=== PATIENT | female | born 1955 ===

== ENCOUNTER 2016-07-29 09:46 | Day surgery (SDC) | payer MEDICARE, MEDICAID ==
[2016-07-29 09:54] VITALS: BMI 21.7
[2016-07-29 10:41] VITALS: RESP 18
[2016-07-29 11:11] LABS: HEMATOCRIT 33.3 % (34.0-47.0); MEAN CORPUSCULAR HEMOGLOBIN 28.9 pg (27.0-31.0); MEAN CORPUSCULAR HGB CONC 32.1 g/dL (33.0-37.0); RED CELL DISTRIBUTION WIDTH 15.5 % (11.5-14.5); WHITE BLOOD COUNT 6.2 K/uL (4.8-10.8)
[2016-07-29 11:21] LABS: BILIRUBIN,TOTAL 0.3 mg/dl (0.2-1.3); CALCIUM 9.4 mg/dL (8.4-10.2); POTASSIUM 4.4 MMOL/L (3.6-5.0); TOTAL PROTEIN 8.9 G/DL (6.3-8.2)
[2016-07-29 11:36] LABS: PARTIAL THROMBOPLASTIN TIME 29.5 SECONDS (23.3-32.5)
[2016-07-29] MEDS ORDERED: Iodixanol 320 MG/ML 100 ML BOTTLE IV ONE (12:31)
[2016-07-29] MEDS ORDERED: Midazolam 2 MG/2 ML VIAL ONE (12:37)
[2016-07-29] MEDS ORDERED: Lidocaine 1% Inj (20ml) ONE (12:45)
--- NOTE | 2016-07-29 14:56 | CP.SDSHP ---
Same Day Surgery H & P - History Proposed Procedure: Right percutaneous nephrostomy tube change Pre-Op Diagnosis: Ureteral obstruction - Allergies Allergies: Allergies No Known Allergies Allergy (Verified 07/29/16 10:04) - Physical Exam Vital Signs: Vital Signs 07/29/16 07/29/16 10:39 12:45 Temperature 98.4 F 98.0 F Pulse Rate 71 80 Respiratory 18 18 Rate Blood Pressure 109/64 117/57 L O2 Sat by Pulse 97 100 Oximetry Mental Status: Alert & Oriented x3 Neuro: WNL Heart: WNL - Impression Impression: Pt with right perc. nephrostomy tube referred for PCN change. Plan nephrostogram and PCN change. Pt. Evaluated Today:Candidate for Anesthesia & Procedure: No (ASA 2 Malampati 2 ) - Date & Time Date: 07/29/16 Time: 13:00 Short Stay Discharge - Short Stay Discharge Admitting Diagnosis/Reason for Visit: HYDRONEPHROSIS Referrals: Delbert Jacobs MD [Primary Care Provider] - Progress Note/Discharge Note with Instructions: S/P right PCN change.
--- NOTE | 2016-07-29 14:58 | PCM.SURG1 ---
Surgeon's Initial Post Op Note - Surgeon's Notes Surgeon: Ru Moreno MD Bridal Service Sales And Management: NONE Type of Anesthesia: IV Sedation Pre-Operative Diagnosis: Ureteral obstruction Operative Findings: Antegrade nephrostogram showed severe stenosis of the distal ureteral. A guidewire was passed across the stenotic ureteral segment. Post-Operative Diagnosis: Ureteral obstruction Operation Performed: Nephrostogram, perc. nephrostomy tube change. Specimen/Specimens Removed: NONE Estimated Blood Loss: EBL {In ML}: 0 Blood Products Given: N/A Drains Used: No Drains Post-Op Condition: Good Date of Surgery/Procedure: 07/29/16 Time of Surgery/Procedure: 13:40
[2016-07-29 15:33] VITALS: BP 114/65; PULSE 86; TEMP 97.6; O2SAT 98
== END 2016-07-29 16:00 | disposition home or self-care (01) ==
LOC: H.OPSURG 09:46
PROVIDERS: ATTEND Urology
DX: N13.39 Other hydronephrosis (principal); I10 Essential (primary) hypertension
CPT/HCPCS: 36415; 75984; 80053; 85027; 85610; 85730; C1725; C1729; C1769; J2250; J3010; Q9967

== ENCOUNTER 2016-11-11 10:43 | Day surgery (SDC) | payer MEDICARE, MEDICAID ==
[2016-11-11 12:36] LABS: PARTIAL THROMBOPLASTIN TIME 28.5 Seconds (25.6-37.1)
[2016-11-11] MEDS ORDERED: Iodixanol 320 MG/ML 100 ML BOTTLE IV ONE (13:43)
--- NOTE | 2016-11-11 13:46 | CP.SDSHP ---
Same Day Surgery H & P - History Proposed Procedure: Nephrostomy tube change. Pre-Op Diagnosis: Ureteral obstruction - Allergies Allergies: Allergies No Known Allergies Allergy (Verified 07/29/16 10:04) - Physical Exam Vital Signs: Vital Signs 11/11/16 11/11/16 12:07 13:43 Temperature 98.4 F 97.1 F L Pulse Rate 71 79 Respiratory 18 16 Rate Blood Pressure 112/59 L 135/65 O2 Sat by Pulse 99 100 Oximetry Mental Status: Alert & Oriented x3 Neuro: WNL Heart: WNL Lungs: WNL - Impression Impression: Pt with right PCN referred for nephrostomy tube change. Plan right PCN change. Pt. Evaluated Today:Candidate for Anesthesia & Procedure: No Short Stay Discharge - Short Stay Discharge Admitting Diagnosis/Reason for Visit: HYDRONEPHROSIS Referrals: Delbert Jacobs MD [Primary Care Provider] -
[2016-11-11] MEDS ORDERED: Lidocaine 1% Inj (20ml) ONE (13:53)
--- NOTE | 2016-11-11 14:24 | PCM.SURG1 ---
Surgeon's Initial Post Op Note - Surgeon's Notes Surgeon: Ru Moreno MD Post Acute Care Registered Nurse: NONE Type of Anesthesia: Local Pre-Operative Diagnosis: Right ureteral obstruction Operative Findings: Right ureteral obstruction. Post-Operative Diagnosis: Right ureteral obstruction Operation Performed: Right percutaneous nephrostomy change. Specimen/Specimens Removed: NONE Estimated Blood Loss: EBL {In ML}: 0 Blood Products Given: N/A Drains Used: No Drains Post-Op Condition: Good Date of Surgery/Procedure: 11/11/16 Time of Surgery/Procedure: 14:20
[2016-11-11 15:51] VITALS: BP 123/56; PULSE 67; RESP 18; TEMP 97.8; O2SAT 98
== END 2016-11-11 16:00 | disposition home or self-care (01) ==
LOC: H.OPSURG 10:43
PROVIDERS: ATTEND Urology
DX: N13.39 Other hydronephrosis (principal)
CPT/HCPCS: 36415; 75984; 85610; 85730; C1729; C1769; Q9967

== ENCOUNTER 2017-02-14 10:22 | Day surgery (SDC) | payer MEDICARE, MEDICAID ==
[2017-02-14 10:38] VITALS: BMI 21.0
[2017-02-14 10:55] VITALS: RESP 18
[2017-02-14 11:29] LABS: BASO # 0.1 K/uL (0.0-0.2); EOS # 0.2 K/uL (0.0-0.7); EOS % 3.5 % (0.0-4.0); HEMATOCRIT 34.3 % (34.0-47.0); LYMPH # 1.1 K/uL (1.0-4.3); LYMPH % 19.8 % (20.0-40.0); MEAN CELL VOLUME 88.1 fl (81.0-99.0); MEAN CORPUSCULAR HEMOGLOBIN 28.5 pg (27.0-31.0); MEAN CORPUSCULAR HGB CONC 32.4 g/dL (33.0-37.0); MEAN PLATELET VOLUME 9.7 fl (7.2-11.7); MONO # 0.6 K/uL (0.0-0.8); NEUT # 3.8 K/uL (1.8-7.0); NEUT % 65.7 % (50.0-75.0); NRBC % 0.2 % (0.0-0.0); RED CELL DISTRIBUTION WIDTH 17.2 % (11.5-14.5); WHITE BLOOD COUNT 5.8 K/uL (4.8-10.8)
[2017-02-14 11:39] LABS: CALCIUM 9.3 mg/dL (8.4-10.2); POTASSIUM 3.9 MMOL/L (3.6-5.0)
[2017-02-14 11:41] LABS: PARTIAL THROMBOPLASTIN TIME 32.2 Seconds (25.6-37.1)
[2017-02-14] MEDS ORDERED: Iodixanol 320 MG/ML 100 ML BOTTLE IV ONE (12:47)
[2017-02-14] MEDS ORDERED: Midazolam 2 MG/2 ML VIAL ONE (13:01)
[2017-02-14] MEDS ORDERED: Lidocaine 1% Inj (20ml) ONE (13:07)
--- NOTE | 2017-02-14 13:25 | CP.SDSHP ---
Same Day Surgery H & P - History Proposed Procedure: Right PCN change Pre-Op Diagnosis: Cervical cancer with ureteral stricture AND hydronephrosis - Allergies Allergies: Allergies No Known Allergies Allergy (Verified 02/14/17 10:38) - Physical Exam Vital Signs: Vital Signs 02/14/17 02/14/17 10:53 10:56 Temperature 99.3 F Pulse Rate 74 74 Respiratory 18 Rate Blood Pressure 116/60 O2 Sat by Pulse 96 Oximetry Mental Status: Alert & Oriented x3 Neuro: WNL Heart: WNL Lungs: WNL - Impression Impression: Pt with h/o cervical cancer and ureteral stricture. Plan right PCN change. Pt. Evaluated Today:Candidate for Anesthesia & Procedure: Yes - Date & Time Date: 02/14/17 Time: 12:55 Short Stay Discharge - Short Stay Discharge Admitting Diagnosis/Reason for Visit: HYDRONEPHROSIS Referrals: Delbert Jacobs MD [Primary Care Provider] -
--- NOTE | 2017-02-14 13:27 | PCM.SURG1 ---
Surgeon's Initial Post Op Note - Surgeon's Notes Surgeon: Ru Moreno MD Flatwork Washer: NONE Type of Anesthesia: IV Sedation Pre-Operative Diagnosis: Cervical cancer with ureteral stricture AND hydronephrosis Operative Findings: Right nephrostogram showed mid ureterla obstruction. No flow of contrast into the distal ureter. Post-Operative Diagnosis: Cervical cancer with ureteral stricture AND hydronephrosis Operation Performed: Right PCN change. A new 8 fr PCN was placed. Specimen/Specimens Removed: NONE Estimated Blood Loss: EBL {In ML}: 1 Blood Products Given: N/A Drains Used: No Drains Post-Op Condition: Good Date of Surgery/Procedure: 02/14/17 Time of Surgery/Procedure: 13:20
[2017-02-14] MEDS ORDERED: HYDROmorphone 0.5 mg/0.5 ml ISec IVP PRN (13:34)
[2017-02-14] MEDS ORDERED: Lactated Ringer's 1,000 ML IV SCH (13:45)
[2017-02-14] MEDS ORDERED: LACTATED RINGER S IV ONE (14:00)
[2017-02-14 14:57] VITALS: TEMP 98; O2SAT 100
[2017-02-14 15:37] VITALS: BP 124/64; PULSE 94
== END 2017-02-14 15:40 | disposition home or self-care (01) ==
LOC: H.OPSURG 10:22
PROVIDERS: ATTEND Urology
DX: N13.1 Hydronephrosis with ureteral stricture, not elsewhere classified (principal)
CPT/HCPCS: 36415; 50432; 75984; 80048; 85025; 85610; 85730; C1729; C1769; J2250; J3010; J7120; Q9967

== ENCOUNTER 2017-05-26 11:24 | Day surgery (SDC) | payer MEDICARE, MEDICAID ==
[2017-05-26 11:36] VITALS: BMI 20.2
[2017-05-26 12:08] LABS: HEMOGLOBIN 11.4 g/dL (12.0-16.0); MEAN CELL VOLUME 88.3 fl (81.0-99.0); MEAN CORPUSCULAR HEMOGLOBIN 28.9 pg (27.0-31.0); MEAN CORPUSCULAR HGB CONC 32.8 g/dL (33.0-37.0); RBC 3.94 Mil/uL (3.80-5.20); RED CELL DISTRIBUTION WIDTH 17.9 % (11.5-14.5); WHITE BLOOD COUNT 6.8 K/uL (4.8-10.8)
[2017-05-26 12:09] LABS: PROTHROMBIN TIME 12.3 Seconds (9.8-13.1)
[2017-05-26 12:10] LABS: INR 1.1 (0.9-1.2); PARTIAL THROMBOPLASTIN TIME 32.2 Seconds (25.6-37.1)
[2017-05-26 12:17] LABS: ALB/GLOB RATIO 0.9 (1.0-2.1); ALBUMIN 4.2 g/dL (3.5-5.0); CALCIUM 9.4 mg/dL (8.4-10.2)
[2017-05-26] MEDS ORDERED: Lidocaine 1% Inj (20ml) ONE (12:45)
[2017-05-26] MEDS ORDERED: Iodixanol 320 MG/ML 100 ML BOTTLE IV ONE (13:05)
[2017-05-26] MEDS ORDERED: Midazolam 2 MG/2 ML VIAL ONE (13:20)
[2017-05-26] MEDS ORDERED: Propofol 10 mg/ml Inj (20 ML) ONE (13:20)
--- NOTE | 2017-05-26 13:38 | CP.SDSHP ---
Same Day Surgery H & P - History Proposed Procedure: Right nephrostogram and nephrostomy tube change Pre-Op Diagnosis: Ureteral obstruction - Allergies Allergies: Allergies No Known Allergies Allergy (Verified 05/26/17 11:39) - Physical Exam Vital Signs: Vital Signs 05/26/17 05/26/17 05/26/17 12:17 12:26 13:07 Temperature 98.4 F 98.4 F Pulse Rate 68 18 L 70 Respiratory 18 18 Rate Blood Pressure 107/60 145/74 O2 Sat by Pulse 100 100 Oximetry Mental Status: Alert & Oriented x3 Neuro: WNL Heart: WNL Lungs: WNL - {Optional Preform as Required} Abdomen: WNL - Impression Impression: Pt with ureteral obstruction and no output from right perc. nephrostomy tube. Plan Right nephrostogram and nephrostomy tube change. Informed consent obtained. Pt. Evaluated Today:Candidate for Anesthesia & Procedure: Yes (ASA 3 Malampati 3) - Date & Time Date: 05/26/17 Time: 13:00 Short Stay Discharge - Short Stay Discharge Admitting Diagnosis/Reason for Visit: HYDRONEPHROSIS RT Disposition: HOME/ ROUTINE Referrals: Delbert Jacobs MD [Primary Care Provider] -
--- NOTE | 2017-05-26 13:40 | PCM.SURG1 ---
Surgeon's Initial Post Op Note - Surgeon's Notes Surgeon: Ru Moreno MD Building Maintenance Worker: NONE Type of Anesthesia: IV Sedation Pre-Operative Diagnosis: Ureteral obstruction Operative Findings: Nephrostogram showed existing PCN partially out of the kidney. Antegrade nephrostogram showed severe distal ureteral stricture. Post-Operative Diagnosis: Ureteral obstruction Operation Performed: Right nephrostogram and nephrostomy tube change. A new 8 fr PCN placed. Specimen/Specimens Removed: none Estimated Blood Loss: EBL {In ML}: 1 Blood Products Given: N/A Drains Used: No Drains Post-Op Condition: Fair Date of Surgery/Procedure: 05/26/17 Time of Surgery/Procedure: 13:35
[2017-05-26] MEDS ORDERED: Sodium Chloride 0.9% 500 ML IV ONE (13:43)
[2017-05-26 15:09] VITALS: BP 115/72; PULSE 73; RESP 18; TEMP 97.4; O2SAT 100
--- NOTE | 2017-05-27 14:42 | VASCULAR ---
PROCEDURE: Date of procedure: 05/26/2017 Procedure: 1. Right antegrade nephrostogram 2. Exchange of right percutaneous nephrostomy tube Medications: Patient was sedated by anesthesiologist along with physiologic monitoring, 6 cc 2% Lidocaine. Radiation:9.09 mGy Fluoro time: 75.9 seconds EBL: 2 cc HISTORY: Right ureteral obstruction, no drainage from existing nephrostomy tube TECHNIQUE: Following informed consent the procedure time-out, patient was placed prone on the interventional table. The patient right nephrostomy tube and surrounding skin were prepped and draped in the usual sterile fashion. Dilute contrast injected through existing nephrostomy tube showed position to be partially out of the kidney. Nephrostomy tube was removed over guidewire. The angle catheter was advanced over the wire and positioned within the ureter an antegrade nephrostogram performed. Antegrade nephrostogram showed severe distal ureteral stricture. There is moderate to severe hydronephrosis. A new 8 Portuguese nephrostomy tube was advanced over the wire and formed within the renal pelvis. The tube was secured to patient's skin with 2 0 Prolene sutures. IMPRESSION: Right antegrade nephrostogram gram showed severe distal ureteral stricture. A new 8 Portuguese nephrostomy tube was placed.
== END 2017-05-26 15:50 | disposition home or self-care (01) ==
LOC: H.OPSURG 11:24
PROVIDERS: ATTEND Urology
DX: N13.39 Other hydronephrosis (principal); N13.5 Crossing vessel and stricture of ureter without hydronephrosis
CPT/HCPCS: 36415; 50435; 80053; 85027; 85610; 85730; A4310; A4357; C1729; C1769; J2250; J2704; J3010; J7040; Q9967

== ENCOUNTER 2017-09-12 09:34 | Day surgery (SDC) | payer MEDICARE, MEDICAID ==
[2017-09-12 09:52] VITALS: BMI 20.5
[2017-09-12 10:06] VITALS: RESP 18
[2017-09-12 11:34] LABS: BASO % 0.7 % (0.0-2.0); EOS # 0.2 K/uL (0.0-0.7); EOS % 3.4 % (0.0-4.0); HEMOGLOBIN 9.8 g/dL (12.0-16.0); LYMPH # 1.1 K/uL (1.0-4.3); LYMPH % 21.2 % (20.0-40.0); MEAN CORPUSCULAR HEMOGLOBIN 28.3 pg (27.0-31.0); MEAN CORPUSCULAR HGB CONC 32.5 g/dL (33.0-37.0); MEAN PLATELET VOLUME 9.2 fl (7.2-11.7); MONO # 0.6 K/uL (0.0-0.8); MONO % 10.6 % (0.0-10.0); NEUT # 3.5 K/uL (1.8-7.0); NEUT % 64.1 % (50.0-75.0); NRBC % 0.1 % (0.0-0.0); RBC 3.48 Mil/uL (3.80-5.20); RED CELL DISTRIBUTION WIDTH 16.3 % (11.5-14.5); WHITE BLOOD COUNT 5.4 K/uL (4.8-10.8)
[2017-09-12 11:38] LABS: CALCIUM 9.2 mg/dL (8.4-10.2)
[2017-09-12 11:48] LABS: INR 1.1 (0.9-1.2); PARTIAL THROMBOPLASTIN TIME 31.5 Seconds (25.6-37.1); PROTHROMBIN TIME 11.8 Seconds (9.8-13.1)
[2017-09-12] MEDS ORDERED: Iodixanol 320 MG/ML 100 ML BOTTLE IV ONE (13:05)
--- NOTE | 2017-09-12 13:06 | CP.SDSHP ---
Same Day Surgery H & P - History Proposed Procedure: Nephrostomy tube change Pre-Op Diagnosis: Ureteral obstruction - Allergies Allergies: Allergies No Known Allergies Allergy (Verified 09/12/17 09:50) - Physical Exam Vital Signs: Vital Signs 09/12/17 09:55 Temperature 98.3 F Pulse Rate 74 Respiratory 18 Rate Blood Pressure 124/61 O2 Sat by Pulse 99 Oximetry Mental Status: Alert & Oriented x3 Neuro: WNL Heart: WNL Lungs: WNL - Impression Impression: Pt with right PCN present for routine change. Plan right PCN change. Pt. Evaluated Today:Candidate for Anesthesia & Procedure: No - Date & Time Date: 09/12/17 Time: 13:00 Short Stay Discharge - Short Stay Discharge Admitting Diagnosis/Reason for Visit: HYDRONEPHROSIS Referrals: Delbert Jacobs MD [Primary Care Provider] -
[2017-09-12] MEDS ORDERED: Lidocaine 1% Inj (20ml) ONE (13:08)
--- NOTE | 2017-09-12 13:19 | PCM.SURG1 ---
Surgeon's Initial Post Op Note - Surgeon's Notes Surgeon: Ru Moreno MD Architectural Engineer: NONE Type of Anesthesia: Local Pre-Operative Diagnosis: Ureteral obstruction Operative Findings: Right nephrostogram showd no hydronephrosis. PCN in place. Post-Operative Diagnosis: Ureteral obstruction Operation Performed: Right perc. nephrostomy tube change. New 8 fr tube placed. Specimen/Specimens Removed: none Estimated Blood Loss: EBL {In ML}: 1 Blood Products Given: N/A Drains Used: No Drains Post-Op Condition: Good Date of Surgery/Procedure: 09/12/17 Time of Surgery/Procedure: 13:10
[2017-09-12 13:58] VITALS: BP 119/55; PULSE 76; TEMP 98.2; O2SAT 99
--- NOTE | 2017-09-13 14:14 | VASCULAR ---
Date of procedure: 09/12/2017 Procedure: 1. Right antegrade nephrostogram 2. Exchange of right percutaneous nephrostomy tube Medications: Patient was sedated by anesthesiologist along with physiologic monitoring, 6 cc 2% Lidocaine. Radiation: 1.24 mGy Fluoro time: 13.8 seconds EBL: 0 cc HISTORY: Right ureteral obstruction, nephrostomy tube change TECHNIQUE: Following informed consent the procedure time-out, patient was placed prone on the interventional table. The patient right nephrostomy tube and surrounding skin were prepped and draped in the usual sterile fashion. Dilute contrast injected through existing nephrostomy tube showed position to be within the kidney. Nephrostomy tube was removed over guidewire. A new 8 Ghanaian nephrostomy tube was advanced over the wire and formed within the renal pelvis. The tube was secured to patient's skin with 2 0 Prolene sutures. IMPRESSION: Exchange of right percutaneous nephrostomy tube with placement of a new 8 Ghanaian nephrostomy tube.
== END 2017-09-12 13:40 | disposition home or self-care (01) ==
LOC: H.OPSURG 09:34
PROVIDERS: ATTEND Urology
DX: N13.30 Unspecified hydronephrosis (principal)
CPT/HCPCS: 36415; 50435; 80048; 85025; 85610; 85730; A4310; C1729; C1769; Q9967

== ENCOUNTER 2017-11-19 22:11 | Emergency (ER) | payer MEDICARE, MEDICAID ==
[2017-11-19 22:12] VITALS: BMI 20.5
[2017-11-19] MEDS ORDERED: Sodium Chloride 0.9% 1,000 ML IV STA (23:01)
[2017-11-19 23:54] LABS: BASO # 0.1 K/uL (0.0-0.2); BASO % 0.7 % (0.0-2.0); EOS # 0.1 K/uL (0.0-0.7); EOS % 0.7 % (0.0-4.0); HEMOGLOBIN 10.1 g/dL (12.0-16.0); LYMPH # 1.1 K/uL (1.0-4.3); LYMPH % 11.8 % (20.0-40.0); MEAN CORPUSCULAR HGB CONC 32.9 g/dL (33.0-37.0); MEAN PLATELET VOLUME 9.2 fl (7.2-11.7); MONO # 0.4 K/uL (0.0-0.8); MONO % 4.6 % (0.0-10.0); NEUT # 7.7 K/uL (1.8-7.0); NEUT % 82.2 % (50.0-75.0); RBC 3.75 Mil/uL (3.80-5.20); RED CELL DISTRIBUTION WIDTH 16.4 % (11.5-14.5); WHITE BLOOD COUNT 9.4 K/uL (4.8-10.8)
[2017-11-20 01:30] LABS: ALB/GLOB RATIO 0.9 (1.0-2.1); ALBUMIN 3.7 g/dL (3.5-5.0); CALCIUM 8.9 mg/dL (8.4-10.2)
--- NOTE | 2017-11-20 01:44 | ED PDOC ---
HPI:Nausea, Vomiting, Diarrhea Time Seen by Provider: 11/19/17 22:45 Chief Complaint (Nursing): GI Problem Chief Complaint (Provider): GI Problem History Per: Patient History/Exam Limitations: no limitations Onset/Duration Of Symptoms: Hrs (x 8) Current Symptoms Are (Timing): Still Present Context: Food Quality Of Discomfort: "Pain" Associated Symptoms: Chills, Vomiting, Loss Of Appetite Additional Complaint(s): 62 year old female with a history of UTI, cervical and lung cancer, HTN and kidney stones presents to the ED with chills, loss of appetite and 4 episodes of nonbloody, nonbilious vomiting after eating pizza at 6pm last night. Notes she saw PMD yesterday, was diagnosed with UTI and started on Macrobid. Her last dose was 9:30am. Patient has had child catheter in place for 2 years secondary to complications of radiation therapy/hydronephrosis. Also complains of mild epigastric pain while vomiting. Denies fever, cough/shortness of breath, chest pain, headache, numbness, weakness and dizziness. PMD: Dr. Jacobs Past Medical History Reviewed: Historical Data, Nursing Documentation, Vital Signs Vital Signs: Last Vital Signs Temp 98.7 F 11/19/17 22:31 Pulse 90 11/19/17 22:31 Resp 19 11/19/17 22:31 BP 112/67 11/19/17 22:31 Pulse Ox 98 11/19/17 22:31 - Medical History PMH: Anemia, Anxiety, Depression, HTN, Kidney Stones, Malignancy (lung CA and cervical CA ), Chronic Kidney Disease (kidney stones; rt nephrostomy) - Surgical History Other surgeries: tubal ligation and left lung lobectomy - Family History Family History: States: Unknown Family Hx - Social History Current smoker - smoking cessation education provided: No Alcohol: None Drugs: Denies - Home Medications Home Medications: Ambulatory Orders Medication Instructions Recorded Calcitriol [Rocaltrol] 0.25 mcg PO MWF #0 sgl 10/20/15 Folic Acid 1 mg PO DAILY 03/25/16 Loperamide [Loperamide HCl] 2 mg PO PRN PRN 03/25/16 Zolpidem [Ambien] 5 mg PO HS 03/25/16 amLODIPine [Norvasc] 5 mg PO DAILY 11/11/16 Metoprolol Tartrate [Lopressor] 50 mg PO BID 05/26/17 Ondansetron ODT [Zofran ODT] 4 mg PO Q6 PRN #12 odt 11/20/17 - Allergies Allergies/Adverse Reactions: Allergies Allergy/AdvReac Type Severity Reaction Status Date / Time No Known Allergies Allergy Verified 11/19/17 22:12 Review of Systems ROS Statement: Except As Marked, All Systems Reviewed And Found Negative Constitutional: Positive for: Chills, Other (loss of appetite). Negative for: Fever Gastrointestinal: Positive for: Vomiting (x 4), Abdominal Pain Physical Exam - Reviewed Nursing Documentation Reviewed: Yes Vital Signs Reviewed: Yes - Physical Exam Appears: Positive for: Well, Non-toxic, No Acute Distress Head Exam: Positive for: ATRAUMATIC, NORMAL INSPECTION, NORMOCEPHALIC Skin: Positive for: Normal Color, Warm, Dry Eye Exam: Positive for: Normal appearance, EOMI, PERRL ENT: Positive for: Other (Mucus membranes moist. Airway patent, (-) stridor.) Neck: Positive for: Painless ROM, Supple Cardiovascular/Chest: Positive for: Regular Rate, Rhythm. Negative for: Murmur Respiratory: Positive for: Normal Breath Sounds. Negative for: Accessory Muscle Use, Respiratory Distress Gastrointestinal/Abdominal: Positive for: Bowel Sounds (active x4), Soft, Tenderness (mild epigastric tenderness), Other (child catheter in place with leg bag). Negative for: Distended, Guarding, Rebound Back: Negative for: L CVA Tenderness, R CVA Tenderness, Vertebral Tenderness Extremity: Positive for: Normal ROM. Negative for: Deformity Neurologic/Psych: Positive for: Alert, Oriented (x 3), Gait (steady in ED). Negative for: Motor/Sensory Deficits, Aphasia, Facial Droop - Laboratory Results Result Diagrams: 11/19/17 23:50 11/20/17 01:13 - ECG O2 Sat by Pulse Oximetry: 98 (RA) Pulse Ox Interpretation: Normal Medical Decision Making Medical Decision Makin:00 Impression: nausea and vomiting, UTI Plan: --IV access --EKG --CMP --Lipase --CBC --NS IV --Pepcid 20 mg IVP --Toradol 15 mg IVP --Zofran Inj 4 mg IVP --Blood culture Accucheck: 129 0100 Labs reviewed and unchanged from prior ED visits. Patient reports significant improvement of symptoms at this time. Resolution of nausea, denies abdominal pain. Tolerating PO intake at this time. 0150 EKG: NSR @ 72bpm, (-) ST elevation, (+) RBBB, QTc 451 0300 On exam, patient remains AAOx3, in no acute distress. Lungs clear to auscultation, cardiac RRR, abdomen soft, non-tender, repeat neuro exam shows no focal findings. VSS, stable for discharge. Patient advised to continue antibiotics from PMD until complete. Lab/Diagnostic results d/w the patient in great detail. Diagnosis of nausea and vomiting, UTI d/w the patient. Based on history, exam and diagnostic results, plan will be for outpatient follow up with PMD. Patient instructed to follow-up with pmd / referral provided / the clinic in 1- 2 days without fail. Advised to take medication as prescribed. Return to the emergency room at any time for any new or worsening symptoms. Patient states she fully agrees with and understands discharge instructions. States that she agrees with the plan and disposition. Verbalized and repeated discharge instructions and plan. I have given the patient opportunity to ask any additional questions. Scribe Attestation: Documented by Divya Lopez acting as a scribe for Soheila Maciel PA-C Provider Scribe Attestation: All medical record entries made by the Scribe were at my direction and personally dictated by me. I have reviewed the chart and agree that the record accurately reflects my personal performance of the history, physical exam, medical decision making, and the department course for this patient. I have also personally directed, reviewed, and agree with the discharge instructions and disposition. Disposition - Clinical Impression Clinical Impression: UTI (urinary tract infection), Nausea and vomiting - Patient ED Disposition Is Patient to be Admitted: No Counseled Patient/Family Regarding: Studies Performed, Diagnosis, Need For Followup, Rx Given - Disposition Referrals: Delbert Jacobs MD [Family Provider] - Disposition: Routine/Home Disposition Time: 03:07 Condition: STABLE Additional Instructions: The emergency medical care you received today was directed towards the acute presenting symptoms. If you were prescribed any medication, please fill it and give as directed. It may take several days for your symptoms to resolve. Return to the Emergency Department at any time if symptoms worsen, do not improve, or if any other problems arise. Please contact your doctor in 2 days for re-evaluation and follow up / or call one of the physicians/clinics you have been referred to that are listed on the Patient Visit Information form that is included in your discharge packet. Bring any paperwork you were given at discharge with you along with any medications to your follow up visit. Our treatment cannot replace ongoing medical care by a primary care provider (PCP) outside of the emergency department. CONTINUE ANTIBIOTICS FROM PMD. Prescriptions: Ondansetron ODT [Zofran ODT] 4 mg PO Q6 PRN #12 odt PRN Reason: Nausea/Vomiting Instructions: Urinary Tract Infection, Adult (DC), [place] Diet, Nausea and Vomiting, Adult (DC) Forms: [place] ([place]ian) Print Language: FINNISH - POA Present On Arrival: Cath Associated UTI Results - Lab Results Lab Results: 11/20/17 11/19/17 11/19/17 01:13 23:50 23:27 WBC 9.4 D RBC 3.75 L Hgb 10.1 L Hct 30.8 L MCV 82.0 D MCH 27.0 MCHC 32.9 L RDW 16.4 H Plt Count 274 MPV 9.2 Neut % (Auto) 82.2 H Lymph % (Auto) 11.8 L Kay % (Auto) 4.6 Eos % (Auto) 0.7 Baso % (Auto) 0.7 Neut # (Auto) 7.7 H Lymph # (Auto) 1.1 Kay # (Auto) 0.4 Eos # (Auto) 0.1 Baso # (Auto) 0.1 Sodium 137 Potassium 4.3 Chloride 109 H Carbon Dioxide 21 L Anion Gap 11 BUN 19 H Creatinine 1.7 H Est GFR ( Amer) 37 Est GFR (Non-Af Amer) 30 POC Glucose (mg/dL) 129 H Random Glucose 113 H Calcium 8.9 Total Bilirubin 0.2 AST 21 ALT 21 Alkaline Phosphatase 83 Total Protein 7.9 Albumin 3.7 Globulin 4.2 H Albumin/Globulin Ratio 0.9 L Lipase 56
--- NOTE | 2017-11-20 08:03 | CARD ---
APPROVED REPORT Date of service: 11/20/2017 <Conclusion> Normal sinus rhythm with sinus arrhythmia Right bundle branch block Left anterior fascicular block Bifascicular block Minimal voltage criteria for LVH, may be normal variant Septal infarct, age undetermined Abnormal ECG
[2017-11-20 08:28] VITALS: BP 110/60; PULSE 76; RESP 16; TEMP 98.6
[2017-11-22 12:36] VITALS: O2SAT 98
== END 2017-11-20 03:25 | disposition home or self-care (01) ==
LOC: H.ER 22:11
DX: N39.0 Urinary tract infection, site not specified (principal); R11.2 Nausea with vomiting, unspecified; Z86.59 Personal history of other mental and behavioral disorders; I12.9 Hypertensive chronic kidney disease with stage 1 through stage 4 chronic kidney disease, or unspecified chronic kidney disease; N18.9 Chronic kidney disease, unspecified; Z85.118 Personal history of other malignant neoplasm of bronchus and lung; Z85.41 Personal history of malignant neoplasm of cervix uteri; Z87.442 Personal history of urinary calculi
CPT/HCPCS: 80053; 82948; 83690; 85025; 87040; 93005; 96374; 96375; 99284; J1885; J2405; J7030

== ENCOUNTER 2017-12-14 10:21 | Day surgery (SDC) | payer MEDICARE, MEDICAID ==
[2017-12-14 10:59] VITALS: BMI 20.1
[2017-12-14 11:55] LABS: BASO # 0.1 K/uL (0.0-0.2); BASO % 0.9 % (0.0-2.0); EOS # 0.2 K/uL (0.0-0.7); EOS % 2.3 % (0.0-4.0); HEMOGLOBIN 7.8 g/dL (12.0-16.0); LYMPH # 1.9 K/uL (1.0-4.3); LYMPH % 21.9 % (20.0-40.0); MEAN CELL VOLUME 81.5 fl (81.0-99.0); MEAN CORPUSCULAR HEMOGLOBIN 26.7 pg (27.0-31.0); MEAN CORPUSCULAR HGB CONC 32.7 g/dL (33.0-37.0); MEAN PLATELET VOLUME 8.7 fl (7.2-11.7); MONO # 0.8 K/uL (0.0-0.8); MONO % 9.2 % (0.0-10.0); NEUT # 5.6 K/uL (1.8-7.0); NEUT % 65.7 % (50.0-75.0); RBC 2.93 Mil/uL (3.80-5.20); RED CELL DISTRIBUTION WIDTH 17.5 % (11.5-14.5); WHITE BLOOD COUNT 8.5 K/uL (4.8-10.8)
[2017-12-14 11:57] LABS: INR 1.3; PROTHROMBIN TIME 14.6 Seconds (9.8-13.1)
[2017-12-14 12:00] LABS: PARTIAL THROMBOPLASTIN TIME 30.9 Seconds (25.6-37.1)
[2017-12-14] MEDS ORDERED: Lidocaine 1% 5ml Abboject ONE (13:11)
[2017-12-14] MEDS ORDERED: Iodixanol 320 mg/ml 50 ml Sol IV ONE (13:12)
--- NOTE | 2017-12-14 13:27 | CP.SDSHP ---
Same Day Surgery H & P - History Proposed Procedure: Right perc. nephrostomy change. Pre-Op Diagnosis: Right hydronephrosis - Allergies Allergies: Allergies No Known Allergies Allergy (Verified 12/14/17 10:59) - Physical Exam Vital Signs: Vital Signs 12/14/17 11:15 Temperature 98.3 F Pulse Rate 81 Respiratory 20 Rate Blood Pressure 126/61 O2 Sat by Pulse 81 L Oximetry - Impression Impression: Pt with right hydronephrosis and referred for right PNC change. Plan right PCN change. Pt. Evaluated Today:Candidate for Anesthesia & Procedure: No - Date & Time Date: 12/14/17 Time: 13:00 Short Stay Discharge - Short Stay Discharge Admitting Diagnosis/Reason for Visit: HYDRONEPHROSIS Disposition: HOME/ ROUTINE
--- NOTE | 2017-12-14 13:28 | PCM.SURG1 ---
Surgeon's Initial Post Op Note - Surgeon's Notes Surgeon: Ru Moreno MD Iron Assorter: NONE Type of Anesthesia: Local Pre-Operative Diagnosis: Right hydronephrosis Operative Findings: Right pcn in place. Post-Operative Diagnosis: Right hydronephrosis Operation Performed: Right PCN exhange for a new 8 fr PNC. Specimen/Specimens Removed: NONE Estimated Blood Loss: EBL {In ML}: 0 Blood Products Given: N/A Post-Op Condition: Good Date of Surgery/Procedure: 12/14/17 Time of Surgery/Procedure: 13:25
[2017-12-14 13:30] VITALS: O2SAT 100
--- NOTE | 2017-12-14 13:39 | VASCULAR ---
Date of procedure: 12/14/2017 Procedure: 1. Right antegrade nephrostogram 2. Exchange of right percutaneous nephrostomy tube Medications: 3 cc 2% Lidocaine. Radiation: 3.38 mGy Fluoro time: 32.8 Seconds EBL: cc HISTORY: Right ureteral obstruction, nephrostomy tube change TECHNIQUE: Following informed consent the procedure time-out, patient was placed prone on the interventional table. The patient right nephrostomy tube and surrounding skin were prepped and draped in the usual sterile fashion. Dilute contrast injected through existing nephrostomy tube showed position to be within the kidney. Nephrostomy tube was removed over guidewire. A new 8 British nephrostomy tube was advanced over the wire and formed within the renal pelvis. The tube was secured to patient's skin with 2 0 Prolene sutures. IMPRESSION: Exchange of right percutaneous nephrostomy tube with placement of a new 8 British nephrostomy tube.
[2017-12-14 15:13] VITALS: BP 123/76; PULSE 78; RESP 18; TEMP 97
== END 2017-12-14 14:45 | disposition home or self-care (01) ==
LOC: H.OPSURG 10:21
PROVIDERS: ATTEND Urology
DX: N13.1 Hydronephrosis with ureteral stricture, not elsewhere classified (principal)
CPT/HCPCS: 36415; 50435; 80048; 85025; 85610; 85730; C1729; Q9967

== ENCOUNTER 2018-02-09 10:53 | Inpatient (IN) | payer MEDICARE, MEDICAID ==
[2018-02-09 10:53] VITALS: BMI 20.1
[2018-02-09 12:55] LABS: BASO # 0.1 K/uL (0.0-0.2); BASO % 1.3 % (0.0-2.0); EOS # 0.1 K/uL (0.0-0.7); EOS % 1.6 % (0.0-4.0); HEMOGLOBIN 7.8 g/dL (12.0-16.0); LYMPH # 1.3 K/uL (1.0-4.3); LYMPH % 15.1 % (20.0-40.0); MEAN CELL VOLUME 78.1 fl (81.0-99.0); MEAN CORPUSCULAR HEMOGLOBIN 24.9 pg (27.0-31.0); MEAN CORPUSCULAR HGB CONC 31.9 g/dL (33.0-37.0); MONO # 0.8 K/uL (0.0-0.8); NEUT # 6.1 K/uL (1.8-7.0); NRBC % 0.1 % (0.0-0.0); RBC 3.13 Mil/uL (3.80-5.20); RED CELL DISTRIBUTION WIDTH 17.9 % (11.5-14.5); WHITE BLOOD COUNT 8.3 K/uL (4.8-10.8)
[2018-02-09 13:01] LABS: URINE AMORPHOUS SEDIMENT RARE /ul (<OCC); URINE BACTERIA MANY (<OCC); URINE BILIRUBIN NEGATIVE (NEGATIVE); URINE BLOOD SMALL (NEGATIVE); URINE CLARITY CLOUDY (Clear); URINE COLOR YELLOW (YELLOW); URINE GLUCOSE (UA) NEG (NEGATIVE); URINE LEUKOCYTE ESTERASE LARGE Leu/uL (Negative); URINE PROTEIN 30 mg/dL (NEGATIVE); URINE UROBILINOGEN 0.2-1.0 mg/dL (0.2-1.0)
[2018-02-09 13:16] LABS: ALB/GLOB RATIO 0.8 (1.0-2.1)
[2018-02-09 13:19] LABS: CALCIUM 9.4 mg/dL (8.4-10.2)
[2018-02-09 14:33] LABS: SQUAMOUS EPITHIAL 1 /hpf (0-5); URINE AMORPHOUS SEDIMENT MODERATE /ul (<OCC); URINE BACTERIA MANY (<OCC); URINE BILIRUBIN NEGATIVE (NEGATIVE); URINE BLOOD MODERATE (NEGATIVE); URINE CLARITY CLOUDY (Clear); URINE COLOR YELLOW (YELLOW); URINE GLUCOSE (UA) NEG (NEGATIVE); URINE LEUKOCYTE ESTERASE MOD Leu/uL (Negative); URINE PROTEIN 100 mg/dL (NEGATIVE); URINE UROBILINOGEN 0.2-1.0 mg/dL (0.2-1.0)
[2018-02-09] MEDS ORDERED: Cefepime 1 GM in Sodium Chloride 0.9% 100 ML IVPB ONE (15:45)
--- NOTE | 2018-02-09 16:50 | ED PDOC ---
HPI: Female Pain Time Seen by Provider: 02/09/18 11:13 Chief Complaint (Nursing): Female Genitourinary Chief Complaint (Provider): Suprapubic discomfort, dysuria History Per: Patient History/Exam Limitations: no limitations Onset/Duration Of Symptoms: Days Current Symptoms Are (Timing): Still Present Additional Complaint(s): 63 yo female with history of lung CA and cervical CA over ten years ago and HTN presents for evaluation of recurrent UTI. Pt states she continues to have suprapubic discomfort and burning when urinating. Pt was on 3 courses of antibiotics. Pt sees Dr. Pemberton. Pt was sent to ER for evaluation and IV antibiotics for recurrent UTI. Pt has nephrostomy tube in the right kidney due to hydronephrosis from radiation during treatment of cervical cancer. Past Medical History Vital Signs: Last Vital Signs Temp Pulse Resp 18 02/09/18 11:07 BP Pulse Ox - Medical History PMH: Anemia, Anxiety, Depression, HTN, Kidney Stones, Malignancy (lung CA and cervical CA ), Chronic Kidney Disease (kidney stones; rt nephrostomy) Denies: HIV - Family History Family History: States: Unknown Family Hx - Immunization History Hx Influenza Vaccination: No Hx Pneumococcal Vaccination: No - Home Medications Home Medications: Ambulatory Orders Medication Instructions Recorded Calcitriol [Rocaltrol] 0.25 mcg PO MWF #0 sgl 10/20/15 Loperamide [Loperamide HCl] 2 mg PO PRN PRN 03/25/16 amLODIPine [Norvasc] 5 mg PO DAILY 11/11/16 B Complex W-C No.20/Folic Acid 1 cap PO DAILY 02/09/18 [Nephrocaps Softgel] Metoprolol Tartrate [Lopressor] 25 mg PO Q12 02/09/18 Omeprazole 40 mg PO DAILY 02/09/18 Potassium Citrate [Urocit-K ER Tab] 10 meq PO TID 02/09/18 Zolpidem [Ambien] 5 mg PO HS PRN 02/09/18 - Allergies Allergies/Adverse Reactions: Allergies Allergy/AdvReac Type Severity Reaction Status Date / Time No Known Allergies Allergy Verified 12/14/17 10:59 Physical Exam - Reviewed Nursing Documentation Reviewed: Yes Vital Signs Reviewed: Yes - Physical Exam Appears: Positive for: Well, Non-toxic, No Acute Distress Head Exam: Positive for: ATRAUMATIC, NORMAL INSPECTION, NORMOCEPHALIC Skin: Positive for: Normal Color, Warm, DRY Eye Exam: Positive for: Normal appearance ENT: Positive for: Normal ENT Inspection Neck: Positive for: Normal, Painless ROM Cardiovascular/Chest: Positive for: Regular Rate, Rhythm Respiratory: Positive for: Normal Breath Sounds. Negative for: Accessory Muscle Use, Respiratory Distress Gastrointestinal/Abdominal: Positive for: Normal Exam, Soft, Tenderness (Mild suprapubic tenderness) Back: Positive for: Normal Inspection Extremity: Positive for: Normal ROM Neurologic/Psych: Positive for: Alert, Oriented - Laboratory Results Result Diagrams: 02/09/18 12:15 02/09/18 12:15 Medical Decision Making Medical Decision Making: U/A and Culture taken from nephrostomy tube and clean catch. Nephrostomy tube was the first U/A sent. Discussed labs and admission with Dr. Pemberton, Dr. Moses (senior research consultant for Dr. Jacobs) and Dr. Hernandez. Cefepime ordered IV, renal dose as per Dr. Pemberton. Disposition - Clinical Impression Clinical Impression: Recurrent UTI, Failure of outpatient treatment - Patient ED Disposition Is Patient to be Admitted: Yes Counseled Patient/Family Regarding: Diagnosis - Disposition Disposition Time: 16:58 Condition: GOOD Forms: [facility] (Samoan)
--- NOTE | 2018-02-09 19:44 | CP.PCM.HP ---
<Sultan Alison - Last Filed: 02/09/18 19:40> History of Present Illness - History of Present Illness History of Present Illness: CC: Urinary frequency and intermittent suprapubic pain HPI:63 year old female with PMHx of Lung CA s/p Lobectomy and Chemotx in 2003, Hx of Cervical CA s/p Chemo and radiation therapy in 2000, Obstructive Uropathy sec to Cervical CA s/p Right Ureteral Stent Placement, CKD stage III B, Anemia and HTN presented to ER for evaluation of recurrent UTI with symptoms of urinary frequency and intermittent suprapubic pain. Patient reports over the last 2-3 months, she had 5-6 different types of PO antibiotics for UTI but her symptoms persist. Patient was seen by Dr. Pemberton yesterday and recommeded to have IV antibiotics and right nephrostomy tube placement. She denies any hematuria, nausea, vomiting, fever, chills, headache, or dizziness. ROS: all 12 systems reviewed and negative except as mentioned in HPI PMHx: Lung CA s/p Lobectomy and Chemotx in 2003, Hx of Cervical CA s/p Chemo and radiation therapy in 2000, Obstructive Uropathy sec to Cervical CA s/p Right Ureteral Stent Placement, CKD stage III B, Anemia and HTN. PSHx: Left lung lobectomy in 2003, Ureteral stent placement Social hx: Quit smoking cigarettes 20 years ago (smoked 1/2 PPD x 10 yrs). Denies drinking EtOH or using illicit drugs. Lives alone. Family hx: Father and Mother: HTN Allergies: NKDA Medications: Loperamide 2 mg PO PRN, Amlodipine 5 mg PO DAILY, Vitamin B Complex PO daily, Metoprolol Tartrate 50 mg bid, Omeprazole 40 mg PO DAILY ,Potassium Citrate 10 meq PO TID, Zolpidem 5 mg PO HS PRN. PMD: Dr Jacobs Urologist: Dr. Mares Ppap Coordinator: Dr. Pemberton Code Status: Full COde Surrogate : Daughter Marie [phone] Present on Admission - Present on Admission Any Indicators Present on Admission: No Review of Systems - Review of Systems All systems: reviewed and no additional remarkable complaints except Past Patient History - Infectious Disease Hx of Infectious Diseases: None - Tetanus Immunizations Tetanus Immunization: Unknown - Past Medical History & Family History Past Medical History?: Yes - Past Social History Smoking Status: Former Smoker - CARDIAC Hx Cardiac Disorders: Yes - PULMONARY Hx Respiratory Disorders: Yes - NEUROLOGICAL Hx Neurological Disorder: No - HEENT Hx HEENT Problems: No - RENAL Hx Chronic Kidney Disease: Yes (kidney stones; rt nephrostomy) - ENDOCRINE/METABOLIC Hx Endocrine Disorders: No - HEMATOLOGICAL/ONCOLOGICAL Hx Anemia: Yes Hx Human Immunodeficiency Virus (HIV): No - INTEGUMENTARY Hx Dermatological Problems: No - MUSCULOSKELETAL/RHEUMATOLOGICAL Hx Musculoskeletal Disorders: No Hx Falls: No - GASTROINTESTINAL Hx Gastrointestinal Disorders: No - GENITOURINARY/GYNECOLOGICAL Hx Genitourinary Disorders: Yes - PSYCHIATRIC Hx Anxiety: Yes Hx Depression: Yes - SURGICAL HISTORY Hx Surgeries: Yes Hx Pulmonary Surgery: Yes (Left Lobectomy) Hx Tubal Ligation: Yes Other/Comment: nephrostomy rt and left kidneys. 01/19/16 cystoscopy. insertion and removal of lifeport - ANESTHESIA Hx Anesthesia: Yes Hx Anesthesia Reactions: No Hx Malignant Hyperthermia: No Meds Allergies/Adverse Reactions: Allergies Allergy/AdvReac Type Severity Reaction Status Date / Time No Known Allergies Allergy Verified 12/14/17 10:59 Physical Exam - Constitutional Appears: Well, Non-toxic, No Acute Distress - Head Exam Head Exam: ATRAUMATIC, NORMOCEPHALIC - Eye Exam Eye Exam: Normal appearance, PERRL. absent: Scleral icterus - ENT Exam ENT Exam: Mucous Membranes Moist - Neck Exam Neck exam: Positive for: Full Rom, Normal Inspection - Respiratory Exam Respiratory Exam: Clear to Auscultation Bilateral, NORMAL BREATHING PATTERN. absent: Rhonchi, Wheezes Additional comments: Healed scar in the left upper back from lobectomy surgery - Cardiovascular Exam Cardiovascular Exam: REGULAR RHYTHM, RRR, +S1, +S2, Systolic Murmur - GI/Abdominal Exam GI & Abdominal Exam: Normal Bowel Sounds, Soft. absent: Guarding, Rebound, Rigid, Tenderness - Extremities Exam Extremities exam: Positive for: normal inspection, pedal pulses present. Negative for: calf tenderness, pedal edema - Back Exam Back exam: absent: CVA tenderness (L), CVA tenderness (R) - Neurological Exam Neurological exam: Alert, Oriented x3 - Psychiatric Exam Psychiatric exam: Normal Affect, Normal Mood - Skin Skin Exam: Normal Color, Warm Results - Vital Signs Recent Vital Signs: Last Vital Signs Temp 98.7 F 02/09/18 18:33 Pulse 79 02/09/18 18:33 Resp 15 02/09/18 18:33 BP 92/64 L 02/09/18 18:33 Pulse Ox 100 02/09/18 17:28 - Labs Result Diagrams: 02/09/18 12:15 02/09/18 12:15 Labs: Laboratory Results - last 24 hr 02/09/18 02/09/18 02/09/18 12:15 12:15 12:15 WBC 8.3 RBC 3.13 L Hgb 7.8 L Hct 24.4 L MCV 78.1 L D MCH 24.9 L MCHC 31.9 L RDW 17.9 H Plt Count 395 D MPV 8.0 Neut % (Auto) 73.0 Lymph % (Auto) 15.1 L Thayer % (Auto) 9.0 Eos % (Auto) 1.6 Baso % (Auto) 1.3 Neut # (Auto) 6.1 Lymph # (Auto) 1.3 Thayer # (Auto) 0.8 Eos # (Auto) 0.1 Baso # (Auto) 0.1 Sodium 138 Potassium 4.2 Chloride 100 Carbon Dioxide 25 Anion Gap 17 BUN 18 H Creatinine 2.0 H Est GFR ( Amer) 30 Est GFR (Non-Af Amer) 25 Random Glucose 101 Calcium 9.4 Total Bilirubin 0.3 AST 49 H D ALT 29 Alkaline Phosphatase 109 Total Protein 9.1 H Albumin 4.0 Globulin 5.1 H Albumin/Globulin Ratio 0.8 L Urine Color Yellow Urine Clarity Cloudy Urine pH 7.0 Ur Specific [place] 1.008 Urine Protein 30 Urine Glucose (UA) Neg Urine Ketones Negative Urine Blood Small Urine Nitrate Positive H Urine Bilirubin Negative Urine Urobilinogen 0.2-1.0 Ur Leukocyte Esterase Large Urine RBC (Auto) 13 H Urine Microscopic WBC 60 H Ur Squamous Epith Cells Amorphous Sediment Rare H Urine Bacteria Many H 02/09/18 14:00 WBC RBC Hgb Hct MCV MCH MCHC RDW Plt Count MPV Neut % (Auto) Lymph % (Auto) Thayer % (Auto) Eos % (Auto) Baso % (Auto) Neut # (Auto) Lymph # (Auto) Thayer # (Auto) Eos # (Auto) Baso # (Auto) Sodium Potassium Chloride Carbon Dioxide Anion Gap BUN Creatinine Est GFR ( Amer) Est GFR (Non-Af Amer) Random Glucose Calcium Total Bilirubin AST ALT Alkaline Phosphatase Total Protein Albumin Globulin Albumin/Globulin Ratio Urine Color Yellow Urine Clarity Cloudy Urine pH 9.0 Ur Specific [place] 1.006 Urine Protein 100 Urine Glucose (UA) Neg Urine Ketones Negative Urine Blood Moderate Urine Nitrate Negative Urine Bilirubin Negative Urine Urobilinogen 0.2-1.0 Ur Leukocyte Esterase Mod Urine RBC (Auto) 39 H Urine Microscopic WBC 51 H Ur Squamous Epith Cells 1 Amorphous Sediment Moderate H Urine Bacteria Many H Assessment & Plan - Assessment and Plan (Free Text) Assessment: 63 year old female with PMHx of Lung CA s/p Lobectomy and Chemotx in 2003, Hx of Cervical CA s/p Chemo and radiation therapy in 2000, Obstructive Uropathy sec to Cervical CA s/p Right Ureteral Stent Placement, CKD stage III B, Anemia and HTN presented to ER for evaluation of recurrent UTI with symptoms of urinary frequency and intermittent suprapubic pain. Patient is admitted for recurrent UTI and nephrostomy tube placement. Plan: Recurrent UTI likely secondary to right nephrostomy tube -Admit to Med/Surg -Failed outpatient management -Afebrile with stable vitals, WBC 8.3 -Right nephrostomy stent changed by IR Dr. Moreno on 12/14/17 -UA from nephrostomy tube shows + nitrate, small blood, large leuk. -s/p Cefepime 1 gm IVPB in ER -C/W Cefepine 1 gm IVPB q12 hrs -IR consult for right nephrostomy tube placement -f/u AM labs CKD (chronic kidney disease) stage 4 -Likely due to Obstructive Uropathy -Cr 2.0, GFR 25 -Nephrology consult: Dr. Pemberton -F/U AM BMP Hypertension -Controlled -Resume home BP meds History of cervical cancer - s/p Radiotx and Chemotx - Pt follows up with Dr Jacobs as outpt History of lung cancer - s/p Lobectomy and chemotherapy in 2003 -f/u outpatient Insomnia -Resume home medication GERD -c/w protonix 40 mg po daily DVT prophylaxis -SCDs -Encourage ambulation Code Status -Full code Plan d/w with Dr. David Rosas, pgy-2 <John Hernandez D - Last Filed: 02/10/18 10:08> Results - Vital Signs Recent Vital Signs: Last Vital Signs Temp 98.6 F 02/10/18 07:59 Pulse 73 02/10/18 08:55 Resp 18 02/10/18 07:59 BP 91/54 L 02/10/18 08:55 Pulse Ox 99 02/10/18 07:59 - Labs Result Diagrams: 02/10/18 04:25 02/09/18 12:15 Labs: Laboratory Results - last 24 hr 02/09/18 02/09/18 02/09/18 12:15 12:15 12:15 WBC 8.3 RBC 3.13 L Hgb 7.8 L Hct 24.4 L MCV 78.1 L D MCH 24.9 L MCHC 31.9 L RDW 17.9 H Plt Count 395 D MPV 8.0 Neut % (Auto) 73.0 Lymph % (Auto) 15.1 L Thayer % (Auto) 9.0 Eos % (Auto) 1.6 Baso % (Auto) 1.3 Neut # (Auto) 6.1 Lymph # (Auto) 1.3 Thayer # (Auto) 0.8 Eos # (Auto) 0.1 Baso # (Auto) 0.1 Sodium 138 Potassium 4.2 Chloride 100 Carbon Dioxide 25 Anion Gap 17 BUN 18 H Creatinine 2.0 H Est GFR ( Amer) 30 Est GFR (Non-Af Amer) 25 Random Glucose 101 Calcium 9.4 Iron TIBC % Saturation Ferritin Total Bilirubin 0.3 AST 49 H D ALT 29 Alkaline Phosphatase 109 Total Protein 9.1 H Albumin 4.0 Globulin 5.1 H Albumin/Globulin Ratio 0.8 L Urine Color Yellow Urine Clarity Cloudy Urine pH 7.0 Ur Specific [place] 1.008 Urine Protein 30 Urine Glucose (UA) Neg Urine Ketones Negative Urine Blood Small Urine Nitrate Positive H Urine Bilirubin Negative Urine Urobilinogen 0.2-1.0 Ur Leukocyte Esterase Large Urine RBC (Auto) 13 H Urine Microscopic WBC 60 H Ur Squamous Epith Cells Amorphous Sediment Rare H Urine Bacteria Many H Blood Type Antibody Screen BBK History Checked 02/09/18 02/10/18 02/10/18 14:00 04:25 08:47 WBC 6.8 RBC 2.76 L Hgb 6.8 L Hct 21.6 L MCV 78.2 L MCH 24.6 L MCHC 31.4 L RDW 18.1 H Plt Count 339 MPV 8.5 Neut % (Auto) 70.3 Lymph % (Auto) 14.8 L Thayer % (Auto) 11.3 H Eos % (Auto) 2.3 Baso % (Auto) 1.3 Neut # (Auto) 4.8 Lymph # (Auto) 1.0 Thayer # (Auto) 0.8 Eos # (Auto) 0.2 Baso # (Auto) 0.1 Sodium Potassium Chloride Carbon Dioxide Anion Gap BUN Creatinine Est GFR ( Amer) Est GFR (Non-Af Amer) Random Glucose Calcium Iron TIBC % Saturation Ferritin Total Bilirubin AST ALT Alkaline Phosphatase Total Protein Albumin Globulin Albumin/Globulin Ratio Urine Color Yellow Urine Clarity Cloudy Urine pH 9.0 Ur Specific [place] 1.006 Urine Protein 100 Urine Glucose (UA) Neg Urine Ketones Negative Urine Blood Moderate Urine Nitrate Negative Urine Bilirubin Negative Urine Urobilinogen 0.2-1.0 Ur Leukocyte Esterase Mod Urine RBC (Auto) 39 H Urine Microscopic WBC 51 H Ur Squamous Epith Cells 1 Amorphous Sediment Moderate H Urine Bacteria Many H Blood Type A POSITIVE Antibody Screen Negative BBK History Checked Patient has bt 02/10/18 02/10/18 08:47 08:47 WBC RBC Hgb Hct MCV MCH MCHC RDW Plt Count MPV Neut % (Auto) Lymph % (Auto) Thayer % (Auto) Eos % (Auto) Baso % (Auto) Neut # (Auto) Lymph # (Auto) Thayer # (Auto) Eos # (Auto) Baso # (Auto) Sodium Potassium Chloride Carbon Dioxide Anion Gap BUN Creatinine Est GFR ( Amer) Est GFR (Non-Af Amer) Random Glucose Calcium Iron < 10 L TIBC 215 L % Saturation 4.7 L Ferritin 423.0 H Total Bilirubin AST ALT Alkaline Phosphatase Total Protein Albumin Globulin Albumin/Globulin Ratio Urine Color Urine Clarity Urine pH Ur Specific [place] Urine Protein Urine Glucose (UA) Urine Ketones Urine Blood Urine Nitrate Urine Bilirubin Urine Urobilinogen Ur Leukocyte Esterase Urine RBC (Auto) Urine Microscopic WBC Ur Squamous Epith Cells Amorphous Sediment Urine Bacteria Blood Type Antibody Screen BBK History Checked Attending/Attestation - Attestation I have personally seen and examined this patient.: Yes I have fully participated in the care of the patient.: Yes I have reviewed all pertinent clinical information: Yes Notes (Text): 02/10/18 10:08 Patient seen and examined with resident. Case discussed and agreed with assessment and plan of management
[2018-02-09] MEDS: Cefepime 1 GM in Sodium Chloride 0.9% 100 ML IVPB SCH (21:40)
[2018-02-10 05:47] LABS: BASO # 0.1 K/uL (0.0-0.2); BASO % 1.3 % (0.0-2.0); EOS # 0.2 K/uL (0.0-0.7); EOS % 2.3 % (0.0-4.0); HEMOGLOBIN 6.8 g/dL (12.0-16.0); LYMPH % 14.8 % (20.0-40.0); MEAN CELL VOLUME 78.2 fl (81.0-99.0); MEAN CORPUSCULAR HEMOGLOBIN 24.6 pg (27.0-31.0); MEAN CORPUSCULAR HGB CONC 31.4 g/dL (33.0-37.0); MEAN PLATELET VOLUME 8.5 fl (7.2-11.7); MONO # 0.8 K/uL (0.0-0.8); MONO % 11.3 % (0.0-10.0); NEUT # 4.8 K/uL (1.8-7.0); NEUT % 70.3 % (50.0-75.0); RBC 2.76 Mil/uL (3.80-5.20); RED CELL DISTRIBUTION WIDTH 18.1 % (11.5-14.5); WHITE BLOOD COUNT 6.8 K/uL (4.8-10.8)
[2018-02-10] MEDS ORDERED: Epoetin Alfa 20000 UNIT/ML (RENAL DOSE) SC ONE (08:03)
[2018-02-10] MEDS: Multivitamin Vitamin B Complex (Nephro-Vite) Tab PO SCH (08:49)
[2018-02-10] MEDS: Pantoprazole 40 mg EC Tab PO SCH (08:49)
--- NOTE | 2018-02-10 08:49 | CP.PCM.PN ---
<WinnieJoao madrid - Last Filed: 02/10/18 14:20> Subjective - Date & Time of Evaluation Date of Evaluation: 02/10/18 Time of Evaluation: 08:47 - Subjective Subjective: 63F seen and evaluated at bedside. Resting comfortably. States she has voided freely today and moved bowels. States she has been getting abx through IV. Reports no acute events overnight. Denies N/V/F/C/SOB/CP and has no other acute complaints. Denies any blood in urine or stool. Objective - Vital Signs/Intake and Output Vital Signs (last 24 hours): Temp Pulse Resp BP Pulse Ox 98.6 F 73 18 91/54 L 99 02/10/18 07:59 02/10/18 07:59 02/10/18 07:59 02/10/18 07:59 02/10/18 07:59 - Medications Medications: Current Medications Amlodipine Besylate (Norvasc) 5 mg PO DAILY [facility] Calcitriol (Rocaltrol) 0.25 mcg PO MWF [facility] Epoetin Tam (Procrit) 20,000 unit SC ONCE ONE Stop: 02/10/18 08:04 Cefepime HCl 1 gm/ Sodium (Chloride) 100 mls @ 100 mls/hr IVPB Q12 [facility]; Protocol Last Admin: 02/09/18 21:40 Dose: 100 mls/hr Iron Sucrose (Venofer) 100 mg IVP DAILY [facility] Stop: 02/14/18 23:59 Metoprolol Tartrate (Lopressor) 25 mg PO Q12 [facility] Last Admin: 02/09/18 22:50 Dose: 25 mg Pantoprazole Sodium (Protonix Ec Tab) 40 mg PO DAILY [facility] Vitamin B Complex/Vit C/Folic Acid (Nephro-Davidson) 1 tab PO DAILY [facility] Zolpidem Tartrate (Ambien) 5 mg PO HS PRN PRN Reason: Insomnia - Labs Labs: 02/10/18 04:25 02/09/18 12:15 - Constitutional Appears: Well, Non-toxic, No Acute Distress - Head Exam Head Exam: ATRAUMATIC, NORMOCEPHALIC - Eye Exam Eye Exam: Normal appearance, PERRL - ENT Exam ENT Exam: Mucous Membranes Moist - Neck Exam Neck Exam: Full ROM - Respiratory Exam Respiratory Exam: Clear to Ausculation Bilateral, NORMAL BREATHING PATTERN Additional comments: Healed scar in the left upper back from lobectomy surgery - Cardiovascular Exam Cardiovascular Exam: REGULAR RHYTHM, RRR, +S1, +S2 - GI/Abdominal Exam GI & Abdominal Exam: Soft, Normal Bowel Sounds. absent: Rigid, Tenderness, Rebound - Extremities Exam Extremities Exam: Full ROM, Normal Capillary Refill, Normal Inspection. absent: Calf Tenderness, Pedal Edema - Neurological Exam Neurological Exam: Alert, Awake, Oriented x3 - Psychiatric Exam Psychiatric exam: Normal Affect, Normal Mood - Skin Skin Exam: Dry, Normal Color, Warm Assessment and Plan - Assessment and Plan (Free Text) Assessment: 63F with PMHx of Lung CA s/p Lobectomy and Chemotx in 2003, Hx of Cervical CA s/p Chemo and radiation therapy in 2000, Obstructive Uropathy sec to Cervical CA s/p Right Ureteral Stent Placement, CKD stage III B, Anemia and HTN seen and evaluated for recurrent UTI and nephrostomy tube placement. Plan: 1. Recurrent UTI likely secondary to right nephrostomy tube -Afebrile with stable vitals, absent leukocytosis -Right nephrostomy stent changed by IR Dr. Moreno on 12/14/17 -UA from nephrostomy tube shows + nitrate, small blood, large leuk. -s/p Cefepime 1 gm IVPB in ER -Cefepime 1 gm IVPB q12 hrs - dose #2 -ID consulted for complicated UTI - recs appreciated -IR consult for right nephrostomy tube placement - exchange of right perc nephrostomy tube with placement of new 8 Uzbek nephrostomy tube -f/u AM labs 2. Microcytic Anemia -on admission H&H 7.8/24.4, today 6.8/21.6 -type and screen ordered -iron - <10 -TIBC - 215 -Ferritin - 423 -venofer started - first dose today -patient consented for transfusion - transfuse 2 units, f/u 3. CKD (chronic kidney disease) stage 4 -Likely due to Obstructive Uropathy -Cr 2.0, GFR 25 -Nephrology consult: Dr. Pemberton -F/U AM BMP 4. Hypertension -Controlled -Resume home BP meds 5. History of cervical cancer - s/p Radiotx and Chemotx - Pt follows up with Dr Jacobs as outpt 6. History of lung cancer - s/p Lobectomy and chemotherapy in 2003 -f/u outpatient 7. Insomnia -Resume home medication 8. GERD -c/w protonix 40 mg po daily 9. DVT prophylaxis -SCDs -Encourage ambulation 10. Code Status -Full code <John Hernandez D - Last Filed: 02/10/18 16:51> Objective - Vital Signs/Intake and Output Vital Signs (last 24 hours): Temp Pulse Resp BP Pulse Ox 99.3 F 81 20 108/58 L 98 02/10/18 16:11 02/10/18 16:11 02/10/18 16:11 02/10/18 16:11 02/10/18 16:11 Intake and Output: 02/10/18 02/10/18 06:59 18:59 Intake Total 0 Balance 0 - Medications Medications: Current Medications Amlodipine Besylate (Norvasc) 5 mg PO DAILY [facility] Last Admin: 02/10/18 08:55 Dose: Not Given Calcitriol (Rocaltrol) 0.25 mcg PO MWF [facility] Last Admin: 02/10/18 08:49 Dose: 0.25 mcg Cefepime HCl 1 gm/ Sodium (Chloride) 100 mls @ 100 mls/hr IVPB Q12 [facility]; Protocol Last Admin: 02/10/18 08:55 Dose: 100 mls/hr Meropenem 500 mg/ Sodium (Chloride) 100 mls @ 100 mls/hr IVPB DAILY [facility]; Protocol Iron Sucrose (Venofer) 100 mg IVP DAILY [facility] Stop: 02/14/18 23:59 Last Admin: 02/10/18 12:07 Dose: 100 mg Metoprolol Tartrate (Lopressor) 25 mg PO Q12 [facility] Last Admin: 02/10/18 08:48 Dose: Not Given Pantoprazole Sodium (Protonix Ec Tab) 40 mg PO DAILY [facility] Last Admin: 02/10/18 08:49 Dose: 40 mg Vitamin B Complex/Vit C/Folic Acid (Nephro-Davidson) 1 tab PO DAILY [facility] Last Admin: 02/10/18 08:49 Dose: 1 tab Zolpidem Tartrate (Ambien) 5 mg PO HS PRN PRN Reason: Insomnia - Labs Labs: 02/10/18 04:25 02/09/18 12:15 Attending/Attestation - Attestation I have personally seen and examined this patient.: Yes I have fully participated in the care of the patient.: Yes I have reviewed all pertinent clinical information, including history, physical exam and plan: Yes Notes (Text): 02/10/18 16:48 Patient seen and examined with resident. Case discussed and agreed with assessment. New nephrostomy tube inserted. Appreciate consult with Dr Moreno and Dr Meyer. Urine culture grew gram negative rods. Antibiotic switched to Meropenem.
[2018-02-10] MEDS: Cefepime 1 GM in Sodium Chloride 0.9% 100 ML IVPB SCH ×2 (08:55→21:25)
[2018-02-10 09:53] LABS: IRON < 10 ug/dL (37-170); TOTAL IRON BINDING CAPACITY 215 ug/dL (250-450)
[2018-02-10 09:55] LABS: % IRON SATURATION 4.7 % (20-55)
--- NOTE | 2018-02-10 10:33 | CP.PCM.CON ---
History of Present Illness - History of Present Illness History of Present Illness: pt is seen and examined, full consult is dictated #[id number] Past Patient History - Infectious Disease Hx of Infectious Diseases: None - Tetanus Immunizations Tetanus Immunization: Unknown - Past Medical History & Family History Past Medical History?: Yes - Past Social History Smoking Status: Never Smoked - CARDIAC Hx Cardiac Disorders: Yes Hx Hypertension: Yes - PULMONARY Hx Respiratory Disorders: Yes Hx Lung Cancer: Yes - NEUROLOGICAL Hx Neurological Disorder: No - HEENT Hx HEENT Problems: No - RENAL Hx Chronic Kidney Disease: Yes (kidney stones; rt nephrostomy) Hx Dialysis: No - ENDOCRINE/METABOLIC Hx Endocrine Disorders: No - HEMATOLOGICAL/ONCOLOGICAL Hx AIDS: No Hx Anemia: Yes Hx Human Immunodeficiency Virus (HIV): No - INTEGUMENTARY Hx Dermatological Problems: No - MUSCULOSKELETAL/RHEUMATOLOGICAL Hx Musculoskeletal Disorders: No Hx Falls: No - GASTROINTESTINAL Hx Gastrointestinal Disorders: No - GENITOURINARY/GYNECOLOGICAL Hx Genitourinary Disorders: Yes Hx Cervical Cancer: Yes - PSYCHIATRIC Hx Anxiety: Yes Hx Depression: Yes Hx Substance Use: No - SURGICAL HISTORY Hx Surgeries: Yes Hx Pulmonary Surgery: Yes (Left Lobectomy) Hx Tubal Ligation: Yes Other/Comment: nephrostomy rt and left kidneys. 01/19/16 cystoscopy. insertion and removal of lifeport - ANESTHESIA Hx Anesthesia: Yes Hx Anesthesia Reactions: No Hx Malignant Hyperthermia: No Meds Allergies/Adverse Reactions: Allergies Allergy/AdvReac Type Severity Reaction Status Date / Time No Known Allergies Allergy Verified 12/14/17 10:59 - Medications Medications: Current Medications Amlodipine Besylate (Norvasc) 5 mg PO DAILY [facility] Last Admin: 02/10/18 08:55 Dose: Not Given Calcitriol (Rocaltrol) 0.25 mcg PO MWF [facility] Last Admin: 02/10/18 08:49 Dose: 0.25 mcg Cefepime HCl 1 gm/ Sodium (Chloride) 100 mls @ 100 mls/hr IVPB Q12 [facility]; Protocol Last Admin: 02/10/18 08:55 Dose: 100 mls/hr Iron Sucrose (Venofer) 100 mg IVP DAILY [facility] Stop: 02/14/18 23:59 Metoprolol Tartrate (Lopressor) 25 mg PO Q12 [facility] Last Admin: 02/10/18 08:48 Dose: Not Given Pantoprazole Sodium (Protonix Ec Tab) 40 mg PO DAILY [facility] Last Admin: 02/10/18 08:49 Dose: 40 mg Vitamin B Complex/Vit C/Folic Acid (Nephro-Davidson) 1 tab PO DAILY [facility] Last Admin: 02/10/18 08:49 Dose: 1 tab Zolpidem Tartrate (Ambien) 5 mg PO HS PRN PRN Reason: Insomnia Results - Vital Signs Recent Vital Signs: Last Vital Signs Temp 98.6 F 02/10/18 07:59 Pulse 73 02/10/18 08:55 Resp 18 02/10/18 07:59 BP 91/54 L 02/10/18 08:55 Pulse Ox 99 02/10/18 07:59 - Labs Result Diagrams: 02/10/18 04:25 02/09/18 12:15 Labs: Laboratory Results - last 24 hr 02/09/18 02/09/18 02/09/18 12:15 12:15 12:15 WBC 8.3 RBC 3.13 L Hgb 7.8 L Hct 24.4 L MCV 78.1 L D MCH 24.9 L MCHC 31.9 L RDW 17.9 H Plt Count 395 D MPV 8.0 Neut % (Auto) 73.0 Lymph % (Auto) 15.1 L [place] % (Auto) 9.0 Eos % (Auto) 1.6 Baso % (Auto) 1.3 Neut # (Auto) 6.1 Lymph # (Auto) 1.3 [place] # (Auto) 0.8 Eos # (Auto) 0.1 Baso # (Auto) 0.1 Sodium 138 Potassium 4.2 Chloride 100 Carbon Dioxide 25 Anion Gap 17 BUN 18 H Creatinine 2.0 H Est GFR ( Amer) 30 Est GFR (Non-Af Amer) 25 Random Glucose 101 Calcium 9.4 Iron TIBC % Saturation Ferritin Total Bilirubin 0.3 AST 49 H D ALT 29 Alkaline Phosphatase 109 Total Protein 9.1 H Albumin 4.0 Globulin 5.1 H Albumin/Globulin Ratio 0.8 L Urine Color Yellow Urine Clarity Cloudy Urine pH 7.0 Ur Specific [place] 1.008 Urine Protein 30 Urine Glucose (UA) Neg Urine Ketones Negative Urine Blood Small Urine Nitrate Positive H Urine Bilirubin Negative Urine Urobilinogen 0.2-1.0 Ur Leukocyte Esterase Large Urine RBC (Auto) 13 H Urine Microscopic WBC 60 H Ur Squamous Epith Cells Amorphous Sediment Rare H Urine Bacteria Many H Blood Type Antibody Screen BBK History Checked 02/09/18 02/10/18 02/10/18 14:00 04:25 08:47 WBC 6.8 RBC 2.76 L Hgb 6.8 L Hct 21.6 L MCV 78.2 L MCH 24.6 L MCHC 31.4 L RDW 18.1 H Plt Count 339 MPV 8.5 Neut % (Auto) 70.3 Lymph % (Auto) 14.8 L [place] % (Auto) 11.3 H Eos % (Auto) 2.3 Baso % (Auto) 1.3 Neut # (Auto) 4.8 Lymph # (Auto) 1.0 [place] # (Auto) 0.8 Eos # (Auto) 0.2 Baso # (Auto) 0.1 Sodium Potassium Chloride Carbon Dioxide Anion Gap BUN Creatinine Est GFR ( Amer) Est GFR (Non-Af Amer) Random Glucose Calcium Iron TIBC % Saturation Ferritin Total Bilirubin AST ALT Alkaline Phosphatase Total Protein Albumin Globulin Albumin/Globulin Ratio Urine Color Yellow Urine Clarity Cloudy Urine pH 9.0 Ur Specific [place] 1.006 Urine Protein 100 Urine Glucose (UA) Neg Urine Ketones Negative Urine Blood Moderate Urine Nitrate Negative Urine Bilirubin Negative Urine Urobilinogen 0.2-1.0 Ur Leukocyte Esterase Mod Urine RBC (Auto) 39 H Urine Microscopic WBC 51 H Ur Squamous Epith Cells 1 Amorphous Sediment Moderate H Urine Bacteria Many H Blood Type A POSITIVE Antibody Screen Negative BBK History Checked Patient has bt 02/10/18 02/10/18 08:47 08:47 WBC RBC Hgb Hct MCV MCH MCHC RDW Plt Count MPV Neut % (Auto) Lymph % (Auto) [place] % (Auto) Eos % (Auto) Baso % (Auto) Neut # (Auto) Lymph # (Auto) [place] # (Auto) Eos # (Auto) Baso # (Auto) Sodium Potassium Chloride Carbon Dioxide Anion Gap BUN Creatinine Est GFR ( Amer) Est GFR (Non-Af Amer) Random Glucose Calcium Iron < 10 L TIBC 215 L % Saturation 4.7 L Ferritin 423.0 H Total Bilirubin AST ALT Alkaline Phosphatase Total Protein Albumin Globulin Albumin/Globulin Ratio Urine Color Urine Clarity Urine pH Ur Specific [place] Urine Protein Urine Glucose (UA) Urine Ketones Urine Blood Urine Nitrate Urine Bilirubin Urine Urobilinogen Ur Leukocyte Esterase Urine RBC (Auto) Urine Microscopic WBC Ur Squamous Epith Cells Amorphous Sediment Urine Bacteria Blood Type Antibody Screen BBK History Checked
[2018-02-10] MEDS ORDERED: Iodixanol 320 MG/ML 100 ML BOTTLE IV ONE (10:50)
--- NOTE | 2018-02-10 11:38 | PCM.SURG1 ---
Surgeon's Initial Post Op Note - Surgeon's Notes Surgeon: Ru Moreno MD Hoist Mechanic: NONE Type of Anesthesia: None Pre-Operative Diagnosis: Hydronephrosis, UTI Operative Findings: Right PCN in collecting system, moderate hydronephrosis. Post-Operative Diagnosis: Hydronephrosis, uti Operation Performed: Right PCN change. A new 8 fr pigtail catheter placed into the right renal pelvis. Specimen/Specimens Removed: none Estimated Blood Loss: EBL {In ML}: 0 Blood Products Given: N/A Drains Used: No Drains, Joseph Velasquez Post-Op Condition: Fair Date of Surgery/Procedure: 02/10/18 Time of Surgery/Procedure: 11:00
--- NOTE | 2018-02-10 11:47 | RAD ---
Date of procedure: 02/10/2018 Procedure: 1. Right antegrade nephrostogram 2. Exchange of right percutaneous nephrostomy tube Medications: None. Radiation: 3.83 mGy Fluoro time: 39.7 Seconds EBL: cc HISTORY: Right ureteral obstruction, UTI TECHNIQUE: Following informed consent the procedure time-out, patient was placed prone on the interventional table. The patient right nephrostomy tube and surrounding skin were prepped and draped in the usual sterile fashion. Dilute contrast injected through existing nephrostomy tube showed position to be within the kidney. Nephrostomy tube was removed over guidewire. A new 8 [place] nephrostomy tube was advanced over the wire and formed within the renal pelvis. A dressing was applied. IMPRESSION: Exchange of right percutaneous nephrostomy tube with placement of a new 8 [place] nephrostomy tube.
[2018-02-10] MEDS: Iron Sucrose 100 mg/5 ml Inj IVP SCH (12:07)
--- NOTE | 2018-02-10 15:52 | CP.PCM.CON ---
History of Present Illness - History of Present Illness History of Present Illness: 63 with CKD and recurrent UTI and stent placement presents with persistent dysuria not responding to oral antibiotics. no fever, n/v/d Past Patient History - Infectious Disease Hx of Infectious Diseases: None - Tetanus Immunizations Tetanus Immunization: Unknown - Past Medical History & Family History Past Medical History?: Yes - Past Social History Smoking Status: Never Smoked - CARDIAC Hx Cardiac Disorders: Yes Hx Hypertension: Yes - PULMONARY Hx Respiratory Disorders: Yes Hx Lung Cancer: Yes - NEUROLOGICAL Hx Neurological Disorder: No - HEENT Hx HEENT Problems: No - RENAL Hx Chronic Kidney Disease: Yes (kidney stones; rt nephrostomy) Hx Dialysis: No - ENDOCRINE/METABOLIC Hx Endocrine Disorders: No - HEMATOLOGICAL/ONCOLOGICAL Hx AIDS: No Hx Anemia: Yes Hx Human Immunodeficiency Virus (HIV): No - INTEGUMENTARY Hx Dermatological Problems: No - MUSCULOSKELETAL/RHEUMATOLOGICAL Hx Musculoskeletal Disorders: No Hx Falls: No - GASTROINTESTINAL Hx Gastrointestinal Disorders: No - GENITOURINARY/GYNECOLOGICAL Hx Genitourinary Disorders: Yes Hx Cervical Cancer: Yes - PSYCHIATRIC Hx Anxiety: Yes Hx Depression: Yes Hx Substance Use: No - SURGICAL HISTORY Hx Surgeries: Yes Hx Pulmonary Surgery: Yes (Left Lobectomy) Hx Tubal Ligation: Yes Other/Comment: nephrostomy rt and left kidneys. 01/19/16 cystoscopy. insertion and removal of lifeport - ANESTHESIA Hx Anesthesia: Yes Hx Anesthesia Reactions: No Hx Malignant Hyperthermia: No Meds Allergies/Adverse Reactions: Allergies Allergy/AdvReac Type Severity Reaction Status Date / Time No Known Allergies Allergy Verified 12/14/17 10:59 - Medications Medications: Current Medications Amlodipine Besylate (Norvasc) 5 mg PO DAILY [facility] Last Admin: 02/10/18 08:55 Dose: Not Given Calcitriol (Rocaltrol) 0.25 mcg PO MWF [facility] Last Admin: 02/10/18 08:49 Dose: 0.25 mcg Cefepime HCl 1 gm/ Sodium (Chloride) 100 mls @ 100 mls/hr IVPB Q12 [facility]; Protocol Last Admin: 02/10/18 08:55 Dose: 100 mls/hr Iron Sucrose (Venofer) 100 mg IVP DAILY [facility] Stop: 02/14/18 23:59 Last Admin: 02/10/18 12:07 Dose: 100 mg Metoprolol Tartrate (Lopressor) 25 mg PO Q12 [facility] Last Admin: 02/10/18 08:48 Dose: Not Given Pantoprazole Sodium (Protonix Ec Tab) 40 mg PO DAILY [facility] Last Admin: 02/10/18 08:49 Dose: 40 mg Vitamin B Complex/Vit C/Folic Acid (Nephro-Davidson) 1 tab PO DAILY [facility] Last Admin: 02/10/18 08:49 Dose: 1 tab Zolpidem Tartrate (Ambien) 5 mg PO HS PRN PRN Reason: Insomnia Results - Vital Signs Recent Vital Signs: Last Vital Signs Temp 98.7 F 02/10/18 14:29 Pulse 78 02/10/18 14:29 Resp 17 02/10/18 14:29 BP 98/61 L 02/10/18 14:29 Pulse Ox 100 02/10/18 12:06 - Labs Result Diagrams: 02/10/18 04:25 02/09/18 12:15 Labs: Laboratory Results - last 24 hr 02/10/18 02/10/18 02/10/18 04:25 08:47 08:47 WBC 6.8 RBC 2.76 L Hgb 6.8 L Hct 21.6 L MCV 78.2 L MCH 24.6 L MCHC 31.4 L RDW 18.1 H Plt Count 339 MPV 8.5 Neut % (Auto) 70.3 Lymph % (Auto) 14.8 L [place] % (Auto) 11.3 H Eos % (Auto) 2.3 Baso % (Auto) 1.3 Neut # (Auto) 4.8 Lymph # (Auto) 1.0 [place] # (Auto) 0.8 Eos # (Auto) 0.2 Baso # (Auto) 0.1 Iron < 10 L TIBC 215 L % Saturation 4.7 L Ferritin Blood Type A POSITIVE Antibody Screen Negative Crossmatch See Detail BBK History Checked Patient has bt 02/10/18 08:47 WBC RBC Hgb Hct MCV MCH MCHC RDW Plt Count MPV Neut % (Auto) Lymph % (Auto) [place] % (Auto) Eos % (Auto) Baso % (Auto) Neut # (Auto) Lymph # (Auto) [place] # (Auto) Eos # (Auto) Baso # (Auto) Iron TIBC % Saturation Ferritin 423.0 H Blood Type Antibody Screen Crossmatch BBK History Checked Assessment & Plan - Assessment and Plan (Free Text) Assessment: Recurrent UTI with persistent dyuria. Hx of shunt CKD In view of high risk for ESBL, will begin empirically with meropenem 500 mg once daily and check sensitivities and reassess
[2018-02-10] MEDS: Meropenem 500 MG in Sodium Chloride 0.9% 100 ML IVPB SCH (17:48)
--- NOTE | 2018-02-11 02:51 | CON ---
DATE: 02/10/2018REASON FOR RENAL CONSULTATION: UTI, hypertension, chronic kidney disease, and severe anemia. HISTORY OF PRESENT ILLNESS: Mrs. Mccabe is a 63-year-old female with a past medical history significant for lung CA, status post lobectomy on the left side and chemotherapy in 2003; and history of cervical CA, status post chemo and radiation therapy in 2000 with obstructive uropathy; and acute renal failure and chronic kidney disease; recurrent UTIs; and bilateral nephrostomy tube placement in the past; and subsequently, left nephrostomy tube was removed after the stent placement. The patient has persistent nephrostomy tube on the right side. The patient also has a history of hypertension, anemia, chronic kidney disease, followed by Dr. Delbert Jacobs. The patient was recently seen in the office for followup and found to have UTI with E. coli more than 100,000 colony-forming units and resistant to multiple antibiotics and not sensitive to any p.o. antibiotic, and the patient was advised to go to the emergency room for possible admission and IV antibiotics. The patient is also complaining lower abdominal discomfort and dysuria, decreased p.o. intake and poor appetite and weight loss about 4 pounds since last visit. Denies any hematuria. The patient does have complaints of dysuria, but no hematuria. No fever or chills, no headache, no dizziness, no abdominal pain at this time. The patient was started on IV antibiotics, and the patient is feeling much better at this time. PAST MEDICAL HISTORY: Significant for hypertension; chronic kidney disease; cervical CA and lung CA, status post chemo and radiation for cervical CA, status post radical hysterectomy and status post left ureteral stent placement and right-sided nephrostomy tube. PAST SURGICAL HISTORY: Left lung lobectomy and ureteral stent placement, nephrostomy tube placement bilateral in the past, and subsequently, removed on the left side after stent placement. The patient has persistent right nephrostomy tube with drainage to outside bag. SOCIAL HISTORY: The patient denies any smoking at this time. Denies alcohol. Denies drug abuse. ALLERGIES: NO DRUG ALLERGIES. CURRENT MEDICATIONS: Include as follows: Ambien 5 mg at bedtime, cefepime 1 g every 12 hours, Lopressor 25 mg every 12 hours, Nephro-Davidson one tablet daily, amlodipine 5 mg daily, Protonix 40 mg daily, Calcitriol 0.25 mg three times a week, and Venofer 100 mg IV daily. FAMILY HISTORY: Not significant. LABORATORY DATA: Her laboratory data includes as follows: As of 02/09/2018, WBC 8.3, hemoglobin 7.8, hematocrit is 24.4, platelets 395. As of 02/10/2018, WBC 6.8, hemoglobin 6.8, hematocrit is 21.6, and MCH 78, platelets 339. Sodium 138, potassium is 4.2, chloride 100, CO2 of 24, BUN 18, creatinine 2, glucose 101, calcium 9.4. Total bili 0.3, AST 49, ALT 29, alkaline phosphatase 109, total protein 9.1, albumin is 4. Urine analysis: Yellow, cloudy, pH 9, specific gravity 1.006, protein 100, glucose negative, ketones negative, blood moderate, nitrites negative, bilirubin negative, urobilinogen 0.2 to 1, leukocyte esterase moderate, rbc 39, wbc 51, bacteria many, and iron is less than 10 and TIBC 215, iron saturation 4.7, ferritin is 423. Urine culture is Gram-negative rods, and blood culture x2 is negative so far in less than 24 hours. ASSESSMENT AND PLAN: In summary, Mrs. Mccabe is a 63-year-old elderly, very pleasant female with a history of hypertension, chronic kidney disease, obstructive uropathy, status post radical hysterectomy, status post chemotherapy and radiation therapy, status post left lobectomy for lung carcinoma, obstructive uropathy, bilateral multiple ureteral stents in the past with bilateral nephrostomy tubes about two years ago. Subsequently, left nephrostomy tube was removed after the stent placement, and the patient has persistent right nephrostomy tube with recurrent urinary tract infection. 1. Chronic kidney disease, stage IV. Renal function is stable at this time. 2. Anemia secondary to chronic kidney disease and iron-deficiency anemia. 3. Urinary tract infection, recurrent, resistant to multiple p.o. antibiotics. Continue cefepime and follow up urine culture, identification. The patient had urine culture as an outpatient about one week ago, positive for Escherichia coli more than 100,000 colony-forming units. Continue IV iron. Continue Epogen 20,000 units subcutaneous x1 and also consider to transfuse 2 units of packed red blood cell. Follow up with Dr. Delbert Jacobs. We will follow with you. Thank you for allowing me to participate in your patient's care. Ta Pemberton MD
[2018-02-11 07:35] LABS: HEMOGLOBIN 9.9 g/dL (12.0-16.0); MEAN CORPUSCULAR HEMOGLOBIN 26.6 pg (27.0-31.0); MEAN CORPUSCULAR HGB CONC 32.9 g/dL (33.0-37.0); RBC 3.7 Mil/uL (3.80-5.20); RED CELL DISTRIBUTION WIDTH 17.9 % (11.5-14.5); WHITE BLOOD COUNT 10.6 K/uL (4.8-10.8)
[2018-02-11 07:59] LABS: CALCIUM 8.9 mg/dL (8.4-10.2)
[2018-02-11] MEDS: Cefepime 1 GM in Sodium Chloride 0.9% 100 ML IVPB SCH (08:40)
[2018-02-11] MEDS: Meropenem 500 MG in Sodium Chloride 0.9% 100 ML IVPB SCH (08:41)
[2018-02-11] MEDS: Pantoprazole 40 mg EC Tab PO SCH (08:42)
[2018-02-11] MEDS: Multivitamin Vitamin B Complex (Nephro-Vite) Tab PO SCH (08:42)
[2018-02-11] MEDS: Iron Sucrose 100 mg/5 ml Inj IVP SCH (08:43)
--- NOTE | 2018-02-11 11:40 | CP.PCM.PN ---
<Soheila Berrios - Last Filed: 02/11/18 12:45> Subjective - Date & Time of Evaluation Date of Evaluation: 02/11/18 Time of Evaluation: 08:15 - Subjective Subjective: Patient was seen ,and examined at bedside this morning. S/P Right PCN change by IR, on POD #1. A new 8 fr pigtail catheter placed into the right renal pelvis. Has been afebrile on admission. S/p 2 units of PRBC on 02/10, hgb improved from 6.8 to 9.9 after transfusion. On Venofer since yesterday as per Nephro recs. Also had procrit once yesterday as ordered by Nephro. NO events overnight. Objective - Vital Signs/Intake and Output Vital Signs (last 24 hours): Temp Pulse Resp BP Pulse Ox 98.2 F 76 18 105/62 99 02/11/18 08:07 02/11/18 08:42 02/11/18 08:07 02/11/18 08:42 02/11/18 08:07 Intake and Output: 02/11/18 02/11/18 06:59 18:59 Intake Total 1025 Output Total 700 Balance 325 - Medications Medications: Current Medications Amlodipine Besylate (Norvasc) 5 mg PO DAILY [facility] Last Admin: 02/11/18 08:42 Dose: Not Given Calcitriol (Rocaltrol) 0.25 mcg PO MWF [facility] Last Admin: 02/10/18 08:49 Dose: 0.25 mcg Cefepime HCl 1 gm/ Sodium (Chloride) 100 mls @ 100 mls/hr IVPB Q12 [facility]; Protocol Last Admin: 02/11/18 08:40 Dose: 100 mls/hr Meropenem 500 mg/ Sodium (Chloride) 100 mls @ 100 mls/hr IVPB DAILY [facility]; Protocol Last Admin: 02/11/18 08:41 Dose: 100 mls/hr Iron Sucrose (Venofer) 100 mg IVP DAILY [facility] Stop: 02/14/18 23:59 Last Admin: 02/11/18 08:43 Dose: 100 mg Metoprolol Tartrate (Lopressor) 25 mg PO Q12 [facility] Last Admin: 02/11/18 08:41 Dose: Not Given Pantoprazole Sodium (Protonix Ec Tab) 40 mg PO DAILY [facility] Last Admin: 02/11/18 08:42 Dose: 40 mg Vitamin B Complex/Vit C/Folic Acid (Nephro-Davidson) 1 tab PO DAILY [facility] Last Admin: 02/11/18 08:42 Dose: 1 tab Zolpidem Tartrate (Ambien) 5 mg PO HS PRN PRN Reason: Insomnia Last Admin: 02/10/18 22:30 Dose: 5 mg - Labs Labs: 02/11/18 05:30 02/11/18 05:30 - Constitutional Appears: Non-toxic, No Acute Distress - Eye Exam Eye Exam: Normal appearance - ENT Exam ENT Exam: Mucous Membranes Moist - Respiratory Exam Respiratory Exam: Clear to Ausculation Bilateral, NORMAL BREATHING PATTERN. absent: Rales, Rhonchi, Wheezes, Stridor - Cardiovascular Exam Cardiovascular Exam: REGULAR RHYTHM, +S1, +S2, Murmur - GI/Abdominal Exam GI & Abdominal Exam: Soft, Normal Bowel Sounds. absent: Distended, Guarding, Rigid, Tenderness - Extremities Exam Extremities Exam: Normal Inspection. absent: Calf Tenderness, Pedal Edema - Back Exam Back Exam: NORMAL INSPECTION. absent: CVA tenderness (L), CVA tenderness (R) - Neurological Exam Neurological Exam: Alert, Awake, Oriented x3 - Psychiatric Exam Psychiatric exam: Normal Affect, Normal Mood - Skin Skin Exam: Dry, Intact, Pallor Assessment and Plan - Assessment and Plan (Free Text) Assessment: 63 F with PMHx of Lung CA s/p Lobectomy and Chemotx in 2003, Hx of Cervical CA s/p Chemo and radiation therapy in 2000, Obstructive Uropathy sec to Cervical CA s/p Right Ureteral Stent Placement, CKD stage III B, Anemia and HTN seen and evaluated for recurrent UTI and nephrostomy tube re-placement. S/P Right PCN change by IR, on POD #1. A new 8 fr pigtail catheter placed into the right renal pelvis. Has been afebrile on admission. S/p 2 units of PRBC on 02/10, hgb improved from 6.8 to 9.9 after transfusion. On Venofer since yesterday as per Nephro recs. Also had procrit once yesterday as ordered by Nephro. Plan: 1. Recurrent UTI likely secondary to right nephrostomy tube, S/P Right PCN change by IR, on POD #1 by IR -Afebrile with stable vitals, absent leukocytosis -S/P Right PCN change by IR, on POD #1.A new 8 fr pigtail catheter placed into the right renal pelvis. -Right nephrostomy stent changed by IR Dr. Moreno on 12/14/17 -UA from nephrostomy tube shows + nitrate, small blood, large leuk. -DC Cefepime 1 gm IVPB q12 hrs on dose #3 -started on Meropenem 500 mg IV daily per ID day #2 -fist urine culture on admission pos for E coli ESBL resistant to cefepime -second Urine culture post for gram neg madeline, f/u final report -ID consulted for complicated UTI - recs appreciated -IR consult for right nephrostomy tube placement - exchange of right perc nephrostomy tube with placement of new 8 [place] nephrostomy tube -f/u AM labs 2. Microcytic Anemia -improved, Hgb post-transfusion 9.9 -on admission H&H 7.8/24.4, today 6.8/21.6 -S/p 2 units of PRBC on 02/10, hgb improved from 6.8 to 9.9 after transfusion. -On Venofer daily until 02/14/18 as per Nephro recs. Started on 02/10 -s/p Procrit once yesterday as ordered by Nephro. -type and screen ordered -iron - <10 -TIBC - 215 -Ferritin - 423 -patient consented for transfusion - transfuse 2 units 3. CKD (chronic kidney disease) stage 4 -Likely due to Obstructive Uropathy -Cr 2.0, GFR 25 -Nephrology consult: Dr. Pemberton -F/U AM BMP 4. Hypertension -Controlled -Resume home BP meds 5. History of cervical cancer - s/p Radiotx and Chemotx - Pt follows up with Dr Jacobs as outpt 6. History of lung cancer - s/p Lobectomy and chemotherapy in 2003 -f/u outpatient 7. Insomnia -Resume home medication 8. GERD -c/w protonix 40 mg po daily 9. DVT prophylaxis -SCDs -Encourage ambulation 10. Code Status -Full code <John Hernandez D - Last Filed: 02/11/18 14:55> Objective - Vital Signs/Intake and Output Vital Signs (last 24 hours): Temp Pulse Resp BP Pulse Ox 98.1 F 90 18 102/99 H 99 02/11/18 12:36 02/11/18 12:36 02/11/18 12:36 02/11/18 12:36 02/11/18 12:36 Intake and Output: 02/11/18 02/11/18 06:59 18:59 Intake Total 1025 Output Total 700 Balance 325 - Medications Medications: Current Medications Amlodipine Besylate (Norvasc) 5 mg PO DAILY [facility] Last Admin: 02/11/18 08:42 Dose: Not Given Calcitriol (Rocaltrol) 0.25 mcg PO MWF [facility] Last Admin: 02/10/18 08:49 Dose: 0.25 mcg Meropenem 500 mg/ Sodium (Chloride) 100 mls @ 100 mls/hr IVPB DAILY [facility]; Protocol Last Admin: 02/11/18 08:41 Dose: 100 mls/hr Iron Sucrose 100 mg/ Sodium (Chloride) 105 mls @ 105 mls/hr IVPB DAILY [facility] Last Admin: 02/11/18 14:08 Dose: 105 mls/hr Metoprolol Tartrate (Lopressor) 25 mg PO Q12 [facility] Last Admin: 02/11/18 08:41 Dose: Not Given Pantoprazole Sodium (Protonix Ec Tab) 40 mg PO DAILY [facility] Last Admin: 02/11/18 08:42 Dose: 40 mg Vitamin B Complex/Vit C/Folic Acid (Nephro-Davidson) 1 tab PO DAILY [facility] Last Admin: 02/11/18 08:42 Dose: 1 tab Zolpidem Tartrate (Ambien) 5 mg PO HS PRN PRN Reason: Insomnia Last Admin: 02/10/18 22:30 Dose: 5 mg - Labs Labs: 02/11/18 05:30 02/11/18 05:30 Attending/Attestation - Attestation I have personally seen and examined this patient.: Yes I have fully participated in the care of the patient.: Yes I have reviewed all pertinent clinical information, including history, physical exam and plan: Yes Notes (Text): 02/11/18 14:53 Patient seen and examined with resident. Case discussed and agreed with assessment. Urine culture grew ESBL E coli. Antibiotic has been switched to Meropenem since yesterday as per ID consult. Patient would need 2 weeks of IV antibiotics.
[2018-02-12 06:32] LABS: BASO % 0.5 % (0.0-2.0); EOS # 0.2 K/uL (0.0-0.7); EOS % 1.9 % (0.0-4.0); HEMOGLOBIN 9.9 g/dL (12.0-16.0); LYMPH % 10.3 % (20.0-40.0); MEAN CELL VOLUME 81.3 fl (81.0-99.0); MEAN CORPUSCULAR HEMOGLOBIN 26.6 pg (27.0-31.0); MEAN CORPUSCULAR HGB CONC 32.7 g/dL (33.0-37.0); MEAN PLATELET VOLUME 8.3 fl (7.2-11.7); MONO % 10.2 % (0.0-10.0); NEUT # 7.3 K/uL (1.8-7.0); NEUT % 77.1 % (50.0-75.0); RBC 3.71 Mil/uL (3.80-5.20); RED CELL DISTRIBUTION WIDTH 18.4 % (11.5-14.5); WHITE BLOOD COUNT 9.5 K/uL (4.8-10.8)
[2018-02-12 06:41] LABS: CALCIUM 9.2 mg/dL (8.4-10.2)
[2018-02-12] MEDS: Meropenem 500 MG in Sodium Chloride 0.9% 100 ML IVPB SCH (09:43)
--- NOTE | 2018-02-12 09:43 | CP.PCM.PN ---
<Soheila Berrios - Last Filed: 02/12/18 09:40> Subjective - Date & Time of Evaluation Date of Evaluation: 02/12/18 Time of Evaluation: 08:00 - Subjective Subjective: Patient was seen ,and examined at bedside this morning. Afebrile. Feels better. Denies chest pain, SOB, cough, dysuria, chills, N/V or new complains. No events overnight. Patient will need 2 weeks of IV antibiotics as per ID recs due to positive ESBL. On Meropenem day #3. Started on 02/10. Objective - Vital Signs/Intake and Output Vital Signs (last 24 hours): Temp Pulse Resp BP Pulse Ox 98.9 F 85 20 107/62 97 02/12/18 08:34 02/12/18 08:34 02/12/18 08:34 02/12/18 08:34 02/12/18 08:34 - Medications Medications: Current Medications Acetaminophen (Tylenol 325mg Tab) 650 mg PO Q6 PRN PRN Reason: Pain, Mild (1-3) Last Admin: 02/11/18 16:20 Dose: 650 mg Amlodipine Besylate (Norvasc) 5 mg PO DAILY [facility] Last Admin: 02/11/18 08:42 Dose: Not Given Calcitriol (Rocaltrol) 0.25 mcg PO MWF [facility] Last Admin: 02/10/18 08:49 Dose: 0.25 mcg Meropenem 500 mg/ Sodium (Chloride) 100 mls @ 100 mls/hr IVPB DAILY [facility]; Protocol Last Admin: 02/11/18 08:41 Dose: 100 mls/hr Iron Sucrose 100 mg/ Sodium (Chloride) 105 mls @ 105 mls/hr IVPB DAILY [facility] Last Admin: 02/11/18 14:08 Dose: 105 mls/hr Metoprolol Tartrate (Lopressor) 25 mg PO Q12 [facility] Last Admin: 02/11/18 22:09 Dose: Not Given Pantoprazole Sodium (Protonix Ec Tab) 40 mg PO DAILY [facility] Last Admin: 02/11/18 08:42 Dose: 40 mg Vitamin B Complex/Vit C/Folic Acid (Nephro-Davidson) 1 tab PO DAILY [facility] Last Admin: 02/11/18 08:42 Dose: 1 tab Zolpidem Tartrate (Ambien) 5 mg PO HS PRN PRN Reason: Insomnia Last Admin: 02/10/18 22:30 Dose: 5 mg - Labs Labs: 02/12/18 05:30 02/12/18 05:30 - Skin Additional comments: Constitutional Appears: Non-toxic, No Acute Distress - Eye Exam Eye Exam: Normal appearance - ENT Exam ENT Exam: Mucous Membranes Moist - Respiratory Exam Respiratory Exam: Clear to Ausculation Bilateral, NORMAL BREATHING PATTERN. absent: Rales, Rhonchi, Wheezes, Stridor - Cardiovascular Exam Cardiovascular Exam: REGULAR RHYTHM, +S1, +S2, Murmur - GI/Abdominal Exam GI & Abdominal Exam: Soft, Normal Bowel Sounds. absent: Distended, Guarding, Rigid, Tenderness - Extremities Exam Extremities Exam: Normal Inspection. absent: Calf Tenderness, Pedal Edema - Back Exam Back Exam: NORMAL INSPECTION. absent: CVA tenderness (L), CVA tenderness (R) - Neurological Exam Neurological Exam: Alert, Awake, Oriented x3 - Psychiatric Exam Psychiatric exam: Normal Affect, Normal Mood - Skin Skin Exam: Dry, Intact, Pallor Assessment and Plan - Assessment and Plan (Free Text) Assessment: 63 F with PMHx of Lung CA s/p Lobectomy and Chemotx in 2003, Hx of Cervical CA s/p Chemo and radiation therapy in 2000, Obstructive Uropathy sec to Cervical CA s/p Right Ureteral Stent Placement, CKD stage III B, Anemia and HTN seen and evaluated for recurrent UTI and nephrostomy tube re-placement. S/P Right PCN change by IR, on POD #1. A new 8 fr pigtail catheter placed into the right renal pelvis. Has been afebrile on admission. S/p 2 units of PRBC on 12, hgb improved from 6.8 to 9.9 after transfusion. On Venofer since yesterday as per Nephro recs. Also had procrit once yesterday as ordered by Nephro. Patient will need 2 weeks of IV antibiotics as per ID recs due to positive ESBL. On Meropenem day #3. Started on 12. Plan: 1. Recurrent UTI likely secondary to right nephrostomy tube, S/P Right PCN change by IR, on POD #1 by IR -Afebrile with stable vitals, absent leukocytosis -S/P Right PCN change by IR, on POD #1.A new 8 fr pigtail catheter placed into the right renal pelvis. -Right nephrostomy stent changed by IR Dr. Moreno on 12/14/17 -UA from nephrostomy tube shows + nitrate, small blood, large leuk. -started on Meropenem 500 mg IV daily on 12 per ID, today day #3 - urine culture x 2 pos for E coli ESBL resistant to cefepime -ID consulted for complicated UTI - recs appreciated. Patient will need 2 weeks of IV antibiotics as per ID recs due to positive ESBL. -possible for PICC line tomorrow in AM for IV abx -IR consult for right nephrostomy tube placement - exchange of right perc nephrostomy tube with placement of new 8 [place] nephrostomy tube -f/u AM labs 2. Microcytic Anemia -improved/stable, Hgb post-transfusion 9.9 -on admission H&H 7.8/24.4, today 6.8/21.6 -S/p 2 units of PRBC on 02/10, hgb improved from 6.8 to 9.9 after transfusion. -On Venofer daily until 02/14/18 as per Nephro recs. Started on 02/10 -s/p Procrit once yesterday as ordered by Nephro. -type and screen ordered -iron - <10 -TIBC - 215 -Ferritin - 423 -patient consented for transfusion - transfuse 2 units 3. CKD (chronic kidney disease) stage 4 -Likely due to Obstructive Uropathy -Cr 2.0, GFR 25 -Nephrology consult: Dr. Pemberton -F/U AM BMP 4. Hypertension -Controlled -Resume home BP meds 5. History of cervical cancer - s/p Radiotx and Chemotx - Pt follows up with Dr Jacobs as outpt 6. History of lung cancer - s/p Lobectomy and chemotherapy in 2003 -f/u outpatient 7. Insomnia -Resume home medication 8. GERD -c/w protonix 40 mg po daily 9. DVT prophylaxis -SCDs -Encourage ambulation 10. Code Status -Full code <John Hernandez D - Last Filed: 02/12/18 09:55> Objective - Vital Signs/Intake and Output Vital Signs (last 24 hours): Temp Pulse Resp BP Pulse Ox 98.9 F 85 20 107/65 97 02/12/18 08:34 02/12/18 09:45 02/12/18 08:34 02/12/18 09:45 02/12/18 08:34 - Medications Medications: Current Medications Acetaminophen (Tylenol 325mg Tab) 650 mg PO Q6 PRN PRN Reason: Pain, Mild (1-3) Last Admin: 02/11/18 16:20 Dose: 650 mg Amlodipine Besylate (Norvasc) 5 mg PO DAILY [facility] Last Admin: 02/12/18 09:44 Dose: Not Given Calcitriol (Rocaltrol) 0.25 mcg PO MWF [facility] Last Admin: 02/10/18 08:49 Dose: 0.25 mcg Meropenem 500 mg/ Sodium (Chloride) 100 mls @ 100 mls/hr IVPB DAILY [facility]; Protocol Last Admin: 02/12/18 09:43 Dose: 100 mls/hr Iron Sucrose 100 mg/ Sodium (Chloride) 105 mls @ 105 mls/hr IVPB DAILY [facility] Last Admin: 02/12/18 09:44 Dose: 105 mls/hr Metoprolol Tartrate (Lopressor) 25 mg PO Q12 [facility] Last Admin: 02/12/18 09:45 Dose: Not Given Pantoprazole Sodium (Protonix Ec Tab) 40 mg PO DAILY [facility] Last Admin: 02/12/18 09:44 Dose: 40 mg Vitamin B Complex/Vit C/Folic Acid (Nephro-Davidson) 1 tab PO DAILY [facility] Last Admin: 02/12/18 09:44 Dose: 1 tab Zolpidem Tartrate (Ambien) 5 mg PO HS PRN PRN Reason: Insomnia Last Admin: 02/10/18 22:30 Dose: 5 mg - Labs Labs: 02/12/18 05:30 02/12/18 05:30 Attending/Attestation - Attestation I have personally seen and examined this patient.: Yes I have fully participated in the care of the patient.: Yes I have reviewed all pertinent clinical information, including history, physical exam and plan: Yes Notes (Text): 02/12/18 09:53 Patient seen and examined with resident. Case discussed and agreed with assessment. Patient grew ESBL E coli in the urine and would need a total of 2 weeks of IV Meropenem. Will order placement of PICC line for 2 weeks IV infusion of antibiotics.
[2018-02-12] MEDS: Pantoprazole 40 mg EC Tab PO SCH (09:44)
[2018-02-12] MEDS: Multivitamin Vitamin B Complex (Nephro-Vite) Tab PO SCH (09:44)
[2018-02-13 04:49] VITALS: O2SAT 100
[2018-02-13 05:48] LABS: BASO # 0.1 K/uL (0.0-0.2); BASO % 0.9 % (0.0-2.0); EOS # 0.2 K/uL (0.0-0.7); HEMOGLOBIN 10.2 g/dL (12.0-16.0); LYMPH # 1.1 K/uL (1.0-4.3); LYMPH % 11.6 % (20.0-40.0); MEAN CELL VOLUME 82.1 fl (81.0-99.0); MEAN CORPUSCULAR HEMOGLOBIN 26.4 pg (27.0-31.0); MEAN CORPUSCULAR HGB CONC 32.2 g/dL (33.0-37.0); MEAN PLATELET VOLUME 8.3 fl (7.2-11.7); MONO # 1.1 K/uL (0.0-0.8); MONO % 11.8 % (0.0-10.0); NEUT % 73.7 % (50.0-75.0); NRBC % 0.1 % (0.0-0.0); RBC 3.84 Mil/uL (3.80-5.20); RED CELL DISTRIBUTION WIDTH 18.5 % (11.5-14.5); WHITE BLOOD COUNT 9.5 K/uL (4.8-10.8)
[2018-02-13 06:13] LABS: CALCIUM 9.1 mg/dL (8.4-10.2)
[2018-02-13] MEDS: Meropenem 500 MG in Sodium Chloride 0.9% 100 ML IVPB SCH (08:47)
[2018-02-13] MEDS: Pantoprazole 40 mg EC Tab PO SCH (08:48)
[2018-02-13] MEDS: Multivitamin Vitamin B Complex (Nephro-Vite) Tab PO SCH (08:48)
--- NOTE | 2018-02-13 09:28 | CP.PCM.DIS ---
<Joao Pate - Last Filed: 02/13/18 13:02> Provider - Provider Date of Admission: 02/09/18 16:59 Attending physician: John Hernandez MD Consults: 02/09/18 15:50 Nephrology Consult Stat Comment: Consulting Provider: Ta Pemberton Consulting Physician: Ta Pemberton Reason for Consult: recurrent UTI 02/10/18 09:20 Infectious Disease Consult Routine Comment: Consulting Provider: Cristofer Meyer Consulting Physician: Cristofer Meyer Reason for Consult: complicated uti Time Spent in preparation of Discharge (in minutes): 30 Diagnosis - Discharge Diagnosis (1) Failure of outpatient treatment Status: Acute (2) Recurrent UTI Status: Acute Hospital Course - Lab Results Lab Results: Micro Results 02/09/18 12:40 Blood-Venous Blood Culture - Preliminary NO GROWTH AFTER 3 DAYS 02/09/18 12:15 Blood-Venous Blood Culture - Preliminary NO GROWTH AFTER 3 DAYS 02/09/18 19:00 Urine,Clean Catch Urine Culture - Final Escherichia Coli 02/09/18 12:15 Urine,Kidney Urine Culture - Final Escherichia Coli Most Recent Lab Values WBC 9.5 K/uL (4.8-10.8) 02/13/18 04:25 RBC 3.84 Mil/uL (3.80-5.20) 02/13/18 04:25 Hgb 10.2 g/dL (12.0-16.0) L 02/13/18 04:25 Hct 31.5 % (34.0-47.0) L 02/13/18 04:25 MCV 82.1 fl (81.0-99.0) 02/13/18 04:25 MCH 26.4 pg (27.0-31.0) L 02/13/18 04:25 MCHC 32.2 g/dL (33.0-37.0) L 02/13/18 04:25 RDW 18.5 % (11.5-14.5) H 02/13/18 04:25 Plt Count 345 K/uL (130-400) 02/13/18 04:25 MPV 8.3 fl (7.2-11.7) 02/13/18 04:25 Neut % (Auto) 73.7 % (50.0-75.0) 02/13/18 04:25 Lymph % (Auto) 11.6 % (20.0-40.0) L 02/13/18 04:25 [place] % (Auto) 11.8 % (0.0-10.0) H 02/13/18 04:25 Eos % (Auto) 2.0 % (0.0-4.0) 02/13/18 04:25 Baso % (Auto) 0.9 % (0.0-2.0) 02/13/18 04:25 Neut # (Auto) 7.0 K/uL (1.8-7.0) 02/13/18 04:25 Lymph # (Auto) 1.1 K/uL (1.0-4.3) 02/13/18 04:25 [place] # (Auto) 1.1 K/uL (0.0-0.8) H 02/13/18 04:25 Eos # (Auto) 0.2 K/uL (0.0-0.7) 02/13/18 04:25 Baso # (Auto) 0.1 K/uL (0.0-0.2) 02/13/18 04:25 Sodium 136 mmol/l (132-148) 02/13/18 04:25 Potassium 4.1 MMOL/L (3.6-5.0) 02/13/18 04:25 Chloride 103 mmol/L (98-107) 02/13/18 04:25 Carbon Dioxide 22 mmol/L (22-30) 02/13/18 04:25 Anion Gap 15 (10-20) 02/13/18 04:25 BUN 19 mg/dl (7-17) H 02/13/18 04:25 Creatinine 2.0 mg/dl (0.7-1.2) H 02/13/18 04:25 Est GFR ( Amer) 30 02/13/18 04:25 Est GFR (Non-Af Amer) 25 02/13/18 04:25 Random Glucose 93 mg/dL (65-105) 02/13/18 04:25 Calcium 9.1 mg/dL (8.4-10.2) 02/13/18 04:25 Iron < 10 ug/dL (37-170) L 02/10/18 08:47 TIBC 215 ug/dL (250-450) L 02/10/18 08:47 % Saturation 4.7 % (20-55) L 02/10/18 08:47 Ferritin 423.0 ng/Ml (11.1-264.0) H 02/10/18 08:47 Total Bilirubin 0.3 mg/dl (0.2-1.3) 02/09/18 12:15 AST 49 U/L (14-36) H D 02/09/18 12:15 ALT 29 U/L (9-52) 02/09/18 12:15 Alkaline Phosphatase 109 U/L (38-126) 02/09/18 12:15 Total Protein 9.1 G/DL (6.3-8.2) H 02/09/18 12:15 Albumin 4.0 g/dL (3.5-5.0) 02/09/18 12:15 Globulin 5.1 gm/dL (2.2-3.9) H 02/09/18 12:15 Albumin/Globulin Ratio 0.8 (1.0-2.1) L 02/09/18 12:15 Urine Color Yellow (YELLOW) 02/09/18 14:00 Urine Clarity Cloudy (Clear) 02/09/18 14:00 Urine pH 9.0 (5.0-8.0) 02/09/18 14:00 Ur Specific [place] 1.006 (1.003-1.030) 02/09/18 14:00 Urine Protein 100 mg/dL (NEGATIVE) 02/09/18 14:00 Urine Glucose (UA) Neg mg/dL (NEGATIVE) 02/09/18 14:00 Urine Ketones Negative mg/dL (NEGATIVE) 02/09/18 14:00 Urine Blood Moderate (NEGATIVE) 02/09/18 14:00 Urine Nitrate Negative (NEGATIVE) 02/09/18 14:00 Urine Bilirubin Negative (NEGATIVE) 02/09/18 14:00 Urine Urobilinogen 0.2-1.0 mg/dL (0.2-1.0) 02/09/18 14:00 Ur Leukocyte Esterase Mod Milind/uL (Negative) 02/09/18 14:00 Urine RBC (Auto) 39 /hpf (0-3) H 02/09/18 14:00 Urine Microscopic WBC 51 /hpf (0-5) H 02/09/18 14:00 Ur Squamous Epith Cells 1 /hpf (0-5) 02/09/18 14:00 Amorphous Sediment Moderate /ul (<OCC) H 02/09/18 14:00 Urine Bacteria Many (<OCC) H 02/09/18 14:00 Blood Type A POSITIVE 02/10/18 08:47 Antibody Screen Negative 02/10/18 08:47 Crossmatch See Detail 02/10/18 08:47 BBK History Checked Patient has bt 02/10/18 08:47 - Hospital Course Hospital Course: 63 F with PMHx of Lung CA s/p Lobectomy and Chemotx in 2003, Hx of Cervical CA s/p Chemo and radiation therapy in 2000, Obstructive Uropathy sec to Cervical CA s/p Right Ureteral Stent Placement, CKD stage III B, Anemia and HTN seen and evaluated for recurrent UTI and nephrostomy tube re-placement. S/P Right PCN change by IR, on POD #3. A new 8 fr pigtail catheter placed into the right renal pelvis. Has been afebrile on admission. S/p 2 units of PRBC on 02/10, hgb improved from 6.8 to 9.9 after transfusion. On Venofer since Tuesday as per Nephro recs. Also had procrit once Tuesday as ordered by Nephro. Patient will need 2 weeks of IV antibiotics as per ID recs due to positive ESBL. On Meropenem day #4. Started on 12. For d/c today to TCU for continuation of IV abx for treatment of ESBL and for deconditioning. - Date & Time of H&P Date of H&P: 02/13/18 Time of H&P: 09:27 Discharge Exam - Head Exam Head Exam: ATRAUMATIC, NORMOCEPHALIC - Eye Exam Eye Exam: Normal appearance - ENT Exam ENT Exam: Mucous Membranes Moist - Respiratory Exam Respiratory Exam: Clear to PA & Lateral, NORMAL BREATHING PATTERN - Cardiovascular Exam Cardiovascular Exam: REGULAR RHYTHM, +S1, +S2, Systolic Murmur - GI/Abdominal Exam GI & Abdominal Exam: Normal Bowel Sounds, Soft - Extremities Exam Extremities exam: normal capillary refill, normal inspection, pedal pulses present - Back Exam Back exam: NORMAL INSPECTION. absent: CVA tenderness (L), CVA tenderness (R) - Neurological Exam Neurological exam: Alert, Oriented x3 - Psychiatric Exam Psychiatric exam: Normal Affect, Normal Mood - Skin Skin Exam: Dry, Intact, Warm Discharge Plan - Discharge Medications Prescriptions: MEROPENEM 500 MG in NS [Merrem IV 500 MG/NS 50 ML] 500 mg IV DAILY 10 Days #10 b ag - Follow Up Plan Condition: STABLE Disposition: TRANSF TO SNF Instructions: Urinary Tract Infection, Adult (DC), How to Care for Your Nephrostomy Tube, Nephrostomy, Percutaneous (DC), Urinary Tract Infection in Women (DC), Urinary Tract Infection in Men (DC), Dysuria (GEN) Additional Instructions: discharge pt to tcu Referrals: Delbert Jacobs MD [Family Provider] - Cristofer Meyer MD [Staff Provider] - Ta Pemberton MD [Staff Provider] - Clinical Quality Measures - Date & Time of Discharge Summary Date of Discharge Summary: 02/13/18 Time of Discharge Summary: 09:29 <Padmini Cardoza - Last Filed: 02/13/18 15:26> Provider - Provider Date of Admission: 02/09/18 16:59 Attending physician: John Hernandez MD Consults: 02/09/18 15:50 Nephrology Consult Stat Comment: Consulting Provider: Ta Pemberton Consulting Physician: Ta Pemberton Reason for Consult: recurrent UTI 02/10/18 09:20 Infectious Disease Consult Routine Comment: Consulting Provider: Cristofer Meyer Consulting Physician: Cristofer Meyer Reason for Consult: complicated uti Hospital Course - Lab Results Lab Results: Micro Results 02/09/18 12:40 Blood-Venous Blood Culture - Preliminary NO GROWTH AFTER 4 DAYS 02/09/18 12:15 Blood-Venous Blood Culture - Preliminary NO GROWTH AFTER 4 DAYS 02/09/18 19:00 Urine,Clean Catch Urine Culture - Final Escherichia Coli 02/09/18 12:15 Urine,Kidney Urine Culture - Final Escherichia Coli Most Recent Lab Values WBC 9.5 K/uL (4.8-10.8) 02/13/18 04:25 RBC 3.84 Mil/uL (3.80-5.20) 02/13/18 04:25 Hgb 10.2 g/dL (12.0-16.0) L 02/13/18 04:25 Hct 31.5 % (34.0-47.0) L 02/13/18 04:25 MCV 82.1 fl (81.0-99.0) 02/13/18 04:25 MCH 26.4 pg (27.0-31.0) L 02/13/18 04:25 MCHC 32.2 g/dL (33.0-37.0) L 02/13/18 04:25 RDW 18.5 % (11.5-14.5) H 02/13/18 04:25 Plt Count 345 K/uL (130-400) 02/13/18 04:25 MPV 8.3 fl (7.2-11.7) 02/13/18 04:25 Neut % (Auto) 73.7 % (50.0-75.0) 02/13/18 04:25 Lymph % (Auto) 11.6 % (20.0-40.0) L 02/13/18 04:25 [place] % (Auto) 11.8 % (0.0-10.0) H 02/13/18 04:25 Eos % (Auto) 2.0 % (0.0-4.0) 02/13/18 04:25 Baso % (Auto) 0.9 % (0.0-2.0) 02/13/18 04:25 Neut # (Auto) 7.0 K/uL (1.8-7.0) 02/13/18 04:25 Lymph # (Auto) 1.1 K/uL (1.0-4.3) 02/13/18 04:25 [place] # (Auto) 1.1 K/uL (0.0-0.8) H 02/13/18 04:25 Eos # (Auto) 0.2 K/uL (0.0-0.7) 02/13/18 04:25 Baso # (Auto) 0.1 K/uL (0.0-0.2) 02/13/18 04:25 Sodium 136 mmol/l (132-148) 02/13/18 04:25 Potassium 4.1 MMOL/L (3.6-5.0) 02/13/18 04:25 Chloride 103 mmol/L (98-107) 02/13/18 04:25 Carbon Dioxide 22 mmol/L (22-30) 02/13/18 04:25 Anion Gap 15 (10-20) 02/13/18 04:25 BUN 19 mg/dl (7-17) H 02/13/18 04:25 Creatinine 2.0 mg/dl (0.7-1.2) H 02/13/18 04:25 Est GFR ( Amer) 30 02/13/18 04:25 Est GFR (Non-Af Amer) 25 02/13/18 04:25 Random Glucose 93 mg/dL (65-105) 02/13/18 04:25 Calcium 9.1 mg/dL (8.4-10.2) 02/13/18 04:25 Iron < 10 ug/dL (37-170) L 02/10/18 08:47 TIBC 215 ug/dL (250-450) L 02/10/18 08:47 % Saturation 4.7 % (20-55) L 02/10/18 08:47 Ferritin 423.0 ng/Ml (11.1-264.0) H 02/10/18 08:47 Total Bilirubin 0.3 mg/dl (0.2-1.3) 02/09/18 12:15 AST 49 U/L (14-36) H D 02/09/18 12:15 ALT 29 U/L (9-52) 02/09/18 12:15 Alkaline Phosphatase 109 U/L (38-126) 02/09/18 12:15 Total Protein 9.1 G/DL (6.3-8.2) H 02/09/18 12:15 Albumin 4.0 g/dL (3.5-5.0) 02/09/18 12:15 Globulin 5.1 gm/dL (2.2-3.9) H 02/09/18 12:15 Albumin/Globulin Ratio 0.8 (1.0-2.1) L 02/09/18 12:15 Urine Color Yellow (YELLOW) 02/09/18 14:00 Urine Clarity Cloudy (Clear) 02/09/18 14:00 Urine pH 9.0 (5.0-8.0) 02/09/18 14:00 Ur Specific [place] 1.006 (1.003-1.030) 02/09/18 14:00 Urine Protein 100 mg/dL (NEGATIVE) 02/09/18 14:00 Urine Glucose (UA) Neg mg/dL (NEGATIVE) 02/09/18 14:00 Urine Ketones Negative mg/dL (NEGATIVE) 02/09/18 14:00 Urine Blood Moderate (NEGATIVE) 02/09/18 14:00 Urine Nitrate Negative (NEGATIVE) 02/09/18 14:00 Urine Bilirubin Negative (NEGATIVE) 02/09/18 14:00 Urine Urobilinogen 0.2-1.0 mg/dL (0.2-1.0) 02/09/18 14:00 Ur Leukocyte Esterase Mod Milind/uL (Negative) 02/09/18 14:00 Urine RBC (Auto) 39 /hpf (0-3) H 02/09/18 14:00 Urine Microscopic WBC 51 /hpf (0-5) H 02/09/18 14:00 Ur Squamous Epith Cells 1 /hpf (0-5) 02/09/18 14:00 Amorphous Sediment Moderate /ul (<OCC) H 02/09/18 14:00 Urine Bacteria Many (<OCC) H 02/09/18 14:00 Blood Type A POSITIVE 02/10/18 08:47 Antibody Screen Negative 02/10/18 08:47 Crossmatch See Detail 02/10/18 08:47 BBK History Checked Patient has bt 02/10/18 08:47 Attending/Attestation - Attestation I have personally seen and examined this patient.: Yes I have fully participated in the care of the patient.: Yes I have reviewed all pertinent clinical information, including history, physical exam and plan: Yes Notes (Text): 1. Complicated , Recurrent UTI in a patient with right nephrostomy tube, ESBL E Coli -Right nephrostomy stent changed by IR Dr. Moreno on 12/14/17 -d/c pt to TCU for IV Neropenem till 02/23 2. Chronic Microcytic Iron Deficiency Anemia -improved/stable, Hgb post-transfusion 9.9 - recieved IV venofer and Epogen 3. CKD (chronic kidney disease) stage 4 -Likely due to Obstructive Uropathy 4. Hypertension 5. History of cervical cancer - s/p Radiotx and Chemotx - Pt follows up with Dr Jacobs as outpt 6. History of lung cancer - s/p Lobectomy and chemotherapy in 2004 -f/u outpatient 7. Insomnia -Resume home medication 8. GERD -c/w protonix 40 mg po daily 9. DVT prophylaxis Lovenox
[2018-02-13 12:42] VITALS: BP 101/53; PULSE 83; RESP 20; TEMP 98.4
[2018-02-13] MEDS ORDERED: Enoxaparin 40 mg Syringe SC SCH ×2 (15:30)
== END 2018-02-13 15:30 | DRG 699 ==
LOC: H.ER 10:53 → H.ERHOLD 16:59 → H.TEL 23:12
PROC: 30233N1 Transfusion of Nonautologous Red Blood Cells into Peripheral Vein, Percutaneous Approach (ICD-10-PCS; principal; 2018-02-10)
PROC: 0T25X0Z Change Drainage Device in Kidney, External Approach (ICD-10-PCS; 2018-02-10)
DX: T83.512A Infection and inflammatory reaction due to nephrostomy catheter, initial encounter (principal); N13.6 Pyonephrosis; N18.4 Chronic kidney disease, stage 4 (severe); I12.9 Hypertensive chronic kidney disease with stage 1 through stage 4 chronic kidney disease, or unspecified chronic kidney disease; N13.9 Obstructive and reflux uropathy, unspecified; Z85.41 Personal history of malignant neoplasm of cervix uteri; Z85.118 Personal history of other malignant neoplasm of bronchus and lung; Z92.3 Personal history of irradiation; Z92.21 Personal history of antineoplastic chemotherapy; G47.00 Insomnia, unspecified; K21.9 Gastro-esophageal reflux disease without esophagitis; D63.1 Anemia in chronic kidney disease; D50.9 Iron deficiency anemia, unspecified; Z16.24 Resistance to multiple antibiotics; B96.20 Unspecified Escherichia coli [E. coli] as the cause of diseases classified elsewhere; Z87.891 Personal history of nicotine dependence; F32.9 Major depressive disorder, single episode, unspecified; F41.9 Anxiety disorder, unspecified

== ENCOUNTER 2018-02-13 14:37 | Inpatient (IN) | payer OTHER, MEDICAID ==
[2018-02-13 15:26] VITALS: BMI 19.3
[2018-02-13] MEDS: Meropenem 500 MG in Sodium Chloride 0.9% 100 ML IVPB SCH (20:41)
[2018-02-13] MEDS ORDERED: Patient's Own Med (Meropenem 500 Mg In Ns [Merrem Iv 500 Mg/Ns 50 Ml] 500 MG) IV SCH (21:00)
--- NOTE | 2018-02-14 06:37 | CP.PCM.HP ---
<Joao Pate - Last Filed: 02/14/18 06:31> History of Present Illness - History of Present Illness History of Present Illness: 63 F with PMHx of Lung CA s/p Lobectomy and Chemotx in 2003, Hx of Cervical CA s/p Chemo and radiation therapy in 2000, Obstructive Uropathy sec to Cervical CA s/p Right Ureteral Stent Placement, CKD stage III B, Anemia and HTN seen and evaluated in TCU at bedside. Resting comfortably. She as admitted onto the floor 5 days ago for recurrent UTI and nephrostomy tube re-placement. S/P Right PCN change by IR, on POD #4. A new 8 fr pigtail catheter placed into the right renal pelvis. Has been afebrile on admission. S/p 2 units of PRBC on 02/10, hgb improved from 6.8 to 9.9 after transfusion while she was in house. She has been on Venofer since Tuesday as per Nephro recs. Also had procrit once Tuesday as ordered by Nephro. She will finish her IV abx regimen in TCU as she was positive for ESBL, and participate in PT for deconditioning. PMHx: Lung CA s/p Lobectomy and Chemotx in 2003, Hx of Cervical CA s/p Chemo and radiation therapy in 2000, Obstructive Uropathy sec to Cervical CA s/p Right Ureteral Stent Placement, CKD stage III B, Anemia and HTN. PSHx: Left lung lobectomy in 2003, Ureteral stent placement Social hx: Quit smoking cigarettes 20 years ago (smoked 1/2 PPD x 10 yrs). Denies drinking EtOH or using illicit drugs. Lives alone. Family hx: Father and Mother: HTN Allergies: NKDA PMD: Dr Jacobs Urologist: Dr. Mares Junior Graphic Designer: Dr. Pemberton Present on Admission - Present on Admission Any Indicators Present on Admission: No Past Patient History - Infectious Disease Hx of Infectious Diseases: None - Tetanus Immunizations Tetanus Immunization: Unknown - Past Medical History & Family History Past Medical History?: Yes - Past Social History Smoking Status: Former Smoker - CARDIAC Hx Cardiac Disorders: Yes Hx Hypertension: Yes - PULMONARY Hx Respiratory Disorders: Yes Hx Lung Cancer: Yes - NEUROLOGICAL Hx Neurological Disorder: No - HEENT Hx HEENT Problems: No - RENAL Hx Chronic Kidney Disease: Yes (kidney stones; rt nephrostomy) Hx Dialysis: No - ENDOCRINE/METABOLIC Hx Endocrine Disorders: No - HEMATOLOGICAL/ONCOLOGICAL Hx AIDS: No Hx Anemia: Yes Hx Human Immunodeficiency Virus (HIV): No - INTEGUMENTARY Hx Dermatological Problems: No - MUSCULOSKELETAL/RHEUMATOLOGICAL Hx Musculoskeletal Disorders: No Hx Falls: No - GASTROINTESTINAL Hx Gastrointestinal Disorders: No - GENITOURINARY/GYNECOLOGICAL Hx Genitourinary Disorders: Yes Hx Cervical Cancer: Yes - PSYCHIATRIC Hx Anxiety: Yes Hx Depression: Yes Hx Substance Use: No - SURGICAL HISTORY Hx Surgeries: Yes Hx Pulmonary Surgery: Yes (Left Lobectomy) Hx Tubal Ligation: Yes Other/Comment: nephrostomy rt and left kidneys. 01/19/16 cystoscopy. insertion and removal of lifeport. 02/10 nephrostomy tube - ANESTHESIA Hx Anesthesia: Yes Hx Anesthesia Reactions: No Hx Malignant Hyperthermia: No Meds Allergies/Adverse Reactions: Allergies Allergy/AdvReac Type Severity Reaction Status Date / Time No Known Allergies Allergy Verified 02/13/18 15:25 Physical Exam - Constitutional Appears: Well, Non-toxic, No Acute Distress - Head Exam Head Exam: ATRAUMATIC, NORMOCEPHALIC - Eye Exam Eye Exam: Normal appearance - ENT Exam ENT Exam: Mucous Membranes Moist - Neck Exam Neck exam: Positive for: Full Rom - Respiratory Exam Respiratory Exam: Clear to Auscultation Bilateral, NORMAL BREATHING PATTERN - Cardiovascular Exam Cardiovascular Exam: REGULAR RHYTHM, +S1, +S2, Systolic Murmur - GI/Abdominal Exam GI & Abdominal Exam: Normal Bowel Sounds, Soft. absent: Tenderness - Extremities Exam Extremities exam: Positive for: normal capillary refill, pedal pulses present. Negative for: calf tenderness, pedal edema - Back Exam Back exam: NORMAL INSPECTION. absent: CVA tenderness (L), CVA tenderness (R) - Neurological Exam Neurological exam: Alert, Oriented x3 - Psychiatric Exam Psychiatric exam: Normal Affect, Normal Mood - Skin Skin Exam: Normal Color, Warm Results - Vital Signs Recent Vital Signs: Last Vital Signs Temp 98.4 F 02/13/18 19:35 Pulse 76 02/13/18 20:18 Resp 20 02/13/18 19:35 BP 122/62 02/13/18 20:18 Pulse Ox 98 02/13/18 19:35 Assessment & Plan - Assessment and Plan (Free Text) Assessment: 63F with Lung CA s/p Lobectomy and Chemotx in 2003, Hx of Cervical CA s/p Chemo and radiation therapy in 2000, Obstructive Uropathy sec to Cervical CA s/p Right Ureteral Stent Placement, CKD stage III B, Anemia and HTN seen in TCU for abx treatment and deconditioning Plan: 1. Recurrent UTI likely secondary to right nephrostomy tube, S/P Right PCN change by IR, on POD #1 by IR -Afebrile with stable vitals, absent leukocytosis -S/P Right PCN change by IR, on POD #3.A new 8 fr pigtail catheter placed into the right renal pelvis. -Right nephrostomy stent changed by IR Dr. Moreno on 12/14/17 -UA from nephrostomy tube shows + nitrate, small blood, large leuk. -started on Meropenem 500 mg IV daily on 02/10 per ID, today day #5 - urine culture x 2 pos for E coli ESBL resistant to cefepime -ID consulted for complicated UTI - recs appreciated. Patient will need 2 weeks of IV antibiotics as per ID recs due to positive ESBL. -IR consult for right nephrostomy tube placement - exchange of right perc nephrostomy tube with placement of new 8 [place] nephrostomy tube -f/u AM labs 2. Microcytic Anemia -improved/stable, Hgb post-transfusion 9.9 -on admission H&H 7.8/24.4, today 10.2/31.5 -S/p 2 units of PRBC on 02/10, hgb improved from 6.8 to 9.9 after transfusion. -D/c venofer today as per Nephro recs. Started on 02/10 -s/p Procrit once 02/11 as ordered by Nephro. -type and screen ordered -iron - <10 -TIBC - 215 -Ferritin - 423 -patient consented for transfusion - transfuse 2 units 3. CKD (chronic kidney disease) stage 4 -Likely due to Obstructive Uropathy -Cr 2.0, GFR 25 -Nephrology consult: Dr. Pemberton -F/U AM BMP 4. Hypertension -Controlled -Resume home BP meds 5. History of cervical cancer - s/p Radiotx and Chemotx - Pt follows up with Dr Jacobs as outpt 6. History of lung cancer - s/p Lobectomy and chemotherapy in 2003 -f/u outpatient 7. Insomnia -Resume home medication 8. GERD -c/w protonix 40 mg po daily 9. DVT prophylaxis -SCDs -Encourage ambulation 10. Code Status -Full code - Date & Time Date: 02/14/18 Time: 06:53 <Lolly Pritchett - Last Filed: 02/15/18 10:31> Results - Vital Signs Recent Vital Signs: Last Vital Signs Temp 97.6 F 02/15/18 08:20 Pulse 71 02/15/18 10:04 Resp 20 02/15/18 08:20 BP 99/56 L 02/15/18 10:04 Pulse Ox 98 02/15/18 08:20 Attending/Attestation - Attestation I have personally seen and examined this patient.: Yes I have fully participated in the care of the patient.: Yes I have reviewed all pertinent clinical information: Yes Notes (Text): 02/15/18 10:31 Agree with findings and plan as above.
[2018-02-14] MEDS: Meropenem 500 MG in Sodium Chloride 0.9% 100 ML IVPB SCH ×2 (08:57→21:44)
[2018-02-14] MEDS: Multivitamin Vitamin B Complex (Nephro-Vite) Tab PO SCH (08:58)
[2018-02-14] MEDS: Pantoprazole 40 mg EC Tab PO SCH (08:58)
[2018-02-14] MEDS ORDERED: Tuberculin 5 Units/0.1 ml Inj ID ONE (09:00)
[2018-02-15] MEDS: Meropenem 500 MG in Sodium Chloride 0.9% 100 ML IVPB SCH (10:03)
[2018-02-15] MEDS: Multivitamin Vitamin B Complex (Nephro-Vite) Tab PO SCH (10:04)
[2018-02-15] MEDS: Pantoprazole 40 mg EC Tab PO SCH (10:05)
[2018-02-16 07:32] LABS: CALCIUM 9.5 mg/dL (8.4-10.2)
[2018-02-16] MEDS: Pantoprazole 40 mg EC Tab PO SCH (08:23)
[2018-02-16] MEDS: Multivitamin Vitamin B Complex (Nephro-Vite) Tab PO SCH (08:23)
[2018-02-16] MEDS: Meropenem 1 GM in Sodium Chloride 0.9% 100 ML IVPB SCH (08:23)
--- NOTE | 2018-02-16 11:19 | CP.PCM.PN ---
Subjective - Date & Time of Evaluation Date of Evaluation: 02/16/18 Time of Evaluation: 10:00 - Subjective Subjective: No fever denies abd pain Nephrostomy tube in place draining urine no CP no SOB Objective - Vital Signs/Intake and Output Vital Signs (last 24 hours): Temp Pulse Resp BP Pulse Ox 98.5 F 69 20 100/57 L 98 02/16/18 08:24 02/16/18 08:24 02/16/18 08:24 02/16/18 08:24 02/16/18 08:24 - Medications Medications: Current Medications Acetaminophen (Tylenol 325mg Tab) 650 mg PO Q6 PRN PRN Reason: Pain, Mild (1-3) Last Admin: 02/15/18 22:09 Dose: 650 mg Amlodipine Besylate (Norvasc) 5 mg PO DAILY [facility] Last Admin: 02/16/18 08:23 Dose: 5 mg Calcitriol (Rocaltrol) 0.25 mcg PO MWF [facility] Last Admin: 02/15/18 10:05 Dose: 0.25 mcg Meropenem 1 gm/ Sodium (Chloride) 100 mls @ 100 mls/hr IVPB DAILY [facility]; Protocol Last Admin: 02/16/18 08:23 Dose: 100 mls/hr Metoprolol Tartrate (Lopressor) 25 mg PO Q12 [facility] Last Admin: 02/16/18 08:23 Dose: 25 mg Pantoprazole Sodium (Protonix Ec Tab) 40 mg PO DAILY [facility] Last Admin: 02/16/18 08:23 Dose: 40 mg Vitamin B Complex/Vit C/Folic Acid (Nephro-Davidson) 1 tab PO DAILY [facility] Last Admin: 02/16/18 08:23 Dose: 1 tab Zolpidem Tartrate (Ambien) 5 mg PO HS PRN PRN Reason: Insomnia Last Admin: 02/15/18 22:57 Dose: 5 mg - Labs Labs: 02/16/18 06:45 - Constitutional Appears: Non-toxic, No Acute Distress - Head Exam Head Exam: ATRAUMATIC, NORMAL INSPECTION, NORMOCEPHALIC - Eye Exam Eye Exam: EOMI, Normal appearance, PERRL Pupil Exam: NORMAL ACCOMODATION - ENT Exam ENT Exam: Mucous Membranes Moist, Normal External Ear Exam - Neck Exam Neck Exam: Full ROM. absent: Meningismus - Respiratory Exam Respiratory Exam: NORMAL BREATHING PATTERN. absent: Respiratory Distress - Cardiovascular Exam Cardiovascular Exam: REGULAR RHYTHM, +S1, +S2 - GI/Abdominal Exam GI & Abdominal Exam: Soft, Normal Bowel Sounds. absent: Tenderness - Exam Additional comments: Right Nephrostomy tube - Extremities Exam Extremities Exam: Full ROM, Normal Capillary Refill, Normal Inspection. absent: Calf Tenderness, Pedal Edema - Back Exam Back Exam: Full ROM. absent: CVA tenderness (L), CVA tenderness (R), paraspinal tenderness, vertebral tenderness - Neurological Exam Neurological Exam: Alert, Awake, CN II-XII Intact, Normal Gait, Oriented x3 Neuro motor strength exam: Left Upper Extremity: 5, Right Upper Extremity: 5, Left Lower Extremity: 5, Right Lower Extremity: 5 - Psychiatric Exam Psychiatric exam: Normal Affect, Normal Mood - Skin Skin Exam: Dry, Normal Color, Warm Assessment and Plan - Assessment and Plan (Free Text) Assessment: 63F with Lung CA s/p Lobectomy and Chemotx in 2003, Hx of Cervical CA s/p Chemo and radiation therapy in 2000, Obstructive Uropathy sec to Cervical CA s/p Right Ureteral Stent Placement, CKD stage III B, Anemia and HTN seen in TCU for abx treatment and deconditioning Plan: 1. Recurrent UTI likely secondary to right nephrostomy tube, S/P Right Nephrostomy tube change by IR -ESBL E coli -cont IV meropenem 2. Microcytic Anemia -improved/stable, Hgb post-transfusion 9.9 - received IV Venofer 3. CKD (chronic kidney disease) stage 4 -Likely due to Obstructive Uropathy -Nephrology consult: Dr. Pemberton 4. Hypertension -Controlled -Resume home BP meds 5. History of cervical cancer - s/p Radiotx and Chemotx - Pt follows up with Dr Jacobs as outpt 6. History of lung cancer - s/p Lobectomy and chemotherapy in 2003 -f/u outpatient 7. Insomnia -Resume home medication 8. GERD -c/w protonix 40 mg po daily 9. DVT prophylaxis -SCDs, Lovenox -Encourage ambulation 10. Code Status -Full code
[2018-02-16] MEDS: Enoxaparin 30 mg Syringe SC SCH (17:13)
[2018-02-17] MEDS: Enoxaparin 30 mg Syringe SC SCH (08:51)
[2018-02-17] MEDS: Pantoprazole 40 mg EC Tab PO SCH (08:52)
[2018-02-17] MEDS: Meropenem 1 GM in Sodium Chloride 0.9% 100 ML IVPB SCH (08:53)
[2018-02-17] MEDS: Multivitamin Vitamin B Complex (Nephro-Vite) Tab PO SCH (08:54)
[2018-02-18] MEDS: Enoxaparin 30 mg Syringe SC SCH (08:39)
[2018-02-18] MEDS: Pantoprazole 40 mg EC Tab PO SCH (08:40)
[2018-02-18] MEDS: Multivitamin Vitamin B Complex (Nephro-Vite) Tab PO SCH (08:40)
[2018-02-18] MEDS: Meropenem 1 GM in Sodium Chloride 0.9% 100 ML IVPB SCH (08:42)
[2018-02-19] MEDS: Enoxaparin 30 mg Syringe SC SCH (08:06)
[2018-02-19] MEDS: Meropenem 1 GM in Sodium Chloride 0.9% 100 ML IVPB SCH (08:07)
[2018-02-19] MEDS: Multivitamin Vitamin B Complex (Nephro-Vite) Tab PO SCH (08:09)
[2018-02-19] MEDS: Pantoprazole 40 mg EC Tab PO SCH (08:09)
[2018-02-20] MEDS: Enoxaparin 30 mg Syringe SC SCH ×2 (08:24→08:30)
[2018-02-20] MEDS: Multivitamin Vitamin B Complex (Nephro-Vite) Tab PO SCH (08:24)
[2018-02-20] MEDS: Pantoprazole 40 mg EC Tab PO SCH (08:25)
[2018-02-20] MEDS: Meropenem 1 GM in Sodium Chloride 0.9% 100 ML IVPB SCH (10:57)
[2018-02-21 08:25] VITALS: BP 110/57; PULSE 77; RESP 18; TEMP 99.2; O2SAT 98
[2018-02-21] MEDS: Enoxaparin 30 mg Syringe SC SCH (08:53)
[2018-02-21] MEDS: Multivitamin Vitamin B Complex (Nephro-Vite) Tab PO SCH (08:54)
[2018-02-21] MEDS: Pantoprazole 40 mg EC Tab PO SCH (08:54)
[2018-02-21] MEDS: Meropenem 1 GM in Sodium Chloride 0.9% 100 ML IVPB SCH (09:10)
--- NOTE | 2018-02-21 10:26 | CP.PCM.DIS ---
Provider - Provider Date of Admission: 02/13/18 15:55 Attending physician: Lolly Pritchett DO Consults: 02/13/18 15:55 Case Management Referral Routine Comment: Physician Instructions: Reason For Exam: Reason for Referral: Discharge Planning 02/13/18 15:58 Pastoral Care Referral Routine Comment: Physician Instructions: Reason For Exam: advance directive 02/13/18 16:00 Infectious Disease Consult Routine Comment: Consulting Provider: Cristofer Meyer Consulting Physician: Cristofer Meyer Reason for Consult: follow up Time Spent in preparation of Discharge (in minutes): 25 Diagnosis - Discharge Diagnosis (1) Recurrent UTI Status: Acute Comment: completed 2 weeks course of IV Meropenem. urine culture grew ESBL E coli (2) Obstructive uropathy Status: Chronic Comment: complication of radiation therapy. on right nephrostomy tube which have to be replaced every 3-4 months. causing prone to recurrent UTI (3) Anemia Status: Acute Comment: receive transfusion and Venofer. secondary to chronic kidney disease (4) Chronic kidney disease Status: Acute Comment: secondary to obstructive uropathy (5) History of cervical cancer Status: Chronic Comment: received chemo and radiation therapy (6) History of lung cancer Status: Chronic Comment: metastatic from cervical cancer. had lobectomy Hospital Course - Lab Results Lab Results: Most Recent Lab Values Sodium 137 mmol/l (132-148) 02/16/18 06:45 Potassium 4.4 MMOL/L (3.6-5.0) 02/16/18 06:45 Chloride 104 mmol/L (98-107) 02/16/18 06:45 Carbon Dioxide 21 mmol/L (22-30) L 02/16/18 06:45 Anion Gap 16 (10-20) 02/16/18 06:45 BUN 26 mg/dl (7-17) H 02/16/18 06:45 Creatinine 1.6 mg/dl (0.7-1.2) H 02/16/18 06:45 Est GFR ( Amer) 39 02/16/18 06:45 Est GFR (Non-Af Amer) 33 02/16/18 06:45 Random Glucose 93 mg/dL (65-105) 02/16/18 06:45 Calcium 9.5 mg/dL (8.4-10.2) 02/16/18 06:45 - Hospital Course Hospital Course: 63 yo female with history of cervical cancer metastatic to the lungs post chemo and radiation therapy and lobectomy complicated with obstructive uropathy necessitating placement of right ureteral stent which have been change every 3-4 months. Patient was admitted because of recurrent UTI. Urine culture grew ESBL E coli which was sensitive to Meropenem. Patient was put on IV Meropenem and was transferred to TCU for completion of 2 weeks course of IV antibiotics. Patient completed IV antibiotic course and was discharge in stable condition. Discharge Exam - Head Exam Head Exam: ATRAUMATIC, NORMAL INSPECTION, NORMOCEPHALIC - Eye Exam Eye Exam: absent: Scleral icterus - ENT Exam ENT Exam: Mucous Membranes Moist - Respiratory Exam Respiratory Exam: absent: Rales, Rhonchi, Wheezes, Respiratory Distress - Cardiovascular Exam Cardiovascular Exam: REGULAR RHYTHM, +S1, +S2 - GI/Abdominal Exam GI & Abdominal Exam: Soft. absent: Tenderness - Rectal Exam Rectal Exam: Deferred - Neurological Exam Neurological exam: Alert, Oriented x3 - Psychiatric Exam Psychiatric exam: Normal Affect - Skin Skin Exam: Dry, Intact Discharge Plan - Follow Up Plan Condition: GOOD Disposition: HOME/ ROUTINE Instructions: Urinary Tract Infections in Adults, Anemia of Chronic Disease (DC), Extended-Spectrum Beta Lactamase Infection Referrals: Delbert Jacobs MD [Family Provider] - Ta Pemberton MD [Staff Provider] -
== END 2018-02-21 12:45 | disposition home or self-care (01) | DRG 949 ==
LOC: H.TCU 15:55
PROVIDERS: ADMIT Student in an Organized Health Care Education/Training Program; ATTEND Student in an Organized Health Care Education/Training Program
DX: T83.512D Infection and inflammatory reaction due to nephrostomy catheter, subsequent encounter (principal); N39.0 Urinary tract infection, site not specified; N18.4 Chronic kidney disease, stage 4 (severe); I12.9 Hypertensive chronic kidney disease with stage 1 through stage 4 chronic kidney disease, or unspecified chronic kidney disease; Z85.118 Personal history of other malignant neoplasm of bronchus and lung; Z87.891 Personal history of nicotine dependence; Z92.21 Personal history of antineoplastic chemotherapy; N13.9 Obstructive and reflux uropathy, unspecified; Y84.2 Radiological procedure and radiotherapy as the cause of abnormal reaction of the patient, or of later complication, without mention of misadventure at the time of the procedure; D63.1 Anemia in chronic kidney disease; Z85.41 Personal history of malignant neoplasm of cervix uteri; Z87.442 Personal history of urinary calculi; B96.20 Unspecified Escherichia coli [E. coli] as the cause of diseases classified elsewhere; Z16.12 Extended spectrum beta lactamase (ESBL) resistance; F32.9 Major depressive disorder, single episode, unspecified; F41.9 Anxiety disorder, unspecified; G47.00 Insomnia, unspecified; K21.9 Gastro-esophageal reflux disease without esophagitis

== ENCOUNTER 2018-03-07 12:30 | Emergency (ER) | payer MEDICARE, MEDICAID ==
[2018-03-07 12:30] VITALS: BMI 19.3
[2018-03-07 12:35] VITALS: BP 113/59; PULSE 86; RESP 18; TEMP 97.8; O2SAT 99
--- NOTE | 2018-03-07 14:33 | ED PDOC ---
Lower Extremity Pain/Injury Time Seen by Provider: 03/07/18 12:53 Chief Complaint (Nursing): Lower Extremity Problem/Injury History Per: Patient Additional Complaint(s): Pt. states for the past 10 days she's had atraumatic, non-radiating R thigh pain. Reports pain began while she was in the hospital for an obstructive uropathy which required a nephrostomy. Reports pain is worse when she walks. She's been taking Tylenol without relief. Denies trauma, numbness, tingling, back pain, flank pain, hematuria, dysuria, incontinence, N/V, chills, fever. Past Medical History Vital Signs: Last Vital Signs Temp 97.8 F 03/07/18 12:31 Pulse 86 03/07/18 12:31 Resp 18 03/07/18 12:31 BP 113/59 L 03/07/18 12:31 Pulse Ox 99 03/07/18 12:31 - Medical History PMH: Anemia, Anxiety, Depression, HTN, Kidney Stones, Malignancy (lung CA and cervical CA ), Chronic Kidney Disease (kidney stones; rt nephrostomy) Denies: HIV - Family History Family History: States: Unknown Family Hx - Immunization History Hx Influenza Vaccination: No Hx Pneumococcal Vaccination: No - Home Medications Home Medications: Ambulatory Orders Medication Instructions Recorded Calcitriol [Rocaltrol] 0.25 mcg PO MWF #0 sgl 10/20/15 amLODIPine [Norvasc] 5 mg PO DAILY 11/11/16 B Complex W-C No.20/Folic Acid 1 cap PO DAILY 02/09/18 [Nephrocaps Softgel] Metoprolol Tartrate [Lopressor] 25 mg PO Q12 02/09/18 Omeprazole 40 mg PO DAILY 02/09/18 Zolpidem [Ambien] 5 mg PO HS PRN 02/09/18 Acetaminophen [Tylenol 325mg tab] 650 mg PO Q6 PRN tab 02/13/18 Tramadol HCl [Ultram] 50 mg PO BID PRN #10 tablet 03/07/18 - Allergies Allergies/Adverse Reactions: Allergies Allergy/AdvReac Type Severity Reaction Status Date / Time No Known Allergies Allergy Verified 02/13/18 15:25 Physical Exam - Physical Exam Appears: Positive for: Well, Non-toxic, No Acute Distress Skin: Positive for: Normal Color, Warm. Negative for: Rash Eye Exam: Positive for: Normal appearance Gastrointestinal/Abdominal: Positive for: Normal Exam, Soft. Negative for: Tenderness Back: Positive for: Other (R nephrostomy) Extremity: Positive for: Other (B/L lower extremity without tenderness, swelling, deformity; FROM actively of both lower extremities but pain with flexion and extension of R hip) Neurologic/Psych: Positive for: Alert, Oriented (x3) - ECG O2 Sat by Pulse Oximetry: 99 - Progress ED Course And Treament: R hip/pelvic x-ray, ultram 50mg PO ordered. Case d/w Dr. Raygoza who agrees with plan and care. Disposition - Clinical Impression Clinical Impression: Hip pain - Patient ED Disposition Is Patient to be Admitted: No - Disposition Referrals: [facility] [Outside] Delbert Jacobs MD [Family Provider] - Disposition: Routine/Home Disposition Time: 14:00 Condition: STABLE Additional Instructions: FOLLOW UP WITH DR. JACOBS FOR FURTHER EVALUATION RETURN TO ED IMMEDIATELY IF SYMPTOMS WORSEN VERONICA TOWNSEND, thank you for letting us take care of you today. Your provider was Sharon Raygoza MD and you were treated for LEG PAIN. The emergency medical care you received today was directed at your acute symptoms. If you were prescribed any medication, please fill it and take as directed. It may take several days for your symptoms to resolve. Return to the Emergency Department if your symptoms worsen, do not improve, or if you have any other problems. Please contact your doctor or call one of the physicians/clinics you have been referred to that are listed on the Patient Visit Information form that is included in your discharge packet. Bring any paperwork you were given at discharge with you along with any medications you are taking to your follow up visit. Our treatment cannot replace ongoing medical care by a primary care provider outside of the emergency department. Thank you for allowing the [facility] [employer] team to be part of your care today. If you had an X-Ray or CT scan: A Radiologist will review the ED reading if any change in treatment is needed we will contact you. If you had a blood, urine, or wound culture: It will take several days for the results, if any change in treatment is needed we will contact you. If you had an STI test: It will take 48 hours for the results. Please call after 1 week if you have not heard back. Prescriptions: Tramadol HCl [Ultram] 50 mg PO BID PRN #10 tablet PRN Reason: Pain Instructions: Hip Pain (DC) Forms: [facility] ([place]) Print Language: CUBAN
--- NOTE | 2018-03-07 18:04 | RAD ---
Date of service: 03/07/2018 PROCEDURE: Pelvis and right hip dated 03/24/2018 HISTORY: PAIN COMPARISON: Comparison made with prior CT scan abdomen pelvis 10/05/2015 which image the pelvis and both hips in 3 planes. TECHNIQUE: AP view of the pelvis and left hip and AP/frogleg lateral views of the left hip were obtained.. FINDINGS: No evidence of acute displaced fracture nor dislocation. Both femoral heads are appropriately located within the respective acetabula. Joint spaces are relatively preserved. Calcified uterine fibroid again noted. IMPRESSION: No acute fractures.
== END 2018-03-07 15:55 | disposition home or self-care (01) ==
LOC: H.ER 12:30
DX: M25.551 Pain in right hip (principal)

== ENCOUNTER 2018-04-25 15:30 | Emergency (ER) | payer MEDICARE, MEDICAID ==
[2018-04-25 15:30] VITALS: BMI 19.3
[2018-04-25 16:02] VITALS: RESP 18; TEMP 98
--- NOTE | 2018-04-25 17:01 | ED PDOC ---
HPI: Back Time Seen by Provider: 04/25/18 16:19 Chief Complaint (Nursing): Back Pain Chief Complaint (Provider): Back pain History Per: Patient History/Exam Limitations: no limitations Onset/Duration Of Symptoms: Days (over a month) Current Symptoms Are (Timing): Still Present Additional Complaint(s): Sudha Mccabe is a 63 year old female, with a past medical history of cervical and lung CA x14 yrs ago, HTN and obstructive uropathy, who was brought to the emergency department by EMS complaining of bilateral lower back pain and bilateral hip pain worsening over the past month, but chronic in nature. Pain is exacerbated with ambulation. Patient states she was seen here on 03/07/18, she had a hip x-ray done which came normal and was discharged with Tramadol but with no improvement of pain. She did not take any medication for pain prior to arrival. Patient admits she never followed up outpatient after initial ED visit. She denies any fever, chills, headache, nausea, vomit, abdominal pain, shortness of breath, chest pain, weakness, numbness, saddle anesthesia, recent injuries or trauma. No further medical complaints. PMD: Dlebert Jacobs Past Medical History Reviewed: Historical Data, Nursing Documentation, Vital Signs Vital Signs: Last Vital Signs Temp 98 F 04/25/18 16:00 Pulse 88 04/25/18 16:00 Resp 18 04/25/18 16:00 BP 106/64 04/25/18 16:00 Pulse Ox 100 04/25/18 16:00 - Medical History PMH: Anemia, Anxiety, Depression, HTN, Kidney Stones, Malignancy (lung CA and cervical CA ), Chronic Kidney Disease (kidney stones; rt nephrostomy) - Surgical History Other surgeries: right nephrostomy - Family History Family History: States: Unknown Family Hx - Social History Current smoker - smoking cessation education provided: No Alcohol: None Drugs: Denies - Home Medications Home Medications: Ambulatory Orders Medication Instructions Recorded RX: Calcitriol [Rocaltrol] 0.25 mcg PO MWF #0 sgl 10/20/15 RX: amLODIPine [Norvasc] 5 mg PO DAILY 11/11/16 RX: B Complex W-C No.20/Folic Acid 1 cap PO DAILY 02/09/18 [Nephrocaps Softgel] RX: Metoprolol Tartrate [Lopressor] 25 mg PO Q12 02/09/18 RX: Omeprazole 40 mg PO DAILY 02/09/18 RX: Zolpidem [Ambien] 5 mg PO HS PRN 02/09/18 RX: Acetaminophen [Tylenol 325mg 650 mg PO Q6 PRN tab 02/13/18 tab] Tramadol HCl [Ultram] 50 mg PO BID PRN #10 tablet 03/07/18 Acetaminophen [Acetaminophen 8 650 mg PO Q8 PRN #21 tablet.er 04/25/18 Hour] RX: Walker [Rolling Walker] 1 dev XX PRN PRN #1 dev 04/25/18 Sulfamethoxazole/Trimethoprim 1 tab PO BID #14 tab 04/25/18 [Bactrim DS 800 mg-160 mg] Ciprofloxacin HCl [Cipro] 500 mg PO BID #14 tablet 04/27/18 - Allergies Allergies/Adverse Reactions: Allergies Allergy/AdvReac Type Severity Reaction Status Date / Time No Known Allergies Allergy Verified 04/25/18 16:00 Review of Systems ROS Statement: Except As Marked, All Systems Reviewed And Found Negative Constitutional: Negative for: Fever, Chills Cardiovascular: Negative for: Chest Pain Respiratory: Negative for: Shortness of Breath Gastrointestinal: Negative for: Nausea, Vomiting, Abdominal Pain Musculoskeletal: Positive for: Back Pain, Other (hip pain) Neurological: Negative for: Headache Physical Exam - Reviewed Nursing Documentation Reviewed: Yes Vital Signs Reviewed: Yes - Physical Exam Comments: GENERAL APPEARANCE: Patient is awake, alert, oriented x 3, in no acute distress. SKIN: Warm, dry; (-) cyanosis. EYES: (-) conjunctival injection ENMT: Mucous membranes moist. Airway patent, (-) stridor. NECK: Supple, FROM CHEST AND RESPIRATORY: (-) rales, (-) rhonchi, (-) wheezes; breath sounds equal bilaterally. Respirations even and nonlabored. HEART AND CARDIOVASCULAR: (-) irregularity ABDOMEN AND GI: Soft; (-) tenderness; (-) palpable mass. BACK: (+) Diffuse paralumbar and midline lumbar tenderness, (-) deformity. EXTREMITIES: (+) tenderness to bilateral posterior hips (-) deformity. Distal pulses good bilaterally. NEURO AND PSYCH: Mental status as above. Intact sensation bilaterally; normal strength in extension of the knees, plantar and dorsiflexion of the toes. Speech: clear. (-) facial asymmetry (-) aphasia - ECG O2 Sat by Pulse Oximetry: 100 (RA) Pulse Ox Interpretation: Normal Medical Decision Making Medical Decision Making: Time: 16:20 Initial Impression: Acute on chronic back pain r/o compression fracture Initial Plan: --Lumbar Spine w/o contrast [CT] --Tylenol 325mg tab 650 mg PO --Valium 5 mg PO (not driving home) --Reevaluation 03/07/18 Hip/Pelvis X-Ray FINDINGS: No evidence of acute displaced fracture nor dislocation. Both femoral heads are appropriately located within the respective acetabula. Joint spaces are relatively preserved. Calcified uterine fibroid again noted. IMPRESSION: No acute fractures. 1735 CT reviewed, radiology report follows Date of service: 04/25/2018 PROCEDURE: CT Lumbar Spine without contrast HISTORY: Severe pain; rule out compression fracture COMPARISON: None available. TECHNIQUE: Axial computed tomography images were obtained of the lumbar spine without the use of intravenous contrast. Coronal and sagittal reformatted images were created and reviewed. Radiation dose: Total exam DLP = 234.84 mGy-cm. This CT exam was performed using one or more of the following dose reduction techniques: Automated exposure control, adjustment of the mA and/or kV according to patient size, and/or use of iterative reconstruction technique. FINDINGS: VERTEBRAE: No acute compression fractures no retropulsed fragments. Vertebral bodies exhibit normal stature. Very slight anterior subluxation L4 over L5 felt to be due to hypertrophic facets as no definitive pars defects identified. Vertebral bodies otherwise exhibit normal alignment. Facets normally aligned. DISCS/SPINAL CANAL/NEURAL FORAMINA: At the L4-L5 level, there is there is mild anterior disc space narrowing and along with the aforementioned. Slight uncovering of the posterior superior billingsley rface of the disc due to the aforementioned anterior and subluxation.. There is also minimal broad-based bulge of the posterior annulus. There is also mild posterior annular calcification. Pedicles appear congenitally short with secondary underlying bilateral lateral recess and central canal stenosis. Facets also hypertrophic and flavum buckled contributing to central canal stenosis. The. Exit foramina are stenotic bilaterally. At the L3-L4 level, there is adequate disc height. Mild very minor broad-based bulge of the posterior annulus extends into the proximal inferior margins of both exit foramina with the disc appears most pronounced bilaterally. Small amount of calcification also seen along the left aspect of the annulus within the exit foramina. Facets are hypertrophic. Overall central canal appears adequate. Proximal exit foramina are marginal to adequate as well. At the L5-S1 level, mild posterior disc space narrowing. There is small broad- based bulge of the posterior annulus. There also appears to be peripheral circumferential calcification of the annulus as well. Mild flattening of the ventral surface of the thecal sac however the overall central canal appears quite capacious at this level. Facets are hypertrophic. Proximal exit foramina are stenotic bilaterally with compressive effects on the exiting L5 foraminal nerve roots. PARASPINAL SOFT TISSUES: Unremarkable. OTHER FINDINGS: Note made of a in situ right-sided percutaneous nephrostomy tube. Marked on dilatation of the left renal collecting system left renal pelvis and proximal left ureter consistent with chronic- longstanding hydronephrosis. IMPRESSION: No acute fractures. 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 Changes result in moderate to fairly significant bilateral lateral recess and central canal stenosis. Multilevel degenerative spondylosis seen at the L3-L4 and L5-S1 levels as detailed above. Significant longstanding left-sided hydronephrosis. In situ right-sided percutaneous nephrostomy tube. Patient with persistent pain on re-evaluation. IV access, CBC, CMP, U/A, U/C ordered. 1745 Patient refused IV access and blood work. 1900 Patient resting comfortably on cell phone. U/A reviewed, (+) UTI. Case discussed with ED MD [place], who recommends treatment with Bactrim. Bactrim PO ordered. On re-evaluation, patient reports improvement of symptoms. Gait steady in ED. On exam, patient remains AAOx3, in no acute distress. Vitals stable. Lab/Diagnostic results d/w the patient in great detail. Diagnosis of acute on chronic back pain, spinal stenosis, UTI d/w the patient. Based on history, exam and diagnostic results, plan will be for outpatient follow up with PMD/ortho. Patient instructed to follow-up with pmd / referral provided / the clinic in 1- 2 days without fail. Advised to take medication as prescribed. Return to the emergency room at any time for any new or worsening symptoms. Patient states she fully agrees with and understands discharge instructions. States that she agrees with the plan and disposition. Verbalized and repeated discharge in structions and plan. I have given the patient opportunity to ask any additional questions. ----- Scribe Attestation: Documented by Cristian Avendano, acting as a scribe for Soheila Maciel PA-C. Provider Scribe Attestation: All medical record entries made by the Scribe were at my direction and personally dictated by me. I have reviewed the chart and agree that the record accurately reflects my personal performance of the history, physical exam, medical decision making, and the department course for this patient. I have also personally directed, reviewed, and agree with the discharge instructions and disposition. Disposition - Clinical Impression Clinical Impression: Chronic back pain, Spinal stenosis, Spondylosis, UTI (urinary tract infection) - Patient ED Disposition Is Patient to be Admitted: No Counseled Patient/Family Regarding: Studies Performed, Diagnosis, Need For Followup, Rx Given - Disposition Referrals: Rupert Santana III, MD [Staff Provider] - Delbert Jacobs MD [Family Provider] - Disposition: Routine/Home Disposition Time: 19:00 Condition: FAIR Additional Instructions: La atencin mdica de emergencia que recibi hoy se dirigi a lenard sntomas agudos. Si le recetaron algn medicamento, llnelo y tmelo segn las indicaciones. Los sntomas pueden tardar varios herrera en resolverse. Regrese al Departamento de Emergencias si lenard sntomas empeoran, no mejoran o si tiene otros problemas. Comunquese con billingsley mdico dentro de 2 herrera para jyothi nueva evaluacin y huong un seguimiento o llame a elizabeth de los mdicos / clnicas a los que [place] sido referido y que figuran en el formulario de Informacin de visita al paciente que se incluye en billingsley paquete de mickey. Lleve todos los documentos que le entregaron al momento del mickey junto con todos los medicamentos que est tomando para billingsley visita de seguimiento. Nuestro tratamiento no puede reemplazar la atencin mdica continua por parte de un proveedor de atencin primaria (PCP) fuera del departamento de emergencias. Prescriptions: Acetaminophen [Acetaminophen 8 Hour] 650 mg PO Q8 PRN #21 tablet.er PRN Reason: Pain, Moderate (4-7) Ciprofloxacin HCl [Cipro] 500 mg PO BID #14 tablet Sulfamethoxazole/Trimethoprim [Bactrim DS 800 mg-160 mg] 1 tab PO BID #14 tab RX: Walker [Rolling Walker] 1 dev XX PRN PRN #1 dev PRN Reason: ambulation Instructions: Spondylolysis, Spinal Stenosis, Low Back Pain in Adults, Deg enerative Disc Disease, Urinary Tract Infection, Adult (DC) Forms: N(i)² ([employer] Print Language: NORWEGIAN - POA Present On Arrival: None Results - Diagnostic Imaging Results Radiology Results Lumbar Spine CT 04/25/18 16:46 IMPRESSION: No acute fractures. 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 Changes result in moderate to fairly significant bilateral lateral recess and central canal stenosis. Multilevel degenerative spondylosis seen at the L3-L4 and L5-S1 levels as detailed above. Significant longstanding left-sided hydronephrosis. In situ right-sided percutaneous nephrostomy tube. - Lab Results Lab Results: 04/25/18 17:58 Urine Color Yellow Urine Clarity Cloudy Urine pH 6.0 Ur Specific [place] 1.010 Urine Protein 30 Urine Glucose (UA) Neg Urine Ketones Negative Urine Blood Negative Urine Nitrate Positive H Urine Bilirubin Negative Urine Urobilinogen 0.2-1.0 Ur Leukocyte Esterase Large Urine RBC (Auto) 2 Urine Microscopic WBC 153 H Ur Squamous Epith Cells < 1 Urine Bacteria Few H
--- NOTE | 2018-04-25 17:30 | CT ---
Date of service: 04/25/2018 PROCEDURE: CT Lumbar Spine without contrast HISTORY: Severe pain; rule out compression fracture COMPARISON: None available. TECHNIQUE: Axial computed tomography images were obtained of the lumbar spine without the use of intravenous contrast. Coronal and sagittal reformatted images were created and reviewed. Radiation dose: Total exam DLP = 234.84 mGy-cm. This CT exam was performed using one or more of the following dose reduction techniques: Automated exposure control, adjustment of the mA and/or kV according to patient size, and/or use of iterative reconstruction technique. FINDINGS: VERTEBRAE: No acute compression fractures no retropulsed fragments. Vertebral bodies exhibit normal stature. Very slight anterior subluxation L4 over L5 felt to be due to hypertrophic facets as no definitive pars defects identified. Vertebral bodies otherwise exhibit normal alignment. Facets normally aligned. DISCS/SPINAL CANAL/NEURAL FORAMINA: At the L4-L5 level, there is there is mild anterior disc space narrowing and along with the aforementioned. Slight uncovering of the posterior superior surface of the disc due to the aforementioned anterior and subluxation.. There is also minimal broad-based bulge of the posterior annulus. There is also mild posterior annular calcification. Pedicles appear congenitally short with secondary underlying bilateral lateral recess and central canal stenosis. Facets also hypertrophic and flavum buckled contributing to central canal stenosis. The. Exit foramina are stenotic bilaterally. At the L3-L4 level, there is adequate disc height. Mild very minor broad-based bulge of the posterior annulus extends into the proximal inferior margins of both exit foramina with the disc appears most pronounced bilaterally. Small amount of calcification also seen along the left aspect of the annulus within the exit foramina. Facets are hypertrophic. Overall central canal appears adequate. Proximal exit foramina are marginal to adequate as well. At the L5-S1 level, mild posterior disc space narrowing. There is small broad-based bulge of the posterior annulus. There also appears to be peripheral circumferential calcification of the annulus as well. Mild flattening of the ventral surface of the thecal sac however the overall central canal appears quite capacious at this level. Facets are hypertrophic. Proximal exit foramina are stenotic bilaterally with compressive effects on the exiting L5 foraminal nerve roots. PARASPINAL SOFT TISSUES: Unremarkable. OTHER FINDINGS: Note made of a in situ right-sided percutaneous nephrostomy tube. Marked on dilatation of the left renal collecting system left renal pelvis and proximal left ureter consistent with chronic- longstanding hydronephrosis. IMPRESSION: No acute fractures. 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 Changes result in moderate to fairly significant bilateral lateral recess and central canal stenosis. Multilevel degenerative spondylosis seen at the L3-L4 and L5-S1 levels as detailed above. Significant longstanding left-sided hydronephrosis. In situ right-sided percutaneous nephrostomy tube.
[2018-04-25 18:22] LABS: SQUAMOUS EPITHIAL < 1 /hpf (0-5); URINE BACTERIA FEW (<OCC); URINE BILIRUBIN NEGATIVE (NEGATIVE); URINE BLOOD NEGATIVE (NEGATIVE); URINE CLARITY CLOUDY (Clear); URINE COLOR YELLOW (YELLOW); URINE GLUCOSE (UA) NEG (NEGATIVE); URINE LEUKOCYTE ESTERASE LARGE Leu/uL (Negative); URINE PROTEIN 30 mg/dL (NEGATIVE); URINE UROBILINOGEN 0.2-1.0 mg/dL (0.2-1.0)
[2018-04-25] MEDS: Tmp-Smz 800 mg-160 mg DS Tab PO STA (19:36)
[2018-04-25] MEDS ORDERED: Tmp-Smz 800 mg-160 mg DS Tab ONE (19:37)
[2018-04-25 19:40] VITALS: BP 109/70; PULSE 87
[2018-04-28 00:21] VITALS: O2SAT 100
== END 2018-04-25 19:38 | disposition home or self-care (01) ==
LOC: H.ER 15:30
DX: M54.9 Dorsalgia, unspecified (principal); N39.0 Urinary tract infection, site not specified; M48.061 Spinal stenosis, lumbar region without neurogenic claudication; M47.27 Other spondylosis with radiculopathy, lumbosacral region; N13.30 Unspecified hydronephrosis; Z85.118 Personal history of other malignant neoplasm of bronchus and lung; Z85.41 Personal history of malignant neoplasm of cervix uteri; I12.9 Hypertensive chronic kidney disease with stage 1 through stage 4 chronic kidney disease, or unspecified chronic kidney disease

== ENCOUNTER 2018-05-15 10:08 | Day surgery (SDC) | payer MEDICARE, MEDICAID ==
[2018-05-15 10:25] VITALS: BMI 16.5
[2018-05-15 11:28] LABS: BASO % 0.4 % (0.0-2.0); EOS # 0.1 K/uL (0.0-0.7); EOS % 1.1 % (0.0-4.0); HEMOGLOBIN 8.5 g/dL (12.0-16.0); LYMPH % 8.5 % (20.0-40.0); MEAN CELL VOLUME 85.8 fl (81.0-99.0); MEAN CORPUSCULAR HEMOGLOBIN 27.6 pg (27.0-31.0); MEAN CORPUSCULAR HGB CONC 32.1 g/dL (33.0-37.0); MEAN PLATELET VOLUME 7.8 fl (7.2-11.7); MONO # 0.8 K/uL (0.0-0.8); MONO % 7.1 % (0.0-10.0); NEUT # 9.4 K/uL (1.8-7.0); NEUT % 82.9 % (50.0-75.0); NRBC % 0.1 % (0.0-0.0); PLATELET COUNT 398 K/uL (130-400); RBC 3.07 Mil/uL (3.80-5.20); RED CELL DISTRIBUTION WIDTH 18.9 % (11.5-14.5); WHITE BLOOD COUNT 11.3 K/uL (4.8-10.8)
[2018-05-15 11:29] VITALS: RESP 18
[2018-05-15 11:30] LABS: CALCIUM 9.4 mg/dL (8.4-10.2)
[2018-05-15 11:39] LABS: INR 1.3; PROTHROMBIN TIME 14.2 Seconds (9.8-13.1)
[2018-05-15 11:41] LABS: PARTIAL THROMBOPLASTIN TIME 30.5 Seconds (25.6-37.1)
[2018-05-15 12:05] LABS: BANDS 1 % (0-2); EOSINOPHIL 1 % (0-7); LYMPHOCYTE 7 % (20-50); MONOCYTE 5 % (0-10); NEUTROPHIL 86 % (42-75); PLATELET ESTIMATE NORMAL (NORMAL); TOTAL CELLS COUNTED 100
[2018-05-15 12:14] LABS: ANISOCYTOSIS SLIGHT; GIANT PLATELETS PRESENT; HYPOCHROMIC MODERATE; LARGE PLATELETS PRESENT; OVALOCYTES SLIGHT; SCHISTOCYTES SLIGHT; TARGET CELLS SLIGHT
[2018-05-15] MEDS ORDERED: Iodixanol 320 MG/ML 100 ML BOTTLE IV ONE (12:26)
--- NOTE | 2018-05-15 13:20 | PCM.SURG1 ---
Surgeon's Initial Post Op Note - Surgeon's Notes Surgeon: Ru Moreno MD Micro Computer Data Processor: NONE Type of Anesthesia: None Pre-Operative Diagnosis: Hydronephrosis, ureteral obstruction Operative Findings: Left perc. nephrostogram showed severe distal ureteral obstruction, mild hydronephrosis. Post-Operative Diagnosis: Hydronephrosis, ureteral obstruction Operation Performed: Left perc. nephrostomy tube change. Specimen/Specimens Removed: NONE Estimated Blood Loss: EBL {In ML}: 0 Blood Products Given: N/A Drains Used: No Drains Post-Op Condition: Fair Date of Surgery/Procedure: 05/15/18 Time of Surgery/Procedure: 13:00
[2018-05-15 13:27] VITALS: PULSE 100; O2SAT 100
--- NOTE | 2018-05-15 13:39 | VASCULAR ---
Date of procedure: 05/15/2018 Procedure: 1. Right antegrade nephrostogram 2. Exchange of right percutaneous nephrostomy tube Medications: none Radiation: 7.36 MGy Fluoro time: 71.4 Seconds EBL: cc HISTORY: Right ureteral obstruction, nephrostomy tube change TECHNIQUE: Following informed consent the procedure time-out, patient was placed prone on the interventional table. The patient right nephrostomy tube and surrounding skin were prepped and draped in the usual sterile fashion. Dilute contrast injected through existing nephrostomy tube showed position to be within the kidney. Nephrostomy tube was removed over guidewire. And antegrade nephrostogram was performed through a Berenstein catheter position within the mid ureter. Nephrostogram showed severe distal ureteral obstruction. Following the nephrostogram, a new 8 Swiss nephrostomy tube was placed over the wire and formed within the renal pelvis. The tube was secured to patient's skin with 2 0 Prolene sutures. IMPRESSION: Exchange of right percutaneous nephrostomy tube with placement of a new 8 Swiss nephrostomy tube. Antegrade nephrostogram shows severe distal ureteral obstruction.
[2018-05-15 15:12] VITALS: BP 99/54; TEMP 98.9
--- NOTE | 2018-05-17 12:40 | CP.SDSHP ---
Same Day Surgery H & P - History Proposed Procedure: Right perc. nephrostomy tube change Pre-Op Diagnosis: Ureteral obstruction - Allergies Allergies: Allergies No Known Allergies Allergy (Verified 05/15/18 10:25) - Physical Exam Mental Status: Alert & Oriented x3 - Impression Impression: Pt with right ureteral obstruction with right perc. nephrostomy present for routine change. Plan change of right PCN and antegrade nephrostogram. Informed consent obtained. Pt. Evaluated Today:Candidate for Anesthesia & Procedure: No Short Stay Discharge - Short Stay Discharge Admitting Diagnosis/Reason for Visit: HYDRONEPHROSIS Disposition: HOME/ ROUTINE
== END 2018-05-15 14:32 | disposition home or self-care (01) ==
LOC: H.OPSURG 10:08
PROVIDERS: ATTEND Urology
DX: N13.1 Hydronephrosis with ureteral stricture, not elsewhere classified (principal); Z85.41 Personal history of malignant neoplasm of cervix uteri; I10 Essential (primary) hypertension
CPT/HCPCS: 36415; 50435; 80048; 85025; 85610; 85730; A4310; C1725; C1729; C1769; Q9967

== ENCOUNTER 2018-06-13 09:37 | Inpatient (IN) | payer MEDICARE, MEDICAID ==
[2018-06-13 09:39] VITALS: BMI 16.6
[2018-06-13] MEDS ORDERED: Sodium Chloride 0.9% 1,000 ML IV STA (10:20)
[2018-06-13] MEDS ORDERED: cefTRIAXone 1,000 MG in PED IV SYRINGE 1 SYR IVPB ONE (10:24)
--- NOTE | 2018-06-13 10:29 | ED PDOC ---
HPI: Female Pain Additional Complaint(s): 63 yo female with history of cervical CA and lung mets over ten years ago and HTN presents for evaluation of recurrent UTI. Pt states she continues to have suprapubic discomfort and burning when urinating. She endorses incontinence with bad smell urine. Pt has been on multiples courses of antibiotics since February. Pt has nephrostomy tube in the right kidney due to hydronephrosis from radiation during treatment of cervical cancer, tube was recently changed on May 15. Associated intermittent fever and nausea since last week, denies vomiting, chills, back pain or other abd pain. PMD: Dr Reynaldo Barron: Dr. Pemberton. Urologist: Dr Mares <Kush Le - Last Filed: 06/13/18 11:59> <Rock Chávez - Last Filed: 06/13/18 12:55> Chief Complaint (Nursing): Female Genitourinary Supervising Attending Note - Supervising Attending Note The Documented history was done by the: [employer] Senior Manager The documented physical exam was done by the: [employer] Senior Manager The documented procedures were done by the: [employer] Senior Manager - Attestation: I have personally seen and examined this patient.: Yes I have fully participated in the care of the patient.: Yes I have reviewed all pertinent clinical information, including history, physical exam and plan: Yes - Notes: Notes:: Suprapubic pain. Hx of uti since Feb. <Rock Chávez - Last Filed: 06/13/18 12:55> Past Medical History Vital Signs: Last Vital Signs Temp 98.8 F 06/13/18 09:40 Pulse 128 H 06/13/18 09:40 Resp 17 06/13/18 09:40 BP 103/65 06/13/18 09:40 Pulse Ox 98 06/13/18 09:40 - Medical History PMH: Anemia, Anxiety, Depression, HTN, Kidney Stones, Malignancy (lung CA and cervical CA ), Chronic Kidney Disease (kidney stones; rt nephrostomy) Denies: HIV - Family History Family History: States: Unknown Family Hx - Immunization History Hx Influenza Vaccination: No Hx Pneumococcal Vaccination: No <Kush Le - Last Filed: 06/13/18 11:59> Vital Signs: Last Vital Signs Temp 98.8 F 06/13/18 09:40 Pulse 128 H 06/13/18 09:40 Resp 17 06/13/18 09:40 BP 103/65 06/13/18 09:40 Pulse Ox 98 06/13/18 11:59 <Rock Chávez - Last Filed: 06/13/18 12:55> - Home Medications Home Medications: Ambulatory Orders Medication Instructions Recorded amLODIPine [Norvasc] 5 mg PO DAILY 11/11/16 Metoprolol Tartrate [Lopressor] 25 mg PO Q12 02/09/18 Omeprazole 40 mg PO DAILY PRN 02/09/18 Zolpidem [Ambien] 5 mg PO HS PRN 02/09/18 Baclofen [Lioresal] 10 mg PO Q8 PRN 05/15/18 Calcitriol [Rocaltrol] 0.25 mcg PO MWF 06/13/18 Fluticasone Nasal [Flonase] 2 spray MANNY DAILY PRN 06/13/18 Potassium Citrate [Urocit-K ER Tab] 10 meq PO TID 06/13/18 diaZEpam [Valium] 5 mg PO Q12 PRN 06/13/18 fentaNYL 25 mcg/hr [Duragesic 1 patch TD Q72H 06/13/18 Patch 25 mcg/hr] - Allergies Allergies/Adverse Reactions: Allergies Allergy/AdvReac Type Severity Reaction Status Date / Time No Known Allergies Allergy Verified 05/15/18 10:25 Review of Systems Constitutional: Positive for: Fever. Negative for: Chills, Weakness Cardiovascular: Negative for: Chest Pain, Palpitations Respiratory: Negative for: Cough, Shortness of Breath Gastrointestinal: Positive for: Nausea. Negative for: Vomiting, Abdominal Pain Genitourinary Female: Positive for: Dysuria, Incontinence, Pelvic Pain. Negative for: Hematuria, Vaginal Discharge, Vaginal Bleeding <Kush Le - Last Filed: 06/13/18 11:59> Physical Exam - Reviewed Nursing Documentation Reviewed: Yes Vital Signs Reviewed: Yes - Physical Exam Appears: Positive for: No Acute Distress Head Exam: Positive for: NORMAL INSPECTION Skin: Positive for: Warm, Dry Eye Exam: Positive for: EOMI, PERRL Cardiovascular/Chest: Positive for: Regular Rate, Rhythm, Murmur, Tachycardia. Negative for: Edema Respiratory: Positive for: Normal Breath Sounds. Negative for: Crackles, Rales, Wheezing Gastrointestinal/Abdominal: Positive for: Bowel Sounds, Soft, Tenderness (S uprapubic). Negative for: Distended Back: Positive for: Other (Nephrostomy tube noted in place, clean dry and intact.). Negative for: L CVA Tenderness, R CVA Tenderness Neurological/Psych: Positive for: Awake, Alert, Oriented <Kush Le - Last Filed: 06/13/18 11:59> - Physical Exam Cardiovascular/Chest: Positive for: Regular Rate, Rhythm Respiratory: Positive for: Normal Breath Sounds <Rock Chávez - Last Filed: 06/13/18 12:55> - Laboratory Results Result Diagrams: 06/13/18 10:40 06/13/18 10:40 - ECG O2 Sat by Pulse Oximetry: 98 <Kush Le - Last Filed: 06/13/18 11:59> - Laboratory Results Result Diagrams: 06/13/18 10:40 06/13/18 10:40 Lab Results: pO2 45 mm/Hg (30-55) 06/13/18 10:22 VBG pH 7.40 (7.32-7.43) 06/13/18 10:22 VBG pCO2 41 mmHg (40-60) 06/13/18 10:22 VBG HCO3 25.1 mmol/L 06/13/18 10:22 VBG Total CO2 26.7 mmol/L (22-28) 06/13/18 10:22 VBG O2 Sat (Calc) 88.9 % (40-65) H 06/13/18 10:22 VBG Base Excess 0.5 mmol/L (0.0-2.0) 06/13/18 10:22 VBG Potassium 4.4 mmol/L (3.6-5.2) 06/13/18 10:22 Sodium 129.0 mmol/L (132-148) L 06/13/18 10:22 Chloride 95.0 mmol/L (98-107) L 06/13/18 10:22 Glucose 104 mg/dL (65-105) 06/13/18 10:22 Lactate 1.0 mmol/L (0.7-2.1) 06/13/18 10:22 FiO2 21.0 % 06/13/18 10:22 Total Bilirubin 0.4 mg/dl (0.2-1.3) 06/13/18 10:40 AST 25 U/L (14-36) 06/13/18 10:40 ALT 16 U/L (9-52) 06/13/18 10:40 Alkaline Phosphatase 141 U/L (38-126) H D 06/13/18 10:40 Total Protein 8.4 G/DL (6.3-8.2) H 06/13/18 10:40 Albumin 3.7 g/dL (3.5-5.0) 06/13/18 10:40 Globulin 4.7 gm/dL (2.2-3.9) H 06/13/18 10:40 Albumin/Globulin Ratio 0.8 (1.0-2.1) L 06/13/18 10:40 Urine Color Yellow (YELLOW) 06/13/18 10:35 Urine Clarity Cloudy (Clear) 06/13/18 10:35 Urine pH 6.0 (5.0-8.0) 06/13/18 10:35 Ur Specific [place] 1.017 (1.003-1.030) 06/13/18 10:35 Urine Protein 100 mg/dL (NEGATIVE) 06/13/18 10:35 Urine Glucose (UA) Neg mg/dL (NEGATIVE) 06/13/18 10:35 Urine Ketones Negative mg/dL (NEGATIVE) 06/13/18 10:35 Urine Blood Small (NEGATIVE) 06/13/18 10:35 Urine Nitrate Positive (NEGATIVE) H 06/13/18 10:35 Urine Bilirubin Negative (NEGATIVE) 06/13/18 10:35 Urine Urobilinogen 0.2-1.0 mg/dL (0.2-1.0) 06/13/18 10:35 Ur Leukocyte Esterase Large Milind/uL (Negative) 06/13/18 10:35 Urine RBC (Auto) 35 /hpf (0-3) H 06/13/18 10:35 Urine Microscopic WBC 594 /hpf (0-5) H 06/13/18 10:35 Ur Squamous Epith Cells 1 /hpf (0-5) 06/13/18 10:35 Urine Bacteria Mod (<OCC) H 06/13/18 10:35 - Progress ED Course And Treament: 1200: Dr. Hernandez aware and will admit. Sepsis and uti. Pain controlled. AAOx3. Stable. <Rock Chávez - Last Filed: 06/13/18 12:55> Medical Decision Making Medical Decision Making: Initial plan: -- cbc -- cmp -- VBG -- blood and urine cx -- UA -- IV fluids -- Toradol -- Ceftriaxone once -- Re eval. Elevated WBC, tachy, Urine positive for UTI, Meets sepsis criteria Discussed labs and admission with Dr Hernandez. <Kush Le - Last Filed: 06/13/18 11:59> Disposition - Patient ED Disposition Is Patient to be Admitted: Yes Counseled Patient/Family Regarding: Studies Performed, Diagnosis, Rx Given - Disposition Disposition Time: 11:58 <Kush Le - Last Filed: 06/13/18 11:59> - Patient ED Disposition Is Patient to be Admitted: Yes Counseled Patient/Family Regarding: Studies Performed, Diagnosis - Pt Status Changed To: Hospital Disposition Of: Inpatient - Admit Certification Admit to Inpatient:: After my assessment, the patient will require hospitalization for at least two midnights. This is because of the severity of symptoms shown, intensity of services needed, and/or the medical risk in this patient being treated as an outpatient. - POA Present On Arrival: Cath Associated UTI <Rock Chávez - Last Filed: 06/13/18 12:55> - Clinical Impression Clinical Impression: UTI (urinary tract infection), Sepsis - Disposition Condition: FAIR
[2018-06-13] MEDS ORDERED: cefTRIAXone (Rocephin) 1 gm Inj ONE (10:32)
[2018-06-13 10:58] LABS: SQUAMOUS EPITHIAL 1 /hpf (0-5); URINE BACTERIA MOD (<OCC); URINE BILIRUBIN NEGATIVE (NEGATIVE); URINE BLOOD SMALL (NEGATIVE); URINE CLARITY CLOUDY (Clear); URINE COLOR YELLOW (YELLOW); URINE GLUCOSE (UA) NEG (NEGATIVE); URINE LEUKOCYTE ESTERASE LARGE Leu/uL (Negative); URINE PROTEIN 100 mg/dL (NEGATIVE); URINE UROBILINOGEN 0.2-1.0 mg/dL (0.2-1.0)
[2018-06-13 11:02] LABS: BASO # 0.1 K/uL (0.0-0.2); BASO % 0.6 % (0.0-2.0); EOS # 0.1 K/uL (0.0-0.7); EOS % 0.3 % (0.0-4.0); LYMPH # 0.8 K/uL (1.0-4.3); LYMPH % 4.7 % (20.0-40.0); MEAN CELL VOLUME 85.1 fl (81.0-99.0); MEAN CORPUSCULAR HEMOGLOBIN 26.7 pg (27.0-31.0); MEAN CORPUSCULAR HGB CONC 31.3 g/dL (33.0-37.0); MEAN PLATELET VOLUME 7.3 fl (7.2-11.7); MONO # 1.3 K/uL (0.0-0.8); MONO % 7.5 % (0.0-10.0); NEUT # 14.6 K/uL (1.8-7.0); NEUT % 86.9 % (50.0-75.0); PLATELET COUNT 616 K/uL (130-400); RBC 3.02 Mil/uL (3.80-5.20); RED CELL DISTRIBUTION WIDTH 17.3 % (11.5-14.5); WHITE BLOOD COUNT 16.8 K/uL (4.8-10.8)
[2018-06-13 11:07] LABS: VENOUS BLOOD GAS BASE EXCESS 0.5 mmol/L (0.0-2.0); VENOUS BLOOD GAS PCO2 41 mmHg (40-60); VENOUS BLOOD GAS PO2 45 mm/Hg (30-55)
[2018-06-13 11:09] LABS: ALB/GLOB RATIO 0.8 (1.0-2.1); ALBUMIN 3.7 g/dL (3.5-5.0); CALCIUM 9.2 mg/dL (8.4-10.2)
[2018-06-13] MEDS ORDERED: Sodium Chloride 0.9% 1,000 ML IV SCH (13:15)
--- NOTE | 2018-06-13 14:45 | CP.PCM.HP ---
<Sarah Berriosfrederick Collins - Last Filed: 06/13/18 20:12> History of Present Illness - History of Present Illness History of Present Illness: 63 year old female with PMHx of Lung CA s/p Lobectomy and Chemotx in 2003, Hx of Cervical CA s/p Chemo and radiation therapy in 2000, Obstructive Uropathy sec to Cervical CA s/p Right Ureteral Stent Placement, CKD stage III B, Anemia and HTN presented to ER for evaluation of suprapubic pain x 1 month and fever x 3 weeks. She endorses incontinence with bad smell urine. Pt has been on multiples courses of antibiotics since February. Pt has nephrostomy tube in the right kidney. States that Nephrostomy tube gets changed every [address] Mares, last changed on 05/15/18. Also reports poor appetite and weight loss x 2 months. ROS: all 12 systems reviewed and negative except as mentioned in HPI PMHx: Lung CA s/p Lobectomy and Chemotx in 2003, Hx of Cervical CA s/p Chemo and radiation therapy in 2000, Obstructive Uropathy sec to Cervical CA s/p Right Ureteral Stent Placement, CKD stage III B, Anemia and HTN. PSHx: Left lung lobectomy in 2003, Ureteral stent placement Social hx: Quit smoking cigarettes 20 years ago (smoked 1/2 PPD x 10 yrs). Denies drinking EtOH or using illicit drugs. Lives alone. Family hx: Father and Mother: HTN Allergies: NKDA Medications: Loperamide 2 mg PO PRN, Amlodipine 5 mg PO DAILY, Vitamin B Complex PO daily, Metoprolol Tartrate 50 mg bid, Omeprazole 40 mg PO DAILY ,Potassium Citrate 10 meq PO TID, Zolpidem 5 mg PO HS PRN. PMD: Dr Jacobs Urologist: Dr. Mares Dairy Equipment Installer: Dr. Pemberton Code Status: Full COde Surrogate : Daughter Marie [phone] Present on Admission - Present on Admission Any Indicators Present on Admission: No History of DVT/PE: No History of Uncontrolled Diabetes: No Urinary Catheter: No Decubitus Ulcer Present: No Review of Systems - Review of Systems All systems: reviewed and no additional remarkable complaints except (as per hpi) Past Patient History - Infectious Disease Hx of Infectious Diseases: None - Tetanus Immunizations Tetanus Immunization: Unknown - Past Medical History & Family History Past Medical History?: Yes - Past Social History Smoking Status: Never Smoked - CARDIAC Hx Hypertension: Yes - PULMONARY Hx Respiratory Disorders: Yes Hx Lung Cancer: Yes Other/Comment: Ca of Cervix with Lung ( L) Metastasis (10 years ago)PREVIOUSLY ON CHEMO/RADIATION THERAPHY - NEUROLOGICAL Hx Neurological Disorder: No - HEENT Hx HEENT Problems: No - RENAL Hx Chronic Kidney Disease: Yes (kidney stones; rt nephrostomy) Hx Kidney Stones: Yes - ENDOCRINE/METABOLIC Hx Endocrine Disorders: No - HEMATOLOGICAL/ONCOLOGICAL Hx Anemia: Yes Hx Human Immunodeficiency Virus (HIV): No - INTEGUMENTARY Hx Dermatological Problems: No - MUSCULOSKELETAL/RHEUMATOLOGICAL Hx Musculoskeletal Disorders: No Hx Falls: No - GASTROINTESTINAL Hx Gastrointestinal Disorders: No - GENITOURINARY/GYNECOLOGICAL Hx Genitourinary Disorders: Yes Hx Cervical Cancer: Yes Hx Urinary Tract Infection: Yes Other/Comment: BLADDER PROBLEMS - PSYCHIATRIC Hx Anxiety: Yes Hx Depression: Yes - SURGICAL HISTORY Hx Surgeries: Yes Hx Pulmonary Surgery: Yes (Left Lobectomy) Hx Tubal Ligation: Yes Other/Comment: nephrostomy rt and left kidneys. 01/19/16 cystoscopy. insertion and removal of lifepor. Feb 2018 replacement of nephrostomy tube. - ANESTHESIA Hx Anesthesia: Yes Hx Anesthesia Reactions: No Hx Malignant Hyperthermia: No Meds Allergies/Adverse Reactions: Allergies Allergy/AdvReac Type Severity Reaction Status Date / Time No Known Allergies Allergy Verified 05/15/18 10:25 Physical Exam - Skin Additional comments: Constitutional Appears: Well, Non-toxic, No Acute Distress - Head Exam Head Exam: ATRAUMATIC, NORMOCEPHALIC - Eye Exam Eye Exam: Normal appearance, PERRL. absent: Scleral icterus - ENT Exam ENT Exam: Mucous Membranes Moist - Neck Exam Neck exam: Positive for: Full Rom, Normal Inspection - Respiratory Exam Respiratory Exam: Clear to Auscultation Bilateral, NORMAL BREATHING PATTERN. absent: Rhonchi, Wheezes Additional comments: Healed scar in the left upper back from lobectomy surgery - Cardiovascular Exam Cardiovascular Exam: REGULAR RHYTHM, RRR, +S1, +S2, Systolic Murmur - GI/Abdominal Exam GI & Abdominal Exam: Normal Bowel Sounds, Soft. absent: Guarding, Rebound, Rigid, Tenderness - Extremities Exam Extremities exam: Positive for: normal inspection, pedal pulses present. Negative for: calf tenderness, pedal edema - Back Exam Back exam: absent: CVA tenderness (L), CVA tenderness (R) - Neurological Exam Neurological exam: Alert, Oriented x3 - Psychiatric Exam Psychiatric exam: Normal Affect, Normal Mood - Skin Skin Exam: Normal Color, Warm Results - Vital Signs Recent Vital Signs: Last Vital Signs Temp 98.8 F 06/13/18 09:40 Pulse 128 H 06/13/18 09:40 Resp 17 06/13/18 09:40 BP 103/65 06/13/18 09:40 Pulse Ox 98 06/13/18 11:59 - Labs Result Diagrams: 06/13/18 10:40 06/13/18 10:40 Labs: Laboratory Results - last 24 hr 06/13/18 06/13/18 06/13/18 10:22 10:35 10:40 WBC 16.8 H RBC 3.02 L Hgb 8.0 L Hct 25.7 L MCV 85.1 MCH 26.7 L MCHC 31.3 L RDW 17.3 H Plt Count 616 H D MPV 7.3 Neut % (Auto) 86.9 H Lymph % (Auto) 4.7 L [place] % (Auto) 7.5 Eos % (Auto) 0.3 Baso % (Auto) 0.6 Neut # (Auto) 14.6 H Lymph # (Auto) 0.8 L [place] # (Auto) 1.3 H Eos # (Auto) 0.1 Baso # (Auto) 0.1 pO2 45 VBG pH 7.40 VBG pCO2 41 VBG HCO3 25.1 VBG Total CO2 26.7 VBG O2 Sat (Calc) 88.9 H VBG Base Excess 0.5 VBG Potassium 4.4 Sodium 129.0 L Chloride 95.0 L Glucose 104 Lactate 1.0 FiO2 21.0 Potassium Carbon Dioxide Anion Gap BUN Creatinine Est GFR ( Amer) Est GFR (Non-Af Amer) Random Glucose Calcium Total Bilirubin AST ALT Alkaline Phosphatase Total Protein Albumin Globulin Albumin/Globulin Ratio Venous Blood Potassium 4.4 Urine Color Yellow Urine Clarity Cloudy Urine pH 6.0 Ur Specific [place] 1.017 Urine Protein 100 Urine Glucose (UA) Neg Urine Ketones Negative Urine Blood Small Urine Nitrate Positive H Urine Bilirubin Negative Urine Urobilinogen 0.2-1.0 Ur Leukocyte Esterase Large Urine RBC (Auto) 35 H Urine Microscopic WBC 594 H Ur Squamous Epith Cells 1 Urine Bacteria Mod H 06/13/18 10:40 WBC RBC Hgb Hct MCV MCH MCHC RDW Plt Count MPV Neut % (Auto) Lymph % (Auto) [place] % (Auto) Eos % (Auto) Baso % (Auto) Neut # (Auto) Lymph # (Auto) [place] # (Auto) Eos # (Auto) Baso # (Auto) pO2 VBG pH VBG pCO2 VBG HCO3 VBG Total CO2 VBG O2 Sat (Calc) VBG Base Excess VBG Potassium Sodium 132 Chloride 96 L Glucose Lactate FiO2 Potassium 4.3 Carbon Dioxide 22 Anion Gap 18 BUN 26 H Creatinine 2.1 H Est GFR ( Amer) 29 Est GFR (Non-Af Amer) 24 Random Glucose 109 H Calcium 9.2 Total Bilirubin 0.4 AST 25 ALT 16 Alkaline Phosphatase 141 H D Total Protein 8.4 H Albumin 3.7 Globulin 4.7 H Albumin/Globulin Ratio 0.8 L Venous Blood Potassium Urine Color Urine Clarity Urine pH Ur Specific [place] Urine Protein Urine Glucose (UA) Urine Ketones Urine Blood Urine Nitrate Urine Bilirubin Urine Urobilinogen Ur Leukocyte Esterase Urine RBC (Auto) Urine Microscopic WBC Ur Squamous Epith Cells Urine Bacteria Assessment & Plan - Assessment and Plan (Free Text) Assessment: 63 year old female with extensive PMHx including Obstructive Uropathy sec to Cervical CA s/p Right Ureteral Stent Placement, CKD stage III B, Anemia and HTN presented to ER for evaluation of recurrent UTI, admitted with UTI and sepsis. Plan: Sepsis -likely 2/2 UTI/Urosepsis -tachy on admission -leukocytosis on admission WBC 16 -slightly hypotensive on admission -IV fluids -start antibiotic: ceftriaxone Day #1 -UA positive on admission for nitrate, WNL, RBC -f/u UCx -had a UCx on 04/25/18 pos x Morg Morganii sensitive to ceftriaxone UTI -start antibiotic: ceftriaxone Day #1 -UA positive on admission for nitrate, WNL, RBC -f/u UCx -had a UCx on 04/25/18 pos x Morg Morganii sensitive to ceftriaxone Right Nephrostomy tube -s/p obstructive uropathy -follows with Dr. Mares as outpatient -last changed 05/15/18 -change is every 3 months CKD (chronic kidney disease) stage 4 chronic/stable -Likely due to Obstructive Uropathy -Cr 2.1, GFR 29 c/w home meds -F/u Dairy Equipment Installer: Dr. Pemberton as outp Normocytic anemia -likely anemia of chronic diseases/CKD -on procrit as outpatient HTN BP in low levels will hold norvasc and metoprolol today f/u BP and HR DVT prophylaxis SCDs hgb :8 - Date & Time Date: 06/13/18 Time: 14:40 <John Hernandez D - Last Filed: 06/14/18 12:44> Results - Vital Signs Recent Vital Signs: Last Vital Signs Temp 98.2 F 06/14/18 12:08 Pulse 106 H 06/14/18 12:08 Resp 18 06/14/18 12:08 BP 106/67 06/14/18 12:08 Pulse Ox 97 06/14/18 12:08 - Labs Result Diagrams: 06/14/18 05:10 06/14/18 05:10 Labs: Laboratory Results - last 24 hr 06/13/18 06/13/18 06/14/18 10:40 14:57 05:10 WBC 12.8 H RBC 2.24 L Hgb 6.0 L* D Hct 19.3 L MCV 86.0 MCH 26.8 L MCHC 31.1 L RDW 16.9 H Plt Count 453 H D MPV 7.7 Neut % (Auto) 82.1 H Lymph % (Auto) 7.4 L [place] % (Auto) 9.2 Eos % (Auto) 1.0 Baso % (Auto) 0.3 Neut # (Auto) 10.6 H Lymph # (Auto) 0.9 L [place] # (Auto) 1.2 H Eos # (Auto) 0.1 Baso # (Auto) 0.0 Neutrophils % (Manual) 82 H Band Neutrophils % 1 Lymphocytes % (Manual) 4 L Monocytes % (Manual) 11 H Basophils % (Manual) 1 Myelocytes % 1 H Platelet Estimate Increased H Hypochromasia (manual) Slight Anisocytosis (manual) Slight Sodium Potassium Chloride Carbon Dioxide Anion Gap BUN Creatinine Est GFR ( Amer) Est GFR (Non-Af Amer) Random Glucose Calcium Influenza Typ A,B (EIA) Negative for flu a/b Blood Type Antibody Screen Crossmatch BBK History Checked 06/14/18 06/14/18 05:10 10:25 WBC RBC Hgb Hct MCV MCH MCHC RDW Plt Count MPV Neut % (Auto) Lymph % (Auto) [place] % (Auto) Eos % (Auto) Baso % (Auto) Neut # (Auto) Lymph # (Auto) [place] # (Auto) Eos # (Auto) Baso # (Auto) Neutrophils % (Manual) Band Neutrophils % Lymphocytes % (Manual) Monocytes % (Manual) Basophils % (Manual) Myelocytes % Platelet Estimate Hypochromasia (manual) Anisocytosis (manual) Sodium 133 Potassium 3.8 Chloride 107 Carbon Dioxide 21 L Anion Gap 9 L BUN 25 H Creatinine 2.1 H Est GFR ( Amer) 29 Est GFR (Non-Af Amer) 24 Random Glucose 83 Calcium 8.0 L Influenza Typ A,B (EIA) Blood Type A POSITIVE Antibody Screen Negative Crossmatch See Detail BBK History Checked Patient has bt Attending/Attestation - Attestation I have personally seen and examined this patient.: Yes I have fully participated in the care of the patient.: Yes I have reviewed all pertinent clinical information: Yes Notes (Text): 06/14/18 12:44 Patient seen and examined with resident. Case discussed and agreed with assessment and plan of management
[2018-06-13] MEDS: Sodium Chloride 0.9% 1,000 ML IV SCH (16:07)
[2018-06-13 16:20] LABS: BANDS 1 % (0-2); BASOPHIL 1 % (0-2); LYMPHOCYTE 4 % (20-50); MONOCYTE 11 % (0-10); MYELOCYTE 1 % (0-0); NEUTROPHIL 82 % (42-75); TOTAL CELLS COUNTED 100
[2018-06-13 16:21] LABS: ANISOCYTOSIS SLIGHT; HYPOCHROMIC SLIGHT; PLATELET ESTIMATE INCREASED (NORMAL)
[2018-06-13] MEDS ORDERED: Meropenem 1 GM in Sodium Chloride 0.9% 100 ML IVPB ONE (18:20)
[2018-06-14] MEDS: Sodium Chloride 0.9% 1,000 ML IV SCH ×5 (00:37→12:21)
[2018-06-14 06:18] LABS: BASO % 0.3 % (0.0-2.0); LYMPH # 0.9 K/uL (1.0-4.3)
[2018-06-14 06:43] LABS: EOS # 0.1 K/uL (0.0-0.7); LYMPH % 7.4 % (20.0-40.0); MEAN CORPUSCULAR HEMOGLOBIN 26.8 pg (27.0-31.0); MEAN CORPUSCULAR HGB CONC 31.1 g/dL (33.0-37.0); MEAN PLATELET VOLUME 7.7 fl (7.2-11.7); MONO # 1.2 K/uL (0.0-0.8); MONO % 9.2 % (0.0-10.0); NEUT # 10.6 K/uL (1.8-7.0); NEUT % 82.1 % (50.0-75.0); RBC 2.24 Mil/uL (3.80-5.20); RED CELL DISTRIBUTION WIDTH 16.9 % (11.5-14.5); WHITE BLOOD COUNT 12.8 K/uL (4.8-10.8)
[2018-06-14] MEDS: Pantoprazole 40 mg EC Tab PO SCH ×2 (08:45→08:56)
--- NOTE | 2018-06-14 09:06 | CP.PCM.CON ---
History of Present Illness - History of Present Illness History of Present Illness: Infectious Disease Consultation Note- asked to see this patient at the request of for UTI with ureteral stent in place. HPI- Rasheeda is a pleasant 63 year old female with multiple medical conditions including PMHx of Lung CA s/p Lobectomy and Chemotx in 2003, Hx of Cervical CA s/p Chemo and radiation therapy in 2000, Obstructive Uropathy sec to Cervical CA s/p Right Ureteral Stent Placement, CKD stage III B, Anemia and HTN presented to ER for evaluation of suprapubic pain x 1 month and fever x 3 weeks. pt. explaisn she gets her ureteral stent changed every 3 months and last time it was changed was 05/15/2018. She explains she has been having lower abd/pelvic pain adn intermittent fveer for past 3 weeks and has seen her urologist and hasbeen on multiple oral antibiotics including cipro but they have not helped with her symptoms and she explaisn the urine from her incontinence in her pads has bad odor and hence she came in for further evaluation and treatment of this. she also states her appetite is down and she has had weight loss. she states the urine from her nephrostomy tube is clear . she staes she feels better since admission here and so far she is afebrile today. I'm asked to evaluate and help with antibiotic management. Right Ureteral Stent Placement, CKD stage III B, Anemia and HTN. PSHx: Left lung lobectomy in 2003, Ureteral stent placement Social hx: Quit smoking cigarettes 20 years ago (smoked 1/2 PPD x 10 yrs). Denies drinking EtOH or using illicit drugs. Lives alone. Family hx: Father and Mother: HTN Allergies: NKDA Review of Systems - Review of Systems Review of Systems: ROS- denies any fever or chills now but had it at home, denies any nausea, decreased appatite present, + weight loss, + foul smelling urine, denies any diarrhea, + lower abd pain,denies any cough or sob, denies any chest pain Past Patient History - Infectious Disease Hx of Infectious Diseases: None - Tetanus Immunizations Tetanus Immunization: Unknown - Past Medical History & Family History Past Medical History?: Yes - Past Social History Smoking Status: Never Smoked - CARDIAC Hx Hypertension: Yes - PULMONARY Hx Respiratory Disorders: Yes Hx Lung Cancer: Yes Other/Comment: Ca of Cervix with Lung ( L) Metastasis (10 years ago)PREVIOUSLY ON CHEMO/RADIATION THERAPHY - NEUROLOGICAL Hx Neurological Disorder: No - HEENT Hx HEENT Problems: No - RENAL Hx Chronic Kidney Disease: Yes (kidney stones; rt nephrostomy) Hx Kidney Stones: Yes - ENDOCRINE/METABOLIC Hx Endocrine Disorders: No - HEMATOLOGICAL/ONCOLOGICAL Hx Anemia: Yes Hx Human Immunodeficiency Virus (HIV): No - INTEGUMENTARY Hx Dermatological Problems: No - MUSCULOSKELETAL/RHEUMATOLOGICAL Hx Musculoskeletal Disorders: No Hx Falls: No - GASTROINTESTINAL Hx Gastrointestinal Disorders: No - GENITOURINARY/GYNECOLOGICAL Hx Genitourinary Disorders: Yes Hx Cervical Cancer: Yes Hx Urinary Tract Infection: Yes Other/Comment: BLADDER PROBLEMS - PSYCHIATRIC Hx Anxiety: Yes Hx Depression: Yes - SURGICAL HISTORY Hx Surgeries: Yes Hx Pulmonary Surgery: Yes (Left Lobectomy) Hx Tubal Ligation: Yes Other/Comment: nephrostomy rt and left kidneys. 01/19/16 cystoscopy. insertion and removal of lifepor. Feb 2018 replacement of nephrostomy tube. - ANESTHESIA Hx Anesthesia: Yes Hx Anesthesia Reactions: No Hx Malignant Hyperthermia: No Meds Allergies/Adverse Reactions: Allergies Allergy/AdvReac Type Severity Reaction Status Date / Time No Known Allergies Allergy Verified 05/15/18 10:25 - Medications Medications: Current Medications Acetaminophen (Tylenol 325mg Tab) 650 mg PO Q6 PRN PRN Reason: Pain, moderate (4-7) Last Admin: 06/13/18 17:33 Dose: 650 mg Amlodipine Besylate (Norvasc) 5 mg PO DAILY [facility] Baclofen (Lioresal) 10 mg PO Q8 PRN PRN Reason: Muscle spasm Calcitriol (Rocaltrol) 0.25 mcg PO MWF [facility] Last Admin: 06/14/18 08:45 Dose: 0.25 mcg Diazepam (Valium) 5 mg PO Q12 PRN PRN Reason: Anxiety Docusate Sodium (Colace) 100 mg PO BID PRN PRN Reason: Constipation Fluticasone Propionate (Flonase) 2 spr MANNY DAILY PRN PRN Reason: Nasal congestion Ceftriaxone Sodium 1 gm/ (Sodium Chloride) 100 mls @ 100 mls/hr IVPB DAILY [facility]; Protocol Last Admin: 06/14/18 08:44 Dose: 100 mls/hr Sodium Chloride (Sodium Chloride 0.9%) 1,000 mls @ 150 mls/hr IV .Q6H40M [facility] Last Admin: 06/14/18 07:09 Dose: Not Given Meropenem 500 mg/ Sodium (Chloride) 100 mls @ 100 mls/hr IVPB Q12 [facility]; Protocol Ketorolac Tromethamine (Toradol) 15 mg IVP Q6 PRN PRN Reason: Pain, severe (8-10) Last Admin: 06/14/18 00:35 Dose: 15 mg Metoprolol Tartrate (Lopressor) 25 mg PO Q12 [facility] Pantoprazole Sodium (Protonix Ec Tab) 40 mg PO DAILY [facility] Last Admin: 06/14/18 08:56 Dose: Not Given Zolpidem Tartrate (Ambien) 5 mg PO HS PRN PRN Reason: Insomnia Last Admin: 06/13/18 22:43 Dose: 5 mg Physical Exam - Constitutional Appears: No Acute Distress, Chronically Ill - Head Exam Head Exam: ATRAUMATIC - Eye Exam Eye Exam: EOMI, PERRL - ENT Exam ENT Exam: Normal Oropharynx - Neck Exam Neck exam: Positive for: Full Rom - Respiratory Exam Respiratory Exam: Clear to Auscultation Bilateral, NORMAL BREATHING PATTERN - Cardiovascular Exam Cardiovascular Exam: RRR, +S1, +S2 - GI/Abdominal Exam GI & Abdominal Exam: Normal Bowel Sounds, Soft Additional comments: ND + minimal tenderness with paplpation of the lower abd/suprapubic region Right nephrostomy tube site slight erythema but no discharge, no tenderness at the site urine in nephrostomy tube clear - Extremities Exam Extremities exam: Positive for: normal inspection - Neurological Exam Neurological exam: Alert, Oriented x3 Results - Vital Signs Recent Vital Signs: Last Vital Signs Temp 97.7 F 06/14/18 08:11 Pulse 96 H 06/14/18 08:11 Resp 18 06/14/18 08:11 BP 96/60 L 06/14/18 08:11 Pulse Ox 97 06/14/18 08:11 - Labs Result Diagrams: 06/14/18 05:10 06/14/18 05:10 Labs: Laboratory Results - last 24 hr 06/13/18 06/13/18 06/13/18 10:22 10:35 10:40 WBC 16.8 H RBC 3.02 L Hgb 8.0 L Hct 25.7 L MCV 85.1 MCH 26.7 L MCHC 31.3 L RDW 17.3 H Plt Count 616 H D MPV 7.3 Neut % (Auto) 86.9 H Lymph % (Auto) 4.7 L [place] % (Auto) 7.5 Eos % (Auto) 0.3 Baso % (Auto) 0.6 Neut # (Auto) 14.6 H Lymph # (Auto) 0.8 L [place] # (Auto) 1.3 H Eos # (Auto) 0.1 Baso # (Auto) 0.1 Neutrophils % (Manual) 82 H Band Neutrophils % 1 Lymphocytes % (Manual) 4 L Monocytes % (Manual) 11 H Basophils % (Manual) 1 Myelocytes % 1 H Platelet Estimate Increased H Hypochromasia (manual) Slight Anisocytosis (manual) Slight pO2 45 VBG pH 7.40 VBG pCO2 41 VBG HCO3 25.1 VBG Total CO2 26.7 VBG O2 Sat (Calc) 88.9 H VBG Base Excess 0.5 VBG Potassium 4.4 Sodium 129.0 L Chloride 95.0 L Glucose 104 Lactate 1.0 FiO2 21.0 Potassium Carbon Dioxide Anion Gap BUN Creatinine Est GFR ( Amer) Est GFR (Non-Af Amer) Random Glucose Calcium Total Bilirubin AST ALT Alkaline Phosphatase Total Protein Albumin Globulin Albumin/Globulin Ratio Venous Blood Potassium 4.4 Urine Color Yellow Urine Clarity Cloudy Urine pH 6.0 Ur Specific [place] 1.017 Urine Protein 100 Urine Glucose (UA) Neg Urine Ketones Negative Urine Blood Small Urine Nitrate Positive H Urine Bilirubin Negative Urine Urobilinogen 0.2-1.0 Ur Leukocyte Esterase Large Urine RBC (Auto) 35 H Urine Microscopic WBC 594 H Ur Squamous Epith Cells 1 Urine Bacteria Mod H Influenza Typ A,B (EIA) 06/13/18 06/13/18 06/14/18 10:40 14:57 05:10 WBC 12.8 H RBC 2.24 L Hgb 6.0 L* D Hct 19.3 L MCV 86.0 MCH 26.8 L MCHC 31.1 L RDW 16.9 H Plt Count 453 H D MPV 7.7 Neut % (Auto) 82.1 H Lymph % (Auto) 7.4 L [place] % (Auto) 9.2 Eos % (Auto) 1.0 Baso % (Auto) 0.3 Neut # (Auto) 10.6 H Lymph # (Auto) 0.9 L [place] # (Auto) 1.2 H Eos # (Auto) 0.1 Baso # (Auto) 0.0 Neutrophils % (Manual) Band Neutrophils % Lymphocytes % (Manual) Monocytes % (Manual) Basophils % (Manual) Myelocytes % Platelet Estimate Hypochromasia (manual) Anisocytosis (manual) pO2 VBG pH VBG pCO2 VBG HCO3 VBG Total CO2 VBG O2 Sat (Calc) VBG Base Excess VBG Potassium Sodium 132 Chloride 96 L Glucose Lactate FiO2 Potassium 4.3 Carbon Dioxide 22 Anion Gap 18 BUN 26 H Creatinine 2.1 H Est GFR ( Amer) 29 Est GFR (Non-Af Amer) 24 Random Glucose 109 H Calcium 9.2 Total Bilirubin 0.4 AST 25 ALT 16 Alkaline Phosphatase 141 H D Total Protein 8.4 H Albumin 3.7 Globulin 4.7 H Albumin/Globulin Ratio 0.8 L Venous Blood Potassium Urine Color Urine Clarity Urine pH Ur Specific [place] Urine Protein Urine Glucose (UA) Urine Ketones Urine Blood Urine Nitrate Urine Bilirubin Urine Urobilinogen Ur Leukocyte Esterase Urine RBC (Auto) Urine Microscopic WBC Ur Squamous Epith Cells Urine Bacteria Influenza Typ A,B (EIA) Negative for flu a/b 06/14/18 05:10 WBC RBC Hgb Hct MCV MCH MCHC RDW Plt Count MPV Neut % (Auto) Lymph % (Auto) [place] % (Auto) Eos % (Auto) Baso % (Auto) Neut # (Auto) Lymph # (Auto) [place] # (Auto) Eos # (Auto) Baso # (Auto) Neutrophils % (Manual) Band Neutrophils % Lymphocytes % (Manual) Monocytes % (Manual) Basophils % (Manual) Myelocytes % Platelet Estimate Hypochromasia (manual) Anisocytosis (manual) pO2 VBG pH VBG pCO2 VBG HCO3 VBG Total CO2 VBG O2 Sat (Calc) VBG Base Excess VBG Potassium Sodium 133 Chloride 107 Glucose Lactate FiO2 Potassium 3.8 Carbon Dioxide 21 L Anion Gap 9 L BUN 25 H Creatinine 2.1 H Est GFR ( Amer) 29 Est GFR (Non-Af Amer) 24 Random Glucose 83 Calcium 8.0 L Total Bilirubin AST ALT Alkaline Phosphatase Total Protein Albumin Globulin Albumin/Globulin Ratio Venous Blood Potassium Urine Color Urine Clarity Urine pH Ur Specific [place] Urine Protein Urine Glucose (UA) Urine Ketones Urine Blood Urine Nitrate Urine Bilirubin Urine Urobilinogen Ur Leukocyte Esterase Urine RBC (Auto) Urine Microscopic WBC Ur Squamous Epith Cells Urine Bacteria Influenza Typ A,B (EIA) Laboratory Results - last 72 hr 06/13/18 06/13/18 06/13/18 10:22 10:35 10:40 WBC 16.8 H RBC 3.02 L Hgb 8.0 L Hct 25.7 L MCV 85.1 MCH 26.7 L MCHC 31.3 L RDW 17.3 H Plt Count 616 H D MPV 7.3 Neut % (Auto) 86.9 H Lymph % (Auto) 4.7 L [place] % (Auto) 7.5 Eos % (Auto) 0.3 Baso % (Auto) 0.6 Neut # (Auto) 14.6 H Lymph # (Auto) 0.8 L [place] # (Auto) 1.3 H Eos # (Auto) 0.1 Baso # (Auto) 0.1 Neutrophils % (Manual) 82 H Band Neutrophils % 1 Lymphocytes % (Manual) 4 L Monocytes % (Manual) 11 H Basophils % (Manual) 1 Myelocytes % 1 H Platelet Estimate Increased H Hypochromasia (manual) Slight Anisocytosis (manual) Slight pO2 45 VBG pH 7.40 VBG pCO2 41 VBG HCO3 25.1 VBG Total CO2 26.7 VBG O2 Sat (Calc) 88.9 H VBG Base Excess 0.5 VBG Potassium 4.4 Sodium 129.0 L Chloride 95.0 L Glucose 104 Lactate 1.0 FiO2 21.0 Potassium Carbon Dioxide Anion Gap BUN Creatinine Est GFR ( Amer) Est GFR (Non-Af Amer) Random Glucose Calcium Total Bilirubin AST ALT Alkaline Phosphatase Total Protein Albumin Globulin Albumin/Globulin Ratio Venous Blood Potassium 4.4 Urine Color Yellow Urine Clarity Cloudy Urine pH 6.0 Ur Specific [place] 1.017 Urine Protein 100 Urine Glucose (UA) Neg Urine Ketones Negative Urine Blood Small Urine Nitrate Positive H Urine Bilirubin Negative Urine Urobilinogen 0.2-1.0 Ur Leukocyte Esterase Large Urine RBC (Auto) 35 H Urine Microscopic WBC 594 H Ur Squamous Epith Cells 1 Urine Bacteria Mod H Influenza Typ A,B (EIA) Blood Type Antibody Screen Crossmatch BBK History Checked 06/13/18 06/13/18 06/14/18 10:40 14:57 05:10 WBC 12.8 H RBC 2.24 L Hgb 6.0 L* D Hct 19.3 L MCV 86.0 MCH 26.8 L MCHC 31.1 L RDW 16.9 H Plt Count 453 H D MPV 7.7 Neut % (Auto) 82.1 H Lymph % (Auto) 7.4 L [place] % (Auto) 9.2 Eos % (Auto) 1.0 Baso % (Auto) 0.3 Neut # (Auto) 10.6 H Lymph # (Auto) 0.9 L [place] # (Auto) 1.2 H Eos # (Auto) 0.1 Baso # (Auto) 0.0 Neutrophils % (Manual) Band Neutrophils % Lymphocytes % (Manual) Monocytes % (Manual) Basophils % (Manual) Myelocytes % Platelet Estimate Hypochromasia (manual) Anisocytosis (manual) pO2 VBG pH VBG pCO2 VBG HCO3 VBG Total CO2 VBG O2 Sat (Calc) VBG Base Excess VBG Potassium Sodium 132 Chloride 96 L Glucose Lactate FiO2 Potassium 4.3 Carbon Dioxide 22 Anion Gap 18 BUN 26 H Creatinine 2.1 H Est GFR ( Amer) 29 Est GFR (Non-Af Amer) 24 Random Glucose 109 H Calcium 9.2 Total Bilirubin 0.4 AST 25 ALT 16 Alkaline Phosphatase 141 H D Total Protein 8.4 H Albumin 3.7 Globulin 4.7 H Albumin/Globulin Ratio 0.8 L Venous Blood Potassium Urine Color Urine Clarity Urine pH Ur Specific [place] Urine Protein Urine Glucose (UA) Urine Ketones Urine Blood Urine Nitrate Urine Bilirubin Urine Urobilinogen Ur Leukocyte Esterase Urine RBC (Auto) Urine Microscopic WBC Ur Squamous Epith Cells Urine Bacteria Influenza Typ A,B (EIA) Negative for flu a/b Blood Type Antibody Screen Crossmatch BBK History Checked 06/14/18 06/14/18 05:10 10:25 WBC RBC Hgb Hct MCV MCH MCHC RDW Plt Count MPV Neut % (Auto) Lymph % (Auto) [place] % (Auto) Eos % (Auto) Baso % (Auto) Neut # (Auto) Lymph # (Auto) [place] # (Auto) Eos # (Auto) Baso # (Auto) Neutrophils % (Manual) Band Neutrophils % Lymphocytes % (Manual) Monocytes % (Manual) Basophils % (Manual) Myelocytes % Platelet Estimate Hypochromasia (manual) Anisocytosis (manual) pO2 VBG pH VBG pCO2 VBG HCO3 VBG Total CO2 VBG O2 Sat (Calc) VBG Base Excess VBG Potassium Sodium 133 Chloride 107 Glucose Lactate FiO2 Potassium 3.8 Carbon Dioxide 21 L Anion Gap 9 L BUN 25 H Creatinine 2.1 H Est GFR ( Amer) 29 Est GFR (Non-Af Amer) 24 Random Glucose 83 Calcium 8.0 L Total Bilirubin AST ALT Alkaline Phosphatase Total Protein Albumin Globulin Albumin/Globulin Ratio Venous Blood Potassium Urine Color Urine Clarity Urine pH Ur Specific [place] Urine Protein Urine Glucose (UA) Urine Ketones Urine Blood Urine Nitrate Urine Bilirubin Urine Urobilinogen Ur Leukocyte Esterase Urine RBC (Auto) Urine Microscopic WBC Ur Squamous Epith Cells Urine Bacteria Influenza Typ A,B (EIA) Blood Type A POSITIVE Antibody Screen Negative Crossmatch See Detail BBK History Checked Patient has bt Microbiology 06/13/18 12:03 Blood-Venous Blood Culture - Preliminary NO GROWTH AFTER 24 HOURS 06/13/18 10:40 Blood-Venous Blood Culture - Preliminary NO GROWTH AFTER 24 HOURS 06/13/18 10:35 Urine,Kidney Urine Culture - Preliminary Gram Negative Tae Gram Negative Tae#2 Assessment & Plan (1) UTI (urinary tract infection) Status: Acute (2) Chronic kidney disease Status: Acute (3) Anemia Status: Acute (4) History of cervical cancer Status: Chronic (5) History of lung cancer Status: Chronic (6) Obstructive uropathy Status: Chronic (7) History of ureter stent Status: Chronic - Assessment and Plan (Free Text) Assessment: A/P- 63 year old female with multiple medical conditions including obstructive uropathy with indwelling right ureteral stent last changed 05/15/2018 admitted [facility]. pain, fever, leukocytoisis and + UA. source of her sepsis most likely . she has h/o multiple UTIs in the past as per med records including morganella UTI and ESBL e.coli in the past. PLan- await this admission GNR ID and sensitivity in the urine cx. advise check Blood cx x 2. advise to check US of the kidney /renal region and rule out any collection around the stent. advise to start pt. on IV meropenem to cover empirically for ESBL UTI pending ID and sensitivity of the current Urine cx. stent may need to be replaced if no improvement. All above d/w patient at length and she verbalizes full understanding of all above and agrees with above plan of care. Thank you for allowing me to take part in the care of this patient.
--- NOTE | 2018-06-14 10:06 | CARD ---
APPROVED REPORT Date of service: 06/13/2018 EKG Measurement Heart [id number] <Conclusion> Sinus tachycardia Possible Left atrial enlargement Right bundle branch block Left anterior fascicular block Bifascicular block Poor R wave progression in Precordial leads Abnormal ECG
[2018-06-14] MEDS: Meropenem 500 MG in Sodium Chloride 0.9% 100 ML IVPB SCH ×2 (10:25→21:51)
--- NOTE | 2018-06-14 11:53 | CP.PCM.PN ---
<Suzanna Petty - Last Filed: 06/14/18 13:12> Subjective - Date & Time of Evaluation Date of Evaluation: 06/14/18 Time of Evaluation: 09:46 - Subjective Subjective: Palliative care was consulted. Patient is now DNR/DNI. Pt was afebrile overnight. She was seen and evaluated this morning at bedside, sitting upright in bed, awake breathing comfortably. Patient continues to complain of a poor appetite, but denied any f/c/n/v/abdominal pain/cp or sob. Objective - Vital Signs/Intake and Output Vital Signs (last 24 hours): Temp Pulse Resp BP Pulse Ox 97.7 F 96 H 18 96/60 L 97 06/14/18 08:11 06/14/18 09:00 06/14/18 08:11 06/14/18 08:11 06/14/18 08:11 - Medications Medications: Current Medications Acetaminophen (Tylenol 325mg Tab) 650 mg PO Q6 PRN PRN Reason: Pain, moderate (4-7) Last Admin: 06/13/18 17:33 Dose: 650 mg Amlodipine Besylate (Norvasc) 5 mg PO DAILY [facility] Baclofen (Lioresal) 10 mg PO Q8 PRN PRN Reason: Muscle spasm Calcitriol (Rocaltrol) 0.25 mcg PO MWF [facility] Last Admin: 06/14/18 08:45 Dose: 0.25 mcg Diazepam (Valium) 5 mg PO Q12 PRN PRN Reason: Anxiety Docusate Sodium (Colace) 100 mg PO BID PRN PRN Reason: Constipation Fluticasone Propionate (Flonase) 2 spr MANNY DAILY PRN PRN Reason: Nasal congestion Ceftriaxone Sodium 1 gm/ (Sodium Chloride) 100 mls @ 100 mls/hr IVPB DAILY [facility]; Protocol Last Admin: 06/14/18 08:44 Dose: 100 mls/hr Sodium Chloride (Sodium Chloride 0.9%) 1,000 mls @ 150 mls/hr IV .Q6H40M [facility] Last Admin: 06/14/18 07:09 Dose: Not Given Meropenem 500 mg/ Sodium (Chloride) 100 mls @ 100 mls/hr IVPB Q12 [facility]; Protocol Last Admin: 06/14/18 10:25 Dose: 100 mls/hr Ketorolac Tromethamine (Toradol) 15 mg IVP Q6 PRN PRN Reason: Pain, severe (8-10) Last Admin: 06/14/18 11:16 Dose: 15 mg Metoprolol Tartrate (Lopressor) 25 mg PO Q12 [facility] Pantoprazole Sodium (Protonix Ec Tab) 40 mg PO DAILY [facility] Last Admin: 06/14/18 08:56 Dose: Not Given Zolpidem Tartrate (Ambien) 5 mg PO HS PRN PRN Reason: Insomnia Last Admin: 06/13/18 22:43 Dose: 5 mg - Labs Labs: 06/14/18 05:10 06/14/18 05:10 - Constitutional Appears: Non-toxic - Head Exam Head Exam: ATRAUMATIC - ENT Exam ENT Exam: Mucous Membranes Dry - Neck Exam Neck Exam: Full ROM - Respiratory Exam Respiratory Exam: Clear to Ausculation Bilateral - Cardiovascular Exam Cardiovascular Exam: +S1, +S2 Additional comments: borderline tachycardic - GI/Abdominal Exam GI & Abdominal Exam: Soft, Normal Bowel Sounds. absent: Rigid, Tenderness - Back Exam Back Exam: absent: CVA tenderness (L), CVA tenderness (R) - Neurological Exam Neurological Exam: Alert, Awake, Oriented x3 - Psychiatric Exam Psychiatric exam: Normal Mood - Skin Skin Exam: Dry Assessment and Plan - Assessment and Plan (Free Text) Assessment: A/P: 63 year old female with extensive PMHx including Obstructive Uropathy sec to Cervical CA s/p Right Ureteral Stent Placement, CKD stage III B, Anemia and HTN presented to ER c/o subjective fever and suprapubic pain, admitted for fur ther management of sepsis. Sepsis (criteria met on admission) -FU ID recommendations -likely 2/2 UTI/Urosepsis -C/w IV fluids -C/w ceftriaxone & Meropenem day 2 -tachy on admission (128 bpm), P- 91-96 today -leukocytosis on admission WBC 16, 12.8 today -slightly hypotensive on admission with lowest BP-87/51; 96/60 this am -UA positive on admission for nitrate, WNL, RBC -UCx positive for gram negative madeline -had a UCx on 04/25/18 pos x Morg Morganii sensitive to ceftriaxone UTI -sC/w ceftriaxone & Meropenem day 2 -UA positive on admission for nitrate, WNL, RBC -UCx positive for gram negative madeline -had a UCx on 04/25/18 pos x Morg Morganii sensitive to ceftriaxone Right Nephrostomy tube -s/p obstructive uropathy -follows with Dr. Mares as outpatient; FU recommendations -last changed 05/15/18 -changes it Q 3 months CKD (chronic kidney disease) stage 4 chronic/stable -Likely due to Obstructive Uropathy -Cr 2.1, GFR 29 c/w home meds -F/u Document Image Technician: Dr. Pemberton as outpatient; FU recommendations Normocytic anemia (acute on chronic) -likely anemia of chronic diseases/CKD -Hemoglobin decreased from 8 to 6.1 -2 PRBC ordered -FU repeat CBC -on procrit as outpatient HTN BP cont to remains on low side- 91-106 systolic Cont to hold norvasc and metoprolol today -Cont to f/u BP and HR DVT prophylaxis SCDs hgb :8 <Padmini Cardoza - Last Filed: 06/14/18 16:08> Objective - Vital Signs/Intake and Output Vital Signs (last 24 hours): Temp Pulse Resp BP Pulse Ox 98.1 F 98 H 20 90/59 L 96 06/14/18 15:43 06/14/18 15:43 06/14/18 15:43 06/14/18 15:43 06/14/18 15:43 Intake and Output: 06/14/18 06/14/18 06:59 18:59 Intake Total 0 Balance 0 - Medications Medications: Current Medications Acetaminophen (Tylenol 325mg Tab) 650 mg PO Q6 PRN PRN Reason: Pain, moderate (4-7) Last Admin: 06/13/18 17:33 Dose: 650 mg Amlodipine Besylate (Norvasc) 5 mg PO DAILY [facility] Baclofen (Lioresal) 10 mg PO Q8 PRN PRN Reason: Muscle spasm Calcitriol (Rocaltrol) 0.25 mcg PO MWF [facility] Last Admin: 06/14/18 08:45 Dose: 0.25 mcg Diazepam (Valium) 5 mg PO Q12 PRN PRN Reason: Anxiety Docusate Sodium (Colace) 100 mg PO BID PRN PRN Reason: Constipation Fluticasone Propionate (Flonase) 2 spr MANNY DAILY PRN PRN Reason: Nasal congestion Sodium Chloride (Sodium Chloride 0.9%) 1,000 mls @ 150 mls/hr IV .Q6H40M [facility] Last Admin: 06/14/18 12:21 Dose: 150 mls/hr Meropenem 500 mg/ Sodium (Chloride) 100 mls @ 100 mls/hr IVPB Q12 [facility]; Protocol Last Admin: 06/14/18 10:25 Dose: 100 mls/hr Metoprolol Tartrate (Lopressor) 25 mg PO Q12 [facility] Pantoprazole Sodium (Protonix Ec Tab) 40 mg PO DAILY [facility] Last Admin: 06/14/18 08:56 Dose: Not Given Zolpidem Tartrate (Ambien) 5 mg PO HS PRN PRN Reason: Insomnia Last Admin: 06/13/18 22:43 Dose: 5 mg - Labs Labs: 06/14/18 05:10 06/14/18 05:10 Attending/Attestation - Attestation I have personally seen and examined this patient.: Yes I have fully participated in the care of the patient.: Yes I have reviewed all pertinent clinical information, including history, physical exam and plan: Yes Notes (Text): Sepsis sec to UTI Chronic Obstructive Uropathy s/p Nephrostomy tube placement , Right History of Cervical Cancer CKD Stage III Physical Deconditioning Worsening of Chronic Disease Anemia - d/c Ceftriaxone , start IV Meropenem, ID consult -await Urine c/s - Urology consult to eval need to change Nephrostomy tube -monitor renal function - transfuse 2 units PRBC - IVF hydration, hold antihypertensives - Physical therapy
--- NOTE | 2018-06-14 12:29 | CP.PCM.CON ---
History of Present Illness - History of Present Illness History of Present Illness: Palliative Care Consult requested by Dr. Cardoza Patient is a 63 year old female who came to the ED complaining of suprapubic pain and burning when urinating. She reports the urine also has a foul smell. She has a nephrostomy tube in the right kidney due to hydronephrosis from cervical ca radiation. In addition, she also reports fever and nausea x1 week and poor appetite and weight loss x2 months. She was admitted for sepsis and UTI. PMH: Lung ca, Cervical ca, CKD stage III, Anemia, HTN Fam hx: Mom and Dad had htn Soc hx: former smoker, denies etoh or drug use UA 06/13/18: + for UTI WBC 06/13/18: 12.8 Review of Systems - Review of Systems Review of Systems: Obtained from patient in bed - Constitutional Additional comments: decrease appetite - Genitourinary Genitourinary: Dysuria - Musculoskeletal Additional comments: states she walks with assistance at home Past Patient History - Infectious Disease Hx of Infectious Diseases: None - Tetanus Immunizations Tetanus Immunization: Unknown - Past Medical History & Family History Past Medical History?: Yes - Past Social History Smoking Status: Never Smoked - CARDIAC Hx Hypertension: Yes - PULMONARY Hx Respiratory Disorders: Yes Hx Lung Cancer: Yes Other/Comment: Ca of Cervix with Lung ( L) Metastasis (10 years ago)PREVIOUSLY ON CHEMO/RADIATION THERAPHY - NEUROLOGICAL Hx Neurological Disorder: No - HEENT Hx HEENT Problems: No - RENAL Hx Chronic Kidney Disease: Yes (kidney stones; rt nephrostomy) Hx Kidney Stones: Yes - ENDOCRINE/METABOLIC Hx Endocrine Disorders: No - HEMATOLOGICAL/ONCOLOGICAL Hx Anemia: Yes Hx Human Immunodeficiency Virus (HIV): No - INTEGUMENTARY Hx Dermatological Problems: No - MUSCULOSKELETAL/RHEUMATOLOGICAL Hx Musculoskeletal Disorders: No Hx Falls: No - GASTROINTESTINAL Hx Gastrointestinal Disorders: No - GENITOURINARY/GYNECOLOGICAL Hx Genitourinary Disorders: Yes Hx Cervical Cancer: Yes Hx Urinary Tract Infection: Yes Other/Comment: BLADDER PROBLEMS - PSYCHIATRIC Hx Anxiety: Yes Hx Depression: Yes - SURGICAL HISTORY Hx Surgeries: Yes Hx Pulmonary Surgery: Yes (Left Lobectomy) Hx Tubal Ligation: Yes Other/Comment: nephrostomy rt and left kidneys. 01/19/16 cystoscopy. insertion and removal of lifepor. Feb 2018 replacement of nephrostomy tube. - ANESTHESIA Hx Anesthesia: Yes Hx Anesthesia Reactions: No Hx Malignant Hyperthermia: No Meds Allergies/Adverse Reactions: Allergies Allergy/AdvReac Type Severity Reaction Status Date / Time No Known Allergies Allergy Verified 05/15/18 10:25 - Medications Medications: Current Medications Acetaminophen (Tylenol 325mg Tab) 650 mg PO Q6 PRN PRN Reason: Pain, moderate (4-7) Last Admin: 06/13/18 17:33 Dose: 650 mg Amlodipine Besylate (Norvasc) 5 mg PO DAILY [facility] Baclofen (Lioresal) 10 mg PO Q8 PRN PRN Reason: Muscle spasm Calcitriol (Rocaltrol) 0.25 mcg PO MWF [facility] Last Admin: 06/14/18 08:45 Dose: 0.25 mcg Diazepam (Valium) 5 mg PO Q12 PRN PRN Reason: Anxiety Docusate Sodium (Colace) 100 mg PO BID PRN PRN Reason: Constipation Fluticasone Propionate (Flonase) 2 spr MANNY DAILY PRN PRN Reason: Nasal congestion Ceftriaxone Sodium 1 gm/ (Sodium Chloride) 100 mls @ 100 mls/hr IVPB DAILY [facility]; Protocol Last Admin: 06/14/18 08:44 Dose: 100 mls/hr Sodium Chloride (Sodium Chloride 0.9%) 1,000 mls @ 150 mls/hr IV .Q6H40M [facility] Last Admin: 06/14/18 12:21 Dose: 150 mls/hr Meropenem 500 mg/ Sodium (Chloride) 100 mls @ 100 mls/hr IVPB Q12 [facility]; Protocol Last Admin: 06/14/18 10:25 Dose: 100 mls/hr Ketorolac Tromethamine (Toradol) 15 mg IVP Q6 PRN PRN Reason: Pain, severe (8-10) Last Admin: 06/14/18 11:16 Dose: 15 mg Metoprolol Tartrate (Lopressor) 25 mg PO Q12 [facility] Pantoprazole Sodium (Protonix Ec Tab) 40 mg PO DAILY [facility] Last Admin: 06/14/18 08:56 Dose: Not Given Zolpidem Tartrate (Ambien) 5 mg PO HS PRN PRN Reason: Insomnia Last Admin: 06/13/18 22:43 Dose: 5 mg Physical Exam - Constitutional Appears: No Acute Distress, Chronically Ill - Head Exam Head Exam: ATRAUMATIC, NORMAL INSPECTION, NORMOCEPHALIC - Eye Exam Eye Exam: Normal appearance, PERRL - ENT Exam ENT Exam: Mucous Membranes Moist - Neck Exam Neck exam: Positive for: Normal Inspection - Respiratory Exam Respiratory Exam: Clear to Auscultation Bilateral, NORMAL BREATHING PATTERN - Cardiovascular Exam Cardiovascular Exam: Tachycardia - GI/Abdominal Exam GI & Abdominal Exam: Normal Bowel Sounds, Soft - Rectal Exam Additional comments: had BM today - Exam Additional comments: suprapubic pain - Extremities Exam Extremities exam: Positive for: normal inspection, pedal pulses present - Neurological Exam Neurological exam: Alert, Oriented x3 - Psychiatric Exam Psychiatric exam: Normal Affect - Skin Skin Exam: Dry, Warm Results - Vital Signs Recent Vital Signs: Last Vital Signs Temp 98.2 F 06/14/18 12:08 Pulse 106 H 06/14/18 12:08 Resp 18 06/14/18 12:08 BP 106/67 06/14/18 12:08 Pulse Ox 97 06/14/18 12:08 - Labs Result Diagrams: 06/14/18 05:10 06/14/18 05:10 Labs: Laboratory Results - last 24 hr 06/13/18 06/13/18 06/14/18 10:40 14:57 05:10 WBC 12.8 H RBC 2.24 L Hgb 6.0 L* D Hct 19.3 L MCV 86.0 MCH 26.8 L MCHC 31.1 L RDW 16.9 H Plt Count 453 H D MPV 7.7 Neut % (Auto) 82.1 H Lymph % (Auto) 7.4 L [place] % (Auto) 9.2 Eos % (Auto) 1.0 Baso % (Auto) 0.3 Neut # (Auto) 10.6 H Lymph # (Auto) 0.9 L [place] # (Auto) 1.2 H Eos # (Auto) 0.1 Baso # (Auto) 0.0 Neutrophils % (Manual) 82 H Band Neutrophils % 1 Lymphocytes % (Manual) 4 L Monocytes % (Manual) 11 H Basophils % (Manual) 1 Myelocytes % 1 H Platelet Estimate Increased H Hypochromasia (manual) Slight Anisocytosis (manual) Slight Sodium Potassium Chloride Carbon Dioxide Anion Gap BUN Creatinine Est GFR ( Amer) Est GFR (Non-Af Amer) Random Glucose Calcium Influenza Typ A,B (EIA) Negative for flu a/b Blood Type Antibody Screen Crossmatch BBK History Checked 06/14/18 06/14/18 05:10 10:25 WBC RBC Hgb Hct MCV MCH MCHC RDW Plt Count MPV Neut % (Auto) Lymph % (Auto) [place] % (Auto) Eos % (Auto) Baso % (Auto) Neut # (Auto) Lymph # (Auto) [place] # (Auto) Eos # (Auto) Baso # (Auto) Neutrophils % (Manual) Band Neutrophils % Lymphocytes % (Manual) Monocytes % (Manual) Basophils % (Manual) Myelocytes % Platelet Estimate Hypochromasia (manual) Anisocytosis (manual) Sodium 133 Potassium 3.8 Chloride 107 Carbon Dioxide 21 L Anion Gap 9 L BUN 25 H Creatinine 2.1 H Est GFR ( Amer) 29 Est GFR (Non-Af Amer) 24 Random Glucose 83 Calcium 8.0 L Influenza Typ A,B (EIA) Blood Type A POSITIVE Antibody Screen Negative Crossmatch See Detail BBK History Checked Patient has bt Assessment & Plan - Assessment and Plan (Free Text) Assessment: Palliative Care Patient does not have advanced directive in chart, Palliative Performance Scale 50% I reviewed medical records, all diagnostic studies, and examined and interviewed the patient in bed. Goals of Care: Discussion had with patient and her daughter Marie. Patient expressed that she would like to continue full treatment which includes all medical and surgical interventions that may be needed. She also listed her da ughter Marie Austin as a surrogate decision maker if ever she lost decision making capacity. Primary RN and Attending made aware. Designation documented on POLST form that was signed by patient. Form placed in chart. Code Status:DNR/DNI... discussion held with patient and her daughter Marie. Patient states that she would like DNR/DNI to be her code status. Both she and her daughter were educated on the different code statuses and both verbalized their understanding. Designation documented on POLST form that was signed by patient. Form placed in chart. Primary RN and Attending made aware Impression UTI Pain Loss of appetite Decreased Mobility Suggestion Continue IV antibiotics Assess for pain Q4 hours(po and iv meds ordered) Encourage PO feeds as tolerated, Physical Therapy Agree with DNI/DNR Palliative Care will remain on board as needed Advanced care Planning 40 min
--- NOTE | 2018-06-14 17:40 | PQF ---
PROVIDER RESPONSE TEXT: Underweight-BMI 16.6 REVIEWER QUERY TEXT: Clarification of Clinical Diagnostic Findings Please clarify and document if you are in agreement with the BMI: 16.6 as listed in the EMR OR: Disagree OR: Other explanation of clinical finding Listed in the EMR: 5ft 1in The patient's Clinical Indicators include: - Query created by: Dalia Kay on 06/14/2018 10:45 AM Electronically signed by: Suzanna Petty 06/14/2018 5:36 PM
--- NOTE | 2018-06-14 17:40 | PQF ---
PROVIDER RESPONSE TEXT: underweight REVIEWER QUERY TEXT: Clarification of Clinical Diagnostic Findings If in agreement with the BMI:16.6: please clarify if there is an associated Nutritional diagnosis to go along with the BMI: versus Small frame etc. OR: Disagree OR: Other explanation of clinical finding BMI:16.6 5ft 1in Nursing Admission Assessment: Nutritional Screening Tool: Have you lost weight in last 6 months with out trying? : Yes-Unsure of Amount (2) H and P: PMHx of Lung CA s/p Lobectomy and Chemotx in 2003, Hx of Cervical CA s/p Chemo and radiation therapy in 2000, Obstructive Uropathy sec to Cervical CA s/p Right Ureteral Stent Placement, CKD sta ge III B, Anemia and HTN presented to ER for evaluation of suprapubic pain x 1 month and fever x 3 we eks, incontinence - has nephrostomy tube right kidney-- Nephrostomy tube gets changed q 3 months- last changed on 05/15. Dxs. include: --presented to ER for evaluation of recurrent UTI, admitted with UTI and sepsis. --Sepsis -likely 2/2 UTI/Urosepsis -tachy on admission ---Right Nephrostomy tube -s/p obstructive uropathy ---CKD (chronic kidney disease) stage 4 chronic/stable -Likely due to Obstructive Uropathy -Cr 2.1, G FR 29 c/w home meds -F/u [employer] ---Normocytic anemia -likely anemia of chronic diseases/CKD -on procrit as outpatient The patient's Clinical Indicators include: --- Query created by: Dalia Kay on 06/14/2018 11:09 AM Electronically signed by: Suzanna Petty 06/14/2018 5:36 PM
--- NOTE | 2018-06-14 17:40 | PQF ---
PROVIDER RESPONSE TEXT: Provider was unable to determine a response for this query. REVIEWER QUERY TEXT: Conflicting Documentation Clarification A single mention of Cath Associated UTI :POA appears in the ER record. Please document if the condition is: -- Confirmed and current:: i.e Sepsis due to a Nephrostomy tube related UTI -- Confirmed, treated and resolved -- Ruled out -- Other, please specify H and P includes: --Sepsis -likely 2/2 UTI/Urosepsis -tachy on admission -leukocytosis on admission WBC 16 -slightly hypotensive on admission -IV fluids -start antibiotic: ce ftriaxone Day #1 -UA positive on admission for nitrate, WNL, RBC -f/u UCx -had a UCx on 04/25/18 pos x Morg Morganii sensitive to ceftriaxone ---UTI -start antibiotic: ceftriaxone Day #1 -UA positive on admission for nitrate, WNL, RBC -f/u UCx -had a UCx on 04/25/18 pos x Morg Morganii sensitive to ceftriaxone ---Right Nephrostomy tube -s/p obstructive uropathy -follows with Dr. Mares as outpatient -last [facility] 05/15/18 -change q 3 months The patient's Clinical Indicators include: -- Query created by: Dalia Kay on 06/14/2018 11:20 AM Electronically signed by: Suzanna Petty 06/14/2018 5:36 PM
--- NOTE | 2018-06-14 18:12 | CP.PCM.CON ---
History of Present Illness - History of Present Illness History of Present Illness: pt is seen and examined, full consult is dictated #[id number] Past Patient History - Infectious Disease Hx of Infectious Diseases: None - Tetanus Immunizations Tetanus Immunization: Unknown - Past Medical History & Family History Past Medical History?: Yes - Past Social History Smoking Status: Never Smoked - CARDIAC Hx Hypertension: Yes - PULMONARY Hx Respiratory Disorders: Yes Hx Lung Cancer: Yes Other/Comment: Ca of Cervix with Lung ( L) Metastasis (10 years ago)PREVIOUSLY ON CHEMO/RADIATION THERAPHY - NEUROLOGICAL Hx Neurological Disorder: No - HEENT Hx HEENT Problems: No - RENAL Hx Chronic Kidney Disease: Yes (kidney stones; rt nephrostomy) Hx Kidney Stones: Yes - ENDOCRINE/METABOLIC Hx Endocrine Disorders: No - HEMATOLOGICAL/ONCOLOGICAL Hx Anemia: Yes Hx Human Immunodeficiency Virus (HIV): No - INTEGUMENTARY Hx Dermatological Problems: No - MUSCULOSKELETAL/RHEUMATOLOGICAL Hx Musculoskeletal Disorders: No Hx Falls: No - GASTROINTESTINAL Hx Gastrointestinal Disorders: No - GENITOURINARY/GYNECOLOGICAL Hx Genitourinary Disorders: Yes Hx Cervical Cancer: Yes Hx Urinary Tract Infection: Yes Other/Comment: BLADDER PROBLEMS - PSYCHIATRIC Hx Anxiety: Yes Hx Depression: Yes - SURGICAL HISTORY Hx Surgeries: Yes Hx Pulmonary Surgery: Yes (Left Lobectomy) Hx Tubal Ligation: Yes Other/Comment: nephrostomy rt and left kidneys. 01/19/16 cystoscopy. insertion and removal of lifepor. Feb 2018 replacement of nephrostomy tube. - ANESTHESIA Hx Anesthesia: Yes Hx Anesthesia Reactions: No Hx Malignant Hyperthermia: No Meds Allergies/Adverse Reactions: Allergies Allergy/AdvReac Type Severity Reaction Status Date / Time No Known Allergies Allergy Verified 05/15/18 10:25 - Medications Medications: Current Medications Acetaminophen (Tylenol 325mg Tab) 650 mg PO Q6 PRN PRN Reason: Pain, moderate (4-7) Last Admin: 06/14/18 17:32 Dose: 650 mg Baclofen (Lioresal) 10 mg PO Q8 PRN PRN Reason: Muscle spasm Calcitriol (Rocaltrol) 0.25 mcg PO MWF [facility] Last Admin: 06/14/18 08:45 Dose: 0.25 mcg Diazepam (Valium) 5 mg PO Q12 PRN PRN Reason: Anxiety Docusate Sodium (Colace) 100 mg PO BID PRN PRN Reason: Constipation Epoetin Tam (Procrit) 10,000 unit SC TTS [facility] Fluticasone Propionate (Flonase) 2 spr MANNY DAILY PRN PRN Reason: Nasal congestion Sodium Chloride (Sodium Chloride 0.9%) 1,000 mls @ 150 mls/hr IV .Q6H40M [facility] Last Admin: 06/14/18 12:21 Dose: 150 mls/hr Meropenem 500 mg/ Sodium (Chloride) 100 mls @ 100 mls/hr IVPB Q12 [facility]; Protocol Last Admin: 06/14/18 10:25 Dose: 100 mls/hr Pantoprazole Sodium (Protonix Ec Tab) 40 mg PO DAILY [facility] Last Admin: 06/14/18 08:56 Dose: Not Given Vitamin B Complex/Vit C/Folic Acid (Nephro-Davidson) 1 tab PO DAILY [facility] Zolpidem Tartrate (Ambien) 5 mg PO HS PRN PRN Reason: Insomnia Last Admin: 06/13/18 22:43 Dose: 5 mg Results - Vital Signs Recent Vital Signs: Last Vital Signs Temp 98.8 F 06/14/18 17:30 Pulse 106 H 06/14/18 17:30 Resp 20 06/14/18 17:30 BP 104/62 06/14/18 17:30 Pulse Ox 96 06/14/18 15:43 - Labs Result Diagrams: 06/14/18 05:10 06/14/18 05:10 Labs: Laboratory Results - last 24 hr 06/14/18 06/14/18 06/14/18 05:10 05:10 10:25 WBC 12.8 H RBC 2.24 L Hgb 6.0 L* D Hct 19.3 L MCV 86.0 MCH 26.8 L MCHC 31.1 L RDW 16.9 H Plt Count 453 H D MPV 7.7 Neut % (Auto) 82.1 H Lymph % (Auto) 7.4 L [place] % (Auto) 9.2 Eos % (Auto) 1.0 Baso % (Auto) 0.3 Neut # (Auto) 10.6 H Lymph # (Auto) 0.9 L [place] # (Auto) 1.2 H Eos # (Auto) 0.1 Baso # (Auto) 0.0 Sodium 133 Potassium 3.8 Chloride 107 Carbon Dioxide 21 L Anion Gap 9 L BUN 25 H Creatinine 2.1 H Est GFR ( Amer) 29 Est GFR (Non-Af Amer) 24 Random Glucose 83 Calcium 8.0 L Blood Type A POSITIVE Antibody Screen Negative Crossmatch See Detail BBK History Checked Patient has bt
[2018-06-15] MEDS: Sodium Chloride 0.9% 1,000 ML IV SCH ×3 (01:30→18:39)
[2018-06-15 05:28] LABS: BASO # 0.1 K/uL (0.0-0.2); BASO % 0.4 % (0.0-2.0); EOS # 0.2 K/uL (0.0-0.7); EOS % 1.1 % (0.0-4.0); LYMPH # 0.8 K/uL (1.0-4.3); LYMPH % 5.2 % (20.0-40.0); MEAN CELL VOLUME 85.5 fl (81.0-99.0); MEAN CORPUSCULAR HEMOGLOBIN 27.2 pg (27.0-31.0); MEAN CORPUSCULAR HGB CONC 31.8 g/dL (33.0-37.0); MEAN PLATELET VOLUME 7.5 fl (7.2-11.7); MONO # 1.5 K/uL (0.0-0.8); MONO % 9.3 % (0.0-10.0); NEUT # 13.2 K/uL (1.8-7.0); RBC 3.3 Mil/uL (3.80-5.20); RED CELL DISTRIBUTION WIDTH 16.6 % (11.5-14.5); WHITE BLOOD COUNT 15.7 K/uL (4.8-10.8)
[2018-06-15 05:49] LABS: ALB/GLOB RATIO 0.8 (1.0-2.1); ALBUMIN 2.7 g/dL (3.5-5.0); CALCIUM 8.4 mg/dL (8.4-10.2)
--- NOTE | 2018-06-15 07:02 | CON ---
DATE: 06/14/2018 RENAL CONSULTATION LOCATION: The patient is located in telemetry room 418, bed 1. REQUESTED BY: John Hernandez MD REASON FOR RENAL CONSULTATION: Chronic kidney disease, UTI and anemia, for further evaluation. HISTORY OF PRESENT ILLNESS: Mrs. Mccabe is a 63-year-old very pleasant elderly female with a past medical history significant for cervical CA diagnosed long time ago, status post radiation treatment long time ago, status post cystitis and proctitis and obstructive uropathy secondary to radiation and strictures, multiple ureteric stents placement in the past for persistent hydronephrosis and UTIs. The patient has a percutaneous nephrostomy tube placement about two years ago. Subsequently, left stent was removed. The patient has a persistent right PCN which is being replaced every three months. Also, the patient has recurrent UTIs, being treated by Urology and also by me in the past. The patient was admitted with the chief complaints of lower back pain and also pain radiating into both thighs for the last few months and also complaints of fever for last the three weeks and also complaints of foul-smelling urine and dysuria and frequency for the last three weeks. Denies any abdominal pain. Complains of discomfort in the lower pelvic region. Complains of also poor appetite and losing weight more than 15 to 20 pounds in the last few months. PAST MEDICAL HISTORY: Significant for hypertension, bilateral hydronephrosis, recurrent UTI, chronic kidney disease, cervical CA, status post radiation treatment, history of obstructive uropathy, multiple ureteric stents placement in the past and status post right PCN for the last two years and being replaced every three months and also status post left lung surgery. ALLERGIES: NO KNOWN DRUG ALLERGIES. SOCIAL HISTORY: No smoking. No alcohol. No drugs. PERSONAL HISTORY: She is and she has four children. She has a very supportive family. CURRENT MEDICATIONS: Include as follows: Ambien 5 mg at bedtime, Colace 100 mg p.o. b.i.d., Flonase two sprays nasally daily p.r.n., Baclofen 10 mg p.o. every 8 hours, meropenem 500 mg every 12 hours, Nephro-Davidson one tablet daily, Procrit 10,000 units three times a week, Protonix 40 mg p.o. daily, calcitriol 0.25 mcg three times a week, IV fluids at 150 mL per hour, Toradol 15 mg IV every 6 hours p.r.n., Tylenol, Valium 5 mg p.o. every 12 hours, and Protonix 40 mg p.o. daily. REVIEW OF SYSTEMS: Significant for fever, back pain and also pain radiating to both thighs, foul-smelling urine, frequency, lower abdominal discomfort, severe weakness, difficult to ambulate and also severe anemia. All other review of systems are reviewed and are negative. PHYSICAL EXAMINATION: As follows: VITAL SIGNS: Blood pressure this afternoon 104/65, pulse 108, respirations 18, temperature 99.1, and saturation 95%. Height 5 feet 1 inch. Weight is 88 pounds. GENERAL: Mrs. Mccabe is a 63-year-old elderly very cachectic female, not in any distress. HEENT: Pupils are normal and reactive to light and accommodation. Conjunctivae very pale. Sclerae anicteric. Tongue is moist. Trachea is slightly deviated to the left side. CARDIOVASCULAR SYSTEM: S1 and S2 audible. No murmur. No gallop. ABDOMEN: Normal in appearance. Soft, tympanitic. No guarding. No rigidity. No hepatosplenomegaly. CENTRAL NERVOUS SYSTEM: The patient is alert, awake, oriented x3. Nonfocal neuro examination. Cranial nerves II through XII grossly intact. Sensory and motor system is within normal limits. EXTREMITIES: No cyanosis, no clubbing, no edema. LABORATORY DATA: Include as follows: As of 06/13/2018: WBC 16.8, hemoglobin 8, hematocrit 25.7, platelets 216. Sodium 132, potassium 4.3, chloride 96, CO2 of 22, BUN 26, creatinine 2.1, glucose of 109, calcium 9.2. Total bili 0.4, AST 25, ALT 16, alkaline phosphatase 141, total protein 8.4, albumin is 3.7. Urinalysis: Yellow, cloudy, pH of 6, specific gravity 1.017, protein 100, glucose negative, ketones negative, blood small, nitrites positive, bilirubin negative, urobilinogen 0.2 to 1, leukocyte esterase large, rbc's 35, wbc's 594, bacteria is moderate. Influenza A and B antibodies are negative. Repeat labs as of 06/14/2018: WBC 12.8, hemoglobin , hematocrit 29.3, platelets 453. Sodium 133, potassium 3.8, chloride 107, CO2 of 21, BUN 25, creatinine 2.1, glucose 83, calcium is 8. Other laboratory data: Urine culture is positive for gram-negative rods. Two organisms: One is 8000 colony-forming units. The other one is 50,000 to 200,000 colony-forming units. Blood cultures x2 negative, day 1. No other reports are available. ASSESSMENT: Mrs. Mccabe is a 63-year-old elderly very cachectic, female with a history of hypertension, chronic kidney disease, cervical carcinoma, status post radiation and therapy in the past, status post left lung surgery, recurrent urinary tract infections, status post multiple ureter stents and bilateral persistent hydronephrosis requiring bilateral percutaneous nephrostomy tubes, subsequently left nephrostomy tube was removed and the patient has persistent right nephrostomy tube with cloudy urine and also with fever, back pain, weight loss, dysuria, frequency with low hemoglobin and hematocrit. 1. Urosepsis. 2. Chronic kidney disease 4. 3. Anemia secondary to multifactorial secondary to renal failure and rule out iron deficiency, rule out secondary to malignancy. 4. Hypertension. PLAN: Decrease IV fluids to normal saline about 80 mL per hour. The patient is receiving two units of packed RBC today. We will also add Procrit 10,000 units three times a week and also Nephrocaps one tablet daily. Continue IV antibiotics as per ID recommendations. Continue followup urine and blood culture reports. Overall prognosis is poor. Thank you for allowing me to participate in your patient's care. Ta Pemberton MD
[2018-06-15] MEDS ORDERED: Potassium Chloride 20 mEq ER Tab PO ONE (07:30)
[2018-06-15] MEDS: Meropenem 500 MG in Sodium Chloride 0.9% 100 ML IVPB SCH ×2 (08:56→21:31)
[2018-06-15] MEDS: Pantoprazole 40 mg EC Tab PO SCH (08:59)
[2018-06-15] MEDS: Multivitamin Vitamin B Complex (Nephro-Vite) Tab PO SCH (08:59)
--- NOTE | 2018-06-15 10:20 | CP.PCM.PN ---
Subjective - Date & Time of Evaluation Date of Evaluation: 06/15/18 Time of Evaluation: 10:20 - Subjective Subjective: ID Note- Pt. seen and examined today. She c/o chills this morning but her lower abd pain is less. Objective - Vital Signs/Intake and Output Vital Signs (last 24 hours): Temp Pulse Resp BP Pulse Ox 98.1 F 96 H 20 115/70 99 06/15/18 08:32 06/15/18 08:32 06/15/18 08:32 06/15/18 08:32 06/15/18 08:32 Intake and Output: 06/15/18 06/15/18 06:59 18:59 Intake Total 277 Balance 277 - Medications Medications: Current Medications Acetaminophen (Tylenol 325mg Tab) 650 mg PO Q6 PRN PRN Reason: Pain, moderate (4-7) Last Admin: 06/14/18 17:32 Dose: 650 mg Acetaminophen (Tylenol 325mg Tab) 650 mg PO Q6 PRN PRN Reason: Fever >100.4 F Last Admin: 06/14/18 22:43 Dose: 650 mg Baclofen (Lioresal) 10 mg PO Q8 PRN PRN Reason: Muscle spasm Last Admin: 06/15/18 08:58 Dose: 10 mg Calcitriol (Rocaltrol) 0.25 mcg PO MWF [facility] Last Admin: 06/14/18 08:45 Dose: 0.25 mcg Diazepam (Valium) 5 mg PO Q12 PRN PRN Reason: Anxiety Docusate Sodium (Colace) 100 mg PO BID PRN PRN Reason: Constipation Epoetin Tam (Procrit) 10,000 unit SC TTS [facility] Fluticasone Propionate (Flonase) 2 spr MANNY DAILY PRN PRN Reason: Nasal congestion Sodium Chloride (Sodium Chloride 0.9%) 1,000 mls @ 150 mls/hr IV .Q6H40M [facility] Last Admin: 06/15/18 01:30 Dose: 150 mls/hr Meropenem 500 mg/ Sodium (Chloride) 100 mls @ 100 mls/hr IVPB Q12 [facility]; Protocol Last Admin: 06/15/18 08:56 Dose: 100 mls/hr Ketorolac Tromethamine (Toradol) 15 mg IVP Q6 PRN PRN Reason: Pain, severe (8-10) Last Admin: 06/14/18 22:42 Dose: 15 mg Pantoprazole Sodium (Protonix Ec Tab) 40 mg PO DAILY [facility] Last Admin: 06/15/18 08:59 Dose: 40 mg Vitamin B Complex/Vit C/Folic Acid (Nephro-Davidson) 1 tab PO DAILY [facility] Last Admin: 06/15/18 08:59 Dose: 1 tab Zolpidem Tartrate (Ambien) 5 mg PO HS PRN PRN Reason: Insomnia Last Admin: 06/14/18 22:19 Dose: 5 mg - Labs Labs: - Additional Findings Additional findings: - Constitutional Appears: No Acute Distress, Chronically Ill - Head Exam Head Exam: ATRAUMATIC - Eye Exam Eye Exam: EOMI, PERRL - ENT Exam ENT Exam: Normal Oropharynx - Neck Exam Neck exam: Positive for: Full Rom - Respiratory Exam Respiratory Exam: Clear to Auscultation Bilateral, NORMAL BREATHING PATTERN - Cardiovascular Exam Cardiovascular Exam: RRR, +S1, +S2 - GI/Abdominal Exam GI & Abdominal Exam: Normal Bowel Sounds, Soft Additional comments: ND + minimal tenderness with palpation of the lower abd/suprapubic region Right nephrostomy tube site slight erythema but no discharge, no tenderness at the site urine in nephrostomy tube clear - Extremities Exam Extremities exam: Positive for: normal inspection - Neurological Exam Neurological exam: Alert, Oriented x 3 Laboratory Results - last 72 hr 06/13/18 06/13/18 06/13/18 10:22 10:35 10:40 WBC 16.8 H RBC 3.02 L Hgb 8.0 L Hct 25.7 L MCV 85.1 MCH 26.7 L MCHC 31.3 L RDW 17.3 H Plt Count 616 H D MPV 7.3 Neut % (Auto) 86.9 H Lymph % (Auto) 4.7 L Hinds % (Auto) 7.5 Eos % (Auto) 0.3 Baso % (Auto) 0.6 Neut # (Auto) 14.6 H Lymph # (Auto) 0.8 L Hinds # (Auto) 1.3 H Eos # (Auto) 0.1 Baso # (Auto) 0.1 Neutrophils % (Manual) 82 H Band Neutrophils % 1 Lymphocytes % (Manual) 4 L Monocytes % (Manual) 11 H Basophils % (Manual) 1 Myelocytes % 1 H Platelet Estimate Increased H Hypochromasia (manual) Slight Anisocytosis (manual) Slight pO2 45 VBG pH 7.40 VBG pCO2 41 VBG HCO3 25.1 VBG Total CO2 26.7 VBG O2 Sat (Calc) 88.9 H VBG Base Excess 0.5 VBG Potassium 4.4 Sodium 129.0 L Chloride 95.0 L Glucose 104 Lactate 1.0 FiO2 21.0 Potassium Carbon Dioxide Anion Gap BUN Creatinine Est GFR ( Amer) Est GFR (Non-Af Amer) Random Glucose Calcium Total Bilirubin AST ALT Alkaline Phosphatase Total Protein Albumin Globulin Albumin/Globulin Ratio Venous Blood Potassium 4.4 Urine Color Yellow Urine Clarity Cloudy Urine pH 6.0 Ur Specific Elk 1.017 Urine Protein 100 Urine Glucose (UA) Neg Urine Ketones Negative Urine Blood Small Urine Nitrate Positive H Urine Bilirubin Negative Urine Urobilinogen 0.2-1.0 Ur Leukocyte Esterase Large Urine RBC (Auto) 35 H Urine Microscopic WBC 594 H Ur Squamous Epith Cells 1 Urine Bacteria Mod H Influenza Typ A,B (EIA) Blood Type Antibody Screen Crossmatch BBK History Checked 06/13/18 06/13/18 06/14/18 10:40 14:57 05:10 WBC 12.8 H RBC 2.24 L Hgb 6.0 L* D Hct 19.3 L MCV 86.0 MCH 26.8 L MCHC 31.1 L RDW 16.9 H Plt Count 453 H D MPV 7.7 Neut % (Auto) 82.1 H Lymph % (Auto) 7.4 L Hinds % (Auto) 9.2 Eos % (Auto) 1.0 Baso % (Auto) 0.3 Neut # (Auto) 10.6 H Lymph # (Auto) 0.9 L Hinds # (Auto) 1.2 H Eos # (Auto) 0.1 Baso # (Auto) 0.0 Neutrophils % (Manual) Band Neutrophils % Lymphocytes % (Manual) Monocytes % (Manual) Basophils % (Manual) Myelocytes % Platelet Estimate Hypochromasia (manual) Anisocytosis (manual) pO2 VBG pH VBG pCO2 VBG HCO3 VBG Total CO2 VBG O2 Sat (Calc) VBG Base Excess VBG Potassium Sodium 132 Chloride 96 L Glucose Lactate FiO2 Potassium 4.3 Carbon Dioxide 22 Anion Gap 18 BUN 26 H Creatinine 2.1 H Est GFR ( Amer) 29 Est GFR (Non-Af Amer) 24 Random Glucose 109 H Calcium 9.2 Total Bilirubin 0.4 AST 25 ALT 16 Alkaline Phosphatase 141 H D Total Protein 8.4 H Albumin 3.7 Globulin 4.7 H Albumin/Globulin Ratio 0.8 L Venous Blood Potassium Urine Color Urine Clarity Urine pH Ur Specific Elk Urine Protein Urine Glucose (UA) Urine Ketones Urine Blood Urine Nitrate Urine Bilirubin Urine Urobilinogen Ur Leukocyte Esterase Urine RBC (Auto) Urine Microscopic WBC Ur Squamous Epith Cells Urine Bacteria Influenza Typ A,B (EIA) Negative for flu a/b Blood Type Antibody Screen Crossmatch BBK History Checked 06/14/18 06/14/18 06/15/18 05:10 10:25 04:18 WBC 15.7 H RBC 3.30 L Hgb 9.0 L D Hct 28.2 L MCV 85.5 MCH 27.2 MCHC 31.8 L RDW 16.6 H Plt Count 414 H MPV 7.5 Neut % (Auto) 84.0 H Lymph % (Auto) 5.2 L Hinds % (Auto) 9.3 Eos % (Auto) 1.1 Baso % (Auto) 0.4 Neut # (Auto) 13.2 H Lymph # (Auto) 0.8 L Hinds # (Auto) 1.5 H Eos # (Auto) 0.2 Baso # (Auto) 0.1 Neutrophils % (Manual) Band Neutrophils % Lymphocytes % (Manual) Monocytes % (Manual) Basophils % (Manual) Myelocytes % Platelet Estimate Hypochromasia (manual) Anisocytosis (manual) pO2 VBG pH VBG pCO2 VBG HCO3 VBG Total CO2 VBG O2 Sat (Calc) VBG Base Excess VBG Potassium Sodium 133 Chloride 107 Glucose Lactate FiO2 Potassium 3.8 Carbon Dioxide 21 L Anion Gap 9 L BUN 25 H Creatinine 2.1 H Est GFR ( Amer) 29 Est GFR (Non-Af Amer) 24 Random Glucose 83 Calcium 8.0 L Total Bilirubin AST ALT Alkaline Phosphatase Total Protein Albumin Globulin Albumin/Globulin Ratio Venous Blood Potassium Urine Color Urine Clarity Urine pH Ur Specific Elk Urine Protein Urine Glucose (UA) Urine Ketones Urine Blood Urine Nitrate Urine Bilirubin Urine Urobilinogen Ur Leukocyte Esterase Urine RBC (Auto) Urine Microscopic WBC Ur Squamous Epith Cells Urine Bacteria Influenza Typ A,B (EIA) Blood Type A POSITIVE Antibody Screen Negative Crossmatch See Detail BBK History Checked Patient has bt 06/15/18 04:18 WBC RBC Hgb Hct MCV MCH MCHC RDW Plt Count MPV Neut % (Auto) Lymph % (Auto) Hinds % (Auto) Eos % (Auto) Baso % (Auto) Neut # (Auto) Lymph # (Auto) Hinds # (Auto) Eos # (Auto) Baso # (Auto) Neutrophils % (Manual) Band Neutrophils % Lymphocytes % (Manual) Monocytes % (Manual) Basophils % (Manual) Myelocytes % Platelet Estimate Hypochromasia (manual) Anisocytosis (manual) pO2 VBG pH VBG pCO2 VBG HCO3 VBG Total CO2 VBG O2 Sat (Calc) VBG Base Excess VBG Potassium Sodium 135 Chloride 109 H Glucose Lactate FiO2 Potassium 3.5 L Carbon Dioxide 19 L Anion Gap 11 BUN 21 H Creatinine 1.8 H Est GFR ( Amer) 34 Est GFR (Non-Af Amer) 28 Random Glucose 80 Calcium 8.4 Total Bilirubin 0.4 AST 45 H D ALT 26 Alkaline Phosphatase 102 Total Protein 6.3 Albumin 2.7 L D Globulin 3.6 Albumin/Globulin Ratio 0.8 L Venous Blood Potassium Urine Color Urine Clarity Urine pH Ur Specific Elk Urine Protein Urine Glucose (UA) Urine Ketones Urine Blood Urine Nitrate Urine Bilirubin Urine Urobilinogen Ur Leukocyte Esterase Urine RBC (Auto) Urine Microscopic WBC Ur Squamous Epith Cells Urine Bacteria Influenza Typ A,B (EIA) Blood Type Antibody Screen Crossmatch BBK History Checked Microbiology 06/13/18 12:03 Blood-Venous Blood Culture - Preliminary NO GROWTH AFTER 48 HOURS 06/13/18 10:40 Blood-Venous Blood Culture - Preliminary NO GROWTH AFTER 48 HOURS 06/13/18 10:35 Urine,Kidney Urine Culture - Final Escherichia Coli Assessment and Plan (1) UTI (urinary tract infection) Status: Acute (2) Chronic kidney disease Status: Acute (3) Anemia Status: Acute (4) History of cervical cancer Status: Chronic (5) History of lung cancer Status: Chronic (6) Obstructive uropathy Status: Chronic (7) History of ureter stent Status: Chronic - Assessment and Plan (Free Text) Assessment: A/P- 63 year old female with multiple medical conditions including obstructive uropathy with indwelling right ureteral stent last changed 05/15/2018 admitted [facility] abd. pain, fever, leukocytoisis and + UA. low grade fever s again today rise in wbc today blood cx- neg x 2 Urine cx- ESBL e.coli PLan- await US of the kidney /renal region and rule out any collection around the stent. advise to continue with IV meropenem to cover empirically for ESBL UTI pending ID and sensitivity of the current Urine cx. day #2 stent may need to be replaced if no improvement.
--- NOTE | 2018-06-15 14:18 | CP.PCM.PN ---
<Suzanna Petty - Last Filed: 06/15/18 14:31> Subjective - Date & Time of Evaluation Date of Evaluation: 06/15/18 Time of Evaluation: 09:26 - Subjective Subjective: Patient was seen and examined this morning at bedside. She continues to complain of decreased appetite. She also complained of chills, and some lower abdominal pain. She denied any n/v/diarrhea/cp or sob. Objective - Vital Signs/Intake and Output Vital Signs (last 24 hours): Temp Pulse Resp BP Pulse Ox 98.6 F 101 H 20 122/70 100 06/15/18 12:15 06/15/18 12:15 06/15/18 12:15 06/15/18 12:15 06/15/18 12:15 Intake and Output: 06/15/18 06/15/18 06:59 18:59 Intake Total 277 Balance 277 - Medications Medications: Current Medications Acetaminophen (Tylenol 325mg Tab) 650 mg PO Q6 PRN PRN Reason: Pain, moderate (4-7) Last Admin: 06/14/18 17:32 Dose: 650 mg Acetaminophen (Tylenol 325mg Tab) 650 mg PO Q6 PRN PRN Reason: Fever >100.4 F Last Admin: 06/14/18 22:43 Dose: 650 mg Baclofen (Lioresal) 10 mg PO Q8 PRN PRN Reason: Muscle spasm Last Admin: 06/15/18 08:58 Dose: 10 mg Calcitriol (Rocaltrol) 0.25 mcg PO MWF [facility] Last Admin: 06/14/18 08:45 Dose: 0.25 mcg Diazepam (Valium) 5 mg PO Q12 PRN PRN Reason: Anxiety Docusate Sodium (Colace) 100 mg PO BID PRN PRN Reason: Constipation Epoetin Tam (Procrit) 10,000 unit SC TTS [facility] Fluticasone Propionate (Flonase) 2 spr MANNY DAILY PRN PRN Reason: Nasal congestion Sodium Chloride (Sodium Chloride 0.9%) 1,000 mls @ 150 mls/hr IV .Q6H40M [facility] Last Admin: 06/15/18 11:44 Dose: 150 mls/hr Meropenem 500 mg/ Sodium (Chloride) 100 mls @ 100 mls/hr IVPB Q12 [facility]; Protocol Last Admin: 06/15/18 08:56 Dose: 100 mls/hr Ketorolac Tromethamine (Toradol) 15 mg IVP Q6 PRN PRN Reason: Pain, severe (8-10) Last Admin: 06/15/18 11:44 Dose: 15 mg Pantoprazole Sodium (Protonix Ec Tab) 40 mg PO DAILY [facility] Last Admin: 06/15/18 08:59 Dose: 40 mg Vitamin B Complex/Vit C/Folic Acid (Nephro-Davidson) 1 tab PO DAILY [facility] Last Admin: 06/15/18 08:59 Dose: 1 tab Zolpidem Tartrate (Ambien) 5 mg PO HS PRN PRN Reason: Insomnia Last Admin: 06/14/18 22:19 Dose: 5 mg - Labs Labs: 06/15/18 04:18 06/15/18 04:18 - Constitutional Appears: No Acute Distress - Head Exam Head Exam: ATRAUMATIC - ENT Exam ENT Exam: Mucous Membranes Moist - Respiratory Exam Respiratory Exam: NORMAL BREATHING PATTERN - Cardiovascular Exam Cardiovascular Exam: +S1, +S2 Additional comments: borderline tachycardia - GI/Abdominal Exam GI & Abdominal Exam: Soft, Tenderness, Normal Bowel Sounds. absent: Guarding, Rigid Additional comments: suprapubic tenderness - Extremities Exam Extremities Exam: absent: Calf Tenderness - Neurological Exam Neurological Exam: Alert, Awake, Oriented x3 - Psychiatric Exam Psychiatric exam: Normal Mood - Skin Skin Exam: Dry Assessment and Plan - Assessment and Plan (Free Text) Assessment: A/P: 63 year old female with extensive PMHx including Obstructive Uropathy sec to Cervical CA s/p Right Ureteral Stent Placement, CKD stage III B, Anemia and HTN presented to ER c/o subjective fever and suprapubic pain, admitted for further management of sepsis. Sepsis (criteria met on admission) -ID recommendations appreciated -likely 2/2 UTI/Urosepsis -C/w IV fluids - Ceftriaxone was discontinued & Meropenem day 2 -FU repeat blood cultures; inital blood cx were negative -tachy on admission (128 bpm), P- 91-96 today -leukocytosis on admission WBC 16, 12.8 yesterday, 15.7 this AM -slightly hypotensive on admission with lowest BP-87/51; 122/70 this am -UA positive on admission for nitrate, WNL, RBC -UCx positive for gram negative madeline -had a UCx on 04/25/18 pos x Morg Morganii sensitive to ceftriaxone UTI -UA positive on admission for nitrate, WNL, RBC -UCx positive for ESBL -Ceftriaxone was discontinued & cw Meropenem day 2 -had a UCx on 04/25/18 pos x Morg Morganii sensitive to ceftriaxone Right Nephrostomy tube -FU renal ultrasound -s/p obstructive uropathy -follows with Dr. Mares as outpatient; FU recommendations -last changed 05/15/18 -changes it Q 3 months CKD (chronic kidney disease) stage 4 chronic/stable -Likely due to Obstructive Uropathy -Cr 2.1, GFR 29 c/w home meds -F/u [employer]: Dr. Pemberton as outpatient; FU recommendations Normocytic anemia (acute on chronic) -likely anemia of chronic diseases/CKD -Hemoglobin decreased from 8 to 6.1; 12/02.2 s/p -2 PRBC received -FU AM CBC -on procrit as outpatient HTN BP cont to remains on low side- 91-106 systolic Cont to hold norvasc and metoprolol today -Cont to f/u BP and HR DVT prophylaxis SCDs hgb :8 then dropped to 6; 12/02.2 this am <Lolly Pritchett - Last Filed: 06/17/18 15:55> Objective - Vital Signs/Intake and Output Vital Signs (last 24 hours): Temp Pulse Resp BP Pulse Ox 98.3 F 89 20 126/69 98 06/17/18 12:00 06/17/18 12:00 06/17/18 12:00 06/17/18 12:00 06/17/18 12:00 Intake and Output: 06/17/18 06/17/18 06:59 18:59 Output Total 975 Balance -975 - Medications Medications: Current Medications Acetaminophen (Tylenol 325mg Tab) 650 mg PO Q6 PRN PRN Reason: Pain, moderate (4-7) Last Admin: 06/14/18 17:32 Dose: 650 mg Acetaminophen (Tylenol 325mg Tab) 650 mg PO Q6 PRN PRN Reason: Fever >100.4 F Last Admin: 06/14/18 22:43 Dose: 650 mg Baclofen (Lioresal) 10 mg PO Q8 PRN PRN Reason: Muscle spasm Last Admin: 06/15/18 08:58 Dose: 10 mg Calcitriol (Rocaltrol) 0.25 mcg PO MWF [facility] Last Admin: 06/16/18 08:51 Dose: 0.25 mcg Diazepam (Valium) 5 mg PO Q12 PRN PRN Reason: Anxiety Docusate Sodium (Colace) 100 mg PO BID PRN PRN Reason: Constipation Enoxaparin Sodium (Lovenox) 30 mg SC DAILY [facility]; Protocol Last Admin: 06/17/18 08:59 Dose: 30 mg Epoetin Tam (Procrit) 10,000 unit SC TTS [facility] Last Admin: 06/17/18 09:00 Dose: 10,000 unit Fluticasone Propionate (Flonase) 2 spr MANNY DAILY PRN PRN Reason: Nasal congestion Last Admin: 06/17/18 08:59 Dose: 2 spr Meropenem 500 mg/ Sodium (Chloride) 100 mls @ 100 mls/hr IVPB Q12 [facility]; Protocol Last Admin: 06/17/18 13:11 Dose: 100 mls/hr Sodium Chloride (Sodium Chloride 0.9%) 1,000 mls @ 70 mls/hr IV .[id number] [facility] Last Admin: 06/17/18 13:11 Dose: 70 mls/hr Ketorolac Tromethamine (Toradol) 15 mg IVP Q6 PRN PRN Reason: Pain, severe (8-10) Last Admin: 06/17/18 13:08 Dose: 15 mg Pantoprazole Sodium (Protonix Ec Tab) 40 mg PO DAILY [facility] Last Admin: 06/17/18 09:02 Dose: 40 mg Sodium Bicarbonate (Sodium Bicarbonate Tab) 650 mg PO Q8 [facility] Last Admin: 06/17/18 09:02 Dose: 650 mg Vitamin B Complex/Vit C/Folic Acid (Nephro-Davidson) 1 tab PO DAILY [facility] Last Admin: 06/17/18 09:00 Dose: 1 tab Zolpidem Tartrate (Ambien) 5 mg PO HS PRN PRN Reason: Insomnia Last Admin: 06/16/18 22:17 Dose: 5 mg - Labs Labs: 06/17/18 05:55 06/17/18 05:55 Attending/Attestation - Attestation I have personally seen and examined this patient.: Yes I have fully participated in the care of the patient.: Yes I have reviewed all pertinent clinical information, including history, physical exam and plan: Yes Notes (Text): 06/17/18 15:55 63-year-old female history of cervical CVA status post right nephrostomy tube, admitted for obstructive uropathy and sepsis secondary to UTI. Continue current antibiotics, urology consult appreciated.
[2018-06-15] MEDS: EPOETIN ALFA 10,000 UNIT/ML ML SC SCH (15:40)
--- NOTE | 2018-06-15 18:16 | US ---
Date of service: 06/15/2018 PROCEDURE: Ultrasound of the Kidneys HISTORY: renal reg and r/o any collection around the stent Relevant interventional procedure(s): 05/15/2018 exchange of right percutaneous nephrostomy tube. COMPARISON: 10/25/2015. Renal ultrasound. TECHNIQUE: Sonogram of the kidneys. FINDINGS: RIGHT KIDNEY: Measures: 4 x 4.6 x 10.5 cm. Normal in size, contour and echogenicity. No stone, solid mass lesion or hydronephrosis visualized. Nephrostomy tube identified in a decompressed collecting system. LEFT KIDNEY: Measures: 10.9 x 5.1 x 5.7 cm. Normal in size, contour and echogenicity. Marked hydronephrosis. Debris identified in the dilated collecting system and ureter. OTHER FINDINGS: None. IMPRESSION: Demonstration of nephrostomy catheter on the right. Marked left hydronephrosis. Debris identified within the left collecting system and ureter.
--- NOTE | 2018-06-15 20:26 | CP.PCM.PN ---
Subjective - Date & Time of Evaluation Date of Evaluation: 06/15/18 Time of Evaluation: 20:26 - Subjective Subjective: pt is seen and examined, follow up consult is dictated #[id number] Objective - Vital Signs/Intake and Output Vital Signs (last 24 hours): Temp Pulse Resp BP Pulse Ox 99.6 F 102 H 18 111/68 99 06/15/18 19:56 06/15/18 19:56 06/15/18 19:56 06/15/18 19:56 06/15/18 19:56 - Medications Medications: Current Medications Acetaminophen (Tylenol 325mg Tab) 650 mg PO Q6 PRN PRN Reason: Pain, moderate (4-7) Last Admin: 06/14/18 17:32 Dose: 650 mg Acetaminophen (Tylenol 325mg Tab) 650 mg PO Q6 PRN PRN Reason: Fever >100.4 F Last Admin: 06/14/18 22:43 Dose: 650 mg Baclofen (Lioresal) 10 mg PO Q8 PRN PRN Reason: Muscle spasm Last Admin: 06/15/18 08:58 Dose: 10 mg Calcitriol (Rocaltrol) 0.25 mcg PO MWF [facility] Last Admin: 06/14/18 08:45 Dose: 0.25 mcg Diazepam (Valium) 5 mg PO Q12 PRN PRN Reason: Anxiety Docusate Sodium (Colace) 100 mg PO BID PRN PRN Reason: Constipation Epoetin Tam (Procrit) 10,000 unit SC TTS [facility] Last Admin: 06/15/18 15:40 Dose: 10,000 unit Fluticasone Propionate (Flonase) 2 spr MANNY DAILY PRN PRN Reason: Nasal congestion Sodium Chloride (Sodium Chloride 0.9%) 1,000 mls @ 150 mls/hr IV .Q6H40M [facility] Last Admin: 06/15/18 18:39 Dose: 150 mls/hr Meropenem 500 mg/ Sodium (Chloride) 100 mls @ 100 mls/hr IVPB Q12 [facility]; Protocol Last Admin: 06/15/18 08:56 Dose: 100 mls/hr Ketorolac Tromethamine (Toradol) 15 mg IVP Q6 PRN PRN Reason: Pain, severe (8-10) Last Admin: 06/15/18 11:44 Dose: 15 mg Pantoprazole Sodium (Protonix Ec Tab) 40 mg PO DAILY [facility] Last Admin: 06/15/18 08:59 Dose: 40 mg Vitamin B Complex/Vit C/Folic Acid (Nephro-Davidson) 1 tab PO DAILY [facility] Last Admin: 06/15/18 08:59 Dose: 1 tab Zolpidem Tartrate (Ambien) 5 mg PO HS PRN PRN Reason: Insomnia Last Admin: 06/14/18 22:19 Dose: 5 mg - Labs Labs: 06/15/18 04:18 06/15/18 04:18
[2018-06-16] MEDS: Sodium Chloride 0.9% 1,000 ML IV SCH ×2 (00:46→14:05)
--- NOTE | 2018-06-16 04:17 | PN ---
DATE: 06/15/2018 FOLLOWUP RENAL CONSULTATION REQUESTED BY: John Hernandez MD REASON FOR FOLLOWUP: Chronic kidney disease, UTI, sepsis, for further evaluation, and anemia. SUBJECTIVE: Mrs. Mccabe is a 63-year-old elderly female, very pleasant with a history of longstanding hypertension, chronic kidney disease, bilateral hydronephrosis, radiation cystitis, ureteral strictures, bilateral ureteral stent placement in the past. Subsequently, the patient underwent bilateral nephrostomy tubes and also left nephrostomy tube was removed and the patient has now right PCN for the last two years. The patient was admitted with a chief complaint of lower back pain and also pain radiating to the both legs and the thighs. Generalized weakness, difficult to ambulate, weight loss, and also dysuria, frequency and foul smelling urine. The patient was found to have E. coli. The patient is being treated for UTI and sepsis. The patient is feeling slightly better. Denies any chest pain or palpitation. Denies any fever or cough. No abdominal pain today. No nausea or vomiting. PHYSICAL EXAMINATION: VITAL SIGNS: As follows; this evening, blood pressure 111/68, pulse 102, respirations 18, temperature 99.6, and saturation 99%. Height 5 feet 1 inch. Weight is 88 pounds. GENERAL: Mrs. Mccabe is a 63-year-old elderly female, thin built, very cachectic, not in distress. HEENT: Pupils are normal and reactive to light and accommodation. Conjunctivae are pink. Sclerae anicteric. Tongue is moist. Trachea is deviated to the left. LUNGS: Bilateral breath sounds present. Right side, normal breath sound. Left side, the patient has bronchial breath sounds, status post partial pneumectomy long time ago. The patient has a scar on the posterior aspect of the left lung. CARDIOVASCULAR SYSTEM: S1 and S2 audible. The patient has ejection systolic murmur present. No gallop. ABDOMEN: Normal in appearance. Soft, tympanitic. No guarding. No rigidity. No hepatosplenomegaly. CENTRAL NERVOUS SYSTEM: The patient is alert, awake, and oriented x3. Nonfocal neuro examination. Cranial nerves II through XII grossly intact. Sensory and motor system is within normal limits. EXTREMITIES: No cyanosis, no clubbing, no edema. CURRENT MEDICATIONS: Include as follows; Ambien 5 mg at bedtime, Colace 100 mg p.o. b.i.d., Flonase, baclofen 10 mg p.o. every 8 hours, Nephro-Davidson one tablet daily, Procrit 10,000 units three times a week, Protonix 40 mg p.o. daily, calcitriol 0.25 mcg p.o. three times a week, IV fluid with normal saline at 150 mL per hour, Tylenol, and diltiazem 5 mg p.o. every 12 hours. LABORATORY DATA: Includes as follows; WBC 15.7, hemoglobin 9, hematocrit is 28.2, and platelets 414. Sodium 135, potassium 3.5, chloride 109, CO2 of 19, BUN 21, creatinine 1.8, glucose 8.4, total bilirubin 0.4. AST 45, ALT 26, alkaline phosphatase 102. Total protein 6.3, albumin is 2.7. Urine culture positive for E. coli. Blood cultures x2 negative day #2 and also repeat cultures from 06/14/2018 negative day #1. Urine culture positive for E. coli from 06/13/2018 and sensitive to ertapenem, nitrofurantoin, gentamicin, meropenem, and Zosyn. ASSESSMENT AND PLAN: In summary, Mrs. Mccabe is a 63-year-old elderly female with a history of hypertension, chronic kidney disease, bilateral hydronephrosis, ureteral stricture, bilateral ureteral stent placement in the past, multiple. Subsequently, the patient underwent bilateral percutaneous nephrostomy and later on left percutaneous nephrostomy was discontinued and the patient has persistent right percutaneous nephrostomy for more than two years, recurrent urinary tract infections, was admitted with weakness, spinal stenosis, difficult to ambulate, bilateral leg pain, anemia, poor appetite and weight loss. 1. Chronic kidney disease III, secondary to obstructive uropathy. 2. Anemia secondary to renal failure and iron-deficiency anemia. 3. Urosepsis. 4. Hypertension. 5. Status post ultrasound of the kidneys done yesterday consistent with marked left hydronephrosis identified within the left collecting system and ureter. We will discuss with Urology for possible nephrostomy on the left side and also we will consider renal scan. We will follow up with you. Thank you for allowing me to participate in your patient's care. Ta Pemberton MD [facility] # [id number]
[2018-06-16 05:54] LABS: BASO # 0.1 K/uL (0.0-0.2); BASO % 0.6 % (0.0-2.0); EOS # 0.1 K/uL (0.0-0.7); EOS % 0.9 % (0.0-4.0); HEMOGLOBIN 8.3 g/dL (12.0-16.0); LYMPH # 1.2 K/uL (1.0-4.3); LYMPH % 8.4 % (20.0-40.0); MEAN CELL VOLUME 85.1 fl (81.0-99.0); MEAN CORPUSCULAR HEMOGLOBIN 27.7 pg (27.0-31.0); MEAN CORPUSCULAR HGB CONC 32.6 g/dL (33.0-37.0); MEAN PLATELET VOLUME 7.3 fl (7.2-11.7); MONO # 1.4 K/uL (0.0-0.8); MONO % 9.2 % (0.0-10.0); NEUT % 80.9 % (50.0-75.0); RED CELL DISTRIBUTION WIDTH 16.8 % (11.5-14.5); WHITE BLOOD COUNT 14.9 K/uL (4.8-10.8)
[2018-06-16 06:27] LABS: CALCIUM 8.2 mg/dL (8.4-10.2)
[2018-06-16] MEDS: Pantoprazole 40 mg EC Tab PO SCH (08:51)
[2018-06-16] MEDS: Multivitamin Vitamin B Complex (Nephro-Vite) Tab PO SCH (08:51)
--- NOTE | 2018-06-16 09:27 | CP.PCM.PN ---
Subjective - Date & Time of Evaluation Date of Evaluation: 06/16/18 Time of Evaluation: 09:27 - Subjective Subjective: pt is seen and examined, follow up consult is dictated #[id number] Objective - Vital Signs/Intake and Output Vital Signs (last 24 hours): Temp Pulse Resp BP Pulse Ox 98.1 F 98 H 20 133/71 98 06/16/18 08:36 06/16/18 08:36 06/16/18 08:36 06/16/18 08:36 06/16/18 08:36 - Medications Medications: Current Medications Acetaminophen (Tylenol 325mg Tab) 650 mg PO Q6 PRN PRN Reason: Pain, moderate (4-7) Last Admin: 06/14/18 17:32 Dose: 650 mg Acetaminophen (Tylenol 325mg Tab) 650 mg PO Q6 PRN PRN Reason: Fever >100.4 F Last Admin: 06/14/18 22:43 Dose: 650 mg Baclofen (Lioresal) 10 mg PO Q8 PRN PRN Reason: Muscle spasm Last Admin: 06/15/18 08:58 Dose: 10 mg Calcitriol (Rocaltrol) 0.25 mcg PO MWF [facility] Last Admin: 06/16/18 08:51 Dose: 0.25 mcg Diazepam (Valium) 5 mg PO Q12 PRN PRN Reason: Anxiety Docusate Sodium (Colace) 100 mg PO BID PRN PRN Reason: Constipation Epoetin Tam (Procrit) 10,000 unit SC TTS [facility] Last Admin: 06/15/18 15:40 Dose: 10,000 unit Fluticasone Propionate (Flonase) 2 spr MANNY DAILY PRN PRN Reason: Nasal congestion Meropenem 500 mg/ Sodium (Chloride) 100 mls @ 100 mls/hr IVPB Q12 [facility]; Protocol Last Admin: 06/15/18 21:31 Dose: 100 mls/hr Sodium Chloride (Sodium Chloride 0.9%) 1,000 mls @ 70 mls/hr IV .[id number] [facility] Last Admin: 06/16/18 00:46 Dose: 70 mls/hr Ketorolac Tromethamine (Toradol) 15 mg IVP Q6 PRN PRN Reason: Pain, severe (8-10) Last Admin: 06/15/18 21:30 Dose: 15 mg Pantoprazole Sodium (Protonix Ec Tab) 40 mg PO DAILY [facility] Last Admin: 06/16/18 08:51 Dose: 40 mg Sodium Bicarbonate (Sodium Bicarbonate Tab) 650 mg PO Q8 [facility] Vitamin B Complex/Vit C/Folic Acid (Nephro-Davidson) 1 tab PO DAILY [facility] Last Admin: 06/16/18 08:51 Dose: 1 tab Zolpidem Tartrate (Ambien) 5 mg PO HS PRN PRN Reason: Insomnia Last Admin: 06/14/18 22:19 Dose: 5 mg - Labs Labs: 06/16/18 05:05 06/16/18 05:05
[2018-06-16] MEDS: Meropenem 500 MG in Sodium Chloride 0.9% 100 ML IVPB SCH ×2 (10:00→20:40)
--- NOTE | 2018-06-16 11:08 | CP.PCM.PN ---
<Suzanna Petty - Last Filed: 06/16/18 11:27> Subjective - Date & Time of Evaluation Date of Evaluation: 06/16/18 Time of Evaluation: 09:46 - Subjective Subjective: Patient was seen and examined at bedside. Patient still complaining of lower abdominal pain & decreased appetite. Denies any fever, nausea, vomitting, cp or sob. Objective - Vital Signs/Intake and Output Vital Signs (last 24 hours): Temp Pulse Resp BP Pulse Ox 98.1 F 98 H 20 133/71 98 06/16/18 08:36 06/16/18 09:00 06/16/18 08:36 06/16/18 08:36 06/16/18 08:36 - Medications Medications: Current Medications Acetaminophen (Tylenol 325mg Tab) 650 mg PO Q6 PRN PRN Reason: Pain, moderate (4-7) Last Admin: 06/14/18 17:32 Dose: 650 mg Acetaminophen (Tylenol 325mg Tab) 650 mg PO Q6 PRN PRN Reason: Fever >100.4 F Last Admin: 06/14/18 22:43 Dose: 650 mg Baclofen (Lioresal) 10 mg PO Q8 PRN PRN Reason: Muscle spasm Last Admin: 06/15/18 08:58 Dose: 10 mg Calcitriol (Rocaltrol) 0.25 mcg PO MWF [facility] Last Admin: 06/16/18 08:51 Dose: 0.25 mcg Diazepam (Valium) 5 mg PO Q12 PRN PRN Reason: Anxiety Docusate Sodium (Colace) 100 mg PO BID PRN PRN Reason: Constipation Epoetin Tam (Procrit) 10,000 unit SC TTS [facility] Last Admin: 06/15/18 15:40 Dose: 10,000 unit Fluticasone Propionate (Flonase) 2 spr MANNY DAILY PRN PRN Reason: Nasal congestion Meropenem 500 mg/ Sodium (Chloride) 100 mls @ 100 mls/hr IVPB Q12 [facility]; Protocol Last Admin: 06/16/18 10:00 Dose: 100 mls/hr Sodium Chloride (Sodium Chloride 0.9%) 1,000 mls @ 70 mls/hr IV .[id number] [facility] Last Admin: 06/16/18 00:46 Dose: 70 mls/hr Ketorolac Tromethamine (Toradol) 15 mg IVP Q6 PRN PRN Reason: Pain, severe (8-10) Last Admin: 06/16/18 09:54 Dose: 15 mg Pantoprazole Sodium (Protonix Ec Tab) 40 mg PO DAILY [facility] Last Admin: 06/16/18 08:51 Dose: 40 mg Sodium Bicarbonate (Sodium Bicarbonate Tab) 650 mg PO Q8 [facility] Last Admin: 06/16/18 10:00 Dose: 650 mg Vitamin B Complex/Vit C/Folic Acid (Nephro-Davidson) 1 tab PO DAILY [facility] Last Admin: 06/16/18 08:51 Dose: 1 tab Zolpidem Tartrate (Ambien) 5 mg PO HS PRN PRN Reason: Insomnia Last Admin: 06/14/18 22:19 Dose: 5 mg - Labs Labs: 06/16/18 05:05 06/16/18 05:05 - Constitutional Appears: Non-toxic - Head Exam Head Exam: NORMAL INSPECTION - Eye Exam Eye Exam: PERRL - ENT Exam ENT Exam: Mucous Membranes Dry - Respiratory Exam Respiratory Exam: NORMAL BREATHING PATTERN - Cardiovascular Exam Cardiovascular Exam: +S1, +S2 Additional comments: borderline tachycardia - GI/Abdominal Exam GI & Abdominal Exam: Soft, Tenderness, Normal Bowel Sounds. absent: Guarding, Rigid - Back Exam Additional comments: right nephrostomy tube in place - Neurological Exam Neurological Exam: Alert, Awake, Oriented x3 - Psychiatric Exam Psychiatric exam: Normal Mood - Skin Skin Exam: Dry Assessment and Plan - Assessment and Plan (Free Text) Assessment: A/P: 63 year old female with extensive PMHx including Obstructive Uropathy sec to Cervical CA s/p Right Ureteral Stent Placement, CKD stage III B, Anemia and HTN presented to ER c/o subjective fever and suprapubic pain, admitted for further management of sepsis. Sepsis (criteria met on admission) -ID recommendations appreciated -likely 2/2 UTI/Urosepsis -C/w IV fluids - Meropenem day 3 -FU repeat blood cultures; inital blood cx were negative -tachy on admission (128 bpm), P- 95-98 today -leukocytosis on admission WBC 16, 12.8 yesterday, 15.7 this AM -slightly hypotensive on admission with lowest BP-87/51; 122/70 this am -UA positive on admission for nitrate, WNL, RBC -UCx positive for gram negative madeline -had a UCx on 04/25/18 pos x Morg Morganii sensitive to ceftriaxone UTI -UA positive on admission for nitrate, WNL, RBC -UCx positive for ESBL - cw Meropenem day 3 -had a UCx on 04/25/18 pos x Morg Morganii sensitive to ceftriaxone Right Nephrostomy tube - renal ultrasound: marked left hydrophnephrosis; debris identified within the left collecting system and ureter; demonstration of nephrostomy catheter on the right. -As per Dr. Mares, will possibly consider removal of right nephrostomy tube Tuesday. -s/p obstructive uropathy -last changed 05/15/18 -changes it Q 3 months CKD (chronic kidney disease) stage 4 chronic/stable -Likely due to Obstructive Uropathy -Cr 2.1, GFR 29 c/w home meds -Turbo Operator: Dr. Pemberton appreciated Normocytic anemia (acute on chronic) -likely anemia of chronic diseases/CKD -Hemoglobin 8 then dropped to 6; 8.3 ths AM s/p -2 PRBC received -FU AM CBC -on procrit as outpatient HTN BP cont to remains on low side- 91-106 systolic Cont to hold norvasc and metoprolol -Cont to f/u BP and HR DVT prophylaxis SCDs hgb :8 then dropped to 6; 8.3 ths AM <Lolly Pritchett - Last Filed: 06/17/18 15:35> Objective - Vital Signs/Intake and Output Vital Signs (last 24 hours): Temp Pulse Resp BP Pulse Ox 98.3 F 89 20 126/69 98 06/17/18 12:00 06/17/18 12:00 06/17/18 12:00 06/17/18 12:00 06/17/18 12:00 Intake and Output: 06/17/18 06/17/18 06:59 18:59 Output Total 975 Balance -975 - Medications Medications: Current Medications Acetaminophen (Tylenol 325mg Tab) 650 mg PO Q6 PRN PRN Reason: Pain, moderate (4-7) Last Admin: 06/14/18 17:32 Dose: 650 mg Acetaminophen (Tylenol 325mg Tab) 650 mg PO Q6 PRN PRN Reason: Fever >100.4 F Last Admin: 06/14/18 22:43 Dose: 650 mg Baclofen (Lioresal) 10 mg PO Q8 PRN PRN Reason: Muscle spasm Last Admin: 06/15/18 08:58 Dose: 10 mg Calcitriol (Rocaltrol) 0.25 mcg PO MWF [facility] Last Admin: 06/16/18 08:51 Dose: 0.25 mcg Diazepam (Valium) 5 mg PO Q12 PRN PRN Reason: Anxiety Docusate Sodium (Colace) 100 mg PO BID PRN PRN Reason: Constipation Enoxaparin Sodium (Lovenox) 30 mg SC DAILY [facility]; Protocol Last Admin: 06/17/18 08:59 Dose: 30 mg Epoetin Tam (Procrit) 10,000 unit SC TTS [facility] Last Admin: 06/17/18 09:00 Dose: 10,000 unit Fluticasone Propionate (Flonase) 2 spr MANNY DAILY PRN PRN Reason: Nasal congestion Last Admin: 06/17/18 08:59 Dose: 2 spr Meropenem 500 mg/ Sodium (Chloride) 100 mls @ 100 mls/hr IVPB Q12 [facility]; Protocol Last Admin: 06/17/18 13:11 Dose: 100 mls/hr Sodium Chloride (Sodium Chloride 0.9%) 1,000 mls @ 70 mls/hr IV .[id number] [facility] Last Admin: 06/17/18 13:11 Dose: 70 mls/hr Ketorolac Tromethamine (Toradol) 15 mg IVP Q6 PRN PRN Reason: Pain, severe (8-10) Last Admin: 06/17/18 13:08 Dose: 15 mg Pantoprazole Sodium (Protonix Ec Tab) 40 mg PO DAILY [facility] Last Admin: 06/17/18 09:02 Dose: 40 mg Sodium Bicarbonate (Sodium Bicarbonate Tab) 650 mg PO Q8 [facility] Last Admin: 06/17/18 09:02 Dose: 650 mg Vitamin B Complex/Vit C/Folic Acid (Nephro-Davidson) 1 tab PO DAILY [facility] Last Admin: 06/17/18 09:00 Dose: 1 tab Zolpidem Tartrate (Ambien) 5 mg PO HS PRN PRN Reason: Insomnia Last Admin: 06/16/18 22:17 Dose: 5 mg - Labs Labs: 06/17/18 05:55 06/17/18 05:55 Attending/Attestation - Attestation I have personally seen and examined this patient.: Yes I have fully participated in the care of the patient.: Yes I have reviewed all pertinent clinical information, including history, physical exam and plan: Yes Notes (Text): 06/17/18 15:34 63 year old female with extensive PMHx including Obstructive Uropathy sec to Cervical CA s/p Right Ureteral Stent Placement, CKD stage III B, Anemia and HTN presented to ER c/o subjective fever and suprapubic pain, admitted for further management of sepsis. Urology consult appreciated, nephrostomy tube?
--- NOTE | 2018-06-16 11:57 | CP.PCM.PN ---
Subjective - Date & Time of Evaluation Date of Evaluation: 06/16/18 Time of Evaluation: 11:57 - Subjective Subjective: ID note- Pt. seen and examined today. still has lower abd pain. Objective - Vital Signs/Intake and Output Vital Signs (last 24 hours): Temp Pulse Resp BP Pulse Ox 98.1 F 98 H 20 133/71 98 06/16/18 08:36 06/16/18 09:00 06/16/18 08:36 06/16/18 08:36 06/16/18 08:36 - Medications Medications: Current Medications Acetaminophen (Tylenol 325mg Tab) 650 mg PO Q6 PRN PRN Reason: Pain, moderate (4-7) Last Admin: 06/14/18 17:32 Dose: 650 mg Acetaminophen (Tylenol 325mg Tab) 650 mg PO Q6 PRN PRN Reason: Fever >100.4 F Last Admin: 06/14/18 22:43 Dose: 650 mg Baclofen (Lioresal) 10 mg PO Q8 PRN PRN Reason: Muscle spasm Last Admin: 06/15/18 08:58 Dose: 10 mg Calcitriol (Rocaltrol) 0.25 mcg PO MWF [facility] Last Admin: 06/16/18 08:51 Dose: 0.25 mcg Diazepam (Valium) 5 mg PO Q12 PRN PRN Reason: Anxiety Docusate Sodium (Colace) 100 mg PO BID PRN PRN Reason: Constipation Epoetin Tam (Procrit) 10,000 unit SC TTS [facility] Last Admin: 06/15/18 15:40 Dose: 10,000 unit Fluticasone Propionate (Flonase) 2 spr MANNY DAILY PRN PRN Reason: Nasal congestion Meropenem 500 mg/ Sodium (Chloride) 100 mls @ 100 mls/hr IVPB Q12 [facility]; Protocol Last Admin: 06/16/18 10:00 Dose: 100 mls/hr Sodium Chloride (Sodium Chloride 0.9%) 1,000 mls @ 70 mls/hr IV .[id number] [facility] Last Admin: 06/16/18 00:46 Dose: 70 mls/hr Ketorolac Tromethamine (Toradol) 15 mg IVP Q6 PRN PRN Reason: Pain, severe (8-10) Last Admin: 06/16/18 09:54 Dose: 15 mg Pantoprazole Sodium (Protonix Ec Tab) 40 mg PO DAILY [facility] Last Admin: 06/16/18 08:51 Dose: 40 mg Sodium Bicarbonate (Sodium Bicarbonate Tab) 650 mg PO Q8 [facility] Last Admin: 06/16/18 10:00 Dose: 650 mg Vitamin B Complex/Vit C/Folic Acid (Nephro-Davidson) 1 tab PO DAILY [facility] Last Admin: 06/16/18 08:51 Dose: 1 tab Zolpidem Tartrate (Ambien) 5 mg PO HS PRN PRN Reason: Insomnia Last Admin: 06/14/18 22:19 Dose: 5 mg - Labs Labs: - Additional Findings Additional findings: - Constitutional Appears: No Acute Distress, Chronically Ill - Head Exam Head Exam: ATRAUMATIC - Eye Exam Eye Exam: EOMI, PERRL - ENT Exam ENT Exam: Normal Oropharynx - Neck Exam Neck exam: Positive for: Full Rom - Respiratory Exam Respiratory Exam: Clear to Auscultation Bilateral, NORMAL BREATHING PATTERN - Cardiovascular Exam Cardiovascular Exam: RRR, +S1, +S2 - GI/Abdominal Exam GI & Abdominal Exam: Normal Bowel Sounds, Soft Additional comments: ND + minimal tenderness with palpation of the lower abd/suprapubic region Right nephrostomy tube site slight erythema but no discharge, no tenderness at the site urine in nephrostomy tube clear - Extremities Exam Extremities exam: Positive for: normal inspection - Neurological Exam Neurological exam: Alert, Oriented x 3 Laboratory Results - last 72 hr 06/13/18 06/14/18 06/14/18 10:40 05:10 05:10 WBC 12.8 H RBC 2.24 L Hgb 6.0 L* D Hct 19.3 L MCV 86.0 MCH 26.8 L MCHC 31.1 L RDW 16.9 H Plt Count 453 H D MPV 7.7 Neut % (Auto) 82.1 H Lymph % (Auto) 7.4 L Armstrong % (Auto) 9.2 Eos % (Auto) 1.0 Baso % (Auto) 0.3 Neut # (Auto) 10.6 H Lymph # (Auto) 0.9 L Armstrong # (Auto) 1.2 H Eos # (Auto) 0.1 Baso # (Auto) 0.0 Neutrophils % (Manual) 82 H Band Neutrophils % 1 Lymphocytes % (Manual) 4 L Monocytes % (Manual) 11 H Basophils % (Manual) 1 Myelocytes % 1 H Platelet Estimate Increased H Hypochromasia (manual) Slight Anisocytosis (manual) Slight Sodium 133 Potassium 3.8 Chloride 107 Carbon Dioxide 21 L Anion Gap 9 L BUN 25 H Creatinine 2.1 H Est GFR ( Amer) 29 Est GFR (Non-Af Amer) 24 Random Glucose 83 Calcium 8.0 L Total Bilirubin AST ALT Alkaline Phosphatase Total Protein Albumin Globulin Albumin/Globulin Ratio Blood Type Antibody Screen Crossmatch BBK History Checked 06/14/18 06/15/18 06/15/18 10:25 04:18 04:18 WBC 15.7 H RBC 3.30 L Hgb 9.0 L D Hct 28.2 L MCV 85.5 MCH 27.2 MCHC 31.8 L RDW 16.6 H Plt Count 414 H MPV 7.5 Neut % (Auto) 84.0 H Lymph % (Auto) 5.2 L Armstrong % (Auto) 9.3 Eos % (Auto) 1.1 Baso % (Auto) 0.4 Neut # (Auto) 13.2 H Lymph # (Auto) 0.8 L Armstrong # (Auto) 1.5 H Eos # (Auto) 0.2 Baso # (Auto) 0.1 Neutrophils % (Manual) Band Neutrophils % Lymphocytes % (Manual) Monocytes % (Manual) Basophils % (Manual) Myelocytes % Platelet Estimate Hypochromasia (manual) Anisocytosis (manual) Sodium 135 Potassium 3.5 L Chloride 109 H Carbon Dioxide 19 L Anion Gap 11 BUN 21 H Creatinine 1.8 H Est GFR ( Amer) 34 Est GFR (Non-Af Amer) 28 Random Glucose 80 Calcium 8.4 Total Bilirubin 0.4 AST 45 H D ALT 26 Alkaline Phosphatase 102 Total Protein 6.3 Albumin 2.7 L D Globulin 3.6 Albumin/Globulin Ratio 0.8 L Blood Type A POSITIVE Antibody Screen Negative Crossmatch See Detail BBK History Checked Patient has bt 06/16/18 06/16/18 05:05 05:05 WBC 14.9 H RBC 3.00 L Hgb 8.3 L Hct 25.5 L MCV 85.1 MCH 27.7 MCHC 32.6 L RDW 16.8 H Plt Count 398 MPV 7.3 Neut % (Auto) 80.9 H Lymph % (Auto) 8.4 L Armstrong % (Auto) 9.2 Eos % (Auto) 0.9 Baso % (Auto) 0.6 Neut # (Auto) 12.0 H Lymph # (Auto) 1.2 Armstrong # (Auto) 1.4 H Eos # (Auto) 0.1 Baso # (Auto) 0.1 Neutrophils % (Manual) Band Neutrophils % Lymphocytes % (Manual) Monocytes % (Manual) Basophils % (Manual) Myelocytes % Platelet Estimate Hypochromasia (manual) Anisocytosis (manual) Sodium 133 Potassium 4.1 Chloride 110 H Carbon Dioxide 19 L Anion Gap 8 L BUN 15 Creatinine 1.8 H Est GFR ( Amer) 34 Est GFR (Non-Af Amer) 28 Random Glucose 75 Calcium 8.2 L Total Bilirubin AST ALT Alkaline Phosphatase Total Protein Albumin Globulin Albumin/Globulin Ratio Blood Type Antibody Screen Crossmatch BBK History Checked Microbiology 06/13/18 12:03 Blood-Venous Blood Culture - Preliminary NO GROWTH AFTER 3 DAYS 06/13/18 10:40 Blood-Venous Blood Culture - Preliminary NO GROWTH AFTER 3 DAYS 06/14/18 21:30 Blood Blood Culture - Preliminary NO GROWTH AFTER 24 HOURS 06/14/18 21:00 Blood Blood Culture - Preliminary NO GROWTH AFTER 24 HOURS 06/13/18 10:35 Urine,Kidney Urine Culture - Final Escherichia Coli Accession No. : [id number] Patient Name / ID : KRISTIAN Lemon / [id number] Exam Date : 06/15/2018 17:43:40 ( Approved ) Study Comment : Sex / Age : F / 63Y Creator : Duncan Baez MD Dictator : Duncan Baez MD [employer] Operator : Therapeutic Strategy Lead : Duncan Baez MD Approver2 : Report Date : 06/15/2018 18:10:29 My Comment : * Date of service: 06/15/2018 PROCEDURE: Ultrasound of the Kidneys HISTORY: renal reg and r/o any collection around the stent Relevant interventional procedure(s): 05/15/2018 exchange of right percutaneous nephrostomy tube. COMPARISON: 10/25/2015. Renal ultrasound. TECHNIQUE: Sonogram of the kidneys. FINDINGS: RIGHT KIDNEY: Measures: 4 x 4.6 x 10.5 cm. Normal in size, contour and echogenicity. No stone, solid mass lesion or hydronephrosis visualized. Nephrostomy tube identified in a decompressed collecting system. LEFT KIDNEY: Measures: 10.9 x 5.1 x 5.7 cm. Normal in size, contour and echogenicity. Marked hydronephrosis. Debris identified in the dilated collecting system and ureter. OTHER FINDINGS: None. IMPRESSION: Demonstration of nephrostomy catheter on the right. Marked left hydronephrosis. Debris identified within the left collecting system and ureter. Assessment and Plan (1) UTI (urinary tract infection) Status: Acute (2) Chronic kidney disease Status: Acute (3) Anemia Status: Acute (4) History of cervical cancer Status: Chronic (5) History of lung cancer Status: Chronic (6) Obstructive uropathy Status: Chronic (7) History of ureter stent Status: Chronic - Assessment and Plan (Free Text) Assessment: A/P- 63 year old female with multiple medical conditions including obstructive uropathy with indwelling right ureteral stent last changed 05/15/2018 admitted [facility]. pain, fever, leukocytoisis and + UA. afebrile today mild leukocytosis persists blood cx- neg x 2 Urine cx- ESBL e.coli renal US- as per report left hydronephrosis present PLan- advise to continue with IV meropenem to treat ESBL UTI . day #3 stent may need to be replaced if no improvement. also now has left sided hydronephrosis as per renal US report and may need to have stent for the left one placed as well. and renal f/u. case d/w Hospitalist.
--- NOTE | 2018-06-16 12:49 | CP.PCM.PN ---
Subjective - Date & Time of Evaluation Date of Evaluation: 06/16/18 Time of Evaluation: 12:00 - Subjective Subjective: Examined patient in bed, no acute distress Objective - Vital Signs/Intake and Output Vital Signs (last 24 hours): Temp Pulse Resp BP Pulse Ox 97.9 F 89 20 126/72 98 06/16/18 12:42 06/16/18 12:42 06/16/18 12:42 06/16/18 12:42 06/16/18 12:42 - Medications Medications: Current Medications Acetaminophen (Tylenol 325mg Tab) 650 mg PO Q6 PRN PRN Reason: Pain, moderate (4-7) Last Admin: 06/14/18 17:32 Dose: 650 mg Acetaminophen (Tylenol 325mg Tab) 650 mg PO Q6 PRN PRN Reason: Fever >100.4 F Last Admin: 06/14/18 22:43 Dose: 650 mg Baclofen (Lioresal) 10 mg PO Q8 PRN PRN Reason: Muscle spasm Last Admin: 06/15/18 08:58 Dose: 10 mg Calcitriol (Rocaltrol) 0.25 mcg PO MWF [facility] Last Admin: 06/16/18 08:51 Dose: 0.25 mcg Diazepam (Valium) 5 mg PO Q12 PRN PRN Reason: Anxiety Docusate Sodium (Colace) 100 mg PO BID PRN PRN Reason: Constipation Epoetin Tam (Procrit) 10,000 unit SC TTS [facility] Last Admin: 06/15/18 15:40 Dose: 10,000 unit Fluticasone Propionate (Flonase) 2 spr AMNNY DAILY PRN PRN Reason: Nasal congestion Meropenem 500 mg/ Sodium (Chloride) 100 mls @ 100 mls/hr IVPB Q12 [facility]; Protocol Last Admin: 06/16/18 10:00 Dose: 100 mls/hr Sodium Chloride (Sodium Chloride 0.9%) 1,000 mls @ 70 mls/hr IV .[id number] [facility] Last Admin: 06/16/18 00:46 Dose: 70 mls/hr Ketorolac Tromethamine (Toradol) 15 mg IVP Q6 PRN PRN Reason: Pain, severe (8-10) Last Admin: 06/16/18 09:54 Dose: 15 mg Pantoprazole Sodium (Protonix Ec Tab) 40 mg PO DAILY [facility] Last Admin: 06/16/18 08:51 Dose: 40 mg Sodium Bicarbonate (Sodium Bicarbonate Tab) 650 mg PO Q8 [facility] Last Admin: 06/16/18 10:00 Dose: 650 mg Vitamin B Complex/Vit C/Folic Acid (Nephro-Davidson) 1 tab PO DAILY [facility] Last Admin: 06/16/18 08:51 Dose: 1 tab Zolpidem Tartrate (Ambien) 5 mg PO HS PRN PRN Reason: Insomnia Last Admin: 06/14/18 22:19 Dose: 5 mg - Labs Labs: 06/16/18 05:05 06/16/18 05:05 - Constitutional Appears: No Acute Distress, Chronically Ill - Head Exam Head Exam: ATRAUMATIC, NORMAL INSPECTION, NORMOCEPHALIC - Eye Exam Eye Exam: Normal appearance, PERRL - ENT Exam ENT Exam: Mucous Membranes Moist - Neck Exam Neck Exam: Normal Inspection - Respiratory Exam Respiratory Exam: Decreased Breath Sounds - Cardiovascular Exam Cardiovascular Exam: REGULAR RHYTHM - GI/Abdominal Exam GI & Abdominal Exam: Soft, Normal Bowel Sounds - Exam Additional comments: has suprapubic pain - Neurological Exam Neurological Exam: Alert, Awake, Oriented x3 - Psychiatric Exam Psychiatric exam: Normal Affect, Normal Mood - Skin Skin Exam: Dry, Normal Color, Warm Assessment and Plan - Assessment and Plan (Free Text) Assessment: Palliative care Examined patient in bed, no acute distress, only complaining of mild discomfort in the suprapubic area . Goals of Care: Full treatment Code Status: DNR/DNI Impression UTI Pain Loss of appetite Decreased Mobility Suggestion continue IV antibiotics Assess for pain q4h(po and iv pain meds available) Encourage PO feeds as tolerated continue Physical therapy Palliative care will remain on board as needed Time Spent with patient 30 min
[2018-06-16] MEDS ORDERED: Iodixanol 320 MG/ML 100 ML BOTTLE IV ONE (12:51)
[2018-06-16] MEDS: Enoxaparin 30 mg Syringe SC SCH (17:56)
--- NOTE | 2018-06-17 03:36 | PN ---
DATE: 06/16/2018 FOLLOWUP RENAL CONSULTATION LOCATION: Room 412, bed 1. REQUESTED BY: John Hernandez MD. REASON FOR FOLLOWUP: UTI, chronic kidney disease stage IV, anemia, for further evaluation. SUBJECTIVE: Mrs. Mccabe is a 63-year-old elderly, cachectic female with the past medical history significant for cervical CA, status post chemo and radiation treatment and status post left lung surgery for possible mass in the past and chronic kidney disease, bilateral ureteral strictures and hydronephrosis, status post bilateral nephrostomy tube and percutaneous nephrostomy tubes about two years ago. Subsequently, left nephrostomy tube was removed with ureteral stent placement on the left side and later on, it was removed. She has a right percutaneous nephrostomy. The patient was admitted with weakness and also lower back pain, spinal stenosis, severe anemia, lower abdominal pain, dysuria, frequency, and found to have a persistent UTI with E. coli similar organism for the last two years. The patient is feeling slightly better today. Not in acute distress. No chest pain. No palpitation. No fever. No cough. No abdominal pain and no nausea, vomiting, diarrhea. PHYSICAL EXAMINATION: VITAL SIGNS: As follows: This morning, blood pressure 133/71, pulse 98, respirations 20, temperature 98.1, saturation 98%. Height 5 feet 1 inch. Weight is 88 pounds. GENERAL: Mrs. Mccabe is a 63-year-old elderly female, very cachectic, thin built, not in distress. HEENT: Pupils are normal and reactive to light and accommodation. Conjunctivae are pink. Sclerae anicteric. Tongue is moist. Trachea is midline. LUNGS: Symmetric on both sides. Bilateral breath sounds present. Decreased on the left base. The patient has bronchial breath sounds from the previous surgery. CARDIOVASCULAR SYSTEM: S1 and S2 audible. No murmur or gallop. ABDOMEN: Normal in appearance. Soft, tympanitic. No guarding. No rigidity. No hepatosplenomegaly. CENTRAL NERVOUS SYSTEM: The patient is alert, awake, and oriented x3. Nonfocal neuro examination. Cranial nerves II through XII grossly intact. Sensory and motor system is within normal limits. EXTREMITIES: No cyanosis, no clubbing, no edema. CURRENT MEDICATIONS: Include as follows: Ambien 5 mg p.o. at bedtime, Colace 100 mg p.o. b.i.d., Flonase two sprays nasal daily p.r.n., baclofen 10 mg p.o. every 8 hours p.r.n., Lovenox 30 mg subcutaneous daily, meropenem 500 mg every 12 hours, Nephro-Davidson one tablet daily, Procrit 10,000 units three times a week, Protonix 40 mg p.o. daily, calcitriol 0.25 mcg p.o. three times a week, sodium bicarbonate 650 mg p.o. every 8 hours, normal saline at 70 mL per hour, Toradol 15 mg IV every 6 hours p.r.n., Tylenol, Valium 5 mg p.o. every 12 hours p.r.n. LABORATORY DATA: Includes as follows: As of 06/16/2018, WBC 14.9, hemoglobin 8.3, hematocrit is 25.5, platelets 398. Sodium 133, potassium 4.1, chloride 110, CO2 of 19, BUN 15, creatinine 1.8, glucose 75, calcium 8.2. Urine culture positive for E. coli and blood culture x2 negative day #3 from 06/13/2018 and blood culture x2 negative day #2 from 06/14/2018. ASSESSMENT AND PLAN: In summary, Mrs. Mccabe is a 63-year-old elderly female with history of cervical carcinoma, status post chemo and radiation therapy long time ago with bilateral hydronephroses, ureteral strictures, status post right percutaneous nephrostomy for the last two years, changing the percutaneous nephrostomy every three months, was admitted with dysuria, frequency, foul smelling urine, and found to have persistent and recurrent urinary tract infection. Urine culture positive for Escherichia coli and increased blood urea nitrogen and creatinine, low hemoglobin and hematocrit. 1. Chronic kidney disease IV and also rafgg-[id number] kidney disease IV secondary to intravascular depletion and dehydration. 2. Anemia secondary to chronic kidney disease, iron-deficiency anemia. 3. Urinary tract infection. 4. Hypertension. 5. Persistent left hydronephrosis, hydroureter. Follow with Urology for any role of intervention on the left side if the patient needs any percutaneous nephrostomy or stent placement. Follow with Dr. Mares. PLAN: Continue IV fluids. We will decrease IV fluids to 70 mL per hour and also continue Procrit, Nephrocaps, and continue IV antibiotics as per ID recommendations. We will follow with you. We will also add Prostat and Nepro one can p.o. b.i.d. Repeat BMP in a.m. Thank you for allowing me to participate in your patient's care. Ta Pemberton MD
[2018-06-17 07:28] LABS: BASO # 0.1 K/uL (0.0-0.2); BASO % 0.6 % (0.0-2.0); EOS # 0.2 K/uL (0.0-0.7); EOS % 1.4 % (0.0-4.0); HEMOGLOBIN 8.8 g/dL (12.0-16.0); LYMPH # 0.8 K/uL (1.0-4.3); LYMPH % 6.3 % (20.0-40.0); MEAN CELL VOLUME 85.4 fl (81.0-99.0); MEAN CORPUSCULAR HEMOGLOBIN 27.2 pg (27.0-31.0); MEAN CORPUSCULAR HGB CONC 31.8 g/dL (33.0-37.0); MEAN PLATELET VOLUME 7.6 fl (7.2-11.7); MONO # 1.1 K/uL (0.0-0.8); MONO % 8.7 % (0.0-10.0); NEUT # 10.9 K/uL (1.8-7.0); PLATELET COUNT 430 K/uL (130-400); RBC 3.24 Mil/uL (3.80-5.20); RED CELL DISTRIBUTION WIDTH 16.9 % (11.5-14.5); WHITE BLOOD COUNT 13.1 K/uL (4.8-10.8)
[2018-06-17 07:46] LABS: CALCIUM 8.6 mg/dL (8.4-10.2)
[2018-06-17] MEDS: Enoxaparin 30 mg Syringe SC SCH (08:59)
[2018-06-17] MEDS: Multivitamin Vitamin B Complex (Nephro-Vite) Tab PO SCH (09:00)
[2018-06-17] MEDS: EPOETIN ALFA 10,000 UNIT/ML ML SC SCH (09:00)
[2018-06-17] MEDS: Pantoprazole 40 mg EC Tab PO SCH (09:02)
--- NOTE | 2018-06-17 10:06 | CP.PCM.PN ---
Subjective - Date & Time of Evaluation Date of Evaluation: 06/17/18 Time of Evaluation: 10:06 - Subjective Subjective: pt is seen and examined, follow up consult is dictated #[id number] Objective - Vital Signs/Intake and Output Vital Signs (last 24 hours): Temp Pulse Resp BP Pulse Ox 98.6 F 86 20 122/68 98 06/17/18 08:11 06/17/18 08:11 06/17/18 08:11 06/17/18 08:11 06/17/18 08:11 Intake and Output: 06/17/18 06/17/18 06:59 18:59 Output Total 975 Balance -975 - Medications Medications: Current Medications Acetaminophen (Tylenol 325mg Tab) 650 mg PO Q6 PRN PRN Reason: Pain, moderate (4-7) Last Admin: 06/14/18 17:32 Dose: 650 mg Acetaminophen (Tylenol 325mg Tab) 650 mg PO Q6 PRN PRN Reason: Fever >100.4 F Last Admin: 06/14/18 22:43 Dose: 650 mg Baclofen (Lioresal) 10 mg PO Q8 PRN PRN Reason: Muscle spasm Last Admin: 06/15/18 08:58 Dose: 10 mg Calcitriol (Rocaltrol) 0.25 mcg PO MWF [facility] Last Admin: 06/16/18 08:51 Dose: 0.25 mcg Diazepam (Valium) 5 mg PO Q12 PRN PRN Reason: Anxiety Docusate Sodium (Colace) 100 mg PO BID PRN PRN Reason: Constipation Enoxaparin Sodium (Lovenox) 30 mg SC DAILY [facility]; Protocol Last Admin: 06/17/18 08:59 Dose: 30 mg Epoetin Tam (Procrit) 10,000 unit SC TTS [facility] Last Admin: 06/17/18 09:00 Dose: 10,000 unit Fluticasone Propionate (Flonase) 2 spr MANNY DAILY PRN PRN Reason: Nasal congestion Last Admin: 06/17/18 08:59 Dose: 2 spr Meropenem 500 mg/ Sodium (Chloride) 100 mls @ 100 mls/hr IVPB Q12 [facility]; Protocol Last Admin: 06/16/18 20:40 Dose: 100 mls/hr Sodium Chloride (Sodium Chloride 0.9%) 1,000 mls @ 70 mls/hr IV .[id number] [facility] Last Admin: 06/16/18 14:05 Dose: 70 mls/hr Ketorolac Tromethamine (Toradol) 15 mg IVP Q6 PRN PRN Reason: Pain, severe (8-10) Last Admin: 06/16/18 20:35 Dose: 15 mg Pantoprazole Sodium (Protonix Ec Tab) 40 mg PO DAILY [facility] Last Admin: 06/17/18 09:02 Dose: 40 mg Sodium Bicarbonate (Sodium Bicarbonate Tab) 650 mg PO Q8 [facility] Last Admin: 06/17/18 09:02 Dose: 650 mg Vitamin B Complex/Vit C/Folic Acid (Nephro-Davidson) 1 tab PO DAILY [facility] Last Admin: 06/17/18 09:00 Dose: 1 tab Zolpidem Tartrate (Ambien) 5 mg PO HS PRN PRN Reason: Insomnia Last Admin: 06/16/18 22:17 Dose: 5 mg - Labs Labs: 06/17/18 05:55 06/17/18 05:55
--- NOTE | 2018-06-17 10:18 | CP.PCM.PN ---
<Soheila Berrios - Last Filed: 06/17/18 10:14> Subjective - Date & Time of Evaluation Date of Evaluation: 06/17/18 Time of Evaluation: 08:00 - Subjective Subjective: Patient was seen and examined in Telemetry unit this morning. No events overnight. Patient still complaining of suprapubic pain. Denies Urinary symptoms. Has been afebrile and stable vital signs. For possible Nephrostomy tube replacement on Tuesday by IR. On Meropenem as per ID recommendations. Objective - Vital Signs/Intake and Output Vital Signs (last 24 hours): Temp Pulse Resp BP Pulse Ox 98.6 F 86 20 122/68 98 06/17/18 08:11 06/17/18 08:11 06/17/18 08:11 06/17/18 08:11 06/17/18 08:11 Intake and Output: 06/17/18 06/17/18 06:59 18:59 Output Total 975 Balance -975 - Medications Medications: Current Medications Acetaminophen (Tylenol 325mg Tab) 650 mg PO Q6 PRN PRN Reason: Pain, moderate (4-7) Last Admin: 06/14/18 17:32 Dose: 650 mg Acetaminophen (Tylenol 325mg Tab) 650 mg PO Q6 PRN PRN Reason: Fever >100.4 F Last Admin: 06/14/18 22:43 Dose: 650 mg Baclofen (Lioresal) 10 mg PO Q8 PRN PRN Reason: Muscle spasm Last Admin: 06/15/18 08:58 Dose: 10 mg Calcitriol (Rocaltrol) 0.25 mcg PO MWF [facility] Last Admin: 06/16/18 08:51 Dose: 0.25 mcg Diazepam (Valium) 5 mg PO Q12 PRN PRN Reason: Anxiety Docusate Sodium (Colace) 100 mg PO BID PRN PRN Reason: Constipation Enoxaparin Sodium (Lovenox) 30 mg SC DAILY [facility]; Protocol Last Admin: 06/17/18 08:59 Dose: 30 mg Epoetin Tam (Procrit) 10,000 unit SC TTS [facility] Last Admin: 06/17/18 09:00 Dose: 10,000 unit Fluticasone Propionate (Flonase) 2 spr MANNY DAILY PRN PRN Reason: Nasal congestion Last Admin: 06/17/18 08:59 Dose: 2 spr Meropenem 500 mg/ Sodium (Chloride) 100 mls @ 100 mls/hr IVPB Q12 [facility]; Protocol Last Admin: 06/16/18 20:40 Dose: 100 mls/hr Sodium Chloride (Sodium Chloride 0.9%) 1,000 mls @ 70 mls/hr IV .[id number] [facility] Last Admin: 06/16/18 14:05 Dose: 70 mls/hr Ketorolac Tromethamine (Toradol) 15 mg IVP Q6 PRN PRN Reason: Pain, severe (8-10) Last Admin: 06/16/18 20:35 Dose: 15 mg Pantoprazole Sodium (Protonix Ec Tab) 40 mg PO DAILY [facility] Last Admin: 06/17/18 09:02 Dose: 40 mg Sodium Bicarbonate (Sodium Bicarbonate Tab) 650 mg PO Q8 [facility] Last Admin: 06/17/18 09:02 Dose: 650 mg Vitamin B Complex/Vit C/Folic Acid (Nephro-Davidson) 1 tab PO DAILY [facility] Last Admin: 06/17/18 09:00 Dose: 1 tab Zolpidem Tartrate (Ambien) 5 mg PO HS PRN PRN Reason: Insomnia Last Admin: 06/16/18 22:17 Dose: 5 mg - Labs Labs: 06/17/18 05:55 06/17/18 05:55 - Skin Additional comments: Constitutional Appears: Non-toxic - Head Exam Head Exam: NORMAL INSPECTION - Eye Exam Eye Exam: PERRL - ENT Exam ENT Exam: Mucous Membranes Dry - Respiratory Exam Respiratory Exam: NORMAL BREATHING PATTERN - Cardiovascular Exam Cardiovascular Exam: +S1, +S2 Additional comments: borderline tachycardia - GI/Abdominal Exam GI & Abdominal Exam: Soft, Tenderness, Normal Bowel Sounds. absent: Guarding, Rigid - Back Exam Additional comments: right nephrostomy tube in place - Neurological Exam Neurological Exam: Alert, Awake, Oriented x3 - Psychiatric Exam Psychiatric exam: Normal Mood Assessment and Plan - Assessment and Plan (Free Text) Assessment: 63 year old female with extensive PMHx including Obstructive Uropathy sec to Cervical CA s/p Right Ureteral Stent Placement, CKD stage III B, Anemia and HTN presented to ER c/o subjective fever and suprapubic pain, admitted for further management of sepsis. Plan: Sepsis (criteria met on admission) improving, HR and BP stable WNL -ID recommendations appreciated -likely 2/2 UTI/Urosepsis -C/w gentle IV fluids as per Nephro recs -c/w Meropenem Day #4 as per ID recs -repeat blood cultures negative x 48 hours -UA positive on admission for nitrate, WNL, RBC -UCx positive for E Coli ESBL sensitive to meropenem -had a UCx on 04/25/18 pos x Morg Morganii sensitive to ceftriaxone UTI -UA positive on admission for nitrate, WNL, RBC --UCx positive for E Coli ESBL sensitive to meropenem - cw Meropenem day 4 -had a UCx on 04/25/18 pos x Morg Morganii sensitive to ceftriaxone Right Nephrostomy tube -for possible Right nephrostomy tube replacement on Tuesday by IR - renal ultrasound: marked left hydrophnephrosis; debris identified within the left collecting system and ureter; demonstration of nephrostomy catheter on the right. -As per Dr. Mares, will possibly consider removal of right nephrostomy tube Tuesday. 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 Pemberton appreciated Normocytic anemia (acute on chronic) -likely anemia of chronic diseases/CKD -Hemoglobin 8 then dropped to 6; 8.3 ths AM s/p -2 PRBC received -stbale H/H -on procrit as outpatient HTN BP cont to remains on low side- 91-106 systolic Cont to hold norvasc and metoprolol -Cont to f/u BP and HR DVT prophylaxis SCDs Stable H/H started on Lovenox 30 mg SC <Lolly Pritchett - Last Filed: 06/17/18 15:17> Objective - Vital Signs/Intake and Output Vital Signs (last 24 hours): Temp Pulse Resp BP Pulse Ox 98.3 F 89 20 126/69 98 06/17/18 12:00 06/17/18 12:00 06/17/18 12:00 06/17/18 12:00 06/17/18 12:00 Intake and Output: 06/17/18 06/17/18 06:59 18:59 Output Total 975 Balance -975 - Medications Medications: Current Medications Acetaminophen (Tylenol 325mg Tab) 650 mg PO Q6 PRN PRN Reason: Pain, moderate (4-7) Last Admin: 06/14/18 17:32 Dose: 650 mg Acetaminophen (Tylenol 325mg Tab) 650 mg PO Q6 PRN PRN Reason: Fever >100.4 F Last Admin: 06/14/18 22:43 Dose: 650 mg Baclofen (Lioresal) 10 mg PO Q8 PRN PRN Reason: Muscle spasm Last Admin: 06/15/18 08:58 Dose: 10 mg Calcitriol (Rocaltrol) 0.25 mcg PO MWF [facility] Last Admin: 06/16/18 08:51 Dose: 0.25 mcg Diazepam (Valium) 5 mg PO Q12 PRN PRN Reason: Anxiety Docusate Sodium (Colace) 100 mg PO BID PRN PRN Reason: Constipation Enoxaparin Sodium (Lovenox) 30 mg SC DAILY [facility]; Protocol Last Admin: 06/17/18 08:59 Dose: 30 mg Epoetin Tam (Procrit) 10,000 unit SC TTS [facility] Last Admin: 06/17/18 09:00 Dose: 10,000 unit Fluticasone Propionate (Flonase) 2 spr MANNY DAILY PRN PRN Reason: Nasal congestion Last Admin: 06/17/18 08:59 Dose: 2 spr Meropenem 500 mg/ Sodium (Chloride) 100 mls @ 100 mls/hr IVPB Q12 [facility]; Protocol Last Admin: 06/17/18 13:11 Dose: 100 mls/hr Sodium Chloride (Sodium Chloride 0.9%) 1,000 mls @ 70 mls/hr IV .[id number] [facility] Last Admin: 06/17/18 13:11 Dose: 70 mls/hr Ketorolac Tromethamine (Toradol) 15 mg IVP Q6 PRN PRN Reason: Pain, severe (8-10) Last Admin: 06/17/18 13:08 Dose: 15 mg Pantoprazole Sodium (Protonix Ec Tab) 40 mg PO DAILY [facility] Last Admin: 06/17/18 09:02 Dose: 40 mg Sodium Bicarbonate (Sodium Bicarbonate Tab) 650 mg PO Q8 [facility] Last Admin: 06/17/18 09:02 Dose: 650 mg Vitamin B Complex/Vit C/Folic Acid (Nephro-Davidson) 1 tab PO DAILY [facility] Last Admin: 06/17/18 09:00 Dose: 1 tab Zolpidem Tartrate (Ambien) 5 mg PO HS PRN PRN Reason: Insomnia Last Admin: 06/16/18 22:17 Dose: 5 mg - Labs Labs: 06/17/18 05:55 06/17/18 05:55 Attending/Attestation - Attestation I have personally seen and examined this patient.: Yes I have fully participated in the care of the patient.: Yes I have reviewed all pertinent clinical information, including history, physical exam and plan: Yes Notes (Text): 06/17/18 15:17 This is a 63-year-old female with a history of cervical cancer status post right ureteral stent, admitted for obstructive uropathy, urinary tract infection, sepsis. Patient is currently on antibiotics and is to go for replacement nephrostomy tube on Tuesday. She is currently hemodynamically stable, no complaints at this time. Will await replacement on Tuesday by urology.
[2018-06-17 11:25] LABS: ANISOCYTOSIS SLIGHT; HYPOCHROMIC MODERATE; LYMPHOCYTE 6 % (20-50); MONOCYTE 13 % (0-10); NEUTROPHIL 81 % (42-75); OVALOCYTES SLIGHT; PLATELET ESTIMATE INCREASED (NORMAL); SCHISTOCYTES SLIGHT; TEARDROP CELLS SLIGHT; TOTAL CELLS COUNTED 100
[2018-06-17 11:26] LABS: TARGET CELLS SLIGHT
--- NOTE | 2018-06-17 11:47 | CP.PCM.PN ---
Subjective - Date & Time of Evaluation Date of Evaluation: 06/17/18 Time of Evaluation: 11:47 - Subjective Subjective: ID Note- Patient seen and examined today. pt. in good spirits. her family is at her bedside. denies any fever. continues to have lower abd pain. Objective - Vital Signs/Intake and Output Vital Signs (last 24 hours): Temp Pulse Resp BP Pulse Ox 98.6 F 86 20 122/68 98 06/17/18 08:11 06/17/18 08:11 06/17/18 08:11 06/17/18 08:11 06/17/18 08:11 Intake and Output: 06/17/18 06/17/18 06:59 18:59 Output Total 975 Balance -975 - Medications Medications: Current Medications Acetaminophen (Tylenol 325mg Tab) 650 mg PO Q6 PRN PRN Reason: Pain, moderate (4-7) Last Admin: 06/14/18 17:32 Dose: 650 mg Acetaminophen (Tylenol 325mg Tab) 650 mg PO Q6 PRN PRN Reason: Fever >100.4 F Last Admin: 06/14/18 22:43 Dose: 650 mg Baclofen (Lioresal) 10 mg PO Q8 PRN PRN Reason: Muscle spasm Last Admin: 06/15/18 08:58 Dose: 10 mg Calcitriol (Rocaltrol) 0.25 mcg PO MWF [facility] Last Admin: 06/16/18 08:51 Dose: 0.25 mcg Diazepam (Valium) 5 mg PO Q12 PRN PRN Reason: Anxiety Docusate Sodium (Colace) 100 mg PO BID PRN PRN Reason: Constipation Enoxaparin Sodium (Lovenox) 30 mg SC DAILY [facility]; Protocol Last Admin: 06/17/18 08:59 Dose: 30 mg Epoetin Tam (Procrit) 10,000 unit SC TTS [facility] Last Admin: 06/17/18 09:00 Dose: 10,000 unit Fluticasone Propionate (Flonase) 2 spr MANNY DAILY PRN PRN Reason: Nasal congestion Last Admin: 06/17/18 08:59 Dose: 2 spr Meropenem 500 mg/ Sodium (Chloride) 100 mls @ 100 mls/hr IVPB Q12 [facility]; Protocol Last Admin: 06/16/18 20:40 Dose: 100 mls/hr Sodium Chloride (Sodium Chloride 0.9%) 1,000 mls @ 70 mls/hr IV .[id number] [facility] Last Admin: 06/16/18 14:05 Dose: 70 mls/hr Ketorolac Tromethamine (Toradol) 15 mg IVP Q6 PRN PRN Reason: Pain, severe (8-10) Last Admin: 06/16/18 20:35 Dose: 15 mg Pantoprazole Sodium (Protonix Ec Tab) 40 mg PO DAILY [facility] Last Admin: 06/17/18 09:02 Dose: 40 mg Sodium Bicarbonate (Sodium Bicarbonate Tab) 650 mg PO Q8 [facility] Last Admin: 06/17/18 09:02 Dose: 650 mg Vitamin B Complex/Vit C/Folic Acid (Nephro-Davidson) 1 tab PO DAILY [facility] Last Admin: 06/17/18 09:00 Dose: 1 tab Zolpidem Tartrate (Ambien) 5 mg PO HS PRN PRN Reason: Insomnia Last Admin: 06/16/18 22:17 Dose: 5 mg - Labs Labs: - Additional Findings Additional findings: - Constitutional Appears: No Acute Distress, Chronically Ill - Head Exam Head Exam: ATRAUMATIC - Eye Exam Eye Exam: EOMI, PERRL - ENT Exam ENT Exam: Normal Oropharynx - Neck Exam Neck exam: Positive for: Full Rom - Respiratory Exam Respiratory Exam: Clear to Auscultation Bilateral, NORMAL BREATHING PATTERN - Cardiovascular Exam Cardiovascular Exam: RRR, +S1, +S2 - GI/Abdominal Exam GI & Abdominal Exam: Normal Bowel Sounds, Soft Additional comments: ND + minimal tenderness with palpation of the lower abd/suprapubic region urine in nephrostomy tube clear - Extremities Exam Extremities exam: Positive for: normal inspection - Neurological Exam Neurological exam: Alert, Oriented x 3 Laboratory Results - last 72 hr 06/14/18 06/15/18 06/15/18 10:25 04:18 04:18 WBC 15.7 H RBC 3.30 L Hgb 9.0 L D Hct 28.2 L MCV 85.5 MCH 27.2 MCHC 31.8 L RDW 16.6 H Plt Count 414 H MPV 7.5 Neut % (Auto) 84.0 H Lymph % (Auto) 5.2 L Archuleta % (Auto) 9.3 Eos % (Auto) 1.1 Baso % (Auto) 0.4 Neut # (Auto) 13.2 H Lymph # (Auto) 0.8 L [place] # (Auto) 1.5 H Eos # (Auto) 0.2 Baso # (Auto) 0.1 Neutrophils % (Manual) Lymphocytes % (Manual) Monocytes % (Manual) Platelet Estimate Hypochromasia (manual) Anisocytosis (manual) Target Cells Tear Drop Cells Ovalocytes Schistocytes Sodium 135 Potassium 3.5 L Chloride 109 H Carbon Dioxide 19 L Anion Gap 11 BUN 21 H Creatinine 1.8 H Est GFR ( Amer) 34 Est GFR (Non-Af Amer) 28 Random Glucose 80 Calcium 8.4 Total Bilirubin 0.4 AST 45 H D ALT 26 Alkaline Phosphatase 102 Total Protein 6.3 Albumin 2.7 L D Globulin 3.6 Albumin/Globulin Ratio 0.8 L Blood Type A POSITIVE Antibody Screen Negative Crossmatch See Detail BBK History Checked Patient has bt 06/16/18 06/16/18 06/17/18 05:05 05:05 05:55 WBC 14.9 H 13.1 H RBC 3.00 L 3.24 L Hgb 8.3 L 8.8 L Hct 25.5 L 27.6 L MCV 85.1 85.4 MCH 27.7 27.2 MCHC 32.6 L 31.8 L RDW 16.8 H 16.9 H Plt Count 398 430 H MPV 7.3 7.6 Neut % (Auto) 80.9 H 83.0 H Lymph % (Auto) 8.4 L 6.3 L Arch[place] % (Auto) 9.2 8.7 Eos % (Auto) 0.9 1.4 Baso % (Auto) 0.6 0.6 Neut # (Auto) 12.0 H 10.9 H Lymph # (Auto) 1.2 0.8 L [place] # (Auto) 1.4 H 1.1 H Eos # (Auto) 0.1 0.2 Baso # (Auto) 0.1 0.1 Neutrophils % (Manual) 81 H Lymphocytes % (Manual) 6 L Monocytes % (Manual) 13 H Platelet Estimate Increased H Hypochromasia (manual) Moderate Anisocytosis (manual) Slight Target Cells Slight Tear Drop Cells Slight Ovalocytes Slight Schistocytes Slight Sodium 133 Potassium 4.1 Chloride 110 H Carbon Dioxide 19 L Anion Gap 8 L BUN 15 Creatinine 1.8 H Est GFR ( Amer) 34 Est GFR (Non-Af Amer) 28 Random Glucose 75 Calcium 8.2 L Total Bilirubin AST ALT Alkaline Phosphatase Total Protein Albumin Globulin Albumin/Globulin Ratio Blood Type Antibody Screen Crossmatch BBK History Checked 06/17/18 05:55 WBC RBC Hgb Hct MCV MCH MCHC RDW Plt Count MPV Neut % (Auto) Lymph % (Auto) Archule[place] % (Auto) Eos % (Auto) Baso % (Auto) Neut # (Auto) Lymph # (Auto) [place] # (Auto) Eos # (Auto) Baso # (Auto) Neutrophils % (Manual) Lymphocytes % (Manual) Monocytes % (Manual) Platelet Estimate Hypochromasia (manual) Anisocytosis (manual) Target Cells Tear Drop Cells Ovalocytes Schistocytes Sodium 132 Potassium 4.0 Chloride 106 Carbon Dioxide 20 L Anion Gap 10 BUN 16 Creatinine 2.0 H Est GFR ( Amer) 30 Est GFR (Non-Af Amer) 25 Random Glucose 82 Calcium 8.6 Total Bilirubin AST ALT Alkaline Phosphatase Total Protein Albumin Globulin Albumin/Globulin Ratio Blood Type Antibody Screen Crossmatch BBK History Checked Microbiology 06/13/18 12:03 Blood-Venous Blood Culture - Preliminary NO GROWTH AFTER 4 DAYS 06/13/18 10:40 Blood-Venous Blood Culture - Preliminary NO GROWTH AFTER 4 DAYS 06/14/18 21:30 Blood Blood Culture - Preliminary NO GROWTH AFTER 48 HOURS 06/14/18 21:00 Blood Blood Culture - Preliminary NO GROWTH AFTER 48 HOURS 06/13/18 10:35 Urine,Kidney Urine Culture - Final Escherichia Coli Assessment and Plan (1) UTI (urinary tract infection) Status: Acute (2) Chronic kidney disease Status: Acute (3) Anemia Status: Acute (4) History of cervical cancer Status: Chronic (5) History of lung cancer Status: Chronic (6) Obstructive uropathy Status: Chronic (7) History of ureter stent Status: Chronic - Assessment and Plan (Free Text) Assessment: A/P- 63 year old female with multiple medical conditions including obstructive uropathy with indwelling right ureteral stent last changed 05/15/2018 admitted [facility]. pain, fever, leukocytoisis and + UA. afebrile today mild leukocytosis persists blood cx- neg x 2 Urine cx- ESBL e.coli renal US- as per report left hydronephrosis present PLan- advise to continue with IV meropenem to treat ESBL UTI . day #4 stent may need to be replaced if no improvement. also now has left sided hydronephrosis as per renal US report and may need to have stent for the left one placed as well. and renal f/u. All above d/w patient nad her family and all their questions were answered and they agree with above plan of care.
[2018-06-17] MEDS: Sodium Chloride 0.9% 1,000 ML IV SCH ×2 (13:11→16:25)
[2018-06-17] MEDS: Meropenem 500 MG in Sodium Chloride 0.9% 100 ML IVPB SCH ×2 (13:11→21:33)
--- NOTE | 2018-06-18 06:40 | PN ---
DATE: 06/17/2018 FOLLOWUP RENAL CONSULTATION LOCATION: The patient is located in room 412, bed 1. REQUESTED BY: John Hernandez MD REASON FOR FOLLOWUP: Chronic kidney disease, UTI, anemia. SUBJECTIVE: Ms. Mccabe is a 63-year-old elderly, very pleasant female with the past medical history significant for longstanding hypertension, cervical CA, status post chemo and radiation therapy, bilateral ureteral strictures and hydronephrosis, status post multiple stents in the past and subsequently the patient required bilateral nephrostomy tubes, later on left nephrostomy tube was discontinued after a stent placement and also the stent was removed after sometime. Now, the patient has right PCN draining well. PCN is being changed every three months in the last two years. The patient was admitted with chief complaints of feeling weak, tired, and also dysuria, frequency. The patient is being treated for UTI and sepsis. The patient is feeling slightly better, not in acute distress. No chest pain. No palpitation. No fever. No cough. No abdominal pain. No nausea, vomiting, or diarrhea. Appetite is improving. PHYSICAL EXAMINATION: VITAL SIGNS: As follows: Blood pressure this morning 122/68, pulse 86, respirations 20, temperature 98.6, saturation 98%. Height 5 feet 1 inch, weight is 88 pounds. GENERAL: Ms. Mccabe is a 63-year-old elderly female, thin built, not in distress. HEENT: Pupils are normal, reactive to light and accommodation. Conjunctivae pink. Sclerae anicteric. Tongue is moist. Trachea is midline. LUNGS: Symmetric on both sides. Bilateral breath sounds present. The patient has bronchial breath sounds from the left side, status post lung surgery long-term ago. CARDIOVASCULAR SYSTEM: [place] at the fifth intercostal space, midclavicular line. S1 and S2 audible. Additional systolic murmur present. ABDOMEN: Normal in appearance. Soft, tympanitic. No guarding. No rigidity. No hepatosplenomegaly. CENTRAL NERVOUS SYSTEM: The patient is alert, awake, oriented x3. Nonfocal neuro examination. Cranial nerves II-XII grossly intact. Sensory and motor system within normal limits. EXTREMITIES: No cyanosis, no clubbing, no edema. CURRENT MEDICATIONS: Include as follows: Ambien 5 mg at bedtime p.r.n., Colace 100 mg b.i.d. p.r.n., Flonase, baclofen 10 mg p.o. every 8 hours, Lovenox 30 mg subcutaneous daily, meropenem 500 mg every 12 hours, Nephro-Davidson one tablet daily, Procrit, Protonix, calcitriol, sodium bicarbonate, IV fluids, normal saline at 70 mL per hour, Toradol, Tylenol, and Valium 5 mg p.o. every 12 hours p.r.n. LABORATORY DATA: Includes as follows: As of 06/17/2018; WBC 13.1, hemoglobin 8.3, hematocrit is 27.6, and platelets 430, neutrophils 81, lymph 6, monos 13. Sodium 132, potassium is 4, chloride 106, CO2 of 20, BUN 16, creatinine 2, glucose 82, calcium 8.6. ASSESSMENT AND PLAN: In summary, Ms. Mccabe is a 63-year-old elderly female with hypertension, obstructive uropathy, status post left nephrostomy tube in the past and subsequently changed to ureteral stent which was also removed on outpatient, has right percutaneous nephrostomy tube for the last two years, and recurrent urinary tract infections. 1. Chronic kidney disease, stage 3. Renal function is back close to her baseline. 2. Urinary tract infection. 3. Hypertension. 4. Anemia secondary to renal failure and iron-deficiency. Continue Procrit, Epogen, and Nephrocaps. Continue intravenous antibiotic, meropenem as per Infectious Disease recommendations. We will follow with you. Thank you for allowing me to participate in your patient's care. Ta Pemberton MD
[2018-06-18 06:54] LABS: BASO # 0.1 K/uL (0.0-0.2); BASO % 0.9 % (0.0-2.0); EOS # 0.3 K/uL (0.0-0.7); HEMOGLOBIN 9.2 g/dL (12.0-16.0); LYMPH # 0.9 K/uL (1.0-4.3); LYMPH % 6.8 % (20.0-40.0); MEAN CELL VOLUME 85.1 fl (81.0-99.0); MEAN CORPUSCULAR HGB CONC 31.8 g/dL (33.0-37.0); MEAN PLATELET VOLUME 7.5 fl (7.2-11.7); MONO # 0.9 K/uL (0.0-0.8); MONO % 7.4 % (0.0-10.0); NEUT # 10.5 K/uL (1.8-7.0); NEUT % 82.9 % (50.0-75.0); RBC 3.4 Mil/uL (3.80-5.20); RED CELL DISTRIBUTION WIDTH 16.9 % (11.5-14.5); WHITE BLOOD COUNT 12.7 K/uL (4.8-10.8)
[2018-06-18 07:21] LABS: ALB/GLOB RATIO 0.7 (1.0-2.1); ALBUMIN 2.7 g/dL (3.5-5.0); CALCIUM 8.5 mg/dL (8.4-10.2)
[2018-06-18] MEDS: Enoxaparin 30 mg Syringe SC SCH (08:19)
[2018-06-18] MEDS: Meropenem 500 MG in Sodium Chloride 0.9% 100 ML IVPB SCH ×2 (08:20→21:53)
[2018-06-18] MEDS: Pantoprazole 40 mg EC Tab PO SCH (08:23)
[2018-06-18] MEDS: Multivitamin Vitamin B Complex (Nephro-Vite) Tab PO SCH (08:23)
--- NOTE | 2018-06-18 08:27 | CP.PCM.PN ---
<Soheila Berrios - Last Filed: 06/18/18 10:15> Subjective - Date & Time of Evaluation Date of Evaluation: 06/18/18 Time of Evaluation: 08:00 - Subjective Subjective: Patient was seen and examined in Telemetry unit this morning. No events overnight. Patient still complaining of suprapubic pain. Denies Urinary symptoms. Has been afebrile and stable vital signs. For possible Right nephrostomy tube replacement and left nephrostomy tube placement on Tuesday06/19/18 by IR NPO after midnight Will hold tomorrow AM lovenox for IR procedure. On Meropenem as per ID recommendations,Day #5. Objective - Vital Signs/Intake and Output Vital Signs (last 24 hours): Temp Pulse Resp BP Pulse Ox 97.7 F 76 20 116/55 L 99 06/18/18 08:07 06/18/18 08:07 06/18/18 08:07 06/18/18 08:07 06/18/18 08:07 - Medications Medications: Current Medications Acetaminophen (Tylenol 325mg Tab) 650 mg PO Q6 PRN PRN Reason: Pain, moderate (4-7) Last Admin: 06/14/18 17:32 Dose: 650 mg Acetaminophen (Tylenol 325mg Tab) 650 mg PO Q6 PRN PRN Reason: Fever >100.4 F Last Admin: 06/14/18 22:43 Dose: 650 mg Baclofen (Lioresal) 10 mg PO Q8 PRN PRN Reason: Muscle spasm Last Admin: 06/15/18 08:58 Dose: 10 mg Calcitriol (Rocaltrol) 0.25 mcg PO MWF [facility] Last Admin: 06/16/18 08:51 Dose: 0.25 mcg Diazepam (Valium) 5 mg PO Q12 PRN PRN Reason: Anxiety Docusate Sodium (Colace) 100 mg PO BID PRN PRN Reason: Constipation Enoxaparin Sodium (Lovenox) 30 mg SC DAILY [facility]; Protocol Last Admin: 06/18/18 08:19 Dose: 30 mg Epoetin Tam (Procrit) 10,000 unit SC TTS [facility] Last Admin: 06/17/18 09:00 Dose: 10,000 unit Fluticasone Propionate (Flonase) 2 spr MANNY DAILY PRN PRN Reason: Nasal congestion Last Admin: 06/17/18 08:59 Dose: 2 spr Meropenem 500 mg/ Sodium (Chloride) 100 mls @ 100 mls/hr IVPB Q12 [facility]; Protocol Last Admin: 06/18/18 08:20 Dose: 100 mls/hr Sodium Chloride (Sodium Chloride 0.9%) 1,000 mls @ 70 mls/hr IV .[id number] [facility] Last Admin: 06/17/18 16:25 Dose: Not Given Ketorolac Tromethamine (Toradol) 15 mg IVP Q6 PRN PRN Reason: Pain, severe (8-10) Last Admin: 06/18/18 08:13 Dose: 15 mg Pantoprazole Sodium (Protonix Ec Tab) 40 mg PO DAILY [facility] Last Admin: 06/18/18 08:23 Dose: 40 mg Sodium Bicarbonate (Sodium Bicarbonate Tab) 650 mg PO Q8 [facility] Last Admin: 06/18/18 08:24 Dose: 650 mg Vitamin B Complex/Vit C/Folic Acid (Nephro-Davidson) 1 tab PO DAILY [facility] Last Admin: 06/18/18 08:23 Dose: 1 tab Zolpidem Tartrate (Ambien) 5 mg PO HS PRN PRN Reason: Insomnia Last Admin: 06/17/18 21:32 Dose: 5 mg - Labs Labs: 06/18/18 05:50 06/18/18 05:50 - Skin Additional comments: Constitutional Appears: Non-toxic - Head Exam Head Exam: NORMAL INSPECTION - Eye Exam Eye Exam: PERRL - ENT Exam ENT Exam: Mucous Membranes Dry - Respiratory Exam Respiratory Exam: NORMAL BREATHING PATTERN - Cardiovascular Exam Cardiovascular Exam: +S1, +S2 Additional comments: borderline tachycardia - GI/Abdominal Exam GI & Abdominal Exam: Soft, Tenderness, Normal Bowel Sounds. absent: Guarding, Rigid - Back Exam Additional comments: right nephrostomy tube in place - Neurological Exam Neurological Exam: Alert, Awake, Oriented x3 - Psychiatric Exam Psychiatric exam: Normal Mood Assessment and Plan - Assessment and Plan (Free Text) Assessment: 63 year old female with extensive PMHx including Obstructive Uropathy sec to Cervical CA s/p Right Ureteral Stent Placement, CKD stage III B, Anemia and HTN presented to ER c/o subjective fever and suprapubic pain, admitted for further management of sepsis. Plan: Sepsis (criteria met on admission) improving, HR and BP stable WNL -ID recommendations appreciated -likely 2/2 UTI/Urosepsis -C/w gentle IV fluids as per Nephro recs -c/w Meropenem Day #5 as per ID recs -repeat blood cultures negative x 3 days -UA positive on admission for nitrate, WNL, RBC -UCx positive for E Coli ESBL sensitive to meropenem -had a UCx on 04/25/18 pos x Morg Morganii sensitive to ceftriaxone UTI -UA positive on admission for nitrate, WNL, RBC --UCx positive for E Coli ESBL sensitive to meropenem - cw Meropenem day 5 -had a UCx on 04/25/18 pos x Morg Morganii sensitive to ceftriaxone Right Nephrostomy tube -for possible Right nephrostomy tube replacement and left nephrostomy tube placement on Tuesday by IR -NPO after midnight -hold tomorrow AM lovenox -renal ultrasound: marked left hydrophnephrosis; debris identified within the left collecting system and ureter; demonstration of nephrostomy catheter on the right. -As per Dr. Mares, will possibly consider removal of right nephrostomy tube Tuesday. -s/p obstructive uropathy -last changed 05/15/18 -changes it Q 3 months CKD (chronic kidney disease) stage 4 chronic/stable -Likely due to Obstructive Uropathy -Cr 1.8, GFR 28 c/w home meds -Manager Pool: Dr. Pemberton appreciated Normocytic anemia (acute on chronic) -likely anemia of chronic diseases/CKD -Improved H/H: today 9.2/28.9 -on procrit as per Nephro HTN BP cont to remains on low side- 91-106 systolic Cont to hold norvasc and metoprolol -Cont to f/u BP and HR DVT prophylaxis SCDs Stable H/H hold Lovenox 30 mg SC tomorrow AM for IR procedure <Lolly Pritchett - Last Filed: 06/18/18 14:13> Objective - Vital Signs/Intake and Output Vital Signs (last 24 hours): Temp Pulse Resp BP Pulse Ox 97.9 F 79 20 111/65 99 06/18/18 11:46 06/18/18 11:46 06/18/18 11:46 06/18/18 11:46 06/18/18 11:46 - Medications Medications: Current Medications Acetaminophen (Tylenol 325mg Tab) 650 mg PO Q6 PRN PRN Reason: Pain, moderate (4-7) Last Admin: 06/14/18 17:32 Dose: 650 mg Acetaminophen (Tylenol 325mg Tab) 650 mg PO Q6 PRN PRN Reason: Fever >100.4 F Last Admin: 06/14/18 22:43 Dose: 650 mg Baclofen (Lioresal) 10 mg PO Q8 PRN PRN Reason: Muscle spasm Last Admin: 06/15/18 08:58 Dose: 10 mg Calcitriol (Rocaltrol) 0.25 mcg PO MWF [facility] Last Admin: 06/16/18 08:51 Dose: 0.25 mcg Diazepam (Valium) 5 mg PO Q12 PRN PRN Reason: Anxiety Docusate Sodium (Colace) 100 mg PO BID PRN PRN Reason: Constipation Enoxaparin Sodium (Lovenox) 30 mg SC DAILY [facility]; Protocol Last Admin: 06/18/18 08:19 Dose: 30 mg Epoetin Tam (Procrit) 10,000 unit SC TTS [facility] Last Admin: 06/17/18 09:00 Dose: 10,000 unit Fluticasone Propionate (Flonase) 2 spr MANNY DAILY PRN PRN Reason: Nasal congestion Last Admin: 06/17/18 08:59 Dose: 2 spr Meropenem 500 mg/ Sodium (Chloride) 100 mls @ 100 mls/hr IVPB Q12 [facility]; Protocol Last Admin: 06/18/18 08:20 Dose: 100 mls/hr Sodium Chloride (Sodium Chloride 0.9%) 1,000 mls @ 70 mls/hr IV .[id number] [facility] Last Admin: 06/18/18 12:45 Dose: 70 mls/hr Ketorolac Tromethamine (Toradol) 15 mg IVP Q6 PRN PRN Reason: Pain, severe (8-10) Last Admin: 06/18/18 08:13 Dose: 15 mg Pantoprazole Sodium (Protonix Ec Tab) 40 mg PO DAILY [facility] Last Admin: 06/18/18 08:23 Dose: 40 mg Sodium Bicarbonate (Sodium Bicarbonate Tab) 650 mg PO Q8 [facility] Last Admin: 06/18/18 08:24 Dose: 650 mg Vitamin B Complex/Vit C/Folic Acid (Nephro-Davidson) 1 tab PO DAILY [facility] Last Admin: 06/18/18 08:23 Dose: 1 tab Zolpidem Tartrate (Ambien) 5 mg PO HS PRN PRN Reason: Insomnia Last Admin: 06/17/18 21:32 Dose: 5 mg - Labs Labs: 06/18/18 05:50 06/18/18 05:50 Attending/Attestation - Attestation I have personally seen and examined this patient.: Yes I have fully participated in the care of the patient.: Yes I have reviewed all pertinent clinical information, including history, physical exam and plan: Yes Notes (Text): 06/18/18 14:13 Patient in no acute distress, continue antibiotics, ID consult appreciated. For nephrostomy tube tomorrow.
[2018-06-18] MEDS: Sodium Chloride 0.9% 1,000 ML IV SCH ×2 (12:45→23:05)
[2018-06-19 05:56] LABS: BASO # 0.1 K/uL (0.0-0.2); BASO % 0.5 % (0.0-2.0); EOS # 0.3 K/uL (0.0-0.7); EOS % 2.1 % (0.0-4.0); HEMOGLOBIN 9.3 g/dL (12.0-16.0); LYMPH # 0.7 K/uL (1.0-4.3); LYMPH % 4.8 % (20.0-40.0); MEAN CELL VOLUME 85.2 fl (81.0-99.0); MEAN CORPUSCULAR HEMOGLOBIN 27.2 pg (27.0-31.0); MEAN CORPUSCULAR HGB CONC 31.9 g/dL (33.0-37.0); MEAN PLATELET VOLUME 7.6 fl (7.2-11.7); MONO # 1.1 K/uL (0.0-0.8); MONO % 8.4 % (0.0-10.0); NEUT # 11.5 K/uL (1.8-7.0); NEUT % 84.2 % (50.0-75.0); NRBC % 0.1 % (0.0-0.0); RBC 3.43 Mil/uL (3.80-5.20); RED CELL DISTRIBUTION WIDTH 16.8 % (11.5-14.5); WHITE BLOOD COUNT 13.7 K/uL (4.8-10.8)
[2018-06-19 06:07] LABS: ALB/GLOB RATIO 0.8 (1.0-2.1); ALBUMIN 2.7 g/dL (3.5-5.0); CALCIUM 8.2 mg/dL (8.4-10.2)
[2018-06-19] MEDS: Multivitamin Vitamin B Complex (Nephro-Vite) Tab PO SCH (09:02)
[2018-06-19] MEDS: Pantoprazole 40 mg EC Tab PO SCH (09:03)
[2018-06-19] MEDS: Meropenem 500 MG in Sodium Chloride 0.9% 100 ML IVPB SCH (10:20)
[2018-06-19] MEDS ORDERED: Lidocaine Hydrochloride 1% 10 ML ONE (10:46)
[2018-06-19] MEDS ORDERED: Midazolam 2 MG/2 ML VIAL ONE (11:02)
[2018-06-19] MEDS ORDERED: Propofol 10 mg/ml Inj (20 ML) ONE (11:03)
[2018-06-19] MEDS ORDERED: Iodixanol 320 MG/ML 100 ML BOTTLE IV ONE (11:21)
--- NOTE | 2018-06-19 11:52 | PCM.SURG1 ---
Surgeon's Initial Post Op Note - Surgeon's Notes Surgeon: Ru Finney MD [place] [employer]ist: NONE Type of Anesthesia: IV Sedation, Local Pre-Operative Diagnosis: Urosepsis Operative Findings: US showed left hydronephrosis Post-Operative Diagnosis: Urosepsis Operation Performed: Right percuteanous nephrostomy change. Placement of a left 8 fr perc. nephrostomy tube. Specimen/Specimens Removed: 10 cc of purulent draiange left renal collecting system Estimated Blood Loss: EBL {In ML}: 3 Blood Products Given: N/A Drains Used: No Drains, Joseph Velasquez Post-Op Condition: Fair Date of Surgery/Procedure: 06/19/18 Time of Surgery/Procedure: 11:50
--- NOTE | 2018-06-19 12:47 | CP.PCM.DIS ---
<Suzanna Petty - Last Filed: 06/19/18 14:05> Provider - Provider Date of Admission: 06/13/18 12:00 Attending physician: John Hernandez MD Consults: 06/13/18 13:28 Urology Consult Stat Comment: Consulting Provider: Heather Mares Consulting Physician: Heather Mares Reason for Consult: urosepsis with nephrostomy tube 06/13/18 13:30 Nephrology Consult Stat Comment: Consulting Provider: Ta Pemberton Consulting Physician: Ta Pemberton Reason for Consult: CKD secondary to obstructive uropathy 06/13/18 18:21 Infectious Disease Consult Routine Comment: Consulting Provider: Ryan Law Consulting Physician: Ryan Law Reason for Consult: recurrent UTI, sepsis 06/14/18 07:57 Palliative Care Consult Routine Comment: Consulting Provider: Anisa Mendez Physician Instructions: Reason For Exam: s/p cervical & lung cancer 06/16/18 11:42 Physician Consult Routine Comment: Consulting Provider: Ru Moreno Consulting Physician: Ru Moreno Reason for Consult: POSSIBLE RIGH nephrostomy tube removal Time Spent in preparation of Discharge (in minutes): 35 Hospital Course - Lab Results Lab Results: Micro Results 06/14/18 21:30 Blood Blood Culture - Preliminary NO GROWTH AFTER 4 DAYS 06/14/18 21:00 Blood Blood Culture - Preliminary NO GROWTH AFTER 4 DAYS 06/13/18 12:03 Blood-Venous Blood Culture - Final NO GROWTH AFTER 5 DAYS 06/13/18 12:03 Blood-Venous Gram Stain - Final TEST NOT PERFORMED 06/13/18 10:40 Blood-Venous Blood Culture - Final NO GROWTH AFTER 5 DAYS 06/13/18 10:40 Blood-Venous Gram Stain - Final TEST NOT PERFORMED 06/13/18 10:35 Urine,Kidney Urine Culture - Final Escherichia Coli Most Recent Lab Values WBC 13.7 K/uL (4.8-10.8) H 06/19/18 05:31 RBC 3.43 Mil/uL (3.80-5.20) L 06/19/18 05:31 Hgb 9.3 g/dL (12.0-16.0) L 06/19/18 05:31 Hct 29.2 % (34.0-47.0) L 06/19/18 05:31 MCV 85.2 fl (81.0-99.0) 06/19/18 05:31 MCH 27.2 pg (27.0-31.0) 06/19/18 05:31 MCHC 31.9 g/dL (33.0-37.0) L 06/19/18 05:31 RDW 16.8 % (11.5-14.5) H 06/19/18 05:31 Plt Count 456 K/uL (130-400) H 06/19/18 05:31 MPV 7.6 fl (7.2-11.7) 06/19/18 05:31 Neut % (Auto) 84.2 % (50.0-75.0) H 06/19/18 05:31 Lymph % (Auto) 4.8 % (20.0-40.0) L 06/19/18 05:31 Turner % (Auto) 8.4 % (0.0-10.0) 06/19/18 05:31 Eos % (Auto) 2.1 % (0.0-4.0) 06/19/18 05:31 Baso % (Auto) 0.5 % (0.0-2.0) 06/19/18 05:31 Neut # (Auto) 11.5 K/uL (1.8-7.0) H 06/19/18 05:31 Lymph # (Auto) 0.7 K/uL (1.0-4.3) L 06/19/18 05:31 Turner # (Auto) 1.1 K/uL (0.0-0.8) H 06/19/18 05:31 Eos # (Auto) 0.3 K/uL (0.0-0.7) 06/19/18 05:31 Baso # (Auto) 0.1 K/uL (0.0-0.2) 06/19/18 05:31 Neutrophils % (Manual) 81 % (42-75) H 06/17/18 05:55 Band Neutrophils % 1 % (0-2) 06/13/18 10:40 Lymphocytes % (Manual) 6 % (20-50) L 06/17/18 05:55 Monocytes % (Manual) 13 % (0-10) H 06/17/18 05:55 Basophils % (Manual) 1 % (0-2) 06/13/18 10:40 Myelocytes % 1 % (0-0) H 06/13/18 10:40 Platelet Estimate Increased (NORMAL) H 06/17/18 05:55 Hypochromasia (manual) Moderate 06/17/18 05:55 Anisocytosis (manual) Slight 06/17/18 05:55 Target Cells Slight 06/17/18 05:55 Tear Drop Cells Slight 06/17/18 05:55 Ovalocytes Slight 06/17/18 05:55 Schistocytes Slight 06/17/18 05:55 pO2 45 mm/Hg (30-55) 06/13/18 10:22 VBG pH 7.40 (7.32-7.43) 06/13/18 10:22 VBG pCO2 41 mmHg (40-60) 06/13/18 10:22 VBG HCO3 25.1 mmol/L 06/13/18 10:22 VBG Total CO2 26.7 mmol/L (22-28) 06/13/18 10:22 VBG O2 Sat (Calc) 88.9 % (40-65) H 06/13/18 10:22 VBG Base Excess 0.5 mmol/L (0.0-2.0) 06/13/18 10:22 VBG Potassium 4.4 mmol/L (3.6-5.2) 06/13/18 10:22 Sodium 129.0 mmol/L (132-148) L 06/13/18 10:22 Chloride 95.0 mmol/L (98-107) L 06/13/18 10:22 Glucose 104 mg/dL (65-105) 06/13/18 10:22 Lactate 1.0 mmol/L (0.7-2.1) 06/13/18 10:22 FiO2 21.0 % 06/13/18 10:22 Sodium 135 mmol/l (132-148) 06/19/18 05:31 Potassium 3.6 MMOL/L (3.6-5.0) 06/19/18 05:31 Chloride 104 mmol/L (98-107) 06/19/18 05:31 Carbon Dioxide 23 mmol/L (22-30) 06/19/18 05:31 Anion Gap 12 (10-20) 06/19/18 05:31 BUN 16 mg/dl (7-17) 06/19/18 05:31 Creatinine 1.7 mg/dl (0.7-1.2) H 06/19/18 05:31 Est GFR ( Amer) 37 06/19/18 05:31 Est GFR (Non-Af Amer) 30 06/19/18 05:31 Random Glucose 85 mg/dL (65-105) 06/19/18 05:31 Calcium 8.2 mg/dL (8.4-10.2) L 06/19/18 05:31 Phosphorus 3.9 mg/dl (2.5-4.5) 06/18/18 05:50 Magnesium 1.4 MG/DL (1.6-2.3) L 06/18/18 05:50 Total Bilirubin 0.2 mg/dl (0.2-1.3) 06/19/18 05:31 AST 44 U/L (14-36) H D 06/19/18 05:31 ALT 48 U/L (9-52) 06/19/18 05:31 Alkaline Phosphatase 102 U/L (38-126) 06/19/18 05:31 Total Protein 6.3 G/DL (6.3-8.2) 06/19/18 05:31 Albumin 2.7 g/dL (3.5-5.0) L 06/19/18 05:31 Globulin 3.5 gm/dL (2.2-3.9) 06/19/18 05:31 Albumin/Globulin Ratio 0.8 (1.0-2.1) L 06/19/18 05:31 Venous Blood Potassium 4.4 mmol/L (3.6-5.2) 06/13/18 10:22 Urine Color Yellow (YELLOW) 06/13/18 10:35 Urine Clarity Cloudy (Clear) 06/13/18 10:35 Urine pH 6.0 (5.0-8.0) 06/13/18 10:35 Ur Specific Union 1.017 (1.003-1.030) 06/13/18 10:35 Urine Protein 100 mg/dL (NEGATIVE) 06/13/18 10:35 Urine Glucose (UA) Neg mg/dL (NEGATIVE) 06/13/18 10:35 Urine Ketones Negative mg/dL (NEGATIVE) 06/13/18 10:35 Urine Blood Small (NEGATIVE) 06/13/18 10:35 Urine Nitrate Positive (NEGATIVE) H 06/13/18 10:35 Urine Bilirubin Negative (NEGATIVE) 06/13/18 10:35 Urine Urobilinogen 0.2-1.0 mg/dL (0.2-1.0) 06/13/18 10:35 Ur Leukocyte Esterase Large Milind/uL (Negative) 06/13/18 10:35 Urine RBC (Auto) 35 /hpf (0-3) H 06/13/18 10:35 Urine Microscopic WBC 594 /hpf (0-5) H 06/13/18 10:35 Ur Squamous Epith Cells 1 /hpf (0-5) 06/13/18 10:35 Urine Bacteria Mod (<OCC) H 06/13/18 10:35 Influenza Typ A,B (EIA) Negative for flu a/b (NEGATIVE) 06/13/18 14:57 Blood Type A POSITIVE 06/14/18 10:25 Antibody Screen Negative 06/14/18 10:25 Crossmatch See Detail 06/14/18 10:25 BBK History Checked Patient has bt 06/14/18 10:25 - Hospital Course Hospital Course: 63 year old female with extensive PMHx including Obstructive Uropathy sec to Cervical CA s/p Right Ureteral Stent Placement, CKD stage III B, Anemia and HTN presented to ER c/o subjective fever and suprapubic pain, admitted for further management of sepsis. Patient had right nephrostomy tube replaced with left nephrostomy placed today. Patient will be transferred to TCU today for continuation of IV antibiotics. Plan: Sepsis (criteria met on admission) improving, HR and BP stable WNL -ID recommendations appreciated -likely 2/2 UTI/Urosepsis -C/w gentle IV fluids as per Nephro recs -c/w Meropenem Day #5 as per ID recs -repeat blood cultures negative x 3 days -UA positive on admission for nitrate, WNL, RBC -UCx positive for E Coli ESBL sensitive to meropenem -had a UCx on 04/25/18 pos x Morg Morganii sensitive to ceftriaxone UTI -UA positive on admission for nitrate, WNL, RBC --UCx positive for E Coli ESBL sensitive to meropenem - cw Meropenem day 6 -had a UCx on 04/25/18 pos x Morg Morganii sensitive to ceftriaxone Right Nephrostomy tube -Patient had right nephrostomy tube replaced with left nephrostomy placed today. -Renal diet -renal ultrasound: marked left hydrophnephrosis; debris identified within the left collecting system and ureter; demonstration of nephrostomy catheter on the right. CKD (chronic kidney disease) stage 4 chronic/stable -Likely due to Obstructive Uropathy -Cr 1.8, GFR 28 c/w home meds -Meeting/Event Planner: Dr. Pemberton appreciated Normocytic anemia (acute on chronic) -likely anemia of chronic diseases/CKD -Improved -on procrit as per Nephro HTN cont to hold norvasc 5mg PO QD and metoprolol tartrate 25mg PO BID -Cont to f/u BP and HR DVT prophylaxis SCDs Stable H/H Lovenox 30 mg SC was held today for IR procedure Discharge Exam - Head Exam Head Exam: ATRAUMATIC, NORMAL INSPECTION, NORMOCEPHALIC - ENT Exam ENT Exam: Mucous Membranes Moist - Respiratory Exam Respiratory Exam: NORMAL BREATHING PATTERN - Cardiovascular Exam Cardiovascular Exam: REGULAR RHYTHM, +S1, +S2 - GI/Abdominal Exam GI & Abdominal Exam: Normal Bowel Sounds, Soft, Tenderness. absent: Guarding, Rigid - Neurological Exam Neurological exam: Alert, Oriented x3 - Psychiatric Exam Psychiatric exam: Normal Mood - Skin Skin Exam: Dry, Intact Discharge Plan - Discharge Medications Prescriptions: MEROPENEM 500 MG in NS [Merrem IV 500 MG/NS 50 ML] 500 mg IV Q12 7 Days #7 bag - Follow Up Plan Condition: FAIR Disposition: TRANSF TO SNF <Lolly Pritchett - Last Filed: 06/20/18 07:32> Provider - Provider Date of Admission: 06/13/18 12:00 Attending physician: John Hernandez MD Consults: 06/13/18 13:28 Urology Consult Stat Comment: Consulting Provider: Heather Mares Consulting Physician: Heather Mares Reason for Consult: urosepsis with nephrostomy tube 06/13/18 13:30 Nephrology Consult Stat Comment: Consulting Provider: Ta Pemberton Consulting Physician: Ta Pemberton Reason for Consult: CKD secondary to obstructive uropathy 06/13/18 18:21 Infectious Disease Consult Routine Comment: Consulting Provider: Ryan Law Consulting Physician: Ryan Law Reason for Consult: recurrent UTI, sepsis 06/14/18 07:57 Palliative Care Consult Routine Comment: Consulting Provider: Anisa Mendez Physician Instructions: Reason For Exam: s/p cervical & lung cancer 06/16/18 11:42 Physician Consult Routine Comment: Consulting Provider: Ru Moreno Consulting Physician: Ru Moreno Reason for Consult: POSSIBLE RIGH nephrostomy tube removal Hospital Course - Lab Results Lab Results: Micro Results 06/19/18 12:57 Other: Please Indicate Gram Stain - Final 06/14/18 21:30 Blood Blood Culture - Final NO GROWTH AFTER 5 DAYS 06/14/18 21:30 Blood Gram Stain - Final TEST NOT PERFORMED 06/14/18 21:00 Blood Blood Culture - Final NO GROWTH AFTER 5 DAYS 06/14/18 21:00 Blood Gram Stain - Final TEST NOT PERFORMED 06/13/18 12:03 Blood-Venous Blood Culture - Final NO GROWTH AFTER 5 DAYS 06/13/18 12:03 Blood-Venous Gram Stain - Final TEST NOT PERFORMED 06/13/18 10:40 Blood-Venous Blood Culture - Final NO GROWTH AFTER 5 DAYS 06/13/18 10:40 Blood-Venous Gram Stain - Final TEST NOT PERFORMED 06/13/18 10:35 Urine,Kidney Urine Culture - Final Escherichia Coli Most Recent Lab Values WBC 13.7 K/uL (4.8-10.8) H 06/19/18 05:31 RBC 3.43 Mil/uL (3.80-5.20) L 06/19/18 05:31 Hgb 9.3 g/dL (12.0-16.0) L 06/19/18 05:31 Hct 29.2 % (34.0-47.0) L 06/19/18 05:31 MCV 85.2 fl (81.0-99.0) 06/19/18 05:31 MCH 27.2 pg (27.0-31.0) 06/19/18 05:31 MCHC 31.9 g/dL (33.0-37.0) L 06/19/18 05:31 RDW 16.8 % (11.5-14.5) H 06/19/18 05:31 Plt Count 456 K/uL (130-400) H 06/19/18 05:31 MPV 7.6 fl (7.2-11.7) 06/19/18 05:31 Neut % (Auto) 84.2 % (50.0-75.0) H 06/19/18 05:31 Lymph % (Auto) 4.8 % (20.0-40.0) L 06/19/18 05:31 Turner % (Auto) 8.4 % (0.0-10.0) 06/19/18 05:31 Eos % (Auto) 2.1 % (0.0-4.0) 06/19/18 05:31 Baso % (Auto) 0.5 % (0.0-2.0) 06/19/18 05:31 Neut # (Auto) 11.5 K/uL (1.8-7.0) H 06/19/18 05:31 Lymph # (Auto) 0.7 K/uL (1.0-4.3) L 06/19/18 05:31 Turner # (Auto) 1.1 K/uL (0.0-0.8) H 06/19/18 05:31 Eos # (Auto) 0.3 K/uL (0.0-0.7) 06/19/18 05:31 Baso # (Auto) 0.1 K/uL (0.0-0.2) 06/19/18 05:31 Neutrophils % (Manual) 81 % (42-75) H 06/17/18 05:55 Band Neutrophils % 1 % (0-2) 06/13/18 10:40 Lymphocytes % (Manual) 6 % (20-50) L 06/17/18 05:55 Monocytes % (Manual) 13 % (0-10) H 06/17/18 05:55 Basophils % (Manual) 1 % (0-2) 06/13/18 10:40 Myelocytes % 1 % (0-0) H 06/13/18 10:40 Platelet Estimate Increased (NORMAL) H 06/17/18 05:55 Hypochromasia (manual) Moderate 06/17/18 05:55 Anisocytosis (manual) Slight 06/17/18 05:55 Target Cells Slight 06/17/18 05:55 Tear Drop Cells Slight 06/17/18 05:55 Ovalocytes Slight 06/17/18 05:55 Schistocytes Slight 06/17/18 05:55 pO2 45 mm/Hg (30-55) 06/13/18 10:22 VBG pH 7.40 (7.32-7.43) 06/13/18 10:22 VBG pCO2 41 mmHg (40-60) 06/13/18 10:22 VBG HCO3 25.1 mmol/L 06/13/18 10:22 VBG Total CO2 26.7 mmol/L (22-28) 06/13/18 10:22 VBG O2 Sat (Calc) 88.9 % (40-65) H 06/13/18 10:22 VBG Base Excess 0.5 mmol/L (0.0-2.0) 06/13/18 10:22 VBG Potassium 4.4 mmol/L (3.6-5.2) 06/13/18 10:22 Sodium 129.0 mmol/L (132-148) L 06/13/18 10:22 Chloride 95.0 mmol/L (98-107) L 06/13/18 10:22 Glucose 104 mg/dL (65-105) 06/13/18 10:22 Lactate 1.0 mmol/L (0.7-2.1) 06/13/18 10:22 FiO2 21.0 % 06/13/18 10:22 Sodium 135 mmol/l (132-148) 06/19/18 05:31 Potassium 3.6 MMOL/L (3.6-5.0) 06/19/18 05:31 Chloride 104 mmol/L (98-107) 06/19/18 05:31 Carbon Dioxide 23 mmol/L (22-30) 06/19/18 05:31 Anion Gap 12 (10-20) 06/19/18 05:31 BUN 16 mg/dl (7-17) 06/19/18 05:31 Creatinine 1.7 mg/dl (0.7-1.2) H 06/19/18 05:31 Est GFR ( Amer) 37 06/19/18 05:31 Est GFR (Non-Af Amer) 30 06/19/18 05:31 Random Glucose 85 mg/dL (65-105) 06/19/18 05:31 Calcium 8.2 mg/dL (8.4-10.2) L 06/19/18 05:31 Phosphorus 3.9 mg/dl (2.5-4.5) 06/18/18 05:50 Magnesium 1.4 MG/DL (1.6-2.3) L 06/18/18 05:50 Total Bilirubin 0.2 mg/dl (0.2-1.3) 06/19/18 05:31 AST 44 U/L (14-36) H D 06/19/18 05:31 ALT 48 U/L (9-52) 06/19/18 05:31 Alkaline Phosphatase 102 U/L (38-126) 06/19/18 05:31 Total Protein 6.3 G/DL (6.3-8.2) 06/19/18 05:31 Albumin 2.7 g/dL (3.5-5.0) L 06/19/18 05:31 Globulin 3.5 gm/dL (2.2-3.9) 06/19/18 05:31 Albumin/Globulin Ratio 0.8 (1.0-2.1) L 06/19/18 05:31 Venous Blood Potassium 4.4 mmol/L (3.6-5.2) 06/13/18 10:22 Urine Color Yellow (YELLOW) 06/13/18 10:35 Urine Clarity Cloudy (Clear) 06/13/18 10:35 Urine pH 6.0 (5.0-8.0) 06/13/18 10:35 Ur Specific Union 1.017 (1.003-1.030) 06/13/18 10:35 Urine Protein 100 mg/dL (NEGATIVE) 06/13/18 10:35 Urine Glucose (UA) Neg mg/dL (NEGATIVE) 06/13/18 10:35 Urine Ketones Negative mg/dL (NEGATIVE) 06/13/18 10:35 Urine Blood Small (NEGATIVE) 06/13/18 10:35 Urine Nitrate Positive (NEGATIVE) H 06/13/18 10:35 Urine Bilirubin Negative (NEGATIVE) 06/13/18 10:35 Urine Urobilinogen 0.2-1.0 mg/dL (0.2-1.0) 06/13/18 10:35 Ur Leukocyte Esterase Large Milind/uL (Negative) 06/13/18 10:35 Urine RBC (Auto) 35 /hpf (0-3) H 06/13/18 10:35 Urine Microscopic WBC 594 /hpf (0-5) H 06/13/18 10:35 Ur Squamous Epith Cells 1 /hpf (0-5) 06/13/18 10:35 Urine Bacteria Mod (<OCC) H 06/13/18 10:35 Influenza Typ A,B (EIA) Negative for flu a/b (NEGATIVE) 06/13/18 14:57 Blood Type A POSITIVE 06/14/18 10:25 Antibody Screen Negative 06/14/18 10:25 Crossmatch See Detail 06/14/18 10:25 BBK History Checked Patient has bt 06/14/18 10:25 Attending/Attestation - Attestation I have personally seen and examined this patient.: Yes I have fully participated in the care of the patient.: Yes I have reviewed all pertinent clinical information, including history, physical exam and plan: Yes Notes (Text): 06/20/18 07:32 63-year-old female status post nephrostomy tube replacement by Dr. Fallon. Patient is stable for discharge to TCU. Agree with findings and plan as above.
[2018-06-19] MEDS: Sodium Chloride 0.9% 1,000 ML IV SCH (13:30)
[2018-06-19 16:06] VITALS: RESP 18
[2018-06-19 17:08] VITALS: BP 103/60; PULSE 120; TEMP 100; O2SAT 100
[2018-06-19] MEDS ORDERED: Sodium Chloride 0.9% 1,000 ML IV SCH (17:49)
--- NOTE | 2018-06-19 17:49 | CP.PCM.PN ---
Subjective - Date & Time of Evaluation Date of Evaluation: 06/19/18 Time of Evaluation: 17:48 - Subjective Subjective: pt is seen and examined by me, s/p left PCN, gross hematuria#[id number] follow up consult is dictated # will increase ivf 125 ml/hr Objective - Vital Signs/Intake and Output Vital Signs (last 24 hours): Temp Pulse Resp BP Pulse Ox 100 F H 120 H 18 103/60 100 06/19/18 17:07 06/19/18 17:07 06/19/18 17:07 06/19/18 17:07 06/19/18 17:07 - Medications Medications: Current Medications Acetaminophen (Tylenol 325mg Tab) 650 mg PO Q6 PRN PRN Reason: Pain, moderate (4-7) Last Admin: 06/18/18 14:22 Dose: 650 mg Acetaminophen (Tylenol 325mg Tab) 650 mg PO Q6 PRN PRN Reason: Fever >100.4 F Last Admin: 06/19/18 15:22 Dose: 650 mg Amlodipine Besylate (Norvasc) 5 mg PO DAILY [facility] Last Admin: 06/19/18 17:07 Dose: Not Given Baclofen (Lioresal) 10 mg PO Q8 PRN PRN Reason: Muscle spasm Last Admin: 06/15/18 08:58 Dose: 10 mg Calcitriol (Rocaltrol) 0.25 mcg PO MWF [facility] Last Admin: 06/19/18 13:31 Dose: 0.25 mcg Diazepam (Valium) 5 mg PO Q12 PRN PRN Reason: Anxiety Docusate Sodium (Colace) 100 mg PO BID PRN PRN Reason: Constipation Enoxaparin Sodium (Lovenox) 30 mg SC DAILY [facility]; Protocol Last Admin: 06/18/18 08:19 Dose: 30 mg Epoetin Tam (Procrit) 10,000 unit SC TTS [facility] Last Admin: 06/17/18 09:00 Dose: 10,000 unit Fluticasone Propionate (Flonase) 2 spr MANNY DAILY PRN PRN Reason: Nasal congestion Last Admin: 06/17/18 08:59 Dose: 2 spr Meropenem 500 mg/ Sodium (Chloride) 100 mls @ 100 mls/hr IVPB Q12 [facility]; Protocol Last Admin: 06/19/18 10:20 Dose: 100 mls/hr Sodium Chloride (Sodium Chloride 0.9%) 1,000 mls @ 70 mls/hr IV .[id number] [facility] Last Admin: 06/19/18 13:30 Dose: 70 mls/hr Ketorolac Tromethamine (Toradol) 15 mg IVP Q6 PRN PRN Reason: Pain, severe (8-10) Last Admin: 06/19/18 17:08 Dose: 15 mg Metoprolol Tartrate (Lopressor) 25 mg PO Q12 [facility] Last Admin: 06/19/18 17:07 Dose: Not Given Pantoprazole Sodium (Protonix Ec Tab) 40 mg PO DAILY [facility] Last Admin: 06/19/18 09:03 Dose: Not Given Sodium Bicarbonate (Sodium Bicarbonate Tab) 650 mg PO Q8 [facility] Last Admin: 06/19/18 17:10 Dose: 650 mg Vitamin B Complex/Vit C/Folic Acid (Nephro-Davidson) 1 tab PO DAILY [facility] Last Admin: 06/19/18 09:02 Dose: Not Given Zolpidem Tartrate (Ambien) 5 mg PO HS PRN PRN Reason: Insomnia Last Admin: 06/17/18 21:32 Dose: 5 mg - Labs Labs: 06/19/18 05:31 06/19/18 05:31
--- NOTE | 2018-06-19 18:48 | CP.PCM.PN ---
Subjective - Date & Time of Evaluation Date of Evaluation: 06/19/18 Time of Evaluation: 18:46 - Subjective Subjective: UROLOGY pt seen post left perc tube placement. For now output is grossly bloody and expect to clear. Pt jhas no acute flank pain. WBC remains elevated creat slightly lower. Cont iv antibioticvs Objective - Vital Signs/Intake and Output Vital Signs (last 24 hours): Temp Pulse Resp BP Pulse Ox 100 F H 120 H 18 103/60 100 06/19/18 17:07 06/19/18 17:07 06/19/18 17:07 06/19/18 17:07 06/19/18 17:07 - Medications Medications: Current Medications Acetaminophen (Tylenol 325mg Tab) 650 mg PO Q6 PRN PRN Reason: Pain, moderate (4-7) Last Admin: 06/18/18 14:22 Dose: 650 mg Acetaminophen (Tylenol 325mg Tab) 650 mg PO Q6 PRN PRN Reason: Fever >100.4 F Last Admin: 06/19/18 15:22 Dose: 650 mg Amlodipine Besylate (Norvasc) 5 mg PO DAILY [facility] Last Admin: 06/19/18 17:07 Dose: Not Given Baclofen (Lioresal) 10 mg PO Q8 PRN PRN Reason: Muscle spasm Last Admin: 06/15/18 08:58 Dose: 10 mg Calcitriol (Rocaltrol) 0.25 mcg PO MWF [facility] Last Admin: 06/19/18 13:31 Dose: 0.25 mcg Diazepam (Valium) 5 mg PO Q12 PRN PRN Reason: Anxiety Docusate Sodium (Colace) 100 mg PO BID PRN PRN Reason: Constipation Enoxaparin Sodium (Lovenox) 30 mg SC DAILY [facility]; Protocol Last Admin: 06/18/18 08:19 Dose: 30 mg Epoetin Tam (Procrit) 10,000 unit SC TTS [facility] Last Admin: 06/17/18 09:00 Dose: 10,000 unit Fluticasone Propionate (Flonase) 2 spr MANNY DAILY PRN PRN Reason: Nasal congestion Last Admin: 06/17/18 08:59 Dose: 2 spr Meropenem 500 mg/ Sodium (Chloride) 100 mls @ 100 mls/hr IVPB Q12 [facility]; Protocol Last Admin: 06/19/18 10:20 Dose: 100 mls/hr Sodium Chloride (Sodium Chloride 0.9%) 1,000 mls @ 125 mls/hr IV .Q8H [facility] Last Admin: 06/19/18 17:51 Dose: Not Given Ketorolac Tromethamine (Toradol) 15 mg IVP Q6 PRN PRN Reason: Pain, severe (8-10) Last Admin: 06/19/18 17:08 Dose: 15 mg Metoprolol Tartrate (Lopressor) 25 mg PO Q12 [facility] Last Admin: 06/19/18 17:07 Dose: Not Given Pantoprazole Sodium (Protonix Ec Tab) 40 mg PO DAILY [facility] Last Admin: 06/19/18 09:03 Dose: Not Given Sodium Bicarbonate (Sodium Bicarbonate Tab) 650 mg PO Q8 [facility] Last Admin: 06/19/18 17:10 Dose: 650 mg Vitamin B Complex/Vit C/Folic Acid (Nephro-Davidson) 1 tab PO DAILY [facility] Last Admin: 06/19/18 09:02 Dose: Not Given Zolpidem Tartrate (Ambien) 5 mg PO HS PRN PRN Reason: Insomnia Last Admin: 06/17/18 21:32 Dose: 5 mg - Labs Labs: 06/19/18 05:31 06/19/18 05:31
--- NOTE | 2018-06-20 08:10 | PN ---
DATE: 06/19/2018 FOLLOWUP RENAL CONSULTATION LOCATION: The patient is located in room 412, bed 1. REQUESTED BY: John Hernandez MD REASON FOR FOLLOWUP: Chronic kidney disease; hydronephrosis, left-sided; UTI and anemia. SUBJECTIVE: Mrs. Mccabe is a 63-year-old elderly very thin-built, Cachectic female with a past medical history significant for cervical CA, status post chemo and radiation therapy with bilateral ureteral strictures and hydronephrosis for long time, status post bilateral nephrostomy tubes in the past about 2 years ago. Subsequently, left nephrostomy tube was discontinued after placing left ureteric stent and subsequently that was also removed. The patient had recurrent UTIs and also persistent right PCN with baseline creatinine about 2. The patient was admitted with chief complaints of lower back pain and also pain in both legs, difficult to ambulate and dysuria, frequency and found to have urosepsis and also severe anemia. The patient is feeling slightly better. The patient underwent left nephrostomy tube placement this morning, drained about 400 mL blood-tinged fluid. The patient still has gross hematuria, not in distress. Denies any headache or dizziness. Denies any chest pain or palpitation. Denies any dysuria. PHYSICAL EXAMINATION: VITAL SIGNS: As follows: Blood pressure this afternoon 137/70, pulse 132, respirations 18, temperature 102.9, saturation 97%. Height 5 feet and 1 inch, weight is 88 pounds. GENERAL: Mrs. Mccabe is a 63-year-old elderly female, thin-built, very Cachectic, not in distress. HEENT: Pupils normal and reactive to light and accommodation. Conjunctivae slightly pale. Sclerae anicteric. Tongue is moist. Trachea is deviated to the left side. LUNGS: Symmetric on both sides. The patient has bronchial breath sounds on the left side. Status post lung surgery in the past. CARDIOVASCULAR: S1 and S2 audible. Tachycardiac. The patient has systolic murmur present. ABDOMEN: Normal in appearance. Soft. Tympanitic. No guarding. No rigidity. No hepatosplenomegaly. Status post new PCN this morning on the left side with gross hematuria. 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 EXTREMITIES: No cyanosis. No clubbing. No edema. CURRENT MEDICATIONS: Include as follows: Ambien 5 mg at bedtime, Colace 100 mg p.o. b.i.d., Flonase two sprays nasally daily, Baclofen 10 mg p.o. every 8 hours, metoprolol 25 mg p.o. every 12 hours, Lovenox 30 mg subcu daily, meropenem 500 mg every 12 hours, Nephro-Davidson 1 tablet, amlodipine 10 mg daily, Procrit 10,000 units three times a week, Protonix 40 mg daily, Rocaltrol 0.25 mcg three times a week, sodium bicarbonate 650 mg p.o. every 8 hours, Toradol 50 mg IV every 6 hours, Tylenol and Valium 5 mg p.o. every 12 hours p.r.n. LABORATORY DATA: As of 06/19/2018, WBC 13.7, hemoglobin 9.3, hematocrit is 29.2, platelets 456. Sodium 135, potassium 3.6, chloride 104, CO2 of 23, BUN 16, creatinine 1.7, glucose 85, and calcium 8.2. Total bilirubin 0.8, AST 44, ALT 48, alkaline phosphatase 102, total protein 6.3, albumin 2.7. Urine culture as of 06/13/2018 positive for E. coli. Blood cultures x2 from 06/13/2018 negative day 5 and blood culture again from 06/14/2018 negative x2 for day 5 and body fluid cultures is pending from 06/19/2018. ASSESSMENT: In summary, Mrs. Mccabe is a 63-year-old elderly female with history of hypertension, cervical carcinoma, status post radiation treatment, obstructive uropathy, ureteral strictures, bilateral hydronephrosis, status post nephrostomy tubes about two years ago bilaterally. Subsequently left nephrostomy tube was discontinued after successful placement of a left ureteric stent, which was also removed later on. The patient has right percutaneous nephrostomy tube for the last two years with recurrent urinary tract infections. 1. Chronic kidney disease, stage 3. 2. Hypertension. 3. Urinary tract infection. 4. Persistent left hydronephrosis. PLAN: The patient underwent left PCN and drained about 400 mL of fluid after placement of the PCN. The patient is draining well with blood tinged urine. Continue IV antibiotics, Merrem as per ID recommendations. Continue Procrit and Nephro-Davidson. Continue IV fluids, normal saline at 125 mL/ hour. We will follow with you. Thank you for allowing me to participate in your patient's care. Ta Pemberton MD
--- NOTE | 2018-06-20 12:33 | VASCULAR ---
Date of procedure: 06/19/2018 Procedure: 1. Right antegrade nephrostogram 2. Exchange of right percutaneous nephrostomy tube Medications: None. Radiation: 17.18 MGy Fluoro time: 157.2 Seconds EBL: cc 1 HISTORY: Right ureteral obstruction, UTI TECHNIQUE: Following informed consent the procedure time-out, patient was placed prone on the interventional table. The patient right nephrostomy tube and surrounding skin were prepped and draped in the usual sterile fashion. Dilute contrast injected through existing nephrostomy tube showed position to be within the kidney. Nephrostomy tube was removed over guidewire. A new 8 [place] nephrostomy tube was advanced over the wire and formed within the renal pelvis. A dressing was applied. IMPRESSION: Exchange of right percutaneous nephrostomy tube with placement of a new 8 [place] nephrostomy tube.
--- NOTE | 2018-06-20 12:34 | VASCULAR ---
PROCEDURE: < Date of procedure: 06/19/2018 Procedure: 1. Left nephrostogram 2. Left percutaneous nephrostomy tube placement Medications: The patient sedated by the anesthesiologist. HISTORY: Ureteral obstruction, hydronephrosis, UTI TECHNIQUE: Following informed consent and procedure time-out, the patient was placed prone on the interventional table and the skin was marked. The left lower back were prepped and draped in the usual sterile fashion. Ultrasound confirmed the presence of mild left hydronephrosis. After the patient was sedated by the anesthesiologist and the lower back anesthetized with 5 cc 1% lidocaine, a 21 gauge Chiba needle was advanced percutaneously under direct ultrasound guidance into a dilated posterior lower pole calyx. Upon return of purulent drainage, contrast was injected through the needle which filled a dilated renal collecting system. A guidewire was advanced through the needle into the ureter. Needle was exchanged for an Accustick coaxial dilator. The dilator was exchanged over the 035 wire for a 7 [place] vascular sheath. Through the sheath, a Berenstein catheter was advanced into the mid ureter and antegrade nephrostogram was performed. Nephrostogram showed severe hydronephrosis. The ureter is intact. An 8 [place] nephrostomy tube was advanced over the wire and formed within the renal pelvis. Position of the tube was confirmed with contrast injection. The tube was secured to patient's skin. The nephrostomy tube was attached to drainage bag. IMPRESSION: Antegrade nephrostogram showed severe hydronephrosis. No obstruction in seen in the ureter with flow of contrast seen into the urinary bladder. An 8 [place] nephrostomy tube was formed within the left renal pelvis. There is purulent drainage from left kidney.
--- NOTE | 2018-06-20 14:44 | CON ---
HISTORY OF PRESENT ILLNESS: This is a 63-year-old female patient who I was called to evaluate because of urosepsis and left hydronephrosis. The patient is well known to me for history of uterine carcinoma with subsequent hydronephrosis secondary to radiation treatment. The patient has had a [facility] right nephrostomy tube that has been changed periodically every three months and she was maintaining that part of her care on a routine basis. Last time that she was seen in the office which was several days prior to this admission, she had appeared much more lethargic. She had been losing weight. The urine in the nephrostomy was clear, but her urine vaginally appeared to have a distinct malodor to it. At that time, I had recommended oral antibiotics, but by the time that started, she developed fever and then came to the hospital in urosepsis. The patient, upon admission, had an evaluation showing there to be an E. coli urinary tract infection and what appeared to be rather a significant left hydronephrosis. The discussion I had with the resident at that time was at one point in time to change the nephrostomy and perhaps consider placing a left nephrostomy on the left side and exchanging the right one. My suggestion to them at that time was to continue the IV antibiotics for several days to try to clear the urine as much as possible before changing the nephrostomy tube, otherwise the likelihood of it becoming reinfected quickly would be a problem. To that end, the patient was told that she was going to have her nephrostomy tube changed on 06/19/2018, which I feel was a reasonable time now that she is on meropenem since her admission and this would provide some sufficient antibiotic coverage at the exchange and placement. So, the plan would be on 06/19/2018 to change the right nephrostomy tube and to attempt placement of a left percutaneous nephrostomy tube at the same time. The patient is advised, she is aware of this, and she is on board with the recommendations. We will follow the patient on Tuesday to see how the interventional radiologist procedure went. Heather Mares MD
== END 2018-06-19 20:51 | DRG 872 ==
LOC: H.ER 09:37 → H.ERHOLD 12:00 → H.TEL 16:22
PROC: 30233N1 Transfusion of Nonautologous Red Blood Cells into Peripheral Vein, Percutaneous Approach (ICD-10-PCS; 2018-06-14)
PROC: 0T9130Z Drainage of Left Kidney with Drainage Device, Percutaneous Approach (ICD-10-PCS; 2018-06-19)
PROC: 0T25X0Z Change Drainage Device in Kidney, External Approach (ICD-10-PCS; principal; 2018-06-19 11:00)
DX: A41.9 Sepsis, unspecified organism (principal); N18.4 Chronic kidney disease, stage 4 (severe); N39.0 Urinary tract infection, site not specified; Z68.1 Body mass index [BMI] 19.9 or less, adult; N13.6 Pyonephrosis; R64 Cachexia; I12.9 Hypertensive chronic kidney disease with stage 1 through stage 4 chronic kidney disease, or unspecified chronic kidney disease; D63.1 Anemia in chronic kidney disease; B96.20 Unspecified Escherichia coli [E. coli] as the cause of diseases classified elsewhere; Z16.12 Extended spectrum beta lactamase (ESBL) resistance; D50.9 Iron deficiency anemia, unspecified; E86.0 Dehydration; R32 Unspecified urinary incontinence; R31.0 Gross hematuria; M48.00 Spinal stenosis, site unspecified; F41.9 Anxiety disorder, unspecified; Z51.5 Encounter for palliative care; Z66 Do not resuscitate; Z93.6 Other artificial openings of urinary tract status; Z85.41 Personal history of malignant neoplasm of cervix uteri; Z85.118 Personal history of other malignant neoplasm of bronchus and lung; Z92.21 Personal history of antineoplastic chemotherapy; Z92.3 Personal history of irradiation; Z86.73 Personal history of transient ischemic attack (TIA), and cerebral infarction without residual deficits; Z87.891 Personal history of nicotine dependence

== ENCOUNTER 2018-06-19 14:46 | Inpatient (IN) | payer OTHER, MEDICAID ==
[2018-06-19 21:09] VITALS: BMI 17.4
[2018-06-19] MEDS ORDERED: Patient's Own Med (Meropenem 500 Mg In Ns [Merrem Iv 500 Mg/Ns 50 Ml] 500 MG) IV SCH (22:00)
[2018-06-20 01:11] VITALS: RESP 20
[2018-06-20 05:46] LABS: CALCIUM 8.5 mg/dL (8.4-10.2)
[2018-06-20 05:49] LABS: BASO # 0.1 K/uL (0.0-0.2); BASO % 0.4 % (0.0-2.0); EOS # 0.1 K/uL (0.0-0.7); EOS % 0.4 % (0.0-4.0); HEMOGLOBIN 8.8 g/dL (12.0-16.0); LYMPH # 0.5 K/uL (1.0-4.3); LYMPH % 2.2 % (20.0-40.0); MEAN CELL VOLUME 85.8 fl (81.0-99.0); MEAN CORPUSCULAR HEMOGLOBIN 27.2 pg (27.0-31.0); MEAN CORPUSCULAR HGB CONC 31.8 g/dL (33.0-37.0); MEAN PLATELET VOLUME 7.5 fl (7.2-11.7); MONO % 4.4 % (0.0-10.0); NEUT # 20.6 K/uL (1.8-7.0); NEUT % 92.6 % (50.0-75.0); PLATELET COUNT 370 K/uL (130-400); RBC 3.24 Mil/uL (3.80-5.20); RED CELL DISTRIBUTION WIDTH 16.4 % (11.5-14.5); WHITE BLOOD COUNT 22.3 K/uL (4.8-10.8)
--- NOTE | 2018-06-20 08:51 | CP.PCM.HP ---
<Chrystal Yates - Last Filed: 06/20/18 11:49> History of Present Illness - History of Present Illness History of Present Illness: 63 year old female with PMHx of Lung CA s/p Lobectomy and Chemotx in 2003, Hx of Cervical CA s/p Chemo and radiation therapy in 2000, Obstructive Uropathy sec to Cervical CA s/p Right Ureteral Stent Placement, CKD stage III B, Anemia and HTN was admitted to [facility] on 06/13/18 due to suprapubic pain x 1 month and fever x 3 weeks 2/2 to Sepsis/UTI now in TCU for IV antibiotics. Also reported poor appetite and weight loss x 2 months, has been on multiple antibiotics since february. Patient had right nephrostomy tube replaced with new left nephrostomy placed on 06/19/18. Doing well today, reports suprapubic pain and midsacral back pain, L nephrostomy tube sanguineous fluid. Denies F/C, CP, SOB, N/V/D/C. Tolerating oral intake. ROS: all 12 systems reviewed and negative except as mentioned in HPI PMHx: Lung CA s/p Lobectomy and Chemotx in 2003, Hx of Cervical CA s/p Chemo and radiation therapy in 2000, Obstructive Uropathy sec to Cervical CA s/p Right Ureteral Stent Placement, CKD stage III B, Anemia and HTN. PSHx: Left lung lobectomy in 2003, Ureteral stent placement Social hx: Quit smoking cigarettes 20 years ago (smoked 1/2 PPD x 10 yrs). Denies drinking EtOH or using illicit drugs. Lives alone. Family hx: Father and Mother: HTN Allergies: NKDA Medications: Loperamide 2 mg PO PRN, Amlodipine 5 mg PO DAILY, Vitamin B Complex PO daily, Metoprolol Tartrate 50 mg bid, Omeprazole 40 mg PO DAILY ,Potassium Citrate 10 meq PO TID, Zolpidem 5 mg PO HS PRN. PMD: Dr Jacobs Urologist: Dr. Mares Rib Cloth Knitter: Dr. Pemberton Code Status: Full COde Surrogate : Daughter Marie [phone] Present on Admission - Present on Admission Any Indicators Present on Admission: No History of DVT/PE: No History of Uncontrolled Diabetes: No Urinary Catheter: No Decubitus Ulcer Present: No Review of Systems - Constitutional Constitutional: absent: Chills, Fever - Cardiovascular Cardiovascular: absent: Chest Pain - Respiratory Respiratory: absent: Dyspnea - Gastrointestinal Gastrointestinal: Abdominal Pain (supra pubic). absent: Constipation, Diarrhea, Nausea, Vomiting - Genitourinary Genitourinary: Hematuria (L nephrostomy tube) - Musculoskeletal Musculoskeletal: Back Pain (midsacral) Past Patient History - Infectious Disease Hx of Infectious Diseases: None - Tetanus Immunizations Tetanus Immunization: Unknown - Past Medical History & Family History Past Medical History?: Yes - Past Social History Smoking Status: Never Smoked - CARDIAC Hx Hypertension: Yes - PULMONARY Hx Respiratory Disorders: Yes Hx Lung Cancer: Yes Other/Comment: Ca of Cervix with Lung ( L) Metastasis (10 years ago)PREVIOUSLY ON CHEMO/RADIATION THERAPHY - NEUROLOGICAL Hx Neurological Disorder: No - HEENT Hx HEENT Problems: No - RENAL Hx Chronic Kidney Disease: Yes (kidney stones; rt nephrostomy) Hx Kidney Stones: Yes - ENDOCRINE/METABOLIC Hx Endocrine Disorders: No - HEMATOLOGICAL/ONCOLOGICAL Hx AIDS: No Hx Anemia: Yes Hx Human Immunodeficiency Virus (HIV): No - INTEGUMENTARY Hx Dermatological Problems: No - MUSCULOSKELETAL/RHEUMATOLOGICAL Hx Musculoskeletal Disorders: No Hx Falls: No - GASTROINTESTINAL Hx Gastrointestinal Disorders: No - GENITOURINARY/GYNECOLOGICAL Hx Genitourinary Disorders: Yes Hx Cervical Cancer: Yes Hx Urinary Tract Infection: Yes Other/Comment: BLADDER PROBLEMS - PSYCHIATRIC Hx Anxiety: Yes Hx Depression: Yes - SURGICAL HISTORY Hx Surgeries: Yes Hx Pulmonary Surgery: Yes (Left Lobectomy) Hx Tubal Ligation: Yes Other/Comment: nephrostomy rt and left kidneys. 01/19/16 cystoscopy. insertion and removal of lifeport. Feb 2018 replacement of nephrostomy tube. - ANESTHESIA Hx Anesthesia: Yes Hx Anesthesia Reactions: No Hx Malignant Hyperthermia: No Meds Allergies/Adverse Reactions: Allergies Allergy/AdvReac Type Severity Reaction Status Date / Time No Known Allergies Allergy Verified 05/15/18 10:25 Physical Exam - Constitutional Appears: Non-toxic, No Acute Distress - Head Exam Head Exam: ATRAUMATIC, NORMAL INSPECTION - Eye Exam Eye Exam: EOMI - ENT Exam ENT Exam: Mucous Membranes Moist - Respiratory Exam Respiratory Exam: Clear to Auscultation Bilateral. absent: Rales, Rhonchi, Wheezes - Cardiovascular Exam Cardiovascular Exam: RRR, +S1, +S2 - GI/Abdominal Exam GI & Abdominal Exam: Normal Bowel Sounds, Tenderness (suprapubic) - Exam Additional comments: R and L nephrostomy tubes in place covered with bandages c/d/i L nephrostomy tube serosanguinous fluid R nephrostomy tube clear fluid - Extremities Exam Extremities exam: Positive for: normal inspection Results - Vital Signs Recent Vital Signs: Last Vital Signs Temp 98.2 F 06/20/18 07:42 Pulse 82 06/20/18 07:42 Resp 20 06/20/18 07:42 BP 115/65 06/20/18 07:42 Pulse Ox 99 06/20/18 07:42 - Labs Result Diagrams: 06/20/18 04:25 06/20/18 04:25 Labs: Laboratory Results - last 24 hr 06/20/18 06/20/18 04:25 04:25 WBC 22.3 H D RBC 3.24 L Hgb 8.8 L Hct 27.8 L MCV 85.8 MCH 27.2 MCHC 31.8 L RDW 16.4 H Plt Count 370 MPV 7.5 Neut % (Auto) 92.6 H Lymph % (Auto) 2.2 L [place] % (Auto) 4.4 Eos % (Auto) 0.4 Baso % (Auto) 0.4 Neut # (Auto) 20.6 H Lymph # (Auto) 0.5 L [place] # (Auto) 1.0 H Eos # (Auto) 0.1 Baso # (Auto) 0.1 Sodium 136 Potassium 3.4 L Chloride 104 Carbon Dioxide 23 Anion Gap 12 BUN 15 Creatinine 1.7 H Est GFR ( Amer) 37 Est GFR (Non-Af Amer) 30 Random Glucose 83 Calcium 8.5 Assessment & Plan - Assessment and Plan (Free Text) Assessment: 63 year old F with extensive PMHx including Obstructive Uropathy sec to Cervical CA s/p Right Ureteral Stent Placement, CKD stage III B, Anemia and HTN admitted to [facility] on 06/13/18 due to suprapubic pain x 1 month and fever x 3 weeks 2/2 to Sepsis/UTI now in TCU for IV antibiotics. Patient had right nephrostomy tube re placed with left nephrostomy placed 06/19/18. Plan: Sepsis -resolved, likely 2/2 UTI/Urosepsis -ID recommendations appreciated -UA positive on admission for nitrate, WNL, RBC -UCx positive for E Coli ESBL sensitive to meropenem -had a UCx on 04/25/18 pos x Morg Morgani sensitive to ceftriaxone -c/w Meropenem Day #6 as per ID recs -repeat blood cx negative x 5 days -body fluid cx/gram stain pending UTI -UCx positive for E Coli ESBL sensitive to meropenem -cw Meropenem day 6 -had a UCx on 04/25/18 pos x Morg Morganii sensitive to ceftriaxone Right Nephrostomy tube replaced, L nephrostomy tube placed -Patient had right nephrostomy tube replaced with left nephrostomy placed 06/19/18 -Renal diet -renal ultrasound: marked left hydrophnephrosis; debris identified within the left collecting system and ureter; demonstration of nephrostomy catheter on the right. - pain control CKD (chronic kidney disease) stage 4 chronic/stable -Likely due to Obstructive Uropathy -Cr 1.7, GFR 30 -c/w home meds -Rib Cloth Knitter: Dr. Pemberton appreciated Leukocytosis -increased 22.3 -continue to monitor Hypokalemia -3.4 06/20/18 -c/w potassium chloride 10meq TID Normocytic anemia (acute on chronic) -likely anemia of chronic diseases/CKD -8.8 06/20/18 -on procrit as per Nephro HTN -chronic, controlled -cont w/ norvasc 5mg PO QD and metoprolol tartrate 25mg PO BID -Cont to f/u BP and HR Diet -Renal diet DVT prophylaxis -Lovenox 30 mg SC - Date & Time Date: 06/20/18 Time: 08:00 <Padmini Cardoza - Last Filed: 06/20/18 15:25> Results - Vital Signs Recent Vital Signs: Last Vital Signs Temp 98.2 F 06/20/18 07:42 Pulse 80 06/20/18 11:10 Resp 20 06/20/18 07:42 BP 110/65 06/20/18 11:10 Pulse Ox 98 06/20/18 11:10 - Labs Result Diagrams: 06/20/18 04:25 06/20/18 04:25 Labs: Laboratory Results - last 24 hr 06/20/18 06/20/18 04:25 04:25 WBC 22.3 H D RBC 3.24 L Hgb 8.8 L Hct 27.8 L MCV 85.8 MCH 27.2 MCHC 31.8 L RDW 16.4 H Plt Count 370 MPV 7.5 Neut % (Auto) 92.6 H Lymph % (Auto) 2.2 L [place] % (Auto) 4.4 Eos % (Auto) 0.4 Baso % (Auto) 0.4 Neut # (Auto) 20.6 H Lymph # (Auto) 0.5 L [place] # (Auto) 1.0 H Eos # (Auto) 0.1 Baso # (Auto) 0.1 Neutrophils % (Manual) 92 H Band Neutrophils % 2 Lymphocytes % (Manual) 3 L Monocytes % (Manual) 3 Platelet Estimate Normal Hypochromasia (manual) Moderate Anisocytosis (manual) Slight Target Cells Slight Ovalocytes Slight Sodium 136 Potassium 3.4 L Chloride 104 Carbon Dioxide 23 Anion Gap 12 BUN 15 Creatinine 1.7 H Est GFR ( Amer) 37 Est GFR (Non-Af Amer) 30 Random Glucose 83 Calcium 8.5 Attending/Attestation - Attestation I have personally seen and examined this patient.: Yes I have fully participated in the care of the patient.: Yes I have reviewed all pertinent clinical information: Yes Notes (Text): Sepsis sec to UTI Chronic Obstructive Uropathy s/p Nephrostomy tube placement , Right History of Cervical Cancer CKD Stage III Physical Deconditioning Chronic Disease Anemia - Pt had placement of new Left Nephrostomy tube and change of previous right N ephrostomy tube done by IR 06/19 - Pt is admitted to TCU for IV abx for tx of UTI and for physical therapy - cont IV Meropenem -monitor renal function - IVF hydration, hold antihypertensives - Physical therapy
[2018-06-20] MEDS: Enoxaparin 30 mg Syringe SC SCH (08:56)
[2018-06-20] MEDS: Pantoprazole 40 mg EC Tab PO SCH (08:57)
[2018-06-20] MEDS: Potassium Chloride 10 mEq ER Tab PO SCH ×3 (08:57→16:50)
[2018-06-20] MEDS: Multivitamin Vitamin B Complex (Nephro-Vite) Tab PO SCH (08:58)
[2018-06-20] MEDS ORDERED: POTASSIUM CITRATE 10 MEQ PO SCH (09:00)
[2018-06-20] MEDS: EPOETIN ALFA 10,000 UNIT/ML ML SC SCH (09:34)
[2018-06-20 09:55] LABS: BANDS 2 % (0-2); LYMPHOCYTE 3 % (20-50); MONOCYTE 3 % (0-10); NEUTROPHIL 92 % (42-75); TOTAL CELLS COUNTED 100
[2018-06-20 09:56] LABS: PLATELET ESTIMATE NORMAL (NORMAL)
[2018-06-20 09:57] LABS: ANISOCYTOSIS SLIGHT; HYPOCHROMIC MODERATE
[2018-06-20 09:58] LABS: OVALOCYTES SLIGHT; TARGET CELLS SLIGHT
--- NOTE | 2018-06-20 12:05 | CP.PCM.CON ---
History of Present Illness - History of Present Illness History of Present Illness: F/U ID consult- 63 year old female with multiple medical conditions including obstructive uropathy with indwelling right ureteral stent last changed 05/15/2018 was admitted with lower abd. pain, fever, leukocytoisis and + UA adn was found to have ESBl e.coli and has been on Meropnem for this . she is s/p right ureteral stent replacement yesterday and new left ureteral stent placement yesterday for lft hydronephrosis and is transferred to TCU for completion of her abx therapy . pt. states she feels much betetr and denies any fever. Past Patient History - Infectious Disease Hx of Infectious Diseases: None - Tetanus Immunizations Tetanus Immunization: Unknown - Past Medical History & Family History Past Medical History?: Yes - Past Social History Smoking Status: Never Smoked - CARDIAC Hx Hypertension: Yes - PULMONARY Hx Respiratory Disorders: Yes Hx Lung Cancer: Yes Other/Comment: Ca of Cervix with Lung ( L) Metastasis (10 years ago)PREVIOUSLY ON CHEMO/RADIATION THERAPHY - NEUROLOGICAL Hx Neurological Disorder: No - HEENT Hx HEENT Problems: No - RENAL Hx Chronic Kidney Disease: Yes (kidney stones; rt nephrostomy) Hx Kidney Stones: Yes - ENDOCRINE/METABOLIC Hx Endocrine Disorders: No - HEMATOLOGICAL/ONCOLOGICAL Hx AIDS: No Hx Anemia: Yes Hx Human Immunodeficiency Virus (HIV): No - INTEGUMENTARY Hx Dermatological Problems: No - MUSCULOSKELETAL/RHEUMATOLOGICAL Hx Musculoskeletal Disorders: No Hx Falls: No - GASTROINTESTINAL Hx Gastrointestinal Disorders: No - GENITOURINARY/GYNECOLOGICAL Hx Genitourinary Disorders: Yes Hx Cervical Cancer: Yes Hx Urinary Tract Infection: Yes Other/Comment: BLADDER PROBLEMS - PSYCHIATRIC Hx Anxiety: Yes Hx Depression: Yes - SURGICAL HISTORY Hx Surgeries: Yes Hx Pulmonary Surgery: Yes (Left Lobectomy) Hx Tubal Ligation: Yes Other/Comment: nephrostomy rt and left kidneys. 01/19/16 cystoscopy. insertion and removal of lifeport. Feb 2018 replacement of nephrostomy tube. - ANESTHESIA Hx Anesthesia: Yes Hx Anesthesia Reactions: No Hx Malignant Hyperthermia: No Meds Allergies/Adverse Reactions: Allergies Allergy/AdvReac Type Severity Reaction Status Date / Time No Known Allergies Allergy Verified 05/15/18 10:25 - Medications Medications: Current Medications Acetaminophen (Tylenol 325mg Tab) 650 mg PO Q6 PRN PRN Reason: Fever >100.4 F Amlodipine Besylate (Norvasc) 5 mg PO DAILY [facility] Last Admin: 06/20/18 08:57 Dose: 5 mg Baclofen (Lioresal) 10 mg PO Q8 PRN PRN Reason: Muscle spasm Calcitriol (Rocaltrol) 0.25 mcg PO MWF [facility] Diazepam (Valium) 5 mg PO Q12 PRN PRN Reason: Anxiety Docusate Sodium (Colace) 100 mg PO BID PRN PRN Reason: Constipation Enoxaparin Sodium (Lovenox) 30 mg SC DAILY [facility]; Protocol Last Admin: 06/20/18 08:56 Dose: 30 mg Epoetin Tam (Procrit) 10,000 unit SC TTS [facility] Last Admin: 06/20/18 09:34 Dose: 10,000 unit Fluticasone Propionate (Flonase) 2 spr MANNY DAILY PRN PRN Reason: Nasal congestion Meropenem 500 mg/ Sodium (Chloride) 100 mls @ 100 mls/hr IVPB Q12 [facility] Last Admin: 06/20/18 08:55 Dose: 100 mls/hr Ketorolac Tromethamine (Toradol) 10 mg PO Q6 PRN PRN Reason: Pain, moderate (4-7) Last Admin: 06/20/18 11:12 Dose: 10 mg Metoprolol Tartrate (Lopressor) 25 mg PO Q12 [facility] Last Admin: 06/20/18 08:57 Dose: 25 mg Pantoprazole Sodium (Protonix Ec Tab) 40 mg PO DAILY [facility] Last Admin: 06/20/18 08:57 Dose: 40 mg Potassium Chloride (Klor-Con 10) 10 meq PO TID [facility] Last Admin: 06/20/18 08:57 Dose: 10 meq Sodium Bicarbonate (Sodium Bicarbonate Tab) 650 mg PO Q8 [facility] Last Admin: 06/20/18 08:56 Dose: 650 mg Vitamin B Complex/Vit C/Folic Acid (Nephro-Davidson) 1 tab PO DAILY [facility] Last Admin: 06/20/18 08:58 Dose: 1 tab Zolpidem Tartrate (Ambien) 5 mg PO HS PRN PRN Reason: Insomnia Last Admin: 06/19/18 22:45 Dose: 5 mg Physical Exam - Constitutional Appears: No Acute Distress - Head Exam Head Exam: ATRAUMATIC - Eye Exam Eye Exam: EOMI - ENT Exam ENT Exam: Normal Oropharynx - Neck Exam Neck exam: Positive for: Full Rom - Respiratory Exam Respiratory Exam: Clear to Auscultation Bilateral, NORMAL BREATHING PATTERN - Cardiovascular Exam Cardiovascular Exam: RRR, +S1, +S2 - GI/Abdominal Exam GI & Abdominal Exam: Normal Bowel Sounds, Soft Additional comments: NT, ND right nephrostomy tube draining yellow urine left nephrostomy tube draining bloody urine - Extremities Exam Extremities exam: Positive for: normal inspection - Neurological Exam Neurological exam: Alert, Oriented x3 Results - Vital Signs Recent Vital Signs: Last Vital Signs Temp 98.2 F 06/20/18 07:42 Pulse 80 06/20/18 11:10 Resp 20 06/20/18 07:42 BP 110/65 06/20/18 11:10 Pulse Ox 98 06/20/18 11:10 - Labs Result Diagrams: 06/20/18 04:25 06/20/18 04:25 Labs: Laboratory Results - last 24 hr 06/20/18 06/20/18 04:25 04:25 WBC 22.3 H D RBC 3.24 L Hgb 8.8 L Hct 27.8 L MCV 85.8 MCH 27.2 MCHC 31.8 L RDW 16.4 H Plt Count 370 MPV 7.5 Neut % (Auto) 92.6 H Lymph % (Auto) 2.2 L [place] % (Auto) 4.4 Eos % (Auto) 0.4 Baso % (Auto) 0.4 Neut # (Auto) 20.6 H Lymph # (Auto) 0.5 L [place] # (Auto) 1.0 H Eos # (Auto) 0.1 Baso # (Auto) 0.1 Neutrophils % (Manual) 92 H Band Neutrophils % 2 Lymphocytes % (Manual) 3 L Monocytes % (Manual) 3 Platelet Estimate Normal Hypochromasia (manual) Moderate Anisocytosis (manual) Slight Target Cells Slight Ovalocytes Slight Sodium 136 Potassium 3.4 L Chloride 104 Carbon Dioxide 23 Anion Gap 12 BUN 15 Creatinine 1.7 H Est GFR ( Amer) 37 Est GFR (Non-Af Amer) 30 Random Glucose 83 Calcium 8.5 Microbiology 06/19/18 12:57 Other: Please Indicate Gram Stain - Final 06/14/18 21:30 Blood Blood Culture - Final 06/14/18 21:30 Blood Gram Stain - Final NO GROWTH AFTER 5 DAYS TEST NOT PERFORMED 06/14/18 21:00 Blood Blood Culture - Final 06/14/18 21:00 Blood Gram Stain - Final NO GROWTH AFTER 5 DAYS TEST NOT PERFORMED 06/13/18 12:03 Blood-Venous Blood Culture - Final 06/13/18 12:03 Blood-Venous Gram Stain - Final NO GROWTH AFTER 5 DAYS TEST NOT PERFORMED 06/13/18 10:40 Blood-Venous Blood Culture - Final 06/13/18 10:40 Blood-Venous Gram Stain - Final NO GROWTH AFTER 5 DAYS TEST NOT PERFORMED 06/13/18 10:35 Urine,Kidney Urine Culture - Final Escherichia Coli 06/19/18 12:57 Other: Please Indicate Body Fluid Culture - Preliminary Gram Negative Tae Assessment & Plan - Assessment and Plan (Free Text) Plan: A/P- 63 year old female with multiple medical conditions including obstructive uropathy with indwelling right ureteral stent last changed 05/15/2018 was admitted with lower abd. pain, fever, leukocytoisis and + UA adn was found to have ESBl e.coli and has been on Meropnem for this . she is s/p right ureteral stent replacement yesterday and new left ureteral stent placement yesterday for lft hydronephrosis and is transferred to TCU for completion of her abx therapy . afebrile rise in wbc today blood cx- neg x4 admission urine cx- ESBl e.coli plan- continue with IV meropnem for ESBl e.coli UTI day #7. check wbc in am. monitor the left ureterasl tent output. thank you for this consult.
[2018-06-21 06:36] LABS: BASO # 0.1 K/uL (0.0-0.2); BASO % 0.6 % (0.0-2.0); EOS # 0.2 K/uL (0.0-0.7); EOS % 1.5 % (0.0-4.0); HEMOGLOBIN 8.3 g/dL (12.0-16.0); LYMPH # 0.7 K/uL (1.0-4.3); LYMPH % 4.9 % (20.0-40.0); MEAN CELL VOLUME 85.6 fl (81.0-99.0); MEAN CORPUSCULAR HEMOGLOBIN 27.3 pg (27.0-31.0); MEAN CORPUSCULAR HGB CONC 31.8 g/dL (33.0-37.0); MEAN PLATELET VOLUME 7.8 fl (7.2-11.7); MONO # 1.3 K/uL (0.0-0.8); MONO % 8.7 % (0.0-10.0); NEUT # 12.7 K/uL (1.8-7.0); NEUT % 84.3 % (50.0-75.0); RBC 3.06 Mil/uL (3.80-5.20); WHITE BLOOD COUNT 15.1 K/uL (4.8-10.8)
[2018-06-21 06:38] LABS: CALCIUM 8.3 mg/dL (8.4-10.2)
[2018-06-21] MEDS: Enoxaparin 30 mg Syringe SC SCH (08:17)
[2018-06-21] MEDS: Potassium Chloride 10 mEq ER Tab PO SCH ×3 (08:17→17:25)
[2018-06-21] MEDS: Multivitamin Vitamin B Complex (Nephro-Vite) Tab PO SCH (08:19)
[2018-06-21] MEDS: Pantoprazole 40 mg EC Tab PO SCH (08:19)
[2018-06-21] MEDS: Silver Sulfadiazine 1% Cream (20 gm) TOP SCH (08:25)
--- NOTE | 2018-06-21 09:40 | CP.PCM.PN ---
Subjective - Date & Time of Evaluation Date of Evaluation: 06/21/18 Time of Evaluation: 09:39 - Subjective Subjective: ID note- Patient seen and examined today in TCU. she denies any fever or chills and denies any nausea. states she still has suprapubic pain but denies any back pain and denies any foul smell urine in her diaper. Objective - Vital Signs/Intake and Output Vital Signs (last 24 hours): Temp Pulse Resp BP Pulse Ox 99.3 F 94 H 20 107/65 96 06/21/18 07:50 06/21/18 08:19 06/21/18 07:50 06/21/18 08:19 06/21/18 07:50 - Medications Medications: Current Medications Acetaminophen (Tylenol 325mg Tab) 650 mg PO Q6 PRN PRN Reason: Fever >100.4 F Amlodipine Besylate (Norvasc) 5 mg PO DAILY [facility] Last Admin: 06/21/18 08:19 Dose: 5 mg Baclofen (Lioresal) 10 mg PO Q8 PRN PRN Reason: Muscle spasm Calcitriol (Rocaltrol) 0.25 mcg PO MWF [facility] Last Admin: 06/21/18 08:20 Dose: 0.25 mcg Diazepam (Valium) 5 mg PO Q12 PRN PRN Reason: Anxiety Docusate Sodium (Colace) 100 mg PO BID PRN PRN Reason: Constipation Enoxaparin Sodium (Lovenox) 30 mg SC DAILY [facility]; Protocol Last Admin: 06/21/18 08:17 Dose: 30 mg Epoetin Tam (Procrit) 10,000 unit SC TTS [facility] Last Admin: 06/20/18 09:34 Dose: 10,000 unit Fluticasone Propionate (Flonase) 2 spr MANNY DAILY PRN PRN Reason: Nasal congestion Meropenem 500 mg/ Sodium (Chloride) 100 mls @ 100 mls/hr IVPB Q12 [facility] Last Admin: 06/21/18 08:24 Dose: 100 mls/hr Ketorolac Tromethamine (Toradol) 10 mg PO Q6 PRN PRN Reason: Pain, moderate (4-7) Last Admin: 06/21/18 08:20 Dose: 10 mg Metoprolol Tartrate (Lopressor) 25 mg PO Q12 [facility] Last Admin: 06/21/18 08:17 Dose: 25 mg Pantoprazole Sodium (Protonix Ec Tab) 40 mg PO DAILY [facility] Last Admin: 06/21/18 08:19 Dose: 40 mg Potassium Chloride (Klor-Con 10) 10 meq PO TID [facility] Last Admin: 06/21/18 08:17 Dose: 10 meq Silver Sulfadiazine (Silvadene 1% 20 Gm) 0 ea TOP DAILY [facility] Last Admin: 06/21/18 08:25 Dose: 1 unit Sodium Bicarbonate (Sodium Bicarbonate Tab) 650 mg PO Q8 [facility] Last Admin: 06/21/18 08:20 Dose: 650 mg Vitamin B Complex/Vit C/Folic Acid (Nephro-Davidson) 1 tab PO DAILY [facility] Last Admin: 06/21/18 08:19 Dose: 1 tab Zolpidem Tartrate (Ambien) 5 mg PO HS PRN PRN Reason: Insomnia Last Admin: 06/20/18 22:32 Dose: 5 mg - Labs Labs: - Additional Findings Additional findings: - Constitutional Appears: No Acute Distress - Head Exam Head Exam: ATRAUMATIC - Eye Exam Eye Exam: EOMI - ENT Exam ENT Exam: Normal Oropharynx - Neck Exam Neck exam: Positive for: Full Rom - Respiratory Exam Respiratory Exam: Clear to Auscultation Bilateral, NORMAL BREATHING PATTERN - Cardiovascular Exam Cardiovascular Exam: RRR, +S1, +S2 - GI/Abdominal Exam GI & Abdominal Exam: Normal Bowel Sounds, Soft Additional comments: ND minimal tenderenss in mid suprapubic region but no guarding, no rebound right nephrostomy tube draining yellow urine left nephrostomy tube draining bloody urine - Extremities Exam Extremities exam: Positive for: normal inspection - Neurological Exam Neurological exam: Alert, Oriented x 3 Laboratory Results - last 72 hr 06/20/18 06/20/18 06/21/18 04:25 04:25 05:40 WBC 22.3 H D 15.1 H RBC 3.24 L 3.06 L Hgb 8.8 L 8.3 L Hct 27.8 L 26.2 L MCV 85.8 85.6 MCH 27.2 27.3 MCHC 31.8 L 31.8 L RDW 16.4 H 17.0 H Plt Count 370 390 MPV 7.5 7.8 Neut % (Auto) 92.6 H 84.3 H Lymph % (Auto) 2.2 L 4.9 L Haywood % (Auto) 4.4 8.7 Eos % (Auto) 0.4 1.5 Baso % (Auto) 0.4 0.6 Neut # (Auto) 20.6 H 12.7 H Lymph # (Auto) 0.5 L 0.7 L Haywood # (Auto) 1.0 H 1.3 H Eos # (Auto) 0.1 0.2 Baso # (Auto) 0.1 0.1 Neutrophils % (Manual) 92 H Band Neutrophils % 2 Lymphocytes % (Manual) 3 L Monocytes % (Manual) 3 Platelet Estimate Normal Hypochromasia (manual) Moderate Anisocytosis (manual) Slight Target Cells Slight Ovalocytes Slight Sodium 136 Potassium 3.4 L Chloride 104 Carbon Dioxide 23 Anion Gap 12 BUN 15 Creatinine 1.7 H Est GFR ( Amer) 37 Est GFR (Non-Af Amer) 30 Random Glucose 83 Calcium 8.5 06/21/18 05:40 WBC RBC Hgb Hct MCV MCH MCHC RDW Plt Count MPV Neut % (Auto) Lymph % (Auto) Haywood % (Auto) Eos % (Auto) Baso % (Auto) Neut # (Auto) Lymph # (Auto) Haywood # (Auto) Eos # (Auto) Baso # (Auto) Neutrophils % (Manual) Band Neutrophils % Lymphocytes % (Manual) Monocytes % (Manual) Platelet Estimate Hypochromasia (manual) Anisocytosis (manual) Target Cells Ovalocytes Sodium 134 Potassium 3.6 Chloride 104 Carbon Dioxide 22 Anion Gap 12 BUN 17 Creatinine 1.8 H Est GFR ( Amer) 34 Est GFR (Non-Af Amer) 28 Random Glucose 85 Calcium 8.3 L Microbiology 02/09/18 19:00 Urine,Clean Catch Urine Culture - Final Escherichia Coli 06/19/18 12:57 Other: Please Indicate Gram Stain - Final 06/19/18 12:57 Other: Please Indicate Body Fluid Culture - Final Escherichia Coli 06/14/18 21:30 Blood Blood Culture - Final 06/14/18 21:30 Blood Gram Stain - Final NO GROWTH AFTER 5 DAYS TEST NOT PERFORMED 06/14/18 21:00 Blood Blood Culture - Final 06/14/18 21:00 Blood Gram Stain - Final NO GROWTH AFTER 5 DAYS TEST NOT PERFORMED 06/13/18 12:03 Blood-Venous Blood Culture - Final 06/13/18 12:03 Blood-Venous Gram Stain - Final NO GROWTH AFTER 5 DAYS TEST NOT PERFORMED 06/13/18 10:40 Blood-Venous Blood Culture - Final 06/13/18 10:40 Blood-Venous Gram Stain - Final NO GROWTH AFTER 5 DAYS TEST NOT PERFORMED 06/13/18 10:35 Urine,Kidney Urine Culture - Final Escherichia Coli 04/25/18 17:58 Urine,Mohamud Urine Culture - Final Morg Morganii Ss Morganii Assessment and Plan (1) JENNY (acute kidney injury) Status: Acute (2) Recurrent UTI Status: Acute - Assessment and Plan (Free Text) Assessment: A/P- 63 year old female with multiple medical conditions including obstructive uropathy with indwelling right ureteral stent last changed 05/15/2018 was admitted with lower abd. pain, fever, leukocytoisis and + UA adn was found to have ESBl e.coli and has been on Meropnem for this . she is s/p right ureteral stent replacement yesterday and new left ureteral st ent placement yesterday for lft hydronephrosis and is transferred to TCU for completion of her abx therapy . afebrile leukocytosis trending down today blood cx- neg x 4 urine cx - e.coli ESBL admission urine cx- ESBl e.coli plan- continue with IV meropnem for ESBl e.coli UTI day #8 check wbc in am. monitor the left ureteral stent output. suprapubic pain is chronic and could be from her underlying cervical CA as well, however, will notify her PMD here to see if any further imaging should be done.
--- NOTE | 2018-06-21 17:54 | CP.PCM.CON ---
History of Present Illness - History of Present Illness History of Present Illness: Dr Bhandari PMR consultation on Sudha Mccabe, born 1955 who has been admitted to [facility] TCU for BREANN following an admission with left ureteral stent placement. Already with an old right one. Has chronic low back pain and a recent CT with contrast revealed multi-level abnormalities with nerve root impingement. Sudha does not really have significant radicular symptoms or signs. Takes Tramadol at home which is helpful. Review of Systems - Constitutional Constitutional: absent: Anorexia, Chills - EENT Eyes: absent: Change in Vision Ears: absent: Ear Discharge Nose/Mouth/Throat: absent: Nasal Congestion - Cardiovascular Cardiovascular: absent: Chest Pain - Respiratory Respiratory: absent: Cough, Dyspnea - Gastrointestinal Gastrointestinal: absent: Belching, Constipation - Genitourinary Genitourinary: Other (2 stents) - Musculoskeletal Musculoskeletal: Back Pain. absent: Numbness - Psychiatric Psychiatric: absent: Anxiety Past Patient History - Infectious Disease Hx of Infectious Diseases: None - Tetanus Immunizations Tetanus Immunization: Unknown - Past Medical History & Family History Past Medical History?: Yes - Past Social History Smoking Status: Never Smoked Alcohol: None Drugs: Denies - CARDIAC Hx Hypertension: Yes - PULMONARY Hx Respiratory Disorders: Yes Hx Lung Cancer: Yes Other/Comment: Ca of Cervix with Lung ( L) Metastasis (10 years ago)PREVIOUSLY ON CHEMO/RADIATION THERAPHY - NEUROLOGICAL Hx Neurological Disorder: No - HEENT Hx HEENT Problems: No - RENAL Hx Chronic Kidney Disease: Yes (kidney stones; rt nephrostomy) Hx Kidney Stones: Yes - ENDOCRINE/METABOLIC Hx Endocrine Disorders: No - HEMATOLOGICAL/ONCOLOGICAL Hx AIDS: No Hx Anemia: Yes Hx Human Immunodeficiency Virus (HIV): No - INTEGUMENTARY Hx Dermatological Problems: No - MUSCULOSKELETAL/RHEUMATOLOGICAL Hx Musculoskeletal Disorders: No Hx Falls: No - GASTROINTESTINAL Hx Gastrointestinal Disorders: No - GENITOURINARY/GYNECOLOGICAL Hx Genitourinary Disorders: Yes Hx Cervical Cancer: Yes Hx Urinary Tract Infection: Yes Other/Comment: BLADDER PROBLEMS - PSYCHIATRIC Hx Anxiety: Yes Hx Depression: Yes - SURGICAL HISTORY Hx Surgeries: Yes Hx Pulmonary Surgery: Yes (Left Lobectomy) Hx Tubal Ligation: Yes Other/Comment: nephrostomy rt and left kidneys. 01/19/16 cystoscopy. insertion and removal of lifeport. Feb 2018 06 replacement of nephrostomy tube. - ANESTHESIA Hx Anesthesia: Yes Hx Anesthesia Reactions: No Hx Malignant Hyperthermia: No Meds Allergies/Adverse Reactions: Allergies Allergy/AdvReac Type Severity Reaction Status Date / Time No Known Allergies Allergy Verified 05/15/18 10:25 - Medications Medications: Current Medications Acetaminophen (Tylenol 325mg Tab) 650 mg PO Q6 PRN PRN Reason: Fever >100.4 F Amlodipine Besylate (Norvasc) 5 mg PO DAILY [facility] Last Admin: 06/21/18 08:19 Dose: 5 mg Baclofen (Lioresal) 10 mg PO Q8 PRN PRN Reason: Muscle spasm Calcitriol (Rocaltrol) 0.25 mcg PO MWF [facility] Last Admin: 06/21/18 08:20 Dose: 0.25 mcg Diazepam (Valium) 5 mg PO Q12 PRN PRN Reason: Anxiety Docusate Sodium (Colace) 100 mg PO BID PRN PRN Reason: Constipation Enoxaparin Sodium (Lovenox) 30 mg SC DAILY [facility]; Protocol Last Admin: 06/21/18 08:17 Dose: 30 mg Epoetin Tam (Procrit) 10,000 unit SC TTS [facility] Last Admin: 06/20/18 09:34 Dose: 10,000 unit Fluticasone Propionate (Flonase) 2 spr MANNY DAILY PRN PRN Reason: Nasal congestion Meropenem 500 mg/ Sodium (Chloride) 100 mls @ 100 mls/hr IVPB Q12 [facility] Last Admin: 06/21/18 08:24 Dose: 100 mls/hr Ketorolac Tromethamine (Toradol) 10 mg PO Q6 PRN PRN Reason: Pain, moderate (4-7) Last Admin: 06/21/18 17:24 Dose: 10 mg Metoprolol Tartrate (Lopressor) 25 mg PO Q12 [facility] Last Admin: 06/21/18 08:17 Dose: 25 mg Pantoprazole Sodium (Protonix Ec Tab) 40 mg PO DAILY [facility] Last Admin: 06/21/18 08:19 Dose: 40 mg Potassium Chloride (Klor-Con 10) 10 meq PO TID [facility] Last Admin: 06/21/18 17:25 Dose: 10 meq Silver Sulfadiazine (Silvadene 1% 20 Gm) 0 ea TOP DAILY [facility] Last Admin: 06/21/18 08:25 Dose: 1 unit Sodium Bicarbonate (Sodium Bicarbonate Tab) 650 mg PO Q8 [facility] Last Admin: 06/21/18 17:24 Dose: 650 mg Vitamin B Complex/Vit C/Folic Acid (Nephro-Davidson) 1 tab PO DAILY [facility] Last Admin: 06/21/18 08:19 Dose: 1 tab Zolpidem Tartrate (Ambien) 5 mg PO HS PRN PRN Reason: Insomnia Last Admin: 06/20/18 22:32 Dose: 5 mg Physical Exam - Constitutional Appears: Non-toxic, No Acute Distress - Head Exam Head Exam: ATRAUMATIC, NORMAL INSPECTION, NORMOCEPHALIC - Eye Exam Eye Exam: EOMI - ENT Exam ENT Exam: Mucous Membranes Moist - Respiratory Exam Respiratory Exam: NORMAL BREATHING PATTERN - Cardiovascular Exam Cardiovascular Exam: REGULAR RHYTHM - GI/Abdominal Exam GI & Abdominal Exam: absent: Distended (2 stents) - Extremities Exam Extremities exam: Negative for: calf tenderness - Neurological Exam Neurological exam: Alert, CN II-XII Intact, Oriented x3 - Psychiatric Exam Psychiatric exam: Normal Affect, Normal Mood - Skin Skin Exam: Normal Color Results - Vital Signs Recent Vital Signs: Last Vital Signs Temp 98.9 F 06/21/18 15:23 Pulse 82 06/21/18 15:23 Resp 20 06/21/18 15:23 BP 102/45 L 06/21/18 15:23 Pulse Ox 99 06/21/18 15:23 - Labs Result Diagrams: 06/21/18 05:40 06/21/18 05:40 Labs: Laboratory Results - last 24 hr 06/21/18 06/21/18 05:40 05:40 WBC 15.1 H RBC 3.06 L Hgb 8.3 L Hct 26.2 L MCV 85.6 MCH 27.3 MCHC 31.8 L RDW 17.0 H Plt Count 390 MPV 7.8 Neut % (Auto) 84.3 H Lymph % (Auto) 4.9 L Hart % (Auto) 8.7 Eos % (Auto) 1.5 Baso % (Auto) 0.6 Neut # (Auto) 12.7 H Lymph # (Auto) 0.7 L Hart # (Auto) 1.3 H Eos # (Auto) 0.2 Baso # (Auto) 0.1 Sodium 134 Potassium 3.6 Chloride 104 Carbon Dioxide 22 Anion Gap 12 BUN 17 Creatinine 1.8 H Est GFR ( Amer) 34 Est GFR (Non-Af Amer) 28 Random Glucose 85 Calcium 8.3 L Assessment & Plan - Assessment and Plan (Free Text) Assessment: PT/OT to continue to help increase functional independence Pain: controlled Vascular: no evidence of DVT GI: No evidence of constipation or diarrhea Patient continues to be an excellent TCU rehabilitation candidate and will have continued focused PT, OT and recreational therapy to help facilitate a safe and appropriate d/c plan
--- NOTE | 2018-06-21 19:14 | CP.PCM.PN ---
Subjective - Date & Time of Evaluation Date of Evaluation: 06/21/18 Time of Evaluation: 19:14 - Subjective Subjective: pt is seen and examined, follow up consult is dictated #[id number] stsart ivf 1/2 ns at 70 ml/hr Objective - Vital Signs/Intake and Output Vital Signs (last 24 hours): Temp Pulse Resp BP Pulse Ox 98.9 F 82 20 102/45 L 99 06/21/18 15:23 06/21/18 15:23 06/21/18 15:23 06/21/18 15:23 06/21/18 15:23 - Medications Medications: Current Medications Acetaminophen (Tylenol 325mg Tab) 650 mg PO Q6 PRN PRN Reason: Fever >100.4 F Amlodipine Besylate (Norvasc) 5 mg PO DAILY [facility] Last Admin: 06/21/18 08:19 Dose: 5 mg Baclofen (Lioresal) 10 mg PO Q8 PRN PRN Reason: Muscle spasm Calcitriol (Rocaltrol) 0.25 mcg PO MWF [facility] Last Admin: 06/21/18 08:20 Dose: 0.25 mcg Diazepam (Valium) 5 mg PO Q12 PRN PRN Reason: Anxiety Docusate Sodium (Colace) 100 mg PO BID PRN PRN Reason: Constipation Enoxaparin Sodium (Lovenox) 30 mg SC DAILY [facility]; Protocol Last Admin: 06/21/18 08:17 Dose: 30 mg Epoetin Tam (Procrit) 10,000 unit SC TTS [facility] Last Admin: 06/20/18 09:34 Dose: 10,000 unit Fluticasone Propionate (Flonase) 2 spr MANNY DAILY PRN PRN Reason: Nasal congestion Meropenem 500 mg/ Sodium (Chloride) 100 mls @ 100 mls/hr IVPB Q12 [facility] Last Admin: 06/21/18 08:24 Dose: 100 mls/hr Sodium Chloride (Sodium Chloride 0.45%) 1,000 mls @ 70 mls/hr IV .[id number] [facility] Stop: 06/22/18 19:06 Metoprolol Tartrate (Lopressor) 25 mg PO Q12 [facility] Last Admin: 06/21/18 08:17 Dose: 25 mg Pantoprazole Sodium (Protonix Ec Tab) 40 mg PO DAILY [facility] Last Admin: 06/21/18 08:19 Dose: 40 mg Potassium Chloride (Klor-Con 10) 10 meq PO TID [facility] Last Admin: 06/21/18 17:25 Dose: 10 meq Silver Sulfadiazine (Silvadene 1% 20 Gm) 0 ea TOP DAILY [facility] Last Admin: 06/21/18 08:25 Dose: 1 unit Sodium Bicarbonate (Sodium Bicarbonate Tab) 650 mg PO Q8 [facility] Last Admin: 06/21/18 17:24 Dose: 650 mg Tramadol HCl (Ultram) 50 mg PO Q6 PRN PRN Reason: pain 4-12/14 Vitamin B Complex/Vit C/Folic Acid (Nephro-Davidson) 1 tab PO DAILY [facility] Last Admin: 06/21/18 08:19 Dose: 1 tab Zolpidem Tartrate (Ambien) 5 mg PO HS PRN PRN Reason: Insomnia Last Admin: 06/20/18 22:32 Dose: 5 mg - Labs Labs: 06/21/18 05:40 06/21/18 05:40
[2018-06-21] MEDS: Sodium Chloride 0.45% 1,000 ML IV SCH (19:15)
--- NOTE | 2018-06-22 03:56 | PN ---
DATE: 06/21/2018 FOLLOWUP RENAL CONSULTATION LOCATION: The patient is located in room 706, bed 1. REQUESTED BY: Kike Tejada MD REASON FOR FOLLOWUP: Chronic kidney disease, UTI for further evaluation. SUBJECTIVE: Mrs. Mccabe is a 63-year-old elderly, very cachectic, thin-build, female with a past medical history significant for hypertension, cervical CA, status post chemo and radiation therapy in the past, status post lung surgery, obstructive uropathy, bilateral ureteral stricture, status post multiple stents placement for few years. Subsequently, the patient underwent percutaneous nephrostomy in both sides and later on left PCN was discontinued after placing left ureteral stent which were also discontinued later on. The patient has right PCN for more then two years and admitted with recurrent UTIs and also weakness, difficult to ambulate, and bilateral leg pain and also back pain with spinal stenosis. The patient was found to have anemia and UTI and also persistent hydronephrosis on the left side. The patient is being treated for UTI, and the patient underwent left PCN again. The patient was draining bloody urine on Tuesday, now urine is clearing up slowly but urine output is less compare to the right PCN. The patient is not in acute distress. Denies any complaints of chest pain, palpitation. Denies any fever or cough. Complaints of lower abdominal discomfort. PHYSICAL EXAMINATION: VITAL SIGNS: As follows: Blood pressure 113/64, pulse 93, respirations 20, temperature 98.9, saturation 98%. Height 5 feet 2 inches, and weight is 95 pounds. GENERAL: Mrs. Sudha Mccabe is a 63-year-old elderly female, moderately built, moderately nourished, not in acute distress. HEENT: Pupils normal and reactive to light and accommodation. Conjunctivae pink. Sclerae anicteric. Tongue is moist. Trachea is midline. LUNGS: Symmetric on both sides. The patient has bronchial breath sounds on the left side, right side normal breath sounds. CARDIOVASCULAR SYSTEM: S1, S2 audible. The patient has a systolic murmur in the aortic and pulmonary area. ABDOMEN: Normal in appearance, soft, tympanitic. No guarding, no rigidity. No hepatosplenomegaly. CENTRAL NERVOUS SYSTEM: The patient is alert, awake, oriented x3. Nonfocal neuro examination. Cranial nerves II through XII grossly intact. Sensory and motor system is within normal limits. EXTREMITIES: No cyanosis, no clubbing, no edema. MEDICATIONS: Her current medications include as follows: Ambien 5 mg at bedtime, Colace 100 mg p.o. b.i.d., Flonase, Klor-Con 10 mEq p.o. t.i.d., baclofen 10 mg p.o. every 8 hours, metoprolol 25 mg p.o. every 12 hours, Lovenox 30 mg subcu daily, meropenem 500 mg every 12 hours, Nephro-Davidson one tablet daily, amlodipine tablet 5 mg daily, Procrit 10,000 units three times a week, Protonix 40 mg p.o. daily, calcitriol 0.25 mcg three times a week, Silvadene cream, sodium bicarbonate 650 mg p.o. every 8 hours, IV fluids half normal saline 70 mL per hour, tramadol 50 mg p.o. every 6 hours p.r.n., Valium 5 mg p.o. every 12 hours p.r.n. LABORATORY DATA: Her laboratory data include as follows: As of 06/21/2018, WBC 15.1, hemoglobin 8.3, hematocrit is 26.2, platelets 390. Sodium 134, potassium 3.6, chloride 104, CO2 of 22, BUN 17, creatinine 1.8, glucose 85, calcium 8.3. Urine culture from the nephrostomy is E. coli and identified as ESBL positive and sensitive to ertapenem and also with gentamicin, meropenem, and Zosyn. ASSESSMENT: In summary, Mrs. Mccabe is a 63-year-old elderly, thin-build, cachectic, female with history of hypertension, spinal stenosis, cervical cancer, status post radiation and chemotherapy, and bilateral ureteral strictures, multiple stents, bilateral percutaneous nephrostomy about two years ago, subsequently left percutaneous nephrostomy was discontinued after placing a successful placement of ureteric stent, and now the patient has a persistent hydronephrosis and recurrent urinary tract infections, being treated for urinary tract infection. The patient underwent left percutaneous nephrostomy again with bloody urine. Urine is clearing up slowly and urine culture from the left percutaneous nephrostomy is positive for the Escherichia coli. 1. Chronic kidney disease as stage III, status post acute on chronic kidney disease. Serum creatinine improved. 2. Urinary tract infection with extended-spectrum beta-lactamases positive. 3. Hypertension. 4. Anemia. 5. Spinal stenosis. PLAN: Continue IV antibiotics as per ID recommendations, meropenem. Continue Procrit three times a week. Continue Nephro-Davidson p.o. daily. Continue metoprolol and Norvasc for the blood pressure, hold for systolic blood pressure less than 120. We will follow with you. Thank you for allowing me to participate in your patient's care. Continue IV fluids, half normal saline at 70 mL/hour. Ta Pemberton MD
[2018-06-22 05:45] LABS: BASO % 0.3 % (0.0-2.0); EOS # 0.2 K/uL (0.0-0.7); EOS % 1.2 % (0.0-4.0); HEMOGLOBIN 8.3 g/dL (12.0-16.0); LYMPH % 6.3 % (20.0-40.0); MEAN CELL VOLUME 84.4 fl (81.0-99.0); MEAN CORPUSCULAR HEMOGLOBIN 27.3 pg (27.0-31.0); MEAN CORPUSCULAR HGB CONC 32.3 g/dL (33.0-37.0); MEAN PLATELET VOLUME 7.6 fl (7.2-11.7); MONO # 1.1 K/uL (0.0-0.8); MONO % 6.8 % (0.0-10.0); NEUT # 13.5 K/uL (1.8-7.0); NEUT % 85.4 % (50.0-75.0); RBC 3.04 Mil/uL (3.80-5.20); RED CELL DISTRIBUTION WIDTH 17.1 % (11.5-14.5); WHITE BLOOD COUNT 15.8 K/uL (4.8-10.8)
[2018-06-22] MEDS: Enoxaparin 30 mg Syringe SC SCH (08:17)
[2018-06-22] MEDS: Silver Sulfadiazine 1% Cream (20 gm) TOP SCH (08:18)
[2018-06-22] MEDS: Potassium Chloride 10 mEq ER Tab PO SCH ×3 (08:18→16:46)
[2018-06-22] MEDS: Multivitamin Vitamin B Complex (Nephro-Vite) Tab PO SCH (08:19)
[2018-06-22] MEDS: Pantoprazole 40 mg EC Tab PO SCH (08:19)
[2018-06-22] MEDS: EPOETIN ALFA 10,000 UNIT/ML ML SC SCH (08:22)
[2018-06-22] MEDS: Sodium Chloride 0.45% 1,000 ML IV SCH ×2 (11:05→21:11)
--- NOTE | 2018-06-22 14:07 | CP.PCM.PN ---
Subjective - Date & Time of Evaluation Date of Evaluation: 06/22/18 Time of Evaluation: 13:00 - Subjective Subjective: Patient seen and examined. Continue to have pain on suprapubic area not completely responding to Toradol. Objective - Vital Signs/Intake and Output Vital Signs (last 24 hours): Temp Pulse Resp BP Pulse Ox 100.0 F H 97 H 20 122/69 96 06/22/18 07:54 06/22/18 08:19 06/22/18 07:54 06/22/18 08:19 06/22/18 07:54 - Medications Medications: Current Medications Acetaminophen (Tylenol 325mg Tab) 650 mg PO Q6 PRN PRN Reason: Fever >100.4 F Amlodipine Besylate (Norvasc) 5 mg PO DAILY [facility] Last Admin: 06/22/18 08:19 Dose: 5 mg Baclofen (Lioresal) 10 mg PO Q8 PRN PRN Reason: Muscle spasm Last Admin: 06/22/18 08:18 Dose: 10 mg Calcitriol (Rocaltrol) 0.25 mcg PO MWF [facility] Last Admin: 06/21/18 08:20 Dose: 0.25 mcg Diazepam (Valium) 5 mg PO Q12 PRN PRN Reason: Anxiety Docusate Sodium (Colace) 100 mg PO BID PRN PRN Reason: Constipation Enoxaparin Sodium (Lovenox) 30 mg SC DAILY [facility]; Protocol Last Admin: 06/22/18 08:17 Dose: 30 mg Epoetin Tam (Procrit) 10,000 unit SC TTS [facility] Last Admin: 06/22/18 08:22 Dose: 10,000 unit Fluticasone Propionate (Flonase) 2 spr MANNY DAILY PRN PRN Reason: Nasal congestion Meropenem 500 mg/ Sodium (Chloride) 100 mls @ 100 mls/hr IVPB Q12 [facility] Last Admin: 06/22/18 08:17 Dose: 100 mls/hr Sodium Chloride (Sodium Chloride 0.45%) 1,000 mls @ 70 mls/hr IV .[id number] [facility] Stop: 06/22/18 19:06 Last Admin: 06/22/18 11:05 Dose: 70 mls/hr Metoprolol Tartrate (Lopressor) 25 mg PO Q12 [facility] Last Admin: 06/22/18 08:19 Dose: 25 mg Pantoprazole Sodium (Protonix Ec Tab) 40 mg PO DAILY [facility] Last Admin: 06/22/18 08:19 Dose: 40 mg Potassium Chloride (Klor-Con 10) 10 meq PO TID [facility] Last Admin: 06/22/18 12:48 Dose: 10 meq Silver Sulfadiazine (Silvadene 1% 20 Gm) 0 ea TOP DAILY [facility] Last Admin: 06/22/18 08:18 Dose: 1 unit Sodium Bicarbonate (Sodium Bicarbonate Tab) 650 mg PO Q8 [facility] Last Admin: 06/22/18 08:18 Dose: 650 mg Tramadol HCl (Ultram) 50 mg PO Q6 PRN PRN Reason: pain 4-1010 Last Admin: 06/22/18 12:48 Dose: 50 mg Vitamin B Complex/Vit C/Folic Acid (Nephro-Davidson) 1 tab PO DAILY [facility] Last Admin: 06/22/18 08:19 Dose: 1 tab Zolpidem Tartrate (Ambien) 5 mg PO HS PRN PRN Reason: Insomnia Last Admin: 06/21/18 22:23 Dose: 5 mg - Labs Labs: 06/22/18 05:25 06/21/18 05:40 - Constitutional Appears: No Acute Distress - Head Exam Head Exam: ATRAUMATIC - Eye Exam Eye Exam: absent: Scleral icterus - ENT Exam ENT Exam: Mucous Membranes Moist - Neck Exam Neck Exam: absent: Meningismus - Respiratory Exam Respiratory Exam: absent: Rales, Rhonchi, Wheezes, Respiratory Distress - Cardiovascular Exam Cardiovascular Exam: REGULAR RHYTHM, +S1, +S2 - GI/Abdominal Exam GI & Abdominal Exam: Soft. absent: Tenderness - Rectal Exam Rectal Exam: Deferred - Neurological Exam Neurological Exam: Alert, Oriented x3 - Psychiatric Exam Psychiatric exam: Normal Affect - Skin Skin Exam: Dry, Intact Assessment and Plan - Assessment and Plan (Free Text) Assessment: 63 yo female with history of obstructive uropathy secondary to radiation therapy for cervical cancer requiring right ureteral placement admitted to TCU for continuation of IV antibiotics for ESBL E coli cultured from nephrostomy discharge. 1. Sepsis (met criteria on admission) continue IV Meropenem Day # 9 today repeated blood cultures negative nephrostomy discharge grew ESBL E coli 2. UTI on IV Meropenem 3. Obstructive Uropathy Right nephrostomy tube replaced by IR (Dr Moreno) Dr. Mares on urology consult 4. CKD stage IV stable, Cr 1.8, BUN 17 Dr. Pemberton on nephrology consult 5. Normocytic anemia anemia of chronic diseases/CKD H/H: today 8.3/25.7 on Procrit as per Nephro 6. HTN BP controlled continue Norvasc and Metoprolol 7. DVT prophylaxis on Lovenox 30 mg SC daily
[2018-06-23] MEDS: Pantoprazole 40 mg EC Tab PO SCH (08:25)
[2018-06-23] MEDS: Multivitamin Vitamin B Complex (Nephro-Vite) Tab PO SCH (08:25)
[2018-06-23] MEDS: Enoxaparin 30 mg Syringe SC SCH (08:25)
[2018-06-23] MEDS: Potassium Chloride 10 mEq ER Tab PO SCH ×3 (08:25→16:29)
[2018-06-23] MEDS: Silver Sulfadiazine 1% Cream (20 gm) TOP SCH (08:26)
--- NOTE | 2018-06-23 10:58 | CP.PCM.PN ---
Subjective - Date & Time of Evaluation Date of Evaluation: 06/23/18 Time of Evaluation: 10:58 - Subjective Subjective: ID Note- Patient seen and examined today in TCU. she is in good spirits but states she has diarrhea and still has suprapubic pain. denies any fever or any nausea. Objective - Vital Signs/Intake and Output Vital Signs (last 24 hours): Temp Pulse Resp BP Pulse Ox 99.6 F 93 H 20 126/74 96 06/23/18 08:12 06/23/18 08:26 06/23/18 08:12 06/23/18 08:26 06/23/18 08:12 Intake and Output: 06/23/18 06/23/18 06:59 18:59 Intake Total 800 Output Total 1230 Balance -430 - Medications Medications: Current Medications Acetaminophen (Tylenol 325mg Tab) 650 mg PO Q6 PRN PRN Reason: Fever >100.4 F Amlodipine Besylate (Norvasc) 5 mg PO DAILY [facility] Last Admin: 06/23/18 08:26 Dose: 5 mg Baclofen (Lioresal) 10 mg PO Q8 PRN PRN Reason: Muscle spasm Last Admin: 06/22/18 08:18 Dose: 10 mg Calcitriol (Rocaltrol) 0.25 mcg PO MWF [facility] Last Admin: 06/23/18 08:25 Dose: 0.25 mcg Diazepam (Valium) 5 mg PO Q12 PRN PRN Reason: Anxiety Docusate Sodium (Colace) 100 mg PO BID PRN PRN Reason: Constipation Enoxaparin Sodium (Lovenox) 30 mg SC DAILY [facility]; Protocol Last Admin: 06/23/18 08:25 Dose: 30 mg Epoetin Tam (Procrit) 10,000 unit SC TTS [facility] Last Admin: 06/22/18 08:22 Dose: 10,000 unit Fluticasone Propionate (Flonase) 2 spr MANNY DAILY PRN PRN Reason: Nasal congestion Meropenem 500 mg/ Sodium (Chloride) 100 mls @ 100 mls/hr IVPB Q12 [facility] Last Admin: 06/23/18 08:26 Dose: 100 mls/hr Sodium Chloride (Sodium Chloride 0.45%) 1,000 mls @ 70 mls/hr IV .[id number] [facility] Stop: 06/23/18 20:13 Last Admin: 06/22/18 21:11 Dose: 70 mls/hr Metoprolol Tartrate (Lopressor) 25 mg PO Q12 [facility] Last Admin: 06/23/18 08:25 Dose: 25 mg Pantoprazole Sodium (Protonix Ec Tab) 40 mg PO DAILY [facility] Last Admin: 06/23/18 08:25 Dose: 40 mg Potassium Chloride (Klor-Con 10) 10 meq PO TID [facility] Last Admin: 06/23/18 08:25 Dose: 10 meq Silver Sulfadiazine (Silvadene 1% 20 Gm) 0 ea TOP DAILY [facility] Last Admin: 06/23/18 08:26 Dose: 1 unit Sodium Bicarbonate (Sodium Bicarbonate Tab) 650 mg PO Q8 [facility] Last Admin: 06/23/18 08:25 Dose: 650 mg Tramadol HCl (Ultram) 50 mg PO Q6 PRN PRN Reason: pain 4-12/14 Last Admin: 06/23/18 08:24 Dose: 50 mg Vitamin B Complex/Vit C/Folic Acid (Nephro-Davidson) 1 tab PO DAILY [facility] Last Admin: 06/23/18 08:25 Dose: 1 tab Zolpidem Tartrate (Ambien) 5 mg PO HS PRN PRN Reason: Insomnia Last Admin: 06/21/18 22:23 Dose: 5 mg - Labs Labs: - Additional Findings Additional findings: - Constitutional Appears: No Acute Distress - Head Exam Head Exam: ATRAUMATIC - Eye Exam Eye Exam: EOMI - ENT Exam ENT Exam: Normal Oropharynx - Neck Exam Neck exam: Positive for: Full Rom - Respiratory Exam Respiratory Exam: Clear to Auscultation Bilateral, NORMAL BREATHING PATTERN - Cardiovascular Exam Cardiovascular Exam: RRR, +S1, +S2 - GI/Abdominal Exam GI & Abdominal Exam: Normal Bowel Sounds, Soft Additional comments: ND minimal tenderenss in mid suprapubic region but no guarding, no rebound right nephrostomy tube draining yellow urine left nephrostomy tube draining bloody urine - Extremities Exam Extremities exam: Positive for: normal inspection - Neurological Exam Neurological exam: Alert, Oriented x 3 Laboratory Results - last 72 hr 06/21/18 06/21/18 06/22/18 05:40 05:40 05:25 WBC 15.1 H 15.8 H RBC 3.06 L 3.04 L Hgb 8.3 L 8.3 L Hct 26.2 L 25.7 L MCV 85.6 84.4 MCH 27.3 27.3 MCHC 31.8 L 32.3 L RDW 17.0 H 17.1 H Plt Count 390 414 H MPV 7.8 7.6 Neut % (Auto) 84.3 H 85.4 H Lymph % (Auto) 4.9 L 6.3 L [place] % (Auto) 8.7 6.8 Eos % (Auto) 1.5 1.2 Baso % (Auto) 0.6 0.3 Neut # (Auto) 12.7 H 13.5 H Lymph # (Auto) 0.7 L 1.0 [place] # (Auto) 1.3 H 1.1 H Eos # (Auto) 0.2 0.2 Baso # (Auto) 0.1 0.0 Sodium 134 Potassium 3.6 Chloride 104 Carbon Dioxide 22 Anion Gap 12 BUN 17 Creatinine 1.8 H Est GFR ( Amer) 34 Est GFR (Non-Af Amer) 28 Random Glucose 85 Calcium 8.3 L Microbiology 06/19/18 12:57 Other: Please Indicate Gram Stain - Final 06/19/18 12:57 Other: Please Indicate Body Fluid Culture - Final Escherichia Coli 06/14/18 21:30 Blood Blood Culture - Final 06/14/18 21:30 Blood Gram Stain - Final NO GROWTH AFTER 5 DAYS TEST NOT PERFORMED 06/14/18 21:00 Blood Blood Culture - Final 06/14/18 21:00 Blood Gram Stain - Final NO GROWTH AFTER 5 DAYS TEST NOT PERFORMED 06/13/18 12:03 Blood-Venous Blood Culture - Final 06/13/18 12:03 Blood-Venous Gram Stain - Final NO GROWTH AFTER 5 DAYS TEST NOT PERFORMED 06/13/18 10:40 Blood-Venous Blood Culture - Final 06/13/18 10:40 Blood-Venous Gram Stain - Final NO GROWTH AFTER 5 DAYS TEST NOT PERFORMED 06/13/18 10:35 Urine,Kidney Urine Culture - Final Escherichia Coli Assessment and Plan (1) JENNY (acute kidney injury) Status: Acute (2) Recurrent UTI Status: Acute - Assessment and Plan (Free Text) Assessment: A/P- 63 year old female with multiple medical conditions including obstructive uropathy with indwelling right ureteral stent last changed 05/15/2018 was admitted with lower abd. pain, fever, leukocytoisis and + UA adn was found to have ESBl e.coli and has been on Meropnem for this . she is s/p right ureteral stent replacement yesterday and new left ureteral stent placement yesterday for lft hydronephrosis and is transferred to TCU for completion of her abx therapy . afebrile leukocytosis trending down very slowly blood cx- neg x 4 urine cx - e.coli ESBL admission urine cx- ESBl e.coli plan- continue with IV meropnem for ESBl e.coli UTI day #10 check wbc in am. monitor the left ureteral stent output. suprapubic pain is chronic and could be from her underlying cervical CA as well, however, may need further such as US to ascertain .
[2018-06-23] MEDS: Sodium Chloride 0.45% 1,000 ML IV SCH (11:10)
[2018-06-23 17:36] LABS: CALCIUM 8.6 mg/dL (8.4-10.2)
--- NOTE | 2018-06-23 18:08 | CP.PCM.PN ---
Subjective - Date & Time of Evaluation Date of Evaluation: 06/23/18 Time of Evaluation: 18:07 - Subjective Subjective: pt is seen and examined, follow up consult is dictated #[id number] Objective - Vital Signs/Intake and Output Vital Signs (last 24 hours): Temp Pulse Resp BP Pulse Ox 99.1 F 83 20 112/61 95 06/23/18 16:05 06/23/18 16:05 06/23/18 16:05 06/23/18 16:05 06/23/18 16:05 Intake and Output: 06/23/18 06/23/18 06:59 18:59 Intake Total 800 Output Total 1230 500 Balance -430 -500 - Medications Medications: Current Medications Acetaminophen (Tylenol 325mg Tab) 650 mg PO Q6 PRN PRN Reason: Fever >100.4 F Amlodipine Besylate (Norvasc) 5 mg PO DAILY [facility] Last Admin: 06/23/18 08:26 Dose: 5 mg Baclofen (Lioresal) 10 mg PO Q8 PRN PRN Reason: Muscle spasm Last Admin: 06/22/18 08:18 Dose: 10 mg Calcitriol (Rocaltrol) 0.25 mcg PO MWF [facility] Last Admin: 06/23/18 08:25 Dose: 0.25 mcg Diazepam (Valium) 5 mg PO Q12 PRN PRN Reason: Anxiety Docusate Sodium (Colace) 100 mg PO BID PRN PRN Reason: Constipation Enoxaparin Sodium (Lovenox) 30 mg SC DAILY [facility]; Protocol Last Admin: 06/23/18 08:25 Dose: 30 mg Epoetin Tam (Procrit) 10,000 unit SC TTS [facility] Last Admin: 06/22/18 08:22 Dose: 10,000 unit Fluticasone Propionate (Flonase) 2 spr MANNY DAILY PRN PRN Reason: Nasal congestion Meropenem 500 mg/ Sodium (Chloride) 100 mls @ 100 mls/hr IVPB Q12 [facility] Last Admin: 06/23/18 08:26 Dose: 100 mls/hr Sodium Chloride (Sodium Chloride 0.45%) 1,000 mls @ 70 mls/hr IV .[id number] [facility] Stop: 06/23/18 20:13 Last Admin: 06/23/18 11:10 Dose: Not Given Metoprolol Tartrate (Lopressor) 25 mg PO Q12 [facility] Last Admin: 06/23/18 08:25 Dose: 25 mg Pantoprazole Sodium (Protonix Ec Tab) 40 mg PO DAILY [facility] Last Admin: 06/23/18 08:25 Dose: 40 mg Potassium Chloride (Klor-Con 10) 10 meq PO TID [facility] Last Admin: 06/23/18 16:29 Dose: 10 meq Silver Sulfadiazine (Silvadene 1% 20 Gm) 0 ea TOP DAILY [facility] Last Admin: 06/23/18 08:26 Dose: 1 unit Sodium Bicarbonate (Sodium Bicarbonate Tab) 650 mg PO Q8 [facility] Last Admin: 06/23/18 16:29 Dose: 650 mg Tramadol HCl (Ultram) 50 mg PO Q6 PRN PRN Reason: pain 4-12/14 Last Admin: 06/23/18 14:50 Dose: 50 mg Vitamin B Complex/Vit C/Folic Acid (Nephro-Davidson) 1 tab PO DAILY [facility] Last Admin: 06/23/18 08:25 Dose: 1 tab Zolpidem Tartrate (Ambien) 5 mg PO HS PRN PRN Reason: Insomnia Last Admin: 06/21/18 22:23 Dose: 5 mg - Labs Labs: 06/22/18 05:25 06/23/18 16:45
[2018-06-23] MEDS ORDERED: Oxycodone/Acetaminophen 5/325 mg Tab PO ONE (20:39)
[2018-06-24] MEDS ORDERED: Oxycodone/Acetaminophen 5/325 mg Tab PO ONE (01:33)
--- NOTE | 2018-06-24 04:14 | PN ---
DATE: 06/23/2018 FOLLOWUP RENAL CONSULTATION LOCATION: The patient is located in room 706, Transitional Care Unit, bed 1. REQUESTED BY: Kike Tejada MD REASON FOR RENAL FOLLOWUP: Chronic kidney disease, UTI, left hydronephrosis, status post left PCN. SUBJECTIVE: Mrs. Mccabe is a 63-year-old elderly female with a past medical history significant for cervical CA, status post radiation treatment, status post ureteral strictures and bilateral hydronephrosis, requiring bilateral PCN about two years ago and multiple ureteral stent placement. Subsequently, the patient underwent the PCN for obstructive uropathy by Radiology more than two years ago. Subsequently, left PCN was removed with placement of ureteral stent which was also removed later on. Since then, the patient is developing recurrent UTIs with E. coli. Now the patient was admitted with severe weakness and bilateral leg pain and also back pain and severe spinal stenosis and decreased p.o. intake and weight loss more than 15 to 20 pounds in the last few months, and subsequently, the patient was found to have urosepsis and persistent hydronephrosis. The patient underwent left PCN placement on 06/19/2018 by interventional radiologist. Initially, the patient has a gross hematuria. On the left side, now urine is slowly clearing up. The patient is not in distress, complains of lower pelvic pain. Denies any nausea, vomiting, diarrhea. PHYSICAL EXAMINATION: Her vital signs as follows: VITAL SIGNS: This afternoon, blood pressure 112/61, pulse 83, respirations 20, temperature 99.1, saturation 95%. Height 5 feet 2 inches. Weight is 95 pounds. GENERAL: Mrs. Mccabe is a 63-year-old elderly thin-built, very cachectic, female, not in distress. HEENT: Pupils normal and reactive to light and accommodation. Conjunctivae slightly pale. Sclerae anicteric. Tongue is moist. Trachea is midline. LUNGS: Symmetric on both sides. Bilateral breath sounds present. The patient has bronchial breath sounds on the left side. Status post lung surgery in the past. CARDIOVASCULAR SYSTEM: S1, S2 audible. The patient has a systolic murmur present. ABDOMEN: Normal in appearance. Soft, tympanitic. No guarding. No rigidity. No hepatosplenomegaly. GENITOURINARY: The patient has bilateral PCN. Right PCN, urine is clear. Left side, slight hematuria present, and the patient has about 300 mL urine output since morning 8 o'clock. The patient is pulling about 500 to 700 mL from the left PCN. CENTRAL NERVOUS SYSTEM: The patient is alert, awake, oriented x3. Nonfocal neuro examination. Cranial nerves II through XII grossly intact. Sensory and motor system is within normal limits. EXTREMITIES: No cyanosis, no clubbing, no edema. CURRENT MEDICATIONS: Her current medications include as follows: Ambien 5 mg p.o. at bedtime p.r.n., Colace 100 mg p.o. b.i.d., Flonase two sprays nasal daily p.r.n., Klor-Con 10 mEq p.o. t.i.d., Baclofen 10 mg p.o. every 8 hours p.r.n., Lopressor 25 mg p.o. every 12 hours, Lovenox 30 mg subcutaneous daily, Nephro-Davidson one tablet daily, Norvasc 5 mg p.o. daily, Procrit 10,000 units three times a week, Protonix 40 mg p.o. daily, Silvadene cream, sodium bicarbonate 650 mg p.o. every 8 hours, Tylenol, tramadol 50 mg p.o. every 6 hours p.r.n., and Valium 5 mg p.o. every 12 hours p.r.n. LABORATORY DATA: Include as follows: As of 06/23/2018, sodium 131, potassium 3.9, chloride 95, CO2 of 25, BUN 14, creatinine 1.6, GFR 33, glucose 114, calcium 8.6. ASSESSMENT: In summary, Mrs. Mccabe is a 63-year-old elderly female with history of hypertension, cervical carcinoma, status post chemotherapy and radiation therapy, ureteral strictures, bilateral percutaneous nephrostomies in 2016. Subsequently, the left percutaneous nephrostomy was discontinued after ureteral stent placement and recurrent urinary tract infections with Escherichia coli who was admitted with urosepsis and weakness and severe anemia and also lower abdominal pain and dysuria with persistent hydronephrosis on the left side. The patient is being treated for urosepsis and also underwent left percutaneous nephrostomy with good urine output. Urine is slowly clearing up from the left percutaneous nephrostomy. 1. Acute renal failure, on chronic kidney disease. Renal function is improving. 2. Anemia secondary to renal failure, sepsis, and iron deficiency anemia. 3. Hypertension. Continue gentle intravenous hydration. Continue intravenous antibiotics as per Infectious Disease recommendations. Continue sodium bicarbonate. Continue Procrit. We will follow with you. Thank you for allowing me to participate in your patient's care. Ta Pemberton MD
[2018-06-24] MEDS: EPOETIN ALFA 10,000 UNIT/ML ML SC SCH (09:02)
[2018-06-24] MEDS: Multivitamin Vitamin B Complex (Nephro-Vite) Tab PO SCH (09:03)
[2018-06-24] MEDS: Enoxaparin 30 mg Syringe SC SCH (09:03)
[2018-06-24] MEDS: Potassium Chloride 10 mEq ER Tab PO SCH ×3 (09:04→16:04)
[2018-06-24] MEDS: Pantoprazole 40 mg EC Tab PO SCH (09:04)
[2018-06-24] MEDS: Silver Sulfadiazine 1% Cream (20 gm) TOP SCH (09:08)
[2018-06-24] MEDS: Sodium Chloride 0.45% 1,000 ML IV SCH (11:25)
[2018-06-24] MEDS: Oxycodone/Acetaminophen 5/325 mg Tab PO PRN ×2 (16:03→21:03)
[2018-06-25] MEDS: Sodium Chloride 0.45% 1,000 ML IV SCH (01:11)
[2018-06-25] MEDS: Oxycodone/Acetaminophen 5/325 mg Tab PO PRN ×4 (03:36→21:58)
[2018-06-25] MEDS: Enoxaparin 30 mg Syringe SC SCH (08:32)
[2018-06-25] MEDS: Potassium Chloride 10 mEq ER Tab PO SCH ×3 (08:33→16:49)
[2018-06-25] MEDS: Pantoprazole 40 mg EC Tab PO SCH (08:34)
[2018-06-25] MEDS: Multivitamin Vitamin B Complex (Nephro-Vite) Tab PO SCH (08:34)
[2018-06-25] MEDS: Silver Sulfadiazine 1% Cream (20 gm) TOP SCH (08:36)
--- NOTE | 2018-06-25 10:53 | CP.PCM.PN ---
Subjective - Date & Time of Evaluation Date of Evaluation: 06/25/18 Time of Evaluation: 10:53 - Subjective Subjective: pt is seen and examined, follow up consult is dictated #[id number] Objective - Vital Signs/Intake and Output Vital Signs (last 24 hours): Temp Pulse Resp BP Pulse Ox 97.9 F 86 20 116/61 99 06/25/18 09:00 06/25/18 09:00 06/25/18 09:00 06/25/18 09:00 06/25/18 09:00 - Medications Medications: Current Medications Acetaminophen (Tylenol 325mg Tab) 650 mg PO Q6 PRN PRN Reason: Fever >100.4 F Amlodipine Besylate (Norvasc) 5 mg PO DAILY [facility] Last Admin: 06/25/18 08:33 Dose: 5 mg Baclofen (Lioresal) 10 mg PO Q8 PRN PRN Reason: Muscle spasm Last Admin: 06/25/18 08:34 Dose: 10 mg Calcitriol (Rocaltrol) 0.25 mcg PO MWF [facility] Last Admin: 06/23/18 08:25 Dose: 0.25 mcg Diazepam (Valium) 5 mg PO Q12 PRN PRN Reason: Anxiety Docusate Sodium (Colace) 100 mg PO BID PRN PRN Reason: Constipation Last Admin: 06/25/18 08:32 Dose: 100 mg Enoxaparin Sodium (Lovenox) 30 mg SC DAILY [facility]; Protocol Last Admin: 06/25/18 08:32 Dose: 30 mg Epoetin Tam (Procrit) 10,000 unit SC TTS [facility] Last Admin: 06/24/18 09:02 Dose: 10,000 unit Fluticasone Propionate (Flonase) 2 spr MANNY DAILY PRN PRN Reason: Nasal congestion Meropenem 500 mg/ Sodium (Chloride) 100 mls @ 100 mls/hr IVPB Q12 [facility] Last Admin: 06/25/18 09:48 Dose: 100 mls/hr Metoprolol Tartrate (Lopressor) 25 mg PO Q12 [facility] Last Admin: 06/25/18 08:34 Dose: 25 mg Oxycodone/Acetaminophen (Percocet 5/325 Mg Tab) 1 tab PO Q6 PRN PRN Reason: Pain, moderate (4-7) Stop: 06/27/18 10:44 Last Admin: 06/25/18 09:47 Dose: 1 tab Pantoprazole Sodium (Protonix Ec Tab) 40 mg PO DAILY [facility] Last Admin: 06/25/18 08:34 Dose: 40 mg Potassium Chloride (Klor-Con 10) 10 meq PO TID [facility] Last Admin: 06/25/18 08:33 Dose: 10 meq Silver Sulfadiazine (Silvadene 1% 20 Gm) 0 ea TOP DAILY [facility] Last Admin: 06/25/18 08:36 Dose: 1 unit Sodium Bicarbonate (Sodium Bicarbonate Tab) 650 mg PO Q8 [facility] Last Admin: 06/25/18 08:34 Dose: 650 mg Vitamin B Complex/Vit C/Folic Acid (Nephro-Davidson) 1 tab PO DAILY [facility] Last Admin: 06/25/18 08:34 Dose: 1 tab Zolpidem Tartrate (Ambien) 5 mg PO HS PRN PRN Reason: Insomnia Last Admin: 06/24/18 22:13 Dose: 5 mg - Labs Labs: 06/22/18 05:25 06/23/18 16:45
--- NOTE | 2018-06-26 02:50 | PN ---
DATE: 06/25/2018 FOLLOWUP RENAL CONSULTATION LOCATION: The patient is located in room 706, bed 1. REQUESTED BY: Kike Tejada MD REASON FOR FOLLOWUP: Chronic kidney disease, UTI, status post nephrostomy tube placement for left hydronephrosis and anemia. SUBJECTIVE: Mrs. Mccabe is a 63-year-old elderly, very cachectic female with a past medical history significant for hypertension, chronic kidney disease, cervical CA, status post ureteral strictures, multiple stent placement and also got bilateral nephrostomy tubes in 2016. Subsequently, left nephrostomy tube was discontinued after successful placement of left ureteric stent placement. Now, the patient was admitted with recurrent UTIs and not feeling well and lower back pain, spinal stenosis, anemia and found to have UTI and also left hydronephrosis, recurrence and the patient underwent left PCN placement initially with a bloody urine. Now, the urine is clearing. The patient is feeling much better, not in distress. No chest pain, no palpation, no fever, no cough, no abdominal pain. No nausea, vomiting, diarrhea. PHYSICAL EXAMINATION: VITAL SIGNS: Blood pressure this morning 116/61, pulse 86, respirations 20, temperature 97.9, saturation 99%. Height 5 feet 2 inches. Weight is 95 pounds. GENERAL: Mrs. Mccabe is a 63-year-old elderly female, thin-built, not in distress. HEENT: Pupils normal and reactive to light and accommodation. Conjunctivae pink. Sclerae anicteric. Tongue is moist. Trachea is midline. LUNGS: Symmetric on both sides. Bilateral breath sounds present. Clear to auscultation. The patient has bronchial breath sounds on the left side. CARDIOVASCULAR SYSTEM: S1, S2 audible. The patient has a systolic murmur present. ABDOMEN: Normal in appearance. Soft, tympanitic. No guarding. No rigidity. No hepatosplenomegaly. CENTRAL NERVOUS SYSTEM: The patient is alert, awake, oriented x3. Nonfocal neuro examination. Cranial nerves II through XII grossly intact. Sensory and motor system is within normal limits. EXTREMITIES: No cyanosis, no clubbing, no edema. CURRENT MEDICATIONS: Her current medications include as follows: Ambien 5 mg at bedtime, Colace 100 mg p.o. b.i.d., Flonase, Klor-Con 10 mEq p.o. t.i.d., Baclofen 10 mg p.o. every 8 hours p.r.n., metoprolol 25 mg p.o. every 12 hours, Lovenox 30 mg subcutaneous daily, meropenem 500 mg every 12 hours, Nephro-Davidson one tablet daily, Norvasc 5 mg p.o. daily, Percocet one tablet p.o. every 6 hours p.r.n., Procrit 10,000 units three times a week, Protonix 40 mg p.o. daily, Calcitrol 0.25 mcg three times a week, sodium bicarbonate 650 mg p.o. every 8 hours, Tylenol, and Valium 5 mg p.o. every 12 hours p.r.n. LABORATORY DATA: No new labs available for today. As of 06/23/2018, sodium 131, potassium 3.9, chloride 95, CO2 of 25, BUN 14, creatinine 1.6, calcium 8.6. As of 06/22/2018, H and H 8.3/24.7. ASSESSMENT: In summary, Mrs. Mccabe is a 63-year-old elderly female with history of hypertension, cervical carcinoma, status post radiation and chemotherapy with ureteric obstruction, multiple ureteral stent placements with right nephrostomy for more than two years, was admitted with urinary tract infection and left hydronephrosis requiring nephrostomy tube placement on the left side. Now the urine is clearing up about 600 to 700 mL urine output in 24 hours from the left percutaneous nephrostomy. 1. Acute renal failure on chronic kidney disease. Renal function has improved after the left nephrostomy tube. 2. Anemia secondary to multifactorial, secondary to iron deficiency, renal failure and sepsis. 3. Urinary tract infection secondary to Escherichia coli. 4. Left hydronephrosis, status post left percutaneous nephrostomy. 5. Hypertension. 6. Spinal stenosis. Continue muscle relaxant. Continue analgesics. We will follow with you. Thank you for allowing me to participate in your patient's care. Repeat labs in a.m. Continue IV fluids until tomorrow. Ta Pemberton MD [facility] # [id number]
[2018-06-26 06:01] LABS: BASO # 0.2 K/uL (0.0-0.2); BASO % 1.3 % (0.0-2.0); EOS # 0.2 K/uL (0.0-0.7); EOS % 1.7 % (0.0-4.0); HEMOGLOBIN 9.8 g/dL (12.0-16.0); LYMPH # 1.4 K/uL (1.0-4.3); LYMPH % 10.8 % (20.0-40.0); MEAN CORPUSCULAR HEMOGLOBIN 27.7 pg (27.0-31.0); MEAN PLATELET VOLUME 7.4 fl (7.2-11.7); MONO # 0.9 K/uL (0.0-0.8); MONO % 7.4 % (0.0-10.0); NEUT # 9.9 K/uL (1.8-7.0); NEUT % 78.8 % (50.0-75.0); RBC 3.55 Mil/uL (3.80-5.20); RED CELL DISTRIBUTION WIDTH 16.9 % (11.5-14.5); WHITE BLOOD COUNT 12.5 K/uL (4.8-10.8)
[2018-06-26] MEDS: Oxycodone/Acetaminophen 5/325 mg Tab PO PRN ×4 (06:10→23:37)
[2018-06-26 06:37] LABS: ALB/GLOB RATIO 0.8 (1.0-2.1); ALBUMIN 3.1 g/dL (3.5-5.0); CALCIUM 9.2 mg/dL (8.4-10.2)
[2018-06-26] MEDS: Multivitamin Vitamin B Complex (Nephro-Vite) Tab PO SCH (08:11)
[2018-06-26] MEDS: Pantoprazole 40 mg EC Tab PO SCH (08:12)
[2018-06-26] MEDS: Potassium Chloride 10 mEq ER Tab PO SCH ×3 (08:12→17:03)
[2018-06-26] MEDS: Enoxaparin 30 mg Syringe SC SCH (08:17)
[2018-06-26] MEDS: Silver Sulfadiazine 1% Cream (20 gm) TOP SCH (10:00)
--- NOTE | 2018-06-26 11:58 | CP.PCM.PN ---
Subjective - Date & Time of Evaluation Date of Evaluation: 06/26/18 Time of Evaluation: 11:58 - Subjective Subjective: ID Note- Patient seen and examined today in TCU. Patient denies any fever or chills but still c/o pain in suprapubic region. denies any nausea or vomiting. denies any diarrhea. Objective - Vital Signs/Intake and Output Vital Signs (last 24 hours): Temp Pulse Resp BP Pulse Ox 98.4 F 71 20 110/64 98 06/26/18 07:42 06/26/18 08:12 06/26/18 07:42 06/26/18 08:12 06/26/18 07:42 Intake and Output: 06/26/18 06/26/18 06:59 18:59 Output Total 1100 Balance -1100 - Medications Medications: Current Medications Acetaminophen (Tylenol 325mg Tab) 650 mg PO Q6 PRN PRN Reason: Fever >100.4 F Amlodipine Besylate (Norvasc) 5 mg PO DAILY [facility] Last Admin: 06/26/18 08:12 Dose: 5 mg Baclofen (Lioresal) 10 mg PO Q8 PRN PRN Reason: Muscle spasm Last Admin: 06/25/18 08:34 Dose: 10 mg Calcitriol (Rocaltrol) 0.25 mcg PO MWF [facility] Last Admin: 06/26/18 08:11 Dose: 0.25 mcg Diazepam (Valium) 5 mg PO Q12 PRN PRN Reason: Anxiety Docusate Sodium (Colace) 100 mg PO BID PRN PRN Reason: Constipation Last Admin: 06/25/18 08:32 Dose: 100 mg Enoxaparin Sodium (Lovenox) 30 mg SC DAILY [facility]; Protocol Last Admin: 06/26/18 08:17 Dose: 30 mg Epoetin Tam (Procrit) 10,000 unit SC TTS [facility] Last Admin: 06/24/18 09:02 Dose: 10,000 unit Fluticasone Propionate (Flonase) 2 spr MANNY DAILY PRN PRN Reason: Nasal congestion Meropenem 500 mg/ Sodium (Chloride) 100 mls @ 100 mls/hr IVPB Q12 [facility] Last Admin: 06/26/18 08:10 Dose: 100 mls/hr Metoprolol Tartrate (Lopressor) 25 mg PO Q12 [facility] Last Admin: 06/26/18 08:12 Dose: 25 mg Oxycodone/Acetaminophen (Percocet 5/325 Mg Tab) 1 tab PO Q6 PRN PRN Reason: Pain, moderate (4-7) Stop: 06/27/18 10:44 Last Admin: 06/26/18 06:10 Dose: 1 tab Pantoprazole Sodium (Protonix Ec Tab) 40 mg PO DAILY [facility] Last Admin: 06/26/18 08:12 Dose: 40 mg Potassium Chloride (Klor-Con 10) 10 meq PO TID [facility] Last Admin: 06/26/18 08:12 Dose: 10 meq Silver Sulfadiazine (Silvadene 1% 20 Gm) 0 ea TOP DAILY [facility] Last Admin: 06/25/18 08:36 Dose: 1 unit Sodium Bicarbonate (Sodium Bicarbonate Tab) 650 mg PO Q8 [facility] Last Admin: 06/26/18 08:12 Dose: 650 mg Vitamin B Complex/Vit C/Folic Acid (Nephro-Davidson) 1 tab PO DAILY [facility] Last Admin: 06/26/18 08:11 Dose: 1 tab Zolpidem Tartrate (Ambien) 5 mg PO HS PRN PRN Reason: Insomnia Last Admin: 06/25/18 21:58 Dose: 5 mg - Labs Labs: - Additional Findings Additional findings: - Constitutional Appears: No Acute Distress - Head Exam Head Exam: ATRAUMATIC - Eye Exam Eye Exam: EOMI - ENT Exam ENT Exam: Normal Oropharynx - Neck Exam Neck exam: Positive for: Full Rom - Respiratory Exam Respiratory Exam: Clear to Auscultation Bilateral, NORMAL BREATHING PATTERN - Cardiovascular Exam Cardiovascular Exam: RRR, +S1, +S2 - GI/Abdominal Exam GI & Abdominal Exam: Normal Bowel Sounds, Soft Additional comments: ND minimal tenderness in mid suprapubic region but no guarding, no rebound right nephrostomy tube draining yellow urine left nephrostomy tube no longer bloody drainage - Extremities Exam Extremities exam: Positive for: normal inspection - Neurological Exam Neurological exam: Alert, Oriented x 3 Laboratory Results - last 72 hr 06/23/18 06/26/18 06/26/18 16:45 05:45 05:45 WBC 12.5 H RBC 3.55 L Hgb 9.8 L Hct 29.8 L MCV 84.0 MCH 27.7 MCHC 33.0 RDW 16.9 H Plt Count 443 H MPV 7.4 Neut % (Auto) 78.8 H Lymph % (Auto) 10.8 L Noble % (Auto) 7.4 Eos % (Auto) 1.7 Baso % (Auto) 1.3 Neut # (Auto) 9.9 H Lymph # (Auto) 1.4 Noble # (Auto) 0.9 H Eos # (Auto) 0.2 Baso # (Auto) 0.2 Sodium 131 L 134 Potassium 3.9 4.4 Chloride 95 L 98 Carbon Dioxide 25 29 Anion Gap 15 11 BUN 14 14 Creatinine 1.6 H 1.8 H Est GFR ( Amer) 39 34 Est GFR (Non-Af Amer) 33 28 Random Glucose 114 H 85 Calcium 8.6 9.2 Phosphorus 3.9 Magnesium 1.5 L Total Bilirubin 0.3 AST 38 H ALT 22 Alkaline Phosphatase 96 Total Protein 7.0 Albumin 3.1 L Globulin 3.9 Albumin/Globulin Ratio 0.8 L Microbiology 06/19/18 12:57 Other: Please Indicate Gram Stain - Final 06/19/18 12:57 Other: Please Indicate Body Fluid Culture - Final Escherichia Coli 06/14/18 21:30 Blood Blood Culture - Final 06/14/18 21:30 Blood Gram Stain - Final NO GROWTH AFTER 5 DAYS TEST NOT PERFORMED 06/14/18 21:00 Blood Blood Culture - Final 06/14/18 21:00 Blood Gram Stain - Final NO GROWTH AFTER 5 DAYS TEST NOT PERFORMED 06/13/18 12:03 Blood-Venous Blood Culture - Final 06/13/18 12:03 Blood-Venous Gram Stain - Final NO GROWTH AFTER 5 DAYS TEST NOT PERFORMED 06/13/18 10:40 Blood-Venous Blood Culture - Final 06/13/18 10:40 Blood-Venous Gram Stain - Final NO GROWTH AFTER 5 DAYS TEST NOT PERFORMED 06/13/18 10:35 Urine,Kidney Urine Culture - Final Escherichia Coli Assessment and Plan (1) JENNY (acute kidney injury) Status: Acute (2) Recurrent UTI Status: Acute - Assessment and Plan (Free Text) Assessment: A/P- 63 year old female with multiple medical conditions including obstructive uropathy with indwelling right ureteral stent last changed 05/15/2018 was admitted with lower abd. pain, fever, leukocytoisis and + UA adn was found to have ESBl e.coli and has been on Meropnem for this . she is s/p right ureteral stent replacement yesterday and new left ureteral stent placement yesterday for lft hydronephrosis and is transferred to TCU for completion of her abx therapy . afebrile suprapubic pain leukocytosis trending down very slowly blood cx- neg x 4 urine cx - e.coli ESBL admission urine cx- ESBl e.coli plan- continue with IV meropnem for ESBl e.coli UTI day #12 check wbc in am.advise abd/pelvic US to assess the periststent suprapubic pain. monitor creatinine and wbc closely. all above d/w patient and she verbalizes full understanding of all above and agrees with above plan of care. d/w Hospitalist as well.
[2018-06-27] MEDS: Oxycodone/Acetaminophen 5/325 mg Tab PO PRN ×4 (06:04→23:40)
[2018-06-27 06:41] LABS: BASO # 0.1 K/uL (0.0-0.2); BASO % 0.5 % (0.0-2.0); EOS # 0.2 K/uL (0.0-0.7); EOS % 1.4 % (0.0-4.0); HEMOGLOBIN 10.2 g/dL (12.0-16.0); LYMPH # 1.4 K/uL (1.0-4.3); LYMPH % 9.4 % (20.0-40.0); MEAN CELL VOLUME 84.8 fl (81.0-99.0); MEAN CORPUSCULAR HEMOGLOBIN 27.1 pg (27.0-31.0); MEAN CORPUSCULAR HGB CONC 31.9 g/dL (33.0-37.0); MEAN PLATELET VOLUME 7.8 fl (7.2-11.7); MONO # 1.2 K/uL (0.0-0.8); MONO % 7.6 % (0.0-10.0); NEUT # 12.4 K/uL (1.8-7.0); NEUT % 81.1 % (50.0-75.0); PLATELET COUNT 504 K/uL (130-400); RBC 3.78 Mil/uL (3.80-5.20); WHITE BLOOD COUNT 15.2 K/uL (4.8-10.8)
[2018-06-27 09:04] LABS: ANISOCYTOSIS SLIGHT; BANDS 1 % (0-2); LYMPHOCYTE 4 % (20-50); MONOCYTE 8 % (0-10); NEUTROPHIL 87 % (42-75); PLATELET ESTIMATE INCREASED (NORMAL); TOTAL CELLS COUNTED 100
[2018-06-27 09:05] LABS: HYPOCHROMIC SLIGHT
[2018-06-27 09:07] LABS: LARGE PLATELETS PRESENT
[2018-06-27] MEDS: Enoxaparin 30 mg Syringe SC SCH (09:17)
[2018-06-27] MEDS: Potassium Chloride 10 mEq ER Tab PO SCH ×2 (09:18→12:18)
[2018-06-27] MEDS: Multivitamin Vitamin B Complex (Nephro-Vite) Tab PO SCH (09:18)
[2018-06-27] MEDS: Pantoprazole 40 mg EC Tab PO SCH (09:18)
[2018-06-27] MEDS: EPOETIN ALFA 10,000 UNIT/ML ML SC SCH (09:19)
[2018-06-27] MEDS: Silver Sulfadiazine 1% Cream (20 gm) TOP SCH (09:19)
--- NOTE | 2018-06-27 11:46 | CP.PCM.PN ---
Subjective - Date & Time of Evaluation Date of Evaluation: 06/27/18 Time of Evaluation: 11:27 - Subjective Subjective: Patient seen and examined at bedside. Continues to complain of lower abdominal pain. Has increased white count today. We will likely obtain abdominal ultrasound for imaging as patient did not tolerate pelvic ultrasound yesterday. If this is insufficient we will pursue CT of the abdomen for further evaluation. Discussed with ID. Objective - Vital Signs/Intake and Output Vital Signs (last 24 hours): Temp Pulse Resp BP Pulse Ox 98.6 F 81 20 105/56 L 99 06/27/18 07:46 06/27/18 09:20 06/27/18 07:46 06/27/18 09:20 06/27/18 07:46 Intake and Output: 06/27/18 06/27/18 06:59 18:59 Intake Total 100 Output Total 1400 Balance -1300 Vitals Reviewed GEN: WDWN, alert, cooperative HEENT: NCAT, PERRL, EOMI HEART: RRR, +S1S2, NO MRG LUNG: CTAB, NO WRR ABD: soft, NT, ND, No HSM, No masses EXT: normal pedal pulses NEURO: awake, alert SKIN: warm, dry PSYCH: normal mood, normal affect - Medications Medications: Current Medications Acetaminophen (Tylenol 325mg Tab) 650 mg PO Q6 PRN PRN Reason: Fever >100.4 F Amlodipine Besylate (Norvasc) 5 mg PO DAILY [facility] Last Admin: 06/27/18 09:18 Dose: 5 mg Baclofen (Lioresal) 10 mg PO Q8 PRN PRN Reason: Muscle spasm Last Admin: 06/25/18 08:34 Dose: 10 mg Calcitriol (Rocaltrol) 0.25 mcg PO MWF [facility] Last Admin: 06/26/18 08:11 Dose: 0.25 mcg Diazepam (Valium) 5 mg PO Q12 PRN PRN Reason: Anxiety Docusate Sodium (Colace) 100 mg PO BID PRN PRN Reason: Constipation Last Admin: 06/25/18 08:32 Dose: 100 mg Enoxaparin Sodium (Lovenox) 30 mg SC DAILY [facility]; Protocol Last Admin: 06/27/18 09:17 Dose: 30 mg Epoetin Tam (Procrit) 10,000 unit SC TTS [facility] Last Admin: 06/27/18 09:19 Dose: 10,000 unit Fluticasone Propionate (Flonase) 2 spr MANNY DAILY PRN PRN Reason: Nasal congestion Meropenem 500 mg/ Sodium (Chloride) 100 mls @ 100 mls/hr IVPB Q12 [facility] Last Admin: 06/27/18 09:17 Dose: 100 mls/hr Metoprolol Tartrate (Lopressor) 25 mg PO Q12 [facility] Last Admin: 06/27/18 09:20 Dose: 25 mg Pantoprazole Sodium (Protonix Ec Tab) 40 mg PO DAILY [facility] Last Admin: 06/27/18 09:18 Dose: 40 mg Potassium Chloride (Klor-Con 10) 10 meq PO TID [facility] Last Admin: 06/27/18 09:18 Dose: 10 meq Silver Sulfadiazine (Silvadene 1% 20 Gm) 0 ea TOP DAILY [facility] Last Admin: 06/27/18 09:19 Dose: 1 unit Sodium Bicarbonate (Sodium Bicarbonate Tab) 650 mg PO Q8 [facility] Last Admin: 06/27/18 09:19 Dose: 650 mg Vitamin B Complex/Vit C/Folic Acid (Nephro-Davidson) 1 tab PO DAILY [facility] Last Admin: 06/27/18 09:18 Dose: 1 tab Zolpidem Tartrate (Ambien) 5 mg PO HS PRN PRN Reason: Insomnia Last Admin: 06/26/18 22:30 Dose: 5 mg - Labs Labs: 06/27/18 06:10 06/26/18 05:45 Assessment and Plan - Assessment and Plan (Free Text) Plan: 63 yo female with history of obstructive uropathy secondary to radiation therapy for cervical cancer requiring right ureteral placement admitted to TCU for continuation of IV antibiotics for ESBL E coli cultured from nephrostomy discharge. Patient continues to have lower abdominal pain. Attempted pelvic ultrasound ye sterday however bladder was not feeling appropriately for proper imaging. Will attempt to do an abdominal ultrasound today. Discussed with infectious disease, will obtain CT abdominal ultrasound equivocal. 1. Sepsis (met criteria on admission) continue IV Meropenem Day #14 today repeated blood cultures negative nephrostomy discharge grew ESBL E coli 2. UTI on IV Meropenem 3. Obstructive Uropathy Right nephrostomy tube replaced by IR (Dr Moreno) Dr. Mares on urology consult 4. CKD stage IV stable, Cr 1.8, BUN 17 Dr. Pemberton on nephrology consult 5. Normocytic anemia anemia of chronic diseases/CKD H/H: today 8.3/25.7 on Procrit as per Nephro 6. HTN BP controlled continue Norvasc and Metoprolol 7. DVT prophylaxis on Lovenox 30 mg SC daily
[2018-06-28] MEDS: Oxycodone/Acetaminophen 5/325 mg Tab PO PRN ×3 (06:42→18:45)
[2018-06-28] MEDS: Multivitamin Vitamin B Complex (Nephro-Vite) Tab PO SCH (09:00)
[2018-06-28] MEDS: Pantoprazole 40 mg EC Tab PO SCH (09:00)
[2018-06-28] MEDS: Silver Sulfadiazine 1% Cream (20 gm) TOP SCH (09:01)
--- NOTE | 2018-06-28 11:20 | CP.PCM.PN ---
Subjective - Date & Time of Evaluation Date of Evaluation: 06/28/18 Time of Evaluation: 11:20 - Subjective Subjective: ID Note- Pt. seen and examined today. afebrile. still has lower abd/suprapubic discomfort. left ureteral stent with bloody fluid again. Objective - Vital Signs/Intake and Output Vital Signs (last 24 hours): Temp Pulse Resp BP Pulse Ox 98.7 F 89 20 98/56 L 98 06/28/18 08:02 06/28/18 08:02 06/28/18 08:02 06/28/18 08:02 06/28/18 08:02 - Medications Medications: Current Medications Acetaminophen (Tylenol 325mg Tab) 650 mg PO Q6 PRN PRN Reason: Fever >100.4 F Amlodipine Besylate (Norvasc) 5 mg PO DAILY [facility] Last Admin: 06/28/18 09:00 Dose: Not Given Baclofen (Lioresal) 10 mg PO Q8 PRN PRN Reason: Muscle spasm Last Admin: 06/25/18 08:34 Dose: 10 mg Calcitriol (Rocaltrol) 0.25 mcg PO MWF [facility] Last Admin: 06/28/18 09:00 Dose: Not Given Diazepam (Valium) 5 mg PO Q12 PRN PRN Reason: Anxiety Docusate Sodium (Colace) 100 mg PO BID PRN PRN Reason: Constipation Last Admin: 06/25/18 08:32 Dose: 100 mg Epoetin Tam (Procrit) 10,000 unit SC TTS [facility] Last Admin: 06/27/18 09:19 Dose: 10,000 unit Fluticasone Propionate (Flonase) 2 spr MANNY DAILY PRN PRN Reason: Nasal congestion Meropenem 500 mg/ Sodium (Chloride) 100 mls @ 100 mls/hr IVPB Q12 [facility] Last Admin: 06/28/18 08:59 Dose: 100 mls/hr Metoprolol Tartrate (Lopressor) 25 mg PO Q12 [facility] Last Admin: 06/28/18 09:00 Dose: Not Given Oxycodone/Acetaminophen (Percocet 5/325 Mg Tab) 1 tab PO Q6 PRN PRN Reason: for moderate pain 4-7 Stop: 06/30/18 17:04 Last Admin: 06/28/18 06:42 Dose: 1 tab Pantoprazole Sodium (Protonix Ec Tab) 40 mg PO DAILY [facility] Last Admin: 06/28/18 09:00 Dose: Not Given Silver Sulfadiazine (Silvadene 1% 20 Gm) 0 ea TOP DAILY [facility] Last Admin: 06/28/18 09:01 Dose: 1 applic Sodium Bicarbonate (Sodium Bicarbonate Tab) 650 mg PO Q8 [facility] Last Admin: 06/28/18 09:01 Dose: Not Given Vitamin B Complex/Vit C/Folic Acid (Nephro-Davidson) 1 tab PO DAILY [facility] Last Admin: 06/28/18 09:00 Dose: Not Given Zolpidem Tartrate (Ambien) 5 mg PO HS PRN PRN Reason: Insomnia Last Admin: 06/27/18 23:00 Dose: 5 mg - Labs Labs: - Additional Findings Additional findings: - Constitutional Appears: No Acute Distress - Head Exam Head Exam: ATRAUMATIC - Eye Exam Eye Exam: EOMI - ENT Exam ENT Exam: Normal Oropharynx - Neck Exam Neck exam: Positive for: Full Rom - Respiratory Exam Respiratory Exam: Clear to Auscultation Bilateral, NORMAL BREATHING PATTERN - Cardiovascular Exam Cardiovascular Exam: RRR, +S1, +S2 - GI/Abdominal Exam GI & Abdominal Exam: Normal Bowel Sounds, Soft Additional comments: ND minimal tenderness in mid suprapubic region but no guarding, no rebound right nephrostomy tube draining yellow urine left nephrostomy tube bloody drainage both stent sites clean/ no erythema - Extremities Exam Extremities exam: Positive for: normal inspection - Neurological Exam Neurological exam: Alert, Oriented x 3 Laboratory Results - last 72 hr 06/26/18 06/26/18 06/27/18 05:45 05:45 06:10 WBC 12.5 H 15.2 H RBC 3.55 L 3.78 L Hgb 9.8 L 10.2 L Hct 29.8 L 32.0 L MCV 84.0 84.8 MCH 27.7 27.1 MCHC 33.0 31.9 L RDW 16.9 H 17.0 H Plt Count 443 H 504 H MPV 7.4 7.8 Neut % (Auto) 78.8 H 81.1 H Lymph % (Auto) 10.8 L 9.4 L [place]ah % (Auto) 7.4 7.6 Eos % (Auto) 1.7 1.4 Baso % (Auto) 1.3 0.5 Neut # (Auto) 9.9 H 12.4 H Lymph # (Auto) 1.4 1.4 [place]ah # (Auto) 0.9 H 1.2 H Eos # (Auto) 0.2 0.2 Baso # (Auto) 0.2 0.1 Neutrophils % (Manual) 87 H Band Neutrophils % 1 Lymphocytes % (Manual) 4 L Monocytes % (Manual) 8 Platelet Estimate Increased H Large Platelets Present Hypochromasia (manual) Slight Anisocytosis (manual) Slight Sodium 134 Potassium 4.4 Chloride 98 Carbon Dioxide 29 Anion Gap 11 BUN 14 Creatinine 1.8 H Est GFR ( Amer) 34 Est GFR (Non-Af Amer) 28 Random Glucose 85 Calcium 9.2 Phosphorus 3.9 Magnesium 1.5 L Total Bilirubin 0.3 AST 38 H ALT 22 Alkaline Phosphatase 96 Total Protein 7.0 Albumin 3.1 L Globulin 3.9 Albumin/Globulin Ratio 0.8 L Assessment and Plan (1) JENNY (acute kidney injury) Status: Acute (2) Recurrent UTI Status: Acute - Assessment and Plan (Free Text) Assessment: A/P- 63 year old female with multiple medical conditions including obstructive uropathy with indwelling right ureteral stent last changed 05/15/2018 was admitted with lower abd. pain, fever, leukocytoisis and + UA adn was found to have ESBl e.coli and has been on Meropnem for this . she is s/p right ureteral stent replacement yesterday and new left ureteral stent placement yesterday for lft hydronephrosis and is transferred to TCU for completion of her abx therapy . afebrile suprapubic pain leukocytosis persists blood cx- neg x 4 urine cx - e.coli ESBL admission urine cx- ESBl e.coli abd US report noted.left hydro much improved as per report right collecting system fullness as per report plan- continue with IV meropnem for ESBl e.coli UTI day #14 check wbc along with creatinine in am. advise f/u and evaluation of persistent hematurea from left ureteral stent. all above d/w patient and she verbalizes full understanding of all above and agrees with above plan of care. d/w Hospitalist as well.
[2018-06-28] MEDS: Enoxaparin 30 mg Syringe SC SCH (13:33)
[2018-06-28] MEDS ORDERED: Meropenem 500 MG in Sodium Chloride 0.9% 100 ML IVPB SCH (17:45)
[2018-06-28] MEDS: Meropenem 500 MG in Sodium Chloride 0.9% 100 ML IVPB SCH (20:58)
[2018-06-29] MEDS: Oxycodone/Acetaminophen 5/325 mg Tab PO PRN ×5 (00:02→22:16)
[2018-06-29 07:52] LABS: BASO # 0.1 K/uL (0.0-0.2); BASO % 0.6 % (0.0-2.0); EOS # 0.3 K/uL (0.0-0.7); HEMOGLOBIN 9.9 g/dL (12.0-16.0); LYMPH # 1.6 K/uL (1.0-4.3); LYMPH % 12.2 % (20.0-40.0); MEAN CELL VOLUME 84.6 fl (81.0-99.0); MEAN CORPUSCULAR HEMOGLOBIN 26.9 pg (27.0-31.0); MEAN CORPUSCULAR HGB CONC 31.9 g/dL (33.0-37.0); MEAN PLATELET VOLUME 7.6 fl (7.2-11.7); MONO # 1.2 K/uL (0.0-0.8); MONO % 9.2 % (0.0-10.0); RBC 3.67 Mil/uL (3.80-5.20); RED CELL DISTRIBUTION WIDTH 17.3 % (11.5-14.5); WHITE BLOOD COUNT 13.2 K/uL (4.8-10.8)
[2018-06-29] MEDS: Meropenem 500 MG in Sodium Chloride 0.9% 100 ML IVPB SCH ×2 (08:01→22:04)
[2018-06-29] MEDS: Enoxaparin 30 mg Syringe SC SCH (08:02)
[2018-06-29] MEDS: Pantoprazole 40 mg EC Tab PO SCH (08:03)
[2018-06-29] MEDS: Multivitamin Vitamin B Complex (Nephro-Vite) Tab PO SCH (08:03)
[2018-06-29] MEDS: EPOETIN ALFA 10,000 UNIT/ML ML SC SCH (08:05)
[2018-06-29 08:17] LABS: CALCIUM 9.2 mg/dL (8.4-10.2)
--- NOTE | 2018-06-29 08:43 | CP.PCM.CON ---
History of Present Illness - History of Present Illness History of Present Illness: pt is 63 ys old female who has been admitted to [facility] TCU for BREANN following an admission with left ureteral stent placement. pt has previous psychiatric diagnosis of depression and anxiety , no history of previous hospitalizations, on evaluation pt seen in bed cooperative good eye contact ,speech soft, thought form coherent reported feeling down at time due to her medical condition , reduced appetite, early insomnia, pt denied any current suicidal or homicidal ideation denied perceptual disturbances. alert awake oriented to time place and person Past Patient History - Infectious Disease Hx of Infectious Diseases: None - Tetanus Immunizations Tetanus Immunization: Unknown - Past Medical History & Family History Past Medical History?: Yes - Past Social History Smoking Status: Never Smoked Alcohol: None Drugs: Denies - CARDIAC Hx Hypertension: Yes - PULMONARY Hx Respiratory Disorders: Yes Hx Lung Cancer: Yes Other/Comment: Ca of Cervix with Lung ( L) Metastasis (10 years ago)PREVIOUSLY ON CHEMO/RADIATION THERAPHY - NEUROLOGICAL Hx Neurological Disorder: No - HEENT Hx HEENT Problems: No - RENAL Hx Chronic Kidney Disease: Yes (kidney stones; rt nephrostomy) Hx Kidney Stones: Yes - ENDOCRINE/METABOLIC Hx Endocrine Disorders: No - HEMATOLOGICAL/ONCOLOGICAL Hx AIDS: No Hx Anemia: Yes Hx Human Immunodeficiency Virus (HIV): No - INTEGUMENTARY Hx Dermatological Problems: No - MUSCULOSKELETAL/RHEUMATOLOGICAL Hx Musculoskeletal Disorders: No Hx Falls: No - GASTROINTESTINAL Hx Gastrointestinal Disorders: No - GENITOURINARY/GYNECOLOGICAL Hx Genitourinary Disorders: Yes Hx Cervical Cancer: Yes Hx Urinary Tract Infection: Yes Other/Comment: BLADDER PROBLEMS - PSYCHIATRIC Hx Anxiety: Yes Hx Depression: Yes - SURGICAL HISTORY Hx Surgeries: Yes Hx Pulmonary Surgery: Yes (Left Lobectomy) Hx Tubal Ligation: Yes Other/Comment: nephrostomy rt and left kidneys. 01/19/16 cystoscopy. insertion and removal of lifeport. Feb 2018 replacement of nephrostomy tube. - ANESTHESIA Hx Anesthesia: Yes Hx Anesthesia Reactions: No Hx Malignant Hyperthermia: No Meds Allergies/Adverse Reactions: Allergies Allergy/AdvReac Type Severity Reaction Status Date / Time No Known Allergies Allergy Verified 05/15/18 10:25 - Medications Medications: Current Medications Acetaminophen (Tylenol 325mg Tab) 650 mg PO Q6 PRN PRN Reason: Fever >100.4 F Amlodipine Besylate (Norvasc) 5 mg PO DAILY [facility] Last Admin: 06/29/18 08:03 Dose: 5 mg Baclofen (Lioresal) 10 mg PO Q8 PRN PRN Reason: Muscle spasm Last Admin: 06/25/18 08:34 Dose: 10 mg Calcitriol (Rocaltrol) 0.25 mcg PO MWF [facility] Last Admin: 06/28/18 09:00 Dose: Not Given Docusate Sodium (Colace) 100 mg PO BID PRN PRN Reason: Constipation Last Admin: 06/25/18 08:32 Dose: 100 mg Enoxaparin Sodium (Lovenox) 30 mg SC DAILY [facility]; Protocol Last Admin: 06/29/18 08:02 Dose: 30 mg Epoetin Tam (Procrit) 10,000 unit SC TTS [facility] Last Admin: 06/29/18 08:05 Dose: 10,000 unit Fluticasone Propionate (Flonase) 2 spr MANNY DAILY PRN PRN Reason: Nasal congestion Meropenem 500 mg/ Sodium (Chloride) 100 mls @ 100 mls/hr IVPB Q12@0900,2100 [facility]; Protocol Last Admin: 06/29/18 08:01 Dose: 100 mls/hr Metoprolol Tartrate (Lopressor) 25 mg PO Q12 [facility] Last Admin: 06/29/18 08:03 Dose: 25 mg Oxycodone/Acetaminophen (Percocet 5/325 Mg Tab) 1 tab PO Q6 PRN PRN Reason: for moderate pain 4-7 Stop: 06/30/18 17:04 Last Admin: 06/29/18 05:44 Dose: 1 tab Pantoprazole Sodium (Protonix Ec Tab) 40 mg PO DAILY [facility] Last Admin: 06/29/18 08:03 Dose: 40 mg Silver Sulfadiazine (Silvadene 1% 20 Gm) 0 ea TOP DAILY [facility] Last Admin: 06/28/18 09:01 Dose: 1 applic Sodium Bicarbonate (Sodium Bicarbonate Tab) 650 mg PO Q8 [facility] Last Admin: 06/29/18 08:03 Dose: 650 mg Vitamin B Complex/Vit C/Folic Acid (Nephro-Davidson) 1 tab PO DAILY [facility] Last Admin: 06/29/18 08:03 Dose: 1 tab Zolpidem Tartrate (Ambien) 5 mg PO HS PRN PRN Reason: Insomnia Last Admin: 06/28/18 23:06 Dose: 5 mg Results - Vital Signs Recent Vital Signs: Last Vital Signs Temp 98.7 F 06/29/18 08:24 Pulse 92 H 06/29/18 08:24 Resp 20 06/29/18 08:24 BP 103/62 06/29/18 08:24 Pulse Ox 99 06/29/18 08:24 - Labs Result Diagrams: 06/29/18 06:45 06/29/18 06:45 Labs: Laboratory Results - last 24 hr 06/29/18 06/29/18 06:45 06:45 WBC 13.2 H RBC 3.67 L Hgb 9.9 L Hct 31.0 L MCV 84.6 MCH 26.9 L MCHC 31.9 L RDW 17.3 H Plt Count 449 H MPV 7.6 Neut % (Auto) 76.0 H Lymph % (Auto) 12.2 L Potter % (Auto) 9.2 Eos % (Auto) 2.0 Baso % (Auto) 0.6 Neut # (Auto) 10.0 H Lymph # (Auto) 1.6 Potter # (Auto) 1.2 H Eos # (Auto) 0.3 Baso # (Auto) 0.1 Sodium 131 L Potassium 3.8 Chloride 96 L Carbon Dioxide 26 Anion Gap 13 BUN 22 H Creatinine 1.7 H Est GFR ( Amer) 37 Est GFR (Non-Af Amer) 30 Random Glucose 90 Calcium 9.2 Assessment & Plan - Assessment and Plan (Free Text) Assessment: mood disorder due to medical condition with depressive features Plan: patient would benefit from starting remeron 7.5mg qhs continue with ambien 5mg qhs prn for insomnia
[2018-06-29] MEDS: Silver Sulfadiazine 1% Cream (20 gm) TOP SCH (09:18)
--- NOTE | 2018-06-29 15:09 | CP.PCM.PN ---
Subjective - Date & Time of Evaluation Date of Evaluation: 06/29/18 Time of Evaluation: 14:30 - Subjective Subjective: Patient seen and examined. Continued to complain of suprapubic pain which is temporarily relieved with Percocet. Patient admitted having the pain for a long time. Objective - Vital Signs/Intake and Output Vital Signs (last 24 hours): Temp Pulse Resp BP Pulse Ox 98.7 F 92 H 20 103/62 99 06/29/18 08:24 06/29/18 08:24 06/29/18 08:24 06/29/18 08:24 06/29/18 08:24 Intake and Output: 06/29/18 06/29/18 06:59 18:59 Output Total 800 Balance -800 - Medications Medications: Current Medications Acetaminophen (Tylenol 325mg Tab) 650 mg PO Q6 PRN PRN Reason: Fever >100.4 F Amlodipine Besylate (Norvasc) 5 mg PO DAILY [facility] Last Admin: 06/29/18 08:03 Dose: 5 mg Baclofen (Lioresal) 10 mg PO Q8 PRN PRN Reason: Muscle spasm Last Admin: 06/25/18 08:34 Dose: 10 mg Calcitriol (Rocaltrol) 0.25 mcg PO MWF [facility] Last Admin: 06/28/18 09:00 Dose: Not Given Docusate Sodium (Colace) 100 mg PO BID PRN PRN Reason: Constipation Last Admin: 06/25/18 08:32 Dose: 100 mg Enoxaparin Sodium (Lovenox) 30 mg SC DAILY [facility]; Protocol Last Admin: 06/29/18 08:02 Dose: 30 mg Epoetin Tam (Procrit) 10,000 unit SC TTS [facility] Last Admin: 06/29/18 08:05 Dose: 10,000 unit Fluticasone Propionate (Flonase) 2 spr MANNY DAILY PRN PRN Reason: Nasal congestion Meropenem 500 mg/ Sodium (Chloride) 100 mls @ 100 mls/hr IVPB Q12@0900,2100 [facility]; Protocol Last Admin: 06/29/18 08:01 Dose: 100 mls/hr Metoprolol Tartrate (Lopressor) 25 mg PO Q12 [facility] Last Admin: 06/29/18 08:03 Dose: 25 mg Mirtazapine (Remeron) 7.5 mg PO HS [facility] Oxycodone/Acetaminophen (Percocet 5/325 Mg Tab) 1 tab PO Q6 PRN PRN Reason: for moderate pain 4-7 Stop: 06/30/18 17:04 Last Admin: 06/29/18 12:14 Dose: 1 tab Pantoprazole Sodium (Protonix Ec Tab) 40 mg PO DAILY [facility] Last Admin: 06/29/18 08:03 Dose: 40 mg Silver Sulfadiazine (Silvadene 1% 20 Gm) 0 ea TOP DAILY [facility] Last Admin: 06/29/18 09:18 Dose: 1 applic Sodium Bicarbonate (Sodium Bicarbonate Tab) 650 mg PO Q8 [facility] Last Admin: 06/29/18 08:03 Dose: 650 mg Vitamin B Complex/Vit C/Folic Acid (Nephro-Davidson) 1 tab PO DAILY [facility] Last Admin: 06/29/18 08:03 Dose: 1 tab Zolpidem Tartrate (Ambien) 5 mg PO HS PRN PRN Reason: Insomnia Last Admin: 06/28/18 23:06 Dose: 5 mg - Labs Labs: 06/29/18 06:45 06/29/18 06:45 - Constitutional Appears: No Acute Distress - Head Exam Head Exam: ATRAUMATIC - Eye Exam Eye Exam: absent: Scleral icterus - ENT Exam ENT Exam: Mucous Membranes Moist - Neck Exam Neck Exam: absent: Meningismus - Respiratory Exam Respiratory Exam: absent: Rales, Rhonchi, Wheezes, Respiratory Distress - Cardiovascular Exam Cardiovascular Exam: REGULAR RHYTHM, +S1, +S2 - GI/Abdominal Exam GI & Abdominal Exam: Soft. absent: Tenderness - Rectal Exam Rectal Exam: Deferred - Neurological Exam Neurological Exam: Alert, Normal Gait, Oriented x3 - Psychiatric Exam Psychiatric exam: Normal Affect - Skin Skin Exam: Dry, Intact Assessment and Plan - Assessment and Plan (Free Text) Assessment: 63 yo female with history of obstructive uropathy secondary to radiation therapy for cervical cancer requiring right ureteral placement admitted to TCU for continuation of IV antibiotics for ESBL E coli cultured from nephrostomy discharge. 1. Sepsis (met criteria on admission) continue IV Meropenem blood cultures negative ESBL E coli isolated on nephrostomy discharge 2. UTI on IV Meropenem 3. Obstructive Uropathy with bilateral ureteral stents Dr. Mares on urology consult 4. CKD stage IV stable, Cr 1.7, BUN 22 Dr. Pemberton on nephrology consult 5. Normocytic anemia anemia of chronic diseases/CKD H/H: today continue Procrit 6. HTN BP controlled continue Norvasc and Metoprolol 7. DVT prophylaxis on Lovenox 30 mg SC daily
[2018-06-30] MEDS: Oxycodone/Acetaminophen 5/325 mg Tab PO PRN ×5 (04:14→20:16)
[2018-06-30] MEDS: Meropenem 500 MG in Sodium Chloride 0.9% 100 ML IVPB SCH (08:05)
[2018-06-30] MEDS: Enoxaparin 30 mg Syringe SC SCH (08:06)
[2018-06-30] MEDS: Multivitamin Vitamin B Complex (Nephro-Vite) Tab PO SCH (08:08)
[2018-06-30] MEDS: Pantoprazole 40 mg EC Tab PO SCH (08:09)
[2018-06-30] MEDS: Silver Sulfadiazine 1% Cream (20 gm) TOP SCH (08:20)
--- NOTE | 2018-06-30 11:22 | CP.PCM.PN ---
Subjective - Date & Time of Evaluation Date of Evaluation: 06/30/18 Time of Evaluation: 11:22 - Subjective Subjective: ID Note- Pt. seen and examined today. remains afebrile. still has the lower bad/suprapubic pain as per hospitalist this pain is chron ic. Objective - Vital Signs/Intake and Output Vital Signs (last 24 hours): Temp Pulse Resp BP Pulse Ox 99.3 F 91 H 20 102/62 98 06/30/18 07:58 06/30/18 08:08 06/30/18 07:58 06/30/18 08:08 06/30/18 07:58 Intake and Output: 06/30/18 06/30/18 06:59 18:59 Output Total 1070 Balance -1070 - Medications Medications: Current Medications Acetaminophen (Tylenol 325mg Tab) 650 mg PO Q6 PRN PRN Reason: Fever >100.4 F Amlodipine Besylate (Norvasc) 5 mg PO DAILY [facility] Last Admin: 06/30/18 08:07 Dose: 5 mg Baclofen (Lioresal) 10 mg PO Q8 PRN PRN Reason: Muscle spasm Last Admin: 06/30/18 08:07 Dose: 10 mg Calcitriol (Rocaltrol) 0.25 mcg PO MWF [facility] Last Admin: 06/30/18 08:08 Dose: 0.25 mcg Docusate Sodium (Colace) 100 mg PO BID PRN PRN Reason: Constipation Last Admin: 06/25/18 08:32 Dose: 100 mg Enoxaparin Sodium (Lovenox) 30 mg SC DAILY [facility]; Protocol Last Admin: 06/30/18 08:06 Dose: 30 mg Epoetin Tam (Procrit) 10,000 unit SC TTS [facility] Last Admin: 06/29/18 08:05 Dose: 10,000 unit Fluticasone Propionate (Flonase) 2 spr MANNY DAILY PRN PRN Reason: Nasal congestion Meropenem 500 mg/ Sodium (Chloride) 100 mls @ 100 mls/hr IVPB Q12@0900,2100 [facility]; Protocol Last Admin: 06/30/18 08:05 Dose: 100 mls/hr Metoprolol Tartrate (Lopressor) 25 mg PO Q12 [facility] Last Admin: 06/30/18 08:08 Dose: 25 mg Mirtazapine (Remeron) 7.5 mg PO HS [facility] Last Admin: 06/29/18 22:05 Dose: 7.5 mg Oxycodone/Acetaminophen (Percocet 5/325 Mg Tab) 1 tab PO Q4 PRN PRN Reason: for moderate pain 4-7 Stop: 07/02/18 21:01 Last Admin: 06/30/18 08:17 Dose: 1 tab Pantoprazole Sodium (Protonix Ec Tab) 40 mg PO DAILY [facility] Last Admin: 06/30/18 08:09 Dose: 40 mg Silver Sulfadiazine (Silvadene 1% 20 Gm) 0 ea TOP DAILY [facility] Last Admin: 06/30/18 08:20 Dose: 1 applic Sodium Bicarbonate (Sodium Bicarbonate Tab) 650 mg PO Q8 [facility] Last Admin: 06/30/18 08:07 Dose: 650 mg Vitamin B Complex/Vit C/Folic Acid (Nephro-Davidson) 1 tab PO DAILY [facility] Last Admin: 06/30/18 08:08 Dose: 1 tab Zolpidem Tartrate (Ambien) 5 mg PO HS PRN PRN Reason: Insomnia Last Admin: 06/29/18 23:15 Dose: 5 mg - Labs Labs: - Additional Findings Additional findings: - Constitutional Appears: No Acute Distress - Head Exam Head Exam: ATRAUMATIC - Eye Exam Eye Exam: EOMI - ENT Exam ENT Exam: Normal Oropharynx - Neck Exam Neck exam: Positive for: Full Rom - Respiratory Exam Respiratory Exam: Clear to Auscultation Bilateral, NORMAL BREATHING PATTERN - Cardiovascular Exam Cardiovascular Exam: RRR, +S1, +S2 - GI/Abdominal Exam GI & Abdominal Exam: Normal Bowel Sounds, Soft Additional comments: ND minimal tenderness in mid suprapubic region but no guarding, no rebound right nephrostomy tube draining yellow urine left nephrostomy tube bloody drainage both stent sites clean/ no erythema - Extremities Exam Extremities exam: Positive for: normal inspection - Neurological Exam Neurological exam: Alert, Oriented x 3 Laboratory Results - last 72 hr 06/29/18 06/29/18 06:45 06:45 WBC 13.2 H RBC 3.67 L Hgb 9.9 L Hct 31.0 L MCV 84.6 MCH 26.9 L MCHC 31.9 L RDW 17.3 H Plt Count 449 H MPV 7.6 Neut % (Auto) 76.0 H Lymph % (Auto) 12.2 L [place] % (Auto) 9.2 Eos % (Auto) 2.0 Baso % (Auto) 0.6 Neut # (Auto) 10.0 H Lymph # (Auto) 1.6 Cook # (Auto) 1.2 H Eos # (Auto) 0.3 Baso # (Auto) 0.1 Sodium 131 L Potassium 3.8 Chloride 96 L Carbon Dioxide 26 Anion Gap 13 BUN 22 H Creatinine 1.7 H Est GFR ( Amer) 37 Est GFR (Non-Af Amer) 30 Random Glucose 90 Calcium 9.2 Microbiology 06/27/18 18:00 Urine,Catheterized Urine Culture - Final No Growth (<1,000 CFU/ML) Microbiology 06/19/18 12:57 Other: Please Indicate Gram Stain - Final 06/19/18 12:57 Other: Please Indicate Body Fluid Culture - Final Escherichia Coli 06/14/18 21:30 Blood Blood Culture - Final 06/14/18 21:30 Blood Gram Stain - Final NO GROWTH AFTER 5 DAYS TEST NOT PERFORMED 06/14/18 21:00 Blood Blood Culture - Final 06/14/18 21:00 Blood Gram Stain - Final NO GROWTH AFTER 5 DAYS TEST NOT PERFORMED Assessment and Plan (1) JENNY (acute kidney injury) Status: Acute (2) Recurrent UTI Status: Acute - Assessment and Plan (Free Text) Assessment: A/P- 63 year old female with multiple medical conditions including 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 pain, fever, leukocytoisis and + UA adn was found to have ESBl e.coli and has been on Meropnem for this . she is s/p right ureteral stent replacement yesterday and new left ureteral stent placement yesterday for lft hydronephrosis and is transferred to TCU for completion of her abx therapy . afebrile suprapubic pain leukocytosis trending down blood cx- neg x 4 urine cx - e.coli ESBL admission urine cx- ESBl e.coli abd US report noted.left hydro much improved as per report right collecting system fullness as per report repeat urine cx 06/27/2018- negative plan- completed 16 days of IV meropnem for e.coli UTI. repeat urine cx - neg d/c meropnem . advise f/u and evaluation of persistent hematurea from left ureteral stent. all above d/w patient and she verbalizes full understanding of all above and agrees with above plan of care. d/w Hospitalist as well.
[2018-07-01] MEDS: Oxycodone/Acetaminophen 5/325 mg Tab PO PRN ×5 (00:26→20:25)
[2018-07-01 07:02] LABS: HEMOGLOBIN 10.9 g/dL (12.0-16.0); MEAN CORPUSCULAR HEMOGLOBIN 27.2 pg (27.0-31.0); RED CELL DISTRIBUTION WIDTH 17.8 % (11.5-14.5); WHITE BLOOD COUNT 13.2 K/uL (4.8-10.8)
[2018-07-01] MEDS: Enoxaparin 30 mg Syringe SC SCH (08:52)
[2018-07-01] MEDS: Multivitamin Vitamin B Complex (Nephro-Vite) Tab PO SCH (08:53)
[2018-07-01] MEDS: Pantoprazole 40 mg EC Tab PO SCH (08:54)
[2018-07-01] MEDS: Silver Sulfadiazine 1% Cream (20 gm) TOP SCH (09:00)
[2018-07-01] MEDS: EPOETIN ALFA 10,000 UNIT/ML ML SC SCH (10:11)
[2018-07-01] MEDS: Sodium Chloride 0.9% 1,000 ML IV SCH (21:20)
[2018-07-02] MEDS: Oxycodone/Acetaminophen 5/325 mg Tab PO PRN ×6 (00:11→20:11)
[2018-07-02] MEDS: Sodium Chloride 0.9% 1,000 ML IV SCH ×2 (06:25→17:56)
[2018-07-02] MEDS: Enoxaparin 30 mg Syringe SC SCH (08:13)
[2018-07-02] MEDS: Silver Sulfadiazine 1% Cream (20 gm) TOP SCH (08:14)
[2018-07-02] MEDS: Multivitamin Vitamin B Complex (Nephro-Vite) Tab PO SCH (08:15)
[2018-07-02] MEDS: Pantoprazole 40 mg EC Tab PO SCH (08:15)
[2018-07-02] MEDS ORDERED: Sodium Chloride 0.9% 1,000 ML IV SCH (20:30)
[2018-07-03] MEDS ORDERED: Oxycodone/Acetaminophen 5/325 mg Tab PO PRN (00:14)
[2018-07-03] MEDS: Oxycodone/Acetaminophen 5/325 mg Tab PO PRN ×4 (00:24→12:52)
[2018-07-03 06:56] LABS: CALCIUM 8.6 mg/dL (8.4-10.2)
[2018-07-03 07:59] VITALS: O2SAT 98
[2018-07-03] MEDS: Silver Sulfadiazine 1% Cream (20 gm) TOP SCH (08:47)
[2018-07-03] MEDS: Enoxaparin 30 mg Syringe SC SCH (08:47)
[2018-07-03] MEDS: Multivitamin Vitamin B Complex (Nephro-Vite) Tab PO SCH (08:48)
[2018-07-03] MEDS: Pantoprazole 40 mg EC Tab PO SCH (08:48)
[2018-07-03] MEDS ORDERED: Potassium Chloride 20 mEq ER Tab PO ONE (10:30)
--- NOTE | 2018-07-03 11:54 | CP.PCM.DIS ---
Provider - Provider Date of Admission: 06/19/18 21:10 Attending physician: Kike Tejada Primary care physician: Dr. Mares Consults: 06/19/18 22:05 Nephrology Consult Routine Comment: Consulting Provider: Ta Pemberton Consulting Physician: Ta Pemberton Reason for Consult: CKD secondary to obstructive uropathy Urology Consult Routine Comment: Consulting Provider: Heather Mares Consulting Physician: Heather Mares Reason for Consult: urosepsis with nephrostomy tube 06/19/18 22:06 Infectious Disease Consult Routine Comment: Consulting Provider: Ryan Law Consulting Physician: Ryan Law Reason for Consult: Recurrent UTIs 06/19/18 22:07 Physiatry Consult Routine Comment: Consulting Provider: Abdiel Bhandari Consulting Physician: Abdiel Bhandari Reason for Consult: TCU 06/20/18 04:04 Case Management Referral Routine Comment: Physician Instructions: Reason For Exam: Reason for Referral: Discharge Planning 06/20/18 04:09 Nursing Referral for Wound Care Routine Comment: Physician Instructions: Reason For Exam: sacral redness 06/28/18 10:48 Psychiatry Consult Routine Comment: for eval patient is on Valium Consulting Provider: Gualberto Lynn Consulting Physician: Gualberto Lynn Reason for Consult: for eval patient is on Valium Time Spent in preparation of Discharge (in minutes): 20 Hospital Course - Lab Results Lab Results: Micro Results 06/27/18 18:00 Urine,Catheterized Urine Culture - Final No Growth (<1,000 CFU/ML) Most Recent Lab Values WBC 13.2 K/uL (4.8-10.8) H 07/01/18 06:05 RBC 4.00 Mil/uL (3.80-5.20) 07/01/18 06:05 Hgb 10.9 g/dL (12.0-16.0) L 07/01/18 06:05 Hct 34.0 % (34.0-47.0) 07/01/18 06:05 MCV 85.0 fl (81.0-99.0) 07/01/18 06:05 MCH 27.2 pg (27.0-31.0) 07/01/18 06:05 MCHC 32.0 g/dL (33.0-37.0) L 07/01/18 06:05 RDW 17.8 % (11.5-14.5) H 07/01/18 06:05 Plt Count 497 K/uL (130-400) H 07/01/18 06:05 MPV 7.6 fl (7.2-11.7) 06/29/18 06:45 Neut % (Auto) 76.0 % (50.0-75.0) H 06/29/18 06:45 Lymph % (Auto) 12.2 % (20.0-40.0) L 06/29/18 06:45 [place] % (Auto) 9.2 % (0.0-10.0) 06/29/18 06:45 Eos % (Auto) 2.0 % (0.0-4.0) 06/29/18 06:45 Baso % (Auto) 0.6 % (0.0-2.0) 06/29/18 06:45 Neut # (Auto) 10.0 K/uL (1.8-7.0) H 06/29/18 06:45 Lymph # (Auto) 1.6 K/uL (1.0-4.3) 06/29/18 06:45 [place] # (Auto) 1.2 K/uL (0.0-0.8) H 06/29/18 06:45 Eos # (Auto) 0.3 K/uL (0.0-0.7) 06/29/18 06:45 Baso # (Auto) 0.1 K/uL (0.0-0.2) 06/29/18 06:45 Neutrophils % (Manual) 87 % (42-75) H 06/27/18 06:10 Band Neutrophils % 1 % (0-2) 06/27/18 06:10 Lymphocytes % (Manual) 4 % (20-50) L 06/27/18 06:10 Monocytes % (Manual) 8 % (0-10) 06/27/18 06:10 Platelet Estimate Increased (NORMAL) H 06/27/18 06:10 Large Platelets Present 06/27/18 06:10 Hypochromasia (manual) Slight 06/27/18 06:10 Anisocytosis (manual) Slight 06/27/18 06:10 Target Cells Slight 06/20/18 04:25 Ovalocytes Slight 06/20/18 04:25 Sodium 134 mmol/l (132-148) 07/03/18 05:10 Potassium 3.2 MMOL/L (3.6-5.0) L 07/03/18 05:10 Chloride 99 mmol/L (98-107) 07/03/18 05:10 Carbon Dioxide 28 mmol/L (22-30) 07/03/18 05:10 Anion Gap 10 (10-20) 07/03/18 05:10 BUN 14 mg/dl (7-17) 07/03/18 05:10 Creatinine 1.5 mg/dl (0.7-1.2) H 07/03/18 05:10 Est GFR ( Amer) 42 07/03/18 05:10 Est GFR (Non-Af Amer) 35 07/03/18 05:10 Random Glucose 85 mg/dL (65-105) 07/03/18 05:10 Calcium 8.6 mg/dL (8.4-10.2) 07/03/18 05:10 Phosphorus 3.9 mg/dl (2.5-4.5) 06/26/18 05:45 Magnesium 1.5 MG/DL (1.6-2.3) L 06/26/18 05:45 Total Bilirubin 0.3 mg/dl (0.2-1.3) 06/26/18 05:45 AST 38 U/L (14-36) H 06/26/18 05:45 ALT 22 U/L (9-52) 06/26/18 05:45 Alkaline Phosphatase 96 U/L (38-126) 06/26/18 05:45 Total Protein 7.0 G/DL (6.3-8.2) 06/26/18 05:45 Albumin 3.1 g/dL (3.5-5.0) L 06/26/18 05:45 Globulin 3.9 gm/dL (2.2-3.9) 06/26/18 05:45 Albumin/Globulin Ratio 0.8 (1.0-2.1) L 06/26/18 05:45 - Hospital Course Hospital Course: 63 yo female with history of obstructive uropathy secondary to radiation therapy for cervical cancer requiring right ureteral placement admitted to TCU for continuation of IV antibiotics for ESBL E coli cultured from nephrostomy . Patient received 14 days of IV Meropenem and repeat of urine cultures with no growth so far. Nephrostomy tubes were changed during this admission by IR Dr. Moreno . Patient feeling better. Will discharge her home with follow up with Dr. Mares and IR for change of nephrostomy tubes every 3 months. 1. Sepsis (met criteria on admission)-- resolved received IV Meropenem for 14 days blood cultures negative and repeta urine cx with no growth ESBL E coli isolated on nephrostomy ID was consulted 2. UTI secondary to ESBL E. coli received IV Meropenem for 14 days 3. Obstructive Uropathy with bilateral ureteral stents and bilateral nephrostomy tubes that were changed this admission Good urine flow bilaterally Will need change of nephrostomy tubes every 3 months Follow up with Dr. Mares as out patient 4. CKD stage IV stable, Cr 1.7, BUN 22 Dr. Pemberton nephrology consulted Continue calcitriol, sodium bicarb and nephrovite 5. Normocytic anemia anemia of chronic diseases/CKD stable continue Procrit 6. HTN BP controlled continue Norvasc and Metoprolol 7. Depression psychology consulted Continue Remeron 8. Cervical cancer s/p radiation therapy follow up with her Supervisor Hardboard and oncologist pain management PRN patient is DNR/DNI 9.Cachexia BMI 17 Discharge Exam - Head Exam Head Exam: ATRAUMATIC, NORMOCEPHALIC - Eye Exam Eye Exam: EOMI, PERRL Pupil Exam: NORMAL ACCOMODATION - ENT Exam ENT Exam: Mucous Membranes Moist, Normal Exam - Neck Exam Neck exam: Full Rom, Normal Inspection - Respiratory Exam Respiratory Exam: Clear to PA & Lateral, NORMAL BREATHING PATTERN. absent: Rales, Rhonchi, Wheezes - Cardiovascular Exam Cardiovascular Exam: REGULAR RHYTHM, RRR, +S1, +S2. absent: JVD - GI/Abdominal Exam GI & Abdominal Exam: Normal Bowel Sounds, Soft. absent: Distended, Guarding, Rebound, Tenderness - Rectal Exam Rectal Exam: Deferred - Extremities Exam Extremities exam: normal capillary refill, normal inspection, pedal pulses present - Back Exam Back exam: NORMAL INSPECTION - Neurological Exam Neurological exam: Alert, CN II-XII Intact, Oriented x3 - Psychiatric Exam Psychiatric exam: Normal Affect, Normal Mood - Skin Skin Exam: Dry, Intact, Normal Color, Warm Discharge Plan - Discharge Medications Prescriptions: amLODIPine [Norvasc] 5 mg PO DAILY #30 tab Baclofen [Lioresal] 10 mg PO Q8 PRN #90 tab PRN Reason: Muscle Spasm Calcitriol [Rocaltrol] 0.25 mcg PO MWF #30 sgl Docusate [Colace] 100 mg PO BID PRN #60 cap PRN Reason: Constipation Epoetin Tam [Procrit] 10,000 unit SC TTS #4 vial fentaNYL 25 mcg/hr [Duragesic Patch 25 mcg/hr] 1 patch TD Q72H #10 patch Fluticasone Nasal [Flonase] 2 spray MANNY DAILY PRN #1 spr PRN Reason: Nasal Congestion Metoprolol Tartrate [Lopressor] 25 mg PO Q12 #60 tab Mirtazapine [Remeron] 7.5 mg PO HS #30 tab oxyCODONE/Acetaminophen [Percocet 5/325 mg Tab] 2 tab PO Q4 PRN #30 tab PRN Reason: Pain, Severe (8-10) Pantoprazole [Protonix EC Tab] 40 mg PO DAILY #30 ect Sodium Bicarbonate Tab 650 mg PO Q8 #90 tab Vitamin B Complex/Vit C/Folic [Nephro-Davidson] 1 tab PO DAILY #30 tab Zolpidem [Ambien] 5 mg PO HS PRN #30 tab PRN Reason: Insomnia - Follow Up Plan Condition: STABLE Disposition: HOME/ ROUTINE Patient education suggested?: Yes Instructions: Urinary Tract Infection, Adult (DC), Sepsis, Adult (DC) Referrals: Heather Mares MD [Medical Doctor] -
[2018-07-03 16:06] VITALS: BP 109/57; PULSE 89; TEMP 99
== END 2018-07-03 15:45 | disposition home health service (06) | DRG 872 ==
LOC: H.TCU 21:10
PROVIDERS: ADMIT Internal Medicine; ATTEND Internal Medicine
PROC: 3E03329 Introduction of Other Anti-infective into Peripheral Vein, Percutaneous Approach (ICD-10-PCS; principal; 2018-06-19)
PROC: F07Z9FZ Gait Training/Functional Ambulation Treatment using Assistive, Adaptive, Supportive or Protective Equipment (ICD-10-PCS; 2018-06-19)
PROC: F08Z4FZ Home Management Treatment using Assistive, Adaptive, Supportive or Protective Equipment (ICD-10-PCS; 2018-06-19)
PROC: F07M6FZ Therapeutic Exercise Treatment of Musculoskeletal System - Whole Body using Assistive, Adaptive, Supportive or Protective Equipment (ICD-10-PCS; 2018-06-20)
DX: A41.9 Sepsis, unspecified organism (principal); N39.0 Urinary tract infection, site not specified; N17.9 Acute kidney failure, unspecified; N18.4 Chronic kidney disease, stage 4 (severe); R64 Cachexia; Z68.1 Body mass index [BMI] 19.9 or less, adult; B96.20 Unspecified Escherichia coli [E. coli] as the cause of diseases classified elsewhere; D63.1 Anemia in chronic kidney disease; D50.9 Iron deficiency anemia, unspecified; G89.29 Other chronic pain; I12.9 Hypertensive chronic kidney disease with stage 1 through stage 4 chronic kidney disease, or unspecified chronic kidney disease; F06.30 Mood disorder due to known physiological condition, unspecified; Z16.12 Extended spectrum beta lactamase (ESBL) resistance; Z66 Do not resuscitate; Z85.41 Personal history of malignant neoplasm of cervix uteri; Z93.6 Other artificial openings of urinary tract status; Z92.21 Personal history of antineoplastic chemotherapy; Z92.3 Personal history of irradiation; Z85.118 Personal history of other malignant neoplasm of bronchus and lung; F41.9 Anxiety disorder, unspecified

== ENCOUNTER 2018-07-28 20:48 | Inpatient (IN) | payer MEDICARE, MEDICAID ==
[2018-07-28 20:48] VITALS: BMI 17.4
[2018-07-28] MEDS ORDERED: Sodium Chloride 0.9% 1,000 ML IV STA (21:43)
--- NOTE | 2018-07-28 22:01 | ED PDOC ---
HPI: Abdomen Time Seen by Provider: 07/28/18 20:58 Chief Complaint (Nursing): Abdominal Pain Chief Complaint (Provider): Abdominal Pain History Per: Patient History/Exam Limitations: no limitations Onset/Duration Of Symptoms: Days (x6) Current Symptoms Are (Timing): Still Present Additional Complaint(s): 63 year old female with a history of cervical and lung cancer presents to the ED with chronic lower abdominal pain and decreased appetite. As per family member, patient has not eaten since Tuesday. Patient is taking Percocet and tramadol at home without relief. She denies fever, vomiting, or dysuria. PMD:Delbert Jacobs Past Medical History Reviewed: Historical Data, Nursing Documentation, Vital Signs Vital Signs: Last Vital Signs Temp 98.9 F 07/28/18 20:52 Pulse 114 H 07/28/18 20:52 Resp 16 07/28/18 20:52 BP 102/62 07/28/18 20:52 Pulse Ox 96 07/28/18 20:52 Primary Care Provider: Delbert Jacobs - Medical History PMH: Anemia, Anxiety, Depression, HTN, Kidney Stones, Malignancy (lung CA and cervical CA ), Chronic Kidney Disease (kidney stones; rt nephrostomy) Denies: HIV - Family History Family History: States: Unknown Family Hx - Immunization History Hx Influenza Vaccination: No Hx Pneumococcal Vaccination: No - Home Medications Home Medications: Ambulatory Orders Medication Instructions Recorded Docusate [Colace] 100 mg PO BID PRN #60 cap 07/03/18 Metoprolol Tartrate [Lopressor] 25 mg PO Q12 #60 tab 07/03/18 Sodium Bicarbonate Tab 650 mg PO Q8 #90 tab 07/03/18 Zolpidem [Ambien] 5 mg PO HS PRN #30 tab 07/03/18 amLODIPine [Norvasc] 5 mg PO DAILY #30 tab 07/03/18 B Complex W-C No.20/Folic Acid 1 cap PO DAILY 07/29/18 [Virt-Caps Softgel] Baclofen [Lioresal] 10 mg PO Q8 07/29/18 Dronabinol [Marinol] 2.5 mg PO DAILY 07/29/18 Ibuprofen [Motrin Tab] 800 mg PO BID PRN 07/29/18 diaZEpam [Valium] 5 mg PO BID PRN 07/29/18 - Allergies Allergies/Adverse Reactions: Allergies Allergy/AdvReac Type Severity Reaction Status Date / Time No Known Allergies Allergy Verified 05/15/18 10:25 Review of Systems ROS Statement: Except As Marked, All Systems Reviewed And Found Negative Constitutional: Negative for: Fever Gastrointestinal: Positive for: Abdominal Pain. Negative for: Vomiting Genitourinary Female: Negative for: Dysuria Physical Exam - Reviewed Nursing Documentation Reviewed: Yes Vital Signs Reviewed: Yes - Physical Exam Appears: Positive for: No Acute Distress (cachectic) Head Exam: Positive for: ATRAUMATIC, NORMOCEPHALIC Skin: Positive for: Normal Color, Warm, Dry Eye Exam: Positive for: EOMI, Normal appearance, PERRL Cardiovascular/Chest: Positive for: Regular Rate, Rhythm. Negative for: Murmur Respiratory: Positive for: Normal Breath Sounds. Negative for: Respiratory Distress Gastrointestinal/Abdominal: Positive for: Tenderness (lower abdominal tenderness ), Other (bilateral nephrostomy tubes in place). Negative for: Guarding, Rebound Back: Positive for: Normal Inspection Extremity: Positive for: Normal ROM (upper and lower). Negative for: Pedal Edema, Deformity Neurological/Psych: Positive for: Awake, Alert, Oriented (x3) - Laboratory Results Result Diagrams: 07/29/18 04:45 07/29/18 16:15 - ECG O2 Sat by Pulse Oximetry: 96 (RA) Pulse Ox Interpretation: Normal Medical Decision Making Medical Decision Making: Time: 2140 Plan: --VBG --EKG --CMP --Troponin --U dip --CBC --PTT --PT/INR --CXR --Morphine 2 mg IV --IV fluids --Blood culture --Urine culture --Glucose --UA Accession No. : [id number] Patient Name / ID : KRISTIAN MARTIN D / [id number] Exam Date : 07/28/2018 21:34:22 ( Approved ) Study Comment : Sex / Age : F / 63Y Creator : Julio Cesar Pascual MD Dictator : Julio Cesar Pascual MD Mammography Supervisor : [employer] Regrooving Machine Operator : Julio Cesar Pascual MD Approver2 : Report Date : 07/29/2018 09:11:42 My Comment : Date of service: 07/28/2018 HISTORY: Abd pain COMPARISON: Portable chest 10/11/2015. TECHNIQUE: 1 view obtained. FINDINGS: LUNGS: Right chest now appears clear and is somewhat hyperinflated compensating for complete opacification left hemithorax and gross volume loss the left lung with only limited aeration identified at the left base. Calcified pulmonary or pleural changes are again seen the left hemithorax with deformities of multiple left ribs. PLEURA: No acute pleural changes bilaterally. CARDIOVASCULAR: Calcific atherosclerotic changes are seen related to the thoracic aorta. Normal cardiac size. No pulmonary vascular congestion. OSSEOUS STRUCTURES: No significant abnormalities. VISUALIZED UPPER ABDOMEN: Normal. OTHER FINDINGS: None. IMPRESSION: No acute cardiopulmonary disease. Marked volume loss of the left lung is reiterated with parenchymal or pleural calcifications again evident and limited aeration at the left base. Right lung is clear and is mildly hyperaerated. No suspicious interval findings compared prior chest radiograph 10/11/2015. Scribe Attestation: Documented by Anisa Montaño, acting as a scribe for Corrie Mae MD. Provider Scribe Attestation: All medical record entries made by the Scribe were at my direction and pers onally dictated by me. I have reviewed the chart and agree that the record accurately reflects my personal performance of the history, physical exam, medical decision making, and the department course for this patient. I have also personally directed, reviewed, and agree with the discharge instructions and disposition. Disposition - Clinical Impression Clinical Impression: SIRS (systemic inflammatory response syndrome), UTI (urinary tract infection), Dehydration - Patient ED Disposition Is Patient to be Admitted: Yes - Disposition Disposition Time: 00:00 Condition: STABLE - Pt Status Changed To: Hospital Disposition Of: Inpatient - Admit Certification Admit to Inpatient:: After my assessment, the patient will require hospitalization for at least two midnights. This is because of the severity of symptoms shown, intensity of services needed, and/or the medical risk in this patient being treated as an outpatient. - POA Present On Arrival: None
[2018-07-28 22:47] LABS: VENOUS BLOOD GAS BASE EXCESS -8.3 mmol/L (0.0-2.0); VENOUS BLOOD GAS PCO2 30 mmHg (40-60); VENOUS BLOOD GAS PO2 53 mm/Hg (30-55); VENOUS BLOOD PH 7.34 (7.32-7.43)
[2018-07-28 22:53] LABS: INR 1.1
[2018-07-28 22:55] LABS: PARTIAL THROMBOPLASTIN TIME 29.4 Seconds (25.6-37.1)
[2018-07-28 23:00] LABS: BASO % 0.2 % (0.0-2.0); EOS % 0.2 % (0.0-4.0); HEMOGLOBIN 11.1 g/dL (12.0-16.0); LYMPH % 4.4 % (20.0-40.0); MEAN CELL VOLUME 81.9 fl (81.0-99.0); MEAN CORPUSCULAR HEMOGLOBIN 26.2 pg (27.0-31.0); MEAN PLATELET VOLUME 8.2 fl (7.2-11.7); MONO # 1.2 K/uL (0.0-0.8); MONO % 5.6 % (0.0-10.0); NEUT # 19.3 K/uL (1.8-7.0); NEUT % 89.6 % (50.0-75.0); PLATELET COUNT 629 K/uL (130-400); RBC 4.24 Mil/uL (3.80-5.20); RED CELL DISTRIBUTION WIDTH 18.8 % (11.5-14.5); WHITE BLOOD COUNT 21.5 K/uL (4.8-10.8)
[2018-07-28 23:13] LABS: TROPONIN I 0.017 ng/mL (0.00-0.120)
[2018-07-28 23:26] LABS: ALB/GLOB RATIO 0.9 (1.0-2.1); ALBUMIN 3.4 g/dL (3.5-5.0); CALCIUM 9.7 mg/dL (8.4-10.2)
[2018-07-28 23:41] LABS: ANISOCYTOSIS SLIGHT; LYMPHOCYTE 7 % (20-50); MONOCYTE 6 % (0-10); NEUTROPHIL 87 % (42-75); TOTAL CELLS COUNTED 100
[2018-07-28 23:42] LABS: PLATELET ESTIMATE INCREASED (NORMAL)
[2018-07-29 00:22] LABS: SQUAMOUS EPITHIAL < 1 /hpf (0-5); URINE BACTERIA FEW (<OCC); URINE BILIRUBIN NEGATIVE (NEGATIVE); URINE BLOOD MODERATE (NEGATIVE); URINE CLARITY CLOUDY (Clear); URINE COLOR YELLOW (YELLOW); URINE GLUCOSE (UA) NEG (NEGATIVE); URINE LEUKOCYTE ESTERASE LARGE Leu/uL (Negative); URINE PROTEIN 30 mg/dL (NEGATIVE); URINE UROBILINOGEN 0.2-1.0 mg/dL (0.2-1.0); WBC CLUMPS FEW /hpf
[2018-07-29] MEDS ORDERED: cefTRIAXone (Rocephin) 1 gm Inj ONE (00:46)
[2018-07-29] MEDS ORDERED: Sodium Chloride 0.9% 1,000 ML IV SCH ×3 (01:00→02:30)
--- NOTE | 2018-07-29 01:04 | CP.PCM.HP ---
<Vandana Varma - Last Filed: 07/29/18 01:17> History of Present Illness - History of Present Illness History of Present Illness: CC: abdominal pain HPI: 63 YO Female with PMHx of Lung CA, Hx of Cervical CA, Obstructive Uropathy sec to Cervical CA s/p b/l Ureteral Stent Placement, CKD stage III B, Anemia and HTN presented to [facility] ED for abdominal pain. Patient states that the pain has been present for the past 1-2 months and has persisted, located in the suprapubic area and without any radiation. She has been taking PO meds at home without any relief. In the past 1 week, her family has noticed that she has slowly become more irritable then usual, low PO intake and has been losing weight. Patient states that she has not been feeling like herself. Denies additional urinary symptoms (stents in place), fevers, chills, sweats, n/v. Daughter and son both present in room during the encounter. Patient is bed bound per daughter. PMHx: Lung CA (s/p Lobectomy and Chemotx in 2003), Cervical CA (s/p Chemo and radiation therapy in 2000), Obstructive Uropathy s/p b/l Ureteral Stent Placeme nt, CKD stage III B, Anemia and HTN. SurgHx: Left lung lobectomy in 2003, Ureteral stent placement SHx: Quit smoking cigarettes 20 years ago (smoked 1/2 PPD x 10 yrs). Denies drinking EtOH or using illicit drugs. FHx: Father and Mother: HTN Allergies: NKDA Code Status: DNI/DNI Daughter decision maker in emergencies: Marie Mccabe [phone] Present on Admission - Present on Admission Any Indicators Present on Admission: No Review of Systems - Constitutional Constitutional: Weight Loss. absent: Chills, Fever, Night Sweats - Cardiovascular Cardiovascular: absent: Chest Pain, Dyspnea - Respiratory Respiratory: absent: Cough, Dyspnea - Gastrointestinal Gastrointestinal: Abdominal Pain. absent: Diarrhea, Nausea, Vomiting - Genitourinary Genitourinary: Other (b/l ureteral tubes ) Past Patient History - Infectious Disease Hx of Infectious Diseases: None - Tetanus Immunizations Tetanus Immunization: Unknown - Past Medical History & Family History Past Medical History?: Yes - Past Social History Smoking Status: Former Smoker Alcohol: None Drugs: Denies - CARDIAC Hx Hypertension: Yes - PULMONARY Hx Respiratory Disorders: Yes Hx Lung Cancer: Yes Other/Comment: Ca of Cervix with Lung ( L) Metastasis (10 years ago)PREVIOUSLY ON CHEMO/RADIATION THERAPHY - NEUROLOGICAL Hx Neurological Disorder: No - HEENT Hx HEENT Problems: No - RENAL Hx Chronic Kidney Disease: Yes (kidney stones; rt nephrostomy) Hx Kidney Stones: Yes - ENDOCRINE/METABOLIC Hx Endocrine Disorders: No - HEMATOLOGICAL/ONCOLOGICAL Hx Anemia: Yes Hx Human Immunodeficiency Virus (HIV): No - INTEGUMENTARY Hx Dermatological Problems: No - MUSCULOSKELETAL/RHEUMATOLOGICAL Hx Musculoskeletal Disorders: No Hx Falls: No - GASTROINTESTINAL Hx Gastrointestinal Disorders: No - GENITOURINARY/GYNECOLOGICAL Hx Genitourinary Disorders: Yes Hx Cervical Cancer: Yes Hx Urinary Tract Infection: Yes Other/Comment: BLADDER PROBLEMS - PSYCHIATRIC Hx Anxiety: Yes Hx Depression: Yes - SURGICAL HISTORY Hx Surgeries: Yes Hx Pulmonary Surgery: Yes (Left Lobectomy) Hx Tubal Ligation: Yes Other/Comment: nephrostomy rt and left kidneys. 01/19/16 cystoscopy. insertion and removal of lifeport. Feb 2018 replacement of nephrostomy tube. - ANESTHESIA Hx Anesthesia: Yes Hx Anesthesia Reactions: No Hx Malignant Hyperthermia: No Meds Allergies/Adverse Reactions: Allergies Allergy/AdvReac Type Severity Reaction Status Date / Time No Known Allergies Allergy Verified 05/15/18 10:25 Physical Exam - Constitutional Appears: No Acute Distress, Cachectic, Other (irritable) - Head Exam Head Exam: NORMAL INSPECTION - Eye Exam Eye Exam: EOMI - ENT Exam ENT Exam: Mucous Membranes Dry - Respiratory Exam Respiratory Exam: Decreased Breath Sounds (no breath sounds appreciated in the L side ), Clear to Auscultation Bilateral, NORMAL BREATHING PATTERN. absent: Wheezes - Cardiovascular Exam Cardiovascular Exam: REGULAR RHYTHM, +S1, +S2, Systolic Murmur - GI/Abdominal Exam GI & Abdominal Exam: Normal Bowel Sounds, Soft, Tenderness (suprapubic tenderness ). absent: Distended, Guarding, Rigid Additional comments: b/l ureteral stents noted, area clean dry and intact Draining clear yellow urine - Extremities Exam Extremities exam: Positive for: normal inspection. Negative for: calf tenderness, pedal edema - Neurological Exam Neurological exam: Alert, Oriented x3 - Psychiatric Exam Psychiatric exam: Anxious - Skin Skin Exam: Dry, Intact, Normal Color, Warm Results - Vital Signs Recent Vital Signs: Last Vital Signs Temp 98.9 F 07/28/18 20:52 Pulse 114 H 07/28/18 20:52 Resp 16 07/28/18 20:52 BP 102/62 07/28/18 20:52 Pulse Ox 96 07/28/18 22:02 - Labs Result Diagrams: 07/28/18 22:45 07/28/18 22:45 Labs: Laboratory Results - last 24 hr 07/28/18 07/28/18 07/28/18 22:40 22:45 22:45 WBC 21.5 H D RBC 4.24 Hgb 11.1 L Hct 34.7 MCV 81.9 D MCH 26.2 L MCHC 32.0 L RDW 18.8 H Plt Count 629 H D MPV 8.2 Neut % (Auto) 89.6 H Lymph % (Auto) 4.4 L Crane % (Auto) 5.6 Eos % (Auto) 0.2 Baso % (Auto) 0.2 Neut # (Auto) 19.3 H Lymph # (Auto) 1.0 Crane # (Auto) 1.2 H Eos # (Auto) 0.0 Baso # (Auto) 0.0 Neutrophils % (Manual) 87 H Lymphocytes % (Manual) 7 L Monocytes % (Manual) 6 Platelet Estimate Increased H Anisocytosis (manual) Slight PT INR APTT pO2 53 VBG pH 7.34 VBG pCO2 30 L VBG HCO3 18.1 VBG Total CO2 17.1 L VBG O2 Sat (Calc) 91.3 H VBG Base Excess -8.3 L VBG Potassium 4.3 Sodium 122.0 L 123 L Chloride 90.0 L 89 L Glucose 84 Lactate 1.2 FiO2 21.0 Potassium 4.0 Carbon Dioxide 15 L Anion Gap 23 H BUN 49 H Creatinine 2.2 H Est GFR ( Amer) 27 Est GFR (Non-Af Amer) 23 Random Glucose 85 Calcium 9.7 Total Bilirubin 0.6 AST 21 ALT 12 Alkaline Phosphatase 85 Troponin I 0.0170 Total Protein 7.2 Albumin 3.4 L Globulin 3.8 Albumin/Globulin Ratio 0.9 L Venous Blood Potassium 4.3 Urine Color Urine Clarity Urine pH Ur Specific [place] Urine Protein Urine Glucose (UA) Urine Ketones Urine Blood Urine Nitrate Urine Bilirubin Urine Urobilinogen Ur Leukocyte Esterase Urine RBC (Auto) Urine WBC Clumps (Auto) Urine Microscopic WBC Ur Squamous Epith Cells Urine Bacteria Urine Yeast (Budding) 07/28/18 07/29/18 22:45 00:05 WBC RBC Hgb Hct MCV MCH MCHC RDW Plt Count MPV Neut % (Auto) Lymph % (Auto) [place] % (Auto) Eos % (Auto) Baso % (Auto) Neut # (Auto) Lymph # (Auto) Cr[place] # (Auto) Eos # (Auto) Baso # (Auto) Neutrophils % (Manual) Lymphocytes % (Manual) Monocytes % (Manual) Platelet Estimate Anisocytosis (manual) PT 13.0 INR 1.1 APTT 29.4 pO2 VBG pH VBG pCO2 VBG HCO3 VBG Total CO2 VBG O2 Sat (Calc) VBG Base Excess VBG Potassium Sodium Chloride Glucose Lactate FiO2 Potassium Carbon Dioxide Anion Gap BUN Creatinine Est GFR ( Amer) Est GFR (Non-Af Amer) Random Glucose Calcium Total Bilirubin AST ALT Alkaline Phosphatase Troponin I Total Protein Albumin Globulin Albumin/Globulin Ratio Venous Blood Potassium Urine Color Yellow Urine Clarity Cloudy Urine pH 5.0 Ur Specific [place] 1.016 Urine Protein 30 Urine Glucose (UA) Neg Urine Ketones Trace Urine Blood Moderate Urine Nitrate Negative Urine Bilirubin Negative Urine Urobilinogen 0.2-1.0 Ur Leukocyte Esterase Large Urine RBC (Auto) 32 H Urine WBC Clumps (Auto) Few H Urine Microscopic WBC 486 H Ur Squamous Epith Cells < 1 Urine Bacteria Few H Urine Yeast (Budding) Mod H - EKG Data EKG Interpreted by: Myself EKG shows normal: Sinus rhythm Rate: Tachycardia (Normal sinus tachycardia with rate of 115, RBBB) Assessment & Plan - Assessment and Plan (Free Text) Assessment: Assessment/Plan: 63 YO Female with PMHx of Lung CA, Hx of Cervical CA, Obstructive Uropathy sec to Cervical CA s/p b/l Ureteral Stent Placement, CKD, Anemia and HTN is admitted for UTI and sepsis. Sepsis -tachcardia, lekocytosis w/ shift and with known source of infection -likely UTI sepsis -c/w IV fluid -antibiotic to tx the UTI sepsis -follow up bcx, ucx and procalcitonin -ID consulted; follow up recs UTI -complicated UTI given b/l Ureteral Stents -hx of ESBL UTI in the past -will start tx with Meropenum -renal dosing given Cr-clearance is 16 -ID consulted -follow up ucx -pain management as needed -consider urology consulted if needed Dehydration, hyponatremia and hypochloremia -likely 2/2 to poor PO intake -Na deficit is 410 -will rehydrate with NS for now and switch over to 1/2 NS to not corrected to fast -c/w diet as tolerated CKD stage IV -acute on chronic renal injury -IV fluids -follow up -consider nephrology consulted as needed HTN -chronic -well maintained -BP mildly low, given sepsis will hold Norvasc for now -resume as needed Anemia -chronic -improving and stable at this time Lung and Cervical CA -chronic -not any any treatment currently -follow up out patient Cachexia -likely chronic given conditions -encourage PO diet -supplement with ensure -c/w home meds for appetite loss DVT prolx -Heparin SC <Kike Tejada - Last Filed: 07/29/18 03:06> Results - Vital Signs Recent Vital Signs: Last Vital Signs Temp 98.2 F 07/29/18 01:55 Pulse 115 H 07/29/18 01:55 Resp 18 07/29/18 01:55 BP 107/74 07/29/18 01:55 Pulse Ox 96 07/29/18 01:55 - Labs Result Diagrams: 07/28/18 22:45 07/28/18 22:45 Labs: Laboratory Results - last 24 hr 07/28/18 07/28/18 07/28/18 22:40 22:45 22:45 WBC 21.5 H D RBC 4.24 Hgb 11.1 L Hct 34.7 MCV 81.9 D MCH 26.2 L MCHC 32.0 L RDW 18.8 H Plt Count 629 H D MPV 8.2 Neut % (Auto) 89.6 H Lymph % (Auto) 4.4 L Crane % (Auto) 5.6 Eos % (Auto) 0.2 Baso % (Auto) 0.2 Neut # (Auto) 19.3 H Lymph # (Auto) 1.0 Crane # (Auto) 1.2 H Eos # (Auto) 0.0 Baso # (Auto) 0.0 Neutrophils % (Manual) 87 H Lymphocytes % (Manual) 7 L Monocytes % (Manual) 6 Platelet Estimate Increased H Anisocytosis (manual) Slight PT INR APTT pO2 53 VBG pH 7.34 VBG pCO2 30 L VBG HCO3 18.1 VBG Total CO2 17.1 L VBG O2 Sat (Calc) 91.3 H VBG Base Excess -8.3 L VBG Potassium 4.3 Sodium 122.0 L 123 L Chloride 90.0 L 89 L Glucose 84 Lactate 1.2 FiO2 21.0 Potassium 4.0 Carbon Dioxide 15 L Anion Gap 23 H BUN 49 H Creatinine 2.2 H Est GFR ( Amer) 27 Est GFR (Non-Af Amer) 23 Random Glucose 85 Calcium 9.7 Total Bilirubin 0.6 AST 21 ALT 12 Alkaline Phosphatase 85 Troponin I 0.0170 Total Protein 7.2 Albumin 3.4 L Globulin 3.8 Albumin/Globulin Ratio 0.9 L Venous Blood Potassium 4.3 Urine Color Urine Clarity Urine pH Ur Specific [place] Urine Protein Urine Glucose (UA) Urine Ketones Urine Blood Urine Nitrate Urine Bilirubin Urine Urobilinogen Ur Leukocyte Esterase Urine RBC (Auto) Urine WBC Clumps (Auto) Urine Microscopic WBC Ur Squamous Epith Cells Urine Bacteria Urine Yeast (Budding) 07/28/18 07/29/18 22:45 00:05 WBC RBC Hgb Hct MCV MCH MCHC RDW Plt Count MPV Neut % (Auto) Lymph % (Auto) Crane % (Auto) Eos % (Auto) Baso % (Auto) Neut # (Auto) Lymph # (Auto) Crane # (Auto) Eos # (Auto) Baso # (Auto) Neutrophils % (Manual) Lymphocytes % (Manual) Monocytes % (Manual) Platelet Estimate Anisocytosis (manual) PT 13.0 INR 1.1 APTT 29.4 pO2 VBG pH VBG pCO2 VBG HCO3 VBG Total CO2 VBG O2 Sat (Calc) VBG Base Excess VBG Potassium Sodium Chloride Glucose Lactate FiO2 Potassium Carbon Dioxide Anion Gap BUN Creatinine Est GFR ( Amer) Est GFR (Non-Af Amer) Random Glucose Calcium Total Bilirubin AST ALT Alkaline Phosphatase Troponin I Total Protein Albumin Globulin Albumin/Globulin Ratio Venous Blood Potassium Urine Color Yellow Urine Clarity Cloudy Urine pH 5.0 Ur Specific [place] 1.016 Urine Protein 30 Urine Glucose (UA) Neg Urine Ketones Trace Urine Blood Moderate Urine Nitrate Negative Urine Bilirubin Negative Urine Urobilinogen 0.2-1.0 Ur Leukocyte Esterase Large Urine RBC (Auto) 32 H Urine WBC Clumps (Auto) Few H Urine Microscopic WBC 486 H Ur Squamous Epith Cells < 1 Urine Bacteria Few H Urine Yeast (Budding) Mod H Attending/Attestation - Attestation I have personally seen and examined this patient.: Yes I have fully participated in the care of the patient.: Yes I have reviewed all pertinent clinical information: Yes Notes (Text): 07/29/18 02:44 I saw, examined and discussed this patient eith Dr Varma. I agree with the assessment and plan outlined. This is a 63 years old female with Hx of With cervical Ca with lung mets, chemotherapy, radiotherapy and left lung lobectomy. She also has bilateral nephrostomy tubes because of kidney stones. She comes with worsening of lower pelvic pain, weight loss and anorexia. In ED she has Tachycardia, Leukocytosis and a UTI. We will treat UTI most probably Cystitis ( from Radiation Therapy) and Sepsis with Meropenem as patient had ESBL E. coli and Morganella moganii in urine culture at last admission. Consult ID Floconazole for the Funguria Treat Hyponatremia and Dehydration with IV NS Pain management to include Fentanyl patch with attention to tendency of sedation with the Fluconazole. Telemetry admission because the patient has sepsis and tachycardic. Kike Tejada MD
[2018-07-29] MEDS: Meropenem 500 MG in Sodium Chloride 0.9% 100 ML IVPB SCH ×3 (02:13→21:37)
[2018-07-29] MEDS ORDERED: Sodium Chloride 0.45% 1,000 ML IV SCH (02:30)
[2018-07-29] MEDS: Sodium Chloride 0.9% 1,000 ML IV SCH ×2 (04:22→13:23)
[2018-07-29 05:49] LABS: BASO % 0.2 % (0.0-2.0); EOS # 0.1 K/uL (0.0-0.7); EOS % 0.4 % (0.0-4.0); HEMOGLOBIN 9.7 g/dL (12.0-16.0); LYMPH # 0.9 K/uL (1.0-4.3); LYMPH % 5.1 % (20.0-40.0); MEAN CELL VOLUME 81.8 fl (81.0-99.0); MEAN CORPUSCULAR HEMOGLOBIN 25.8 pg (27.0-31.0); MEAN CORPUSCULAR HGB CONC 31.6 g/dL (33.0-37.0); MEAN PLATELET VOLUME 8.4 fl (7.2-11.7); MONO # 1.5 K/uL (0.0-0.8); MONO % 7.8 % (0.0-10.0); NEUT # 16.2 K/uL (1.8-7.0); NEUT % 86.5 % (50.0-75.0); RBC 3.77 Mil/uL (3.80-5.20); RED CELL DISTRIBUTION WIDTH 18.5 % (11.5-14.5); WHITE BLOOD COUNT 18.7 K/uL (4.8-10.8)
[2018-07-29] MEDS: VIRT PO SCH (08:43)
[2018-07-29] MEDS: DRONABINOL 2.5 MG PO SCH (08:44)
[2018-07-29] MEDS: Pantoprazole 40 mg EC Tab PO SCH (08:46)
--- NOTE | 2018-07-29 08:51 | CARD ---
APPROVED REPORT Date of service: 07/28/2018 EKG Measurement Heart [id number] <Conclusion> Sinus tachycardia Left axis deviation Poor R wave progression in Precordial leads Right bundle branch block Abnormal ECG
[2018-07-29] MEDS ORDERED: Meropenem 500 MG in Sodium Chloride 0.9% 100 ML IVPB SCH (09:00)
--- NOTE | 2018-07-29 09:15 | RAD ---
Date of service: 07/28/2018 HISTORY: Abd pain COMPARISON: Portable chest 10/11/2015. TECHNIQUE: 1 view obtained. FINDINGS: LUNGS: Right chest now appears clear and is somewhat hyperinflated compensating for complete opacification left hemithorax and gross volume loss the left lung with only limited aeration identified at the left base. Calcified pulmonary or pleural changes are again seen the left hemithorax with deformities of multiple left ribs. PLEURA: No acute pleural changes bilaterally. CARDIOVASCULAR: Calcific atherosclerotic changes are seen related to the thoracic aorta. Normal cardiac size. No pulmonary vascular congestion. OSSEOUS STRUCTURES: No significant abnormalities. VISUALIZED UPPER ABDOMEN: Normal. OTHER FINDINGS: None. IMPRESSION: No acute cardiopulmonary disease. Marked volume loss of the left lung is reiterated with parenchymal or pleural calcifications again evident and limited aeration at the left base. Right lung is clear and is mildly hyperaerated. No suspicious interval findings compared prior chest radiograph 10/11/2015.
--- NOTE | 2018-07-29 11:09 | CP.PCM.CON ---
History of Present Illness - History of Present Illness History of Present Illness: 63 y bed bound patient with multiple comorbid conditions with recurrent admissions for UTI with ESBL and b/l stent placements with lower abdominal pain and not feeling herself Past Patient History - Infectious Disease Hx of Infectious Diseases: None - Tetanus Immunizations Tetanus Immunization: Unknown - Past Medical History & Family History Past Medical History?: Yes - Past Social History Smoking Status: Former Smoker Alcohol: None Drugs: Denies - CARDIAC Hx Hypertension: Yes - PULMONARY Hx Respiratory Disorders: Yes Hx Lung Cancer: Yes Other/Comment: Ca of Cervix with Lung ( L) Metastasis (10 years ago)PREVIOUSLY ON CHEMO/RADIATION THERAPHY - NEUROLOGICAL Hx Neurological Disorder: No - HEENT Hx HEENT Problems: No - RENAL Hx Chronic Kidney Disease: Yes (kidney stones; rt nephrostomy) Hx Kidney Stones: Yes - ENDOCRINE/METABOLIC Hx Endocrine Disorders: No - HEMATOLOGICAL/ONCOLOGICAL Hx Anemia: Yes Hx Human Immunodeficiency Virus (HIV): No - INTEGUMENTARY Hx Dermatological Problems: No - MUSCULOSKELETAL/RHEUMATOLOGICAL Hx Musculoskeletal Disorders: No Hx Falls: No - GASTROINTESTINAL Hx Gastrointestinal Disorders: No - GENITOURINARY/GYNECOLOGICAL Hx Genitourinary Disorders: Yes Hx Cervical Cancer: Yes Hx Urinary Tract Infection: Yes Other/Comment: BLADDER PROBLEMS - PSYCHIATRIC Hx Anxiety: Yes Hx Depression: Yes - SURGICAL HISTORY Hx Surgeries: Yes Hx Pulmonary Surgery: Yes (Left Lobectomy) Hx Tubal Ligation: Yes Other/Comment: nephrostomy rt and left kidneys. 01/19/16 cystoscopy. insertion and removal of lifeport. Feb 2018 replacement of nephrostomy tube. - ANESTHESIA Hx Anesthesia: Yes Hx Anesthesia Reactions: No Hx Malignant Hyperthermia: No Meds Allergies/Adverse Reactions: Allergies Allergy/AdvReac Type Severity Reaction Status Date / Time No Known Allergies Allergy Verified 05/15/18 10:25 - Medications Medications: Current Medications Acetaminophen (Tylenol 325mg Tab) 650 mg PO Q6 PRN PRN Reason: Fever >100.4 F Acetaminophen (Tylenol 325mg Tab) 650 mg PO Q6 PRN PRN Reason: Pain, Mild (1-3) Amlodipine Besylate (Norvasc) 5 mg PO DAILY [facility] Baclofen (Lioresal) 10 mg PO Q8 [facility] Last Admin: 07/29/18 08:45 Dose: 10 mg Diazepam (Valium) 5 mg PO BID PRN PRN Reason: Anxiety Docusate Sodium (Colace) 100 mg PO BID PRN PRN Reason: Constipation Fentanyl (Duragesic) 1 patch TD Q3D [facility]; Protocol Last Admin: 07/29/18 02:56 Dose: Not Given Fentanyl (Duragesic) 1 patch TD Q3D [facility]; Protocol Last Admin: 07/29/18 02:56 Dose: Not Given Fluconazole (Diflucan) 200 mg PO DAILY [facility]; Protocol Last Admin: 07/29/18 08:44 Dose: 200 mg Heparin Sodium (Porcine) (Heparin) 5,000 units SC Q12 [facility]; Protocol Last Admin: 07/29/18 08:45 Dose: 5,000 units Home Med (B Complex W-C No.20/Folic Acid [Virt-Caps Softgel]) 1 cap PO DAILY [facility] Last Admin: 07/29/18 08:43 Dose: 1 cap Home Med (Dronabinol [Marinol]) 2.5 mg PO DAILY [facility] Last Admin: 07/29/18 08:44 Dose: 2.5 mg Meropenem 500 mg/ Sodium (Chloride) 100 mls @ 100 mls/hr IVPB Q12 [facility]; Protocol Last Admin: 07/29/18 08:46 Dose: 100 mls/hr Sodium Chloride (Sodium Chloride 0.9%) 1,000 mls @ 150 mls/hr IV .Q6H40M [facility] Stop: 07/29/18 15:49 Last Admin: 07/29/18 04:22 Dose: 150 mls/hr Ketorolac Tromethamine (Toradol) 15 mg IVP Q4 PRN PRN Reason: Pain, moderate (4-7) Ketorolac Tromethamine (Toradol) 30 mg IVP Q6 PRN PRN Reason: Pain, severe (8-10) Metoprolol Tartrate (Lopressor) 25 mg PO Q12 [facility] Mirtazapine (Remeron) 7.5 mg PO HS [facility] Pantoprazole Sodium (Protonix Ec Tab) 40 mg PO DAILY [facility] Last Admin: 07/29/18 08:46 Dose: 40 mg Sodium Bicarbonate (Sodium Bicarbonate Tab) 650 mg PO Q8 [facility] Zolpidem Tartrate (Ambien) 5 mg PO HS PRN PRN Reason: Insomnia Last Admin: 07/29/18 02:13 Dose: 5 mg Physical Exam - GI/Abdominal Exam Additional comments: suprapubic tenderness Results - Vital Signs Recent Vital Signs: Last Vital Signs Temp 97.9 F 07/29/18 08:01 Pulse 102 H 07/29/18 08:01 Resp 20 07/29/18 08:01 BP 100/65 07/29/18 08:01 Pulse Ox 98 07/29/18 08:01 - Labs Result Diagrams: 07/29/18 04:45 07/29/18 04:45 Labs: Laboratory Results - last 24 hr 07/28/18 07/28/18 07/28/18 22:40 22:45 22:45 WBC 21.5 H D RBC 4.24 Hgb 11.1 L Hct 34.7 MCV 81.9 D MCH 26.2 L MCHC 32.0 L RDW 18.8 H Plt Count 629 H D MPV 8.2 Neut % (Auto) 89.6 H Lymph % (Auto) 4.4 L Heard % (Auto) 5.6 Eos % (Auto) 0.2 Baso % (Auto) 0.2 Neut # (Auto) 19.3 H Lymph # (Auto) 1.0 Heard # (Auto) 1.2 H Eos # (Auto) 0.0 Baso # (Auto) 0.0 Neutrophils % (Manual) 87 H Lymphocytes % (Manual) 7 L Monocytes % (Manual) 6 Platelet Estimate Increased H Anisocytosis (manual) Slight PT INR APTT pO2 53 VBG pH 7.34 VBG pCO2 30 L VBG HCO3 18.1 VBG Total CO2 17.1 L VBG O2 Sat (Calc) 91.3 H VBG Base Excess -8.3 L VBG Potassium 4.3 Sodium 122.0 L 123 L Chloride 90.0 L 89 L Glucose 84 Lactate 1.2 FiO2 21.0 Potassium 4.0 Carbon Dioxide 15 L Anion Gap 23 H BUN 49 H Creatinine 2.2 H Est GFR ( Amer) 27 Est GFR (Non-Af Amer) 23 Random Glucose 85 Calcium 9.7 Total Bilirubin 0.6 AST 21 ALT 12 Alkaline Phosphatase 85 Troponin I 0.0170 Total Protein 7.2 Albumin 3.4 L Globulin 3.8 Albumin/Globulin Ratio 0.9 L Venous Blood Potassium 4.3 Urine Color Urine Clarity Urine pH Ur Specific [place] Urine Protein Urine Glucose (UA) Urine Ketones Urine Blood Urine Nitrate Urine Bilirubin Urine Urobilinogen Ur Leukocyte Esterase Urine RBC (Auto) Urine WBC Clumps (Auto) Urine Microscopic WBC Ur Squamous Epith Cells Urine Bacteria Urine Yeast (Budding) 07/28/18 07/29/18 07/29/18 22:45 00:05 04:45 WBC 18.7 H RBC 3.77 L Hgb 9.7 L Hct 30.8 L MCV 81.8 MCH 25.8 L MCHC 31.6 L RDW 18.5 H Plt Count 541 H MPV 8.4 Neut % (Auto) 86.5 H Lymph % (Auto) 5.1 L Heard % (Auto) 7.8 Eos % (Auto) 0.4 Baso % (Auto) 0.2 Neut # (Auto) 16.2 H Lymph # (Auto) 0.9 L Heard # (Auto) 1.5 H Eos # (Auto) 0.1 Baso # (Auto) 0.0 Neutrophils % (Manual) Lymphocytes % (Manual) Monocytes % (Manual) Platelet Estimate Anisocytosis (manual) PT 13.0 INR 1.1 APTT 29.4 pO2 VBG pH VBG pCO2 VBG HCO3 VBG Total CO2 VBG O2 Sat (Calc) VBG Base Excess VBG Potassium Sodium Chloride Glucose Lactate FiO2 Potassium Carbon Dioxide Anion Gap BUN Creatinine Est GFR ( Amer) Est GFR (Non-Af Amer) Random Glucose Calcium Total Bilirubin AST ALT Alkaline Phosphatase Troponin I Total Protein Albumin Globulin Albumin/Globulin Ratio Venous Blood Potassium Urine Color Yellow Urine Clarity Cloudy Urine pH 5.0 Ur Specific [place] 1.016 Urine Protein 30 Urine Glucose (UA) Neg Urine Ketones Trace Urine Blood Moderate Urine Nitrate Negative Urine Bilirubin Negative Urine Urobilinogen 0.2-1.0 Ur Leukocyte Esterase Large Urine RBC (Auto) 32 H Urine WBC Clumps (Auto) Few H Urine Microscopic WBC 486 H Ur Squamous Epith Cells < 1 Urine Bacteria Few H Urine Yeast (Budding) Mod H 07/29/18 04:45 WBC RBC Hgb Hct MCV MCH MCHC RDW Plt Count MPV Neut % (Auto) Lymph % (Auto) Heard % (Auto) Eos % (Auto) Baso % (Auto) Neut # (Auto) Lymph # (Auto) Heard # (Auto) Eos # (Auto) Baso # (Auto) Neutrophils % (Manual) Lymphocytes % (Manual) Monocytes % (Manual) Platelet Estimate Anisocytosis (manual) PT INR APTT pO2 VBG pH VBG pCO2 VBG HCO3 VBG Total CO2 VBG O2 Sat (Calc) VBG Base Excess VBG Potassium Sodium 126 L Chloride 93 L Glucose Lactate FiO2 Potassium 3.6 Carbon Dioxide 17 L Anion Gap 20 BUN 49 H Creatinine 1.8 H Est GFR ( Amer) 34 Est GFR (Non-Af Amer) 28 Random Glucose 83 Calcium 9.0 Total Bilirubin AST ALT Alkaline Phosphatase Troponin I Total Protein Albumin Globulin Albumin/Globulin Ratio Venous Blood Potassium Urine Color Urine Clarity Urine pH Ur Specific [place] Urine Protein Urine Glucose (UA) Urine Ketones Urine Blood Urine Nitrate Urine Bilirubin Urine Urobilinogen Ur Leukocyte Esterase Urine RBC (Auto) Urine WBC Clumps (Auto) Urine Microscopic WBC Ur Squamous Epith Cells Urine Bacteria Urine Yeast (Budding) Assessment & Plan - Assessment and Plan (Free Text) Assessment: Sepsis most likely from UTI. UA positive. Awaiting culture and sens. In the meantime, agree with Meropenem #1/14. Deescalate therapy based on sensitivites. f/u blood culture.
[2018-07-29 16:47] LABS: CALCIUM 8.5 mg/dL (8.4-10.2)
[2018-07-30 05:26] LABS: ALB/GLOB RATIO 0.8 (1.0-2.1); ALBUMIN 2.8 g/dL (3.5-5.0); CALCIUM 8.4 mg/dL (8.4-10.2)
[2018-07-30 05:45] LABS: BASO % 0.3 % (0.0-2.0); EOS # 0.1 K/uL (0.0-0.7); EOS % 0.4 % (0.0-4.0); HEMOGLOBIN 9.5 g/dL (12.0-16.0); LYMPH # 0.7 K/uL (1.0-4.3); MEAN CELL VOLUME 83.2 fl (81.0-99.0); MEAN CORPUSCULAR HGB CONC 31.2 g/dL (33.0-37.0); MONO % 7.2 % (0.0-10.0); NEUT # 12.6 K/uL (1.8-7.0); NEUT % 87.1 % (50.0-75.0); RBC 3.66 Mil/uL (3.80-5.20); RED CELL DISTRIBUTION WIDTH 18.9 % (11.5-14.5); WHITE BLOOD COUNT 14.4 K/uL (4.8-10.8)
[2018-07-30] MEDS ORDERED: Potassium Chloride 20 mEq ER Tab PO ONE (07:21)
[2018-07-30] MEDS ORDERED: Sodium Chloride 0.9% 1,000 ML IV SCH (07:30)
--- NOTE | 2018-07-30 10:41 | CP.PCM.PN ---
Subjective - Date & Time of Evaluation Date of Evaluation: 07/30/18 Time of Evaluation: 09:15 - Subjective Subjective: Patient seen and examined at bedside. Reports back pain where nephrostomy tube in place. Patient is frail and coughing at bedside. Not tolerating PO intake. Objective - Vital Signs/Intake and Output Vital Signs (last 24 hours): Temp Pulse Resp BP Pulse Ox 98.9 F 126 H 20 108/69 97 07/30/18 08:33 07/30/18 08:33 07/30/18 08:33 07/30/18 08:33 07/30/18 08:33 Intake and Output: 07/30/18 07/30/18 06:59 18:59 Intake Total 220 Output Total 525 Balance -305 - Medications Medications: Current Medications Acetaminophen (Tylenol 325mg Tab) 650 mg PO Q6 PRN PRN Reason: Fever >100.4 F Acetaminophen (Tylenol 325mg Tab) 650 mg PO Q6 PRN PRN Reason: Pain, Mild (1-3) Albuterol/Ipratropium (Duoneb 3 Mg/0.5 Mg (3 Ml) Ud) 3 ml INH RQ4 [facility] Amlodipine Besylate (Norvasc) 5 mg PO DAILY [facility] Baclofen (Lioresal) 10 mg PO Q8 [facility] Last Admin: 07/30/18 00:19 Dose: 10 mg Diazepam (Valium) 5 mg PO BID PRN PRN Reason: Anxiety Docusate Sodium (Colace) 100 mg PO BID PRN PRN Reason: Constipation Fluconazole (Diflucan) 200 mg PO DAILY [facility]; Protocol Last Admin: 07/29/18 08:44 Dose: 200 mg Heparin Sodium (Porcine) (Heparin) 5,000 units SC Q12 [facility]; Protocol Last Admin: 07/29/18 21:38 Dose: 5,000 units Home Med (B Complex W-C No.20/Folic Acid [Virt-Caps Softgel]) 1 cap PO DAILY [facility] Last Admin: 07/29/18 08:43 Dose: 1 cap Home Med (Dronabinol [Marinol]) 2.5 mg PO DAILY [facility] Last Admin: 07/29/18 08:44 Dose: 2.5 mg Meropenem 500 mg/ Sodium (Chloride) 100 mls @ 100 mls/hr IVPB Q12 [facility]; Protocol Last Admin: 07/29/18 21:37 Dose: 100 mls/hr Ketorolac Tromethamine (Toradol) 15 mg IVP Q4 PRN PRN Reason: Pain, moderate (4-7) Ketorolac Tromethamine (Toradol) 30 mg IVP Q6 PRN PRN Reason: Pain, severe (8-10) Metoprolol Tartrate (Lopressor) 25 mg PO Q12 [facility] Mirtazapine (Remeron) 7.5 mg PO HS [facility] Last Admin: 07/29/18 21:39 Dose: 7.5 mg Morphine Sulfate (Morphine) 2 mg IVP Q6 PRN PRN Reason: Pain, moderate (4-7) Morphine Sulfate (Morphine) 4 mg IVP Q6 PRN PRN Reason: Pain, severe (8-10) Last Admin: 07/29/18 21:51 Dose: 4 mg Pantoprazole Sodium (Protonix Ec Tab) 40 mg PO DAILY [facility] Last Admin: 07/29/18 08:46 Dose: 40 mg Sodium Bicarbonate (Sodium Bicarbonate Tab) 650 mg PO Q8 [facility] Last Admin: 07/30/18 00:19 Dose: 650 mg Zolpidem Tartrate (Ambien) 5 mg PO HS PRN PRN Reason: Insomnia Last Admin: 07/29/18 21:50 Dose: 5 mg - Labs Labs: 07/30/18 04:40 07/30/18 04:40 PT 13.0 Seconds (9.8-13.1) 07/28/18 22:45 INR 1.1 07/28/18 22:45 APTT 29.4 Seconds (25.6-37.1) 07/28/18 22:45 - Constitutional Appears: No Acute Distress, Cachectic, Other (Frail appearing) - Eye Exam Eye Exam: Normal appearance - Respiratory Exam Respiratory Exam: Rhonchi. absent: Accessory Muscle Use, Chest Wall Tenderness, Decreased Breath Sounds, Prolonged Expiratory Phase, Rales, Wheezes, Respi ratory Distress, Stridor - GI/Abdominal Exam GI & Abdominal Exam: Soft, Tenderness (Suprapubic tenderness. ), Normal Bowel Sounds. absent: Distended, Firm, Guarding, Rigid, Rebound - Extremities Exam Extremities Exam: Normal Capillary Refill, Normal Inspection Additional comments: Frail appearing - Neurological Exam Neurological Exam: Alert, Awake, Oriented x3 - Skin Skin Exam: Dry, Intact, Normal Color, Warm Assessment and Plan - Assessment and Plan (Free Text) Assessment: 63 yo Female with history of Lung CA, Hx of Cervical CA s/p radiation therapy, Obstructive Uropathy sec to Cervical CA s/p b/l Ureteral Stent Placement- history of EBSL in the past, CKD, Anemia and HTN is admitted for UTI and sepsis. Currently on day 3 of Meropenem. Pending urine culture organism and sensitivities. Plan: Sepsis -tachcardia, lekocytosis w/ shift likely UTI sepsis - Leukocytosis trending down -c/w IV fluid (D5 NS) -antibiotic- Meropenem (day 3) to tx the UTI sepsis -bcx- no growth to date - ucx: Gram positive cocci and gram negative madeline and yeast species -ID consulted- Dr. Meyer- Continue Meropenem UTI -complicated UTI given b/l Ureteral Stents -hx of ESBL UTI in the past -Meropenem (05/18) -renal dosing given Cr-clearance is 34 -ID consulted -pain management as needed -consider urology consulted if needed Dehydration, hyponatremia and hypochloremia -likely 2/2 to poor PO intake -Na deficit is 286 -will rehydrate with D5W NS for now -c/w diet as tolerated CKD stage IV -acute on chronic renal injury -IV fluids -follow up -consider nephrology consulted as needed HTN -chronic -well maintained -BP mildly low, given sepsis will hold BP medications now -resume as needed Anemia -chronic -improving and stable at this time Lung and Cervical CA -chronic -not any any treatment currently -follow up out patient Cachexia -likely chronic given conditions -encourage PO diet -supplement with ensure -c/w home meds for appetite loss DVT prolx -Heparin SC
[2018-07-30] MEDS ORDERED: Dextrose 5%/0.9% NS 1,000 ML IV SCH (11:00)
[2018-07-30] MEDS: VIRT PO SCH (11:19)
[2018-07-30] MEDS: Pantoprazole 40 mg EC Tab PO SCH (11:20)
[2018-07-30] MEDS: DRONABINOL 2.5 MG PO SCH (11:20)
[2018-07-30] MEDS: Meropenem 500 MG in Sodium Chloride 0.9% 100 ML IVPB SCH ×2 (11:41→21:13)
[2018-07-30] MEDS ORDERED: Albuterol-Ipratrop 3 mg / 0.5 (3 ml) UD INH SCH (12:00)
[2018-07-30 13:44] LABS: CALCIUM 8.7 mg/dL (8.4-10.2)
[2018-07-30] MEDS: Dextrose 5%/0.9% NS 1,000 ML IV SCH (14:44)
[2018-07-30] MEDS ORDERED: Iodixanol 320 MG/ML 100 ML BOTTLE IV ONE (15:10)
[2018-07-30] MEDS: Albuterol-Ipratrop 3 mg / 0.5 (3 ml) UD INH SCH ×2 (15:27→19:02)
--- NOTE | 2018-07-30 17:08 | CT ---
Date of service: 07/30/2018 PROCEDURE: CT Chest with contrast (Pulmonary Angiogram) HISTORY: respiratory distress COMPARISON: A prior chest CT with contrast dated 09/06/2013 is not available on PACS with only contrast injector information and demographic data available but no images. Accordingly, correlation is made with recent portable chest radiograph 07/28/2018. TECHNIQUE: Axial computed tomography images were obtained of the chest in the pulmonary arterial phase of enhancement. Coronal and sagittal reformatted images were created and reviewed. Intravenous contrast dose: Visipaque 320, 70 cc Radiation dose: Total exam DLP = 128.24 mGy-cm. This CT exam was performed using one or more of the following dose reduction techniques: Automated exposure control, adjustment of the mA and/or kV according to patient size, and/or use of iterative reconstruction technique. FINDINGS: PULMONARY ARTERIES: Unremarkable. No pulmonary embolism. AORTA: Trace calcific atherosclerotic changes are seen related to the thoracic aorta. No thoracic aortic aneurysm identified. LUNGS: The thoracic inlet appears unremarkable. Limited compression atelectasis identified in the right lower lobe. There is marked volume loss at the left lung presumably on the basis of extensive fibrosis and atelectasis, and possible postoperative change. Extensive parenchymal 9 potentially pleural calcifications are reiterated with cortical thickening at the superior to mid left ribs and left scapula, possibly on the basis of post radiation change minimal aeration is appreciated at left lower lobe lung. Left upper lobe bronchus is nearly completely attenuated with left upper lobe likely completely collapsed. Elevated left hemidiaphragm again evident related to left sided volume loss. PLEURAL SPACES: Limited right pleural effusion identified. Moderate left pleural effusion identified. HEART: Limited anterolateral pericardial effusion is suggested toward the left. Cardiac size appears normal. LYMPH NODES: No significant lymphadenopathy. OTHER FINDINGS: Incidental abdominal ascites is noted with dilatation of stomach and visualized small bowel with gas. Fluid distended small bowel loops are also seen at the visualized left upper quadrant.. IMPRESSION: 1. No definite CT evidence of pulmonary embolus. 2. Gross volume loss is reiterated at the left lung involving left upper greater than lower lobe chronically. The majority of left lung is atelectatic and/or fibrosis on a chronic basis with limited aeration noted at left lower lobe sub segments. Moderate left pleural effusion identified. Cortical thickening affecting mid to superior left thoracic skeletal elements may indicate post radiation change. Clinically correlate further. 3. Right lower lobe compressive and likely dependent atelectasis noted. Nondependent right lung is normally aerated. Mild right pleural effusion evident. 4. Incidental abdominal ascites with dilated stomach with gas and small bowel loops with fluid and gas.
[2018-07-30] MEDS: Potassium Chloride 20 mEq 100 ML IVPB SCH ×2 (17:34→21:12)
[2018-07-30] MEDS ORDERED: Metoprolol 1 mg/ml Inj IVP ONE (18:32)
[2018-07-30] MEDS ORDERED: Metoprolol 1 mg/ml Inj ONE (18:37)
[2018-07-30] MEDS ORDERED: Albuterol-Ipratrop 3 mg / 0.5 (3 ml) UD INH PRN (19:03)
--- NOTE | 2018-07-30 21:23 | CARD ---
APPROVED REPORT Date of service: 07/30/2018 EKG Measurement Heart [id number] <Conclusion> Sinus tachycardia Possible Left atrial enlargement Left axis deviation Right bundle branch block Abnormal ECG
[2018-07-31] MEDS: Dextrose 5%/0.9% NS 1,000 ML IV SCH (02:35)
[2018-07-31 07:00] LABS: HEMOGLOBIN 9.5 g/dL (12.0-16.0); MEAN CELL VOLUME 85.4 fl (81.0-99.0); MEAN CORPUSCULAR HGB CONC 30.4 g/dL (33.0-37.0); RBC 3.64 Mil/uL (3.80-5.20); RED CELL DISTRIBUTION WIDTH 19.4 % (11.5-14.5); WHITE BLOOD COUNT 14.5 K/uL (4.8-10.8)
[2018-07-31 08:34] LABS: BLOOD UREA NITROGEN 23 mg/dl (7-17); CALCIUM 8.9 mg/dL (8.4-10.2); GFR NON-AFRICAN AMERICAN 50
[2018-07-31] MEDS ORDERED: Chlorhexidine Gluconate 1 APPL/PKT TP ONE ×2 (09:10→09:19)
--- NOTE | 2018-07-31 09:28 | CP.PCM.PN ---
Subjective - Date & Time of Evaluation Date of Evaluation: 07/31/18 Time of Evaluation: 09:28 - Subjective Subjective: Patient seen and examined at bedside. Reports abdominal pain. No nausea or vomiting. Patient had one episode of SVT yesterday and was given Lopressor 5mg- resolved. Objective - Vital Signs/Intake and Output Vital Signs (last 24 hours): Temp Pulse Resp BP Pulse Ox 97.8 F 109 H 18 114/73 100 07/31/18 08:13 07/31/18 08:13 07/31/18 08:13 07/31/18 08:13 07/31/18 08:13 - Medications Medications: Current Medications Acetaminophen (Tylenol 325mg Tab) 650 mg PO Q6 PRN PRN Reason: Fever >100.4 F Acetaminophen (Tylenol 325mg Tab) 650 mg PO Q6 PRN PRN Reason: Pain, Mild (1-3) Albuterol/Ipratropium (Duoneb 3 Mg/0.5 Mg (3 Ml) Ud) 3 ml INH RQ4 PRN PRN Reason: Shortness of Breath Amlodipine Besylate (Norvasc) 5 mg PO DAILY [facility] Baclofen (Lioresal) 10 mg PO Q8 [facility] Last Admin: 07/31/18 00:02 Dose: Not Given Diazepam (Valium) 5 mg PO BID PRN PRN Reason: Anxiety Docusate Sodium (Colace) 100 mg PO BID PRN PRN Reason: Constipation Fluconazole (Diflucan) 200 mg PO DAILY [facility]; Protocol Last Admin: 07/30/18 11:20 Dose: Not Given Heparin Sodium (Porcine) (Heparin) 5,000 units SC Q12 [facility]; Protocol Last Admin: 07/30/18 21:14 Dose: 5,000 units Home Med (B Complex W-C No.20/Folic Acid [Virt-Caps Softgel]) 1 cap PO DAILY [facility] Last Admin: 07/30/18 11:19 Dose: Not Given Home Med (Dronabinol [Marinol]) 2.5 mg PO DAILY [facility] Last Admin: 07/30/18 11:20 Dose: Not Given Meropenem 500 mg/ Sodium (Chloride) 100 mls @ 100 mls/hr IVPB Q12 [facility]; Protocol Last Admin: 07/30/18 21:13 Dose: 100 mls/hr Dextrose/Sodium Chloride (Dextrose 5%/0.9% Ns 1000 Ml) 1,000 mls @ 100 mls/hr IV .Q10H [facility] Stop: 07/31/18 14:41 Last Admin: 07/31/18 02:35 Dose: 100 mls/hr Metoprolol Tartrate (Lopressor) 25 mg PO Q12 [facility] Metoprolol Tartrate (Lopressor) 12.5 mg PO Q12 [facility] Last Admin: 07/30/18 22:00 Dose: 12.5 mg Mirtazapine (Remeron) 7.5 mg PO HS [facility] Last Admin: 07/30/18 22:01 Dose: 7.5 mg Pantoprazole Sodium (Protonix Ec Tab) 40 mg PO DAILY [facility] Last Admin: 07/30/18 11:20 Dose: Not Given Sodium Bicarbonate (Sodium Bicarbonate Tab) 650 mg PO Q8 [facility] Last Admin: 07/31/18 00:02 Dose: Not Given Tramadol HCl (Ultram) 50 mg PO Q4 PRN PRN Reason: Pain, moderate (4-7) Last Admin: 07/30/18 22:33 Dose: 50 mg Zolpidem Tartrate (Ambien) 5 mg PO HS PRN PRN Reason: Insomnia Last Admin: 07/29/18 21:50 Dose: 5 mg - Labs Labs: 07/31/18 04:25 07/31/18 04:25 PT 13.0 Seconds (9.8-13.1) 07/28/18 22:45 INR 1.1 07/28/18 22:45 APTT 29.4 Seconds (25.6-37.1) 07/28/18 22:45 - Constitutional Appears: In Acute Distress, Cachectic, Chronically Ill - ENT Exam ENT Exam: Mucous Membranes Moist - Respiratory Exam Respiratory Exam: Rhonchi Additional comments: Left sided rhonchi. - GI/Abdominal Exam GI & Abdominal Exam: Distended, Guarding, Tenderness (generalized tenderness. ), Hypoactive Bowel Sounds. absent: Firm, Rigid, Rebound - Extremities Exam Extremities Exam: Normal Capillary Refill, Normal Inspection. absent: Calf Tenderness, Pedal Edema, Tenderness - Neurological Exam Neurological Exam: Alert, Awake - Skin Skin Exam: Dry, Intact, Normal Color, Warm Assessment and Plan - Assessment and Plan (Free Text) Assessment: 63 yo Female with history of Lung CA, Hx of Cervical CA s/p radiation therapy, Obstructive Uropathy sec to Cervical CA s/p b/l Ureteral Stent Placement- his tory of EBSL in the past, CKD, Anemia and HTN is admitted for UTI and sepsis. Currently on day 4 of Meropenem.Urine culture demonstrated Klepsiella pneumonia, gram positive cocci and yeast species sensitive to Rocephin and cefepime. Found to have dilated abdomen - CT scan dilated stomach wtih gas and small bowel loops with fluid and gas. NPO and NGT placed. KUB: potential developing ileus pattern with distal large bowel obstruction. Plan: UTI - Septic on admission - Leukocytosis trending down - complicated UTI given b/l Ureteral Stents - hx of ESBL UTI in the past - Meropenem (06/18) - Ucx: Klebsiella peumonia, gram positive cocci and yeast species sensitive to R ocephin and cefepime - renal dosing given Cr-clearance is 34 - ID consulted- Dr. Meyer - continue Meropenem at this time. - pain management as needed - consider urology consulted if needed Dilated Stomach - NPO - NGT with suction - KUB: potential developing ileus pattern with distal large bowel obstruction. - CT scan dilated stomach with gas and small bowel loops with fluid and gas. Hypocarbia - F/U ABG and Lactic acid Dehydration, hyponatremia and hypochloremia -likely 2/2 to poor PO intake -now resolved -will continue to rehydrate with D5W NS for now -c/w diet as tolerated CKD stage IV -acute on chronic renal injury -IV fluids -follow up -consider nephrology consulted as needed HTN -chronic -well maintained -BP mildly low, given sepsis will hold BP medications now -resume as needed Anemia -chronic -improving and stable at this time Lung and Cervical CA - chronic - not any any treatment currently - follow up out patient Cachexia - likely chronic given conditions - encourage PO diet - supplement with ensure - c/w home meds for appetite loss DVT prolx -Heparin SC
[2018-07-31 09:48] LABS: ABG ALLEN TEST YES; ARTERIAL BLOOD GAS HCO3 19.3 mmol/L (21-28); ARTERIAL BLOOD GAS O2 SAT 96.8 % (95-98); ARTERIAL BLOOD GAS PCO2 29 mm/Hg (35-45); ARTERIAL BLOOD GAS PH 7.37 (7.35-7.45); ARTERIAL BLOOD GAS PO2 81 mm/Hg (80-100); ARTERIAL BLOOD GAS TCO2 17.7 mmol/L (22-28)
--- NOTE | 2018-07-31 11:12 | RAD ---
Date of service: 07/31/2018 HISTORY: distended abdomen COMPARISON: Lumbar spine CT 04/25/2018, abdomen pelvis CT without contrast 10/05/2015. TECHNIQUE: 1 view obtained. FINDINGS: BOWEL: There [id number]-[id number] distention of the stomach and several small and large bowel loops in the central left jackson abdomen with a mild amount of gas identified in the rectum as well. This is only slightly greater than that seen in prior abdomen pelvis CT from 10/05/2015. Pattern may reflect limited developing ileus with distal large bowel obstruction not favored. Bilateral nephrostomy catheters are now identified in situ with partially calcified fibroid noted at the mid pelvis. Left nephrostomy is it is an interval finding with right nephrostomy stable replaced. No large free intrarenal gas collection appreciable. BONES: Loss of the pubic bones is again appreciated bilaterally, presumably postoperative. Clinically correlate further. OTHER FINDINGS: None. IMPRESSION: Potential developing ileus pattern with distal large bowel obstruction not favored. Clinically correlate further. Bilateral nephrostomies identified in situ which represent a new left-sided finding. Calcified fibroid again noted at the pelvis. No large free intrarenal gas collection. Presumably postoperative loss of the pubic bones is again appreciated bilaterally.
[2018-07-31] MEDS: VIRT PO SCH (11:29)
[2018-07-31] MEDS: DRONABINOL 2.5 MG PO SCH (11:29)
[2018-07-31] MEDS: Pantoprazole 40 mg EC Tab PO SCH (11:30)
[2018-07-31] MEDS ORDERED: Sodium Bicarbonate 8.4% 50 MEQ in Dextrose 5%/0.9% NS 1,000 ML IV SCH (12:07)
[2018-07-31] MEDS: Meropenem 500 MG in Sodium Chloride 0.9% 100 ML IVPB SCH ×2 (12:31→20:13)
--- NOTE | 2018-07-31 12:31 | CP.PCM.CON ---
History of Present Illness - History of Present Illness History of Present Illness: consult requested for depression pt at current mental staus sedated , unable to evaluate discussed with dr Rodney , there is no current acute changes in mental status and will evaluate patient when she is able to engage in the interview Past Patient History - Infectious Disease Hx of Infectious Diseases: None - Tetanus Immunizations Tetanus Immunization: Unknown - Past Medical History & Family History Past Medical History?: Yes - Past Social History Smoking Status: Former Smoker Alcohol: None Drugs: Denies - CARDIAC Hx Hypertension: Yes - PULMONARY Hx Respiratory Disorders: Yes Hx Lung Cancer: Yes Other/Comment: Ca of Cervix with Lung ( L) Metastasis (10 years ago)PREVIOUSLY ON CHEMO/RADIATION THERAPHY - NEUROLOGICAL Hx Neurological Disorder: No - HEENT Hx HEENT Problems: No - RENAL Hx Chronic Kidney Disease: Yes (kidney stones; rt nephrostomy) Hx Kidney Stones: Yes - ENDOCRINE/METABOLIC Hx Endocrine Disorders: No - HEMATOLOGICAL/ONCOLOGICAL Hx Anemia: Yes Hx Human Immunodeficiency Virus (HIV): No - INTEGUMENTARY Hx Dermatological Problems: No - MUSCULOSKELETAL/RHEUMATOLOGICAL Hx Musculoskeletal Disorders: No Hx Falls: No - GASTROINTESTINAL Hx Gastrointestinal Disorders: No - GENITOURINARY/GYNECOLOGICAL Hx Genitourinary Disorders: Yes Hx Cervical Cancer: Yes Hx Urinary Tract Infection: Yes Other/Comment: BLADDER PROBLEMS - PSYCHIATRIC Hx Anxiety: Yes Hx Depression: Yes - SURGICAL HISTORY Hx Surgeries: Yes Hx Pulmonary Surgery: Yes (Left Lobectomy) Hx Tubal Ligation: Yes Other/Comment: nephrostomy rt and left kidneys. 01/19/16 cystoscopy. insertion and removal of lifeport. Feb 2018 replacement of nephrostomy tube. - ANESTHESIA Hx Anesthesia: Yes Hx Anesthesia Reactions: No Hx Malignant Hyperthermia: No Meds Allergies/Adverse Reactions: Allergies Allergy/AdvReac Type Severity Reaction Status Date / Time No Known Allergies Allergy Verified 05/15/18 10:25 - Medications Medications: Current Medications Acetaminophen (Tylenol 325mg Tab) 650 mg PO Q6 PRN PRN Reason: Fever >100.4 F Acetaminophen (Tylenol 325mg Tab) 650 mg PO Q6 PRN PRN Reason: Pain, Mild (1-3) Albuterol/Ipratropium (Duoneb 3 Mg/0.5 Mg (3 Ml) Ud) 3 ml INH RQ4 PRN PRN Reason: Shortness of Breath Amlodipine Besylate (Norvasc) 5 mg PO DAILY [facility] Baclofen (Lioresal) 10 mg PO Q8 [facility] Last Admin: 07/31/18 11:29 Dose: Not Given Diazepam (Valium) 5 mg PO BID PRN PRN Reason: Anxiety Docusate Sodium (Colace) 100 mg PO BID PRN PRN Reason: Constipation Fluconazole (Diflucan) 200 mg PO DAILY [facility]; Protocol Last Admin: 07/31/18 11:29 Dose: Not Given Heparin Sodium (Porcine) (Heparin) 5,000 units SC Q12 [facility]; Protocol Last Admin: 07/30/18 21:14 Dose: 5,000 units Home Med (B Complex W-C No.20/Folic Acid [Virt-Caps Softgel]) 1 cap PO DAILY [facility] Last Admin: 07/31/18 11:29 Dose: Not Given Home Med (Dronabinol [Marinol]) 2.5 mg PO DAILY [facility] Last Admin: 07/31/18 11:29 Dose: Not Given Meropenem 500 mg/ Sodium (Chloride) 100 mls @ 100 mls/hr IVPB Q12 [facility]; Protocol Last Admin: 07/30/18 21:13 Dose: 100 mls/hr Sodium Bicarbonate 50 meq/ (Dextrose/Sodium Chloride) 1,050 mls @ 100 mls/hr IV .[id number] [facility] Stop: 07/31/18 14:41 Lactobacillus Acidophilus (Bacid Acidophilus) 1 cap PO BID [facility] Metoprolol Tartrate (Lopressor) 25 mg PO Q12 [facility] Metoprolol Tartrate (Lopressor) 12.5 mg PO Q12 [facility] Last Admin: 07/31/18 11:29 Dose: Not Given Mirtazapine (Remeron) 7.5 mg PO HS [facility] Last Admin: 07/30/18 22:01 Dose: 7.5 mg Pantoprazole Sodium (Protonix Ec Tab) 40 mg PO DAILY [facility] Last Admin: 07/31/18 11:30 Dose: Not Given Sodium Bicarbonate (Sodium Bicarbonate Tab) 650 mg PO Q8 [facility] Last Admin: 07/31/18 11:30 Dose: Not Given Tramadol HCl (Ultram) 50 mg PO Q4 PRN PRN Reason: Pain, moderate (4-7) Last Admin: 07/30/18 22:33 Dose: 50 mg Zolpidem Tartrate (Ambien) 5 mg PO HS PRN PRN Reason: Insomnia Last Admin: 07/29/18 21:50 Dose: 5 mg Results - Vital Signs Recent Vital Signs: Last Vital Signs Temp 97.8 F 07/31/18 09:00 Pulse 109 H 07/31/18 11:29 Resp 18 07/31/18 09:00 BP 114/73 07/31/18 11:29 Pulse Ox 100 07/31/18 09:00 - Labs Result Diagrams: 07/31/18 04:25 07/31/18 04:25 Labs: Laboratory Results - last 24 hr 07/29/18 07/30/18 07/30/18 16:50 13:19 13:20 WBC RBC Hgb Hct MCV MCH MCHC RDW Plt Count pCO2 pO2 HCO3 ABG pH ABG Total CO2 ABG O2 Saturation ABG Base Excess Miguel Test ABG Potassium A-a O2 Difference Glucose Lactate FiO2 Sodium 130 L Potassium 3.2 L Chloride 102 Carbon Dioxide 15 L Anion Gap 16 BUN 29 H Creatinine 1.3 H Est GFR ( Amer) 50 Est GFR (Non-Af Amer) 41 POC Glucose (mg/dL) 115 H Random Glucose 103 Lactic Acid Calcium 8.7 Procalcitonin 4.55 H Arterial Blood Potassium 07/31/18 07/31/18 07/31/18 04:25 04:25 06:35 WBC 14.5 H RBC 3.64 L Hgb 9.5 L Hct 31.1 L MCV 85.4 D MCH 26.0 L MCHC 30.4 L RDW 19.4 H Plt Count 423 H pCO2 pO2 HCO3 ABG pH ABG Total CO2 ABG O2 Saturation ABG Base Excess Miguel Test ABG Potassium A-a O2 Difference Glucose Lactate FiO2 Sodium 133 Potassium 3.9 Chloride 109 H Carbon Dioxide 11 L* D Anion Gap 17 BUN 23 H Creatinine 1.1 Est GFR ( Amer) > 60 Est GFR (Non-Af Amer) 50 POC Glucose (mg/dL) 145 H Random Glucose 139 H Lactic Acid Calcium 8.9 Procalcitonin Arterial Blood Potassium 07/31/18 07/31/18 07/31/18 09:40 10:30 10:52 WBC RBC Hgb Hct MCV MCH MCHC RDW Plt Count pCO2 29 L pO2 81 HCO3 19.3 L ABG pH 7.37 ABG Total CO2 17.7 L ABG O2 Saturation 96.8 ABG Base Excess -7.1 L Miguel Test Yes ABG Potassium 3.3 L A-a O2 Difference 82.0 Glucose 159 H Lactate 0.8 FiO2 28.0 Sodium 131.0 L Potassium Chloride 108.0 H Carbon Dioxide Anion Gap BUN Creatinine Est GFR ( Amer) Est GFR (Non-Af Amer) POC Glucose (mg/dL) 161 H Random Glucose Lactic Acid 1.4 Calcium Procalcitonin Arterial Blood Potassium 3.3 L
[2018-07-31] MEDS ORDERED: Labetalol 5mg/ml (4ml) IVP STA (13:09)
[2018-07-31] MEDS: Lactobacillus Acidophilus 500 MU Cap PO SCH (17:00)
[2018-07-31 17:22] LABS: BLOOD UREA NITROGEN 19 mg/dl (7-17); CALCIUM 8.2 mg/dL (8.4-10.2); GFR NON-AFRICAN AMERICAN 56
[2018-07-31] MEDS ORDERED: Magnesium Sulfate 4 gm/100 ml 4 GM/100 ML BAG IVPB ONE (17:49)
[2018-07-31] MEDS ORDERED: Magnesium Sulfate 2 gm/50 ml 2 GM/50 ML BAG IV ONE (18:00)
[2018-07-31] MEDS: Fluconazole IV 200mg/100 ml NS 100 ML IVPB SCH (20:11)
[2018-07-31] MEDS: Potassium Chl 20 mEq in D5-NS 1,000 ML IV SCH (20:11)
[2018-07-31] MEDS: Metoprolol 1 mg/ml Inj IVP SCH (21:17)
[2018-08-01] MEDS: Metoprolol 1 mg/ml Inj IVP SCH ×4 (04:51→21:11)
[2018-08-01 05:46] LABS: HEMOGLOBIN 8.7 g/dL (12.0-16.0); MEAN CELL VOLUME 82.7 fl (81.0-99.0); MEAN CORPUSCULAR HGB CONC 31.5 g/dL (33.0-37.0); RBC 3.34 Mil/uL (3.80-5.20); RED CELL DISTRIBUTION WIDTH 19.7 % (11.5-14.5); WHITE BLOOD COUNT 13.2 K/uL (4.8-10.8)
[2018-08-01 06:07] LABS: ALB/GLOB RATIO 0.7 (1.0-2.1); ALBUMIN 2.3 g/dL (3.5-5.0); ALT/SGPT 30 U/L (9-52); AST/SGOT 36 U/L (14-36); BLOOD UREA NITROGEN 16 mg/dl (7-17); CALCIUM 8.4 mg/dL (8.4-10.2); GFR NON-AFRICAN AMERICAN 50
[2018-08-01] MEDS ORDERED: Magnesium Sulfate 2 gm/50 ml 2 GM/50 ML BAG IVPB ONE (06:51)
[2018-08-01] MEDS ORDERED: Potassium Chloride 20 mEq ER Tab PO ONE (08:00)
[2018-08-01] MEDS ORDERED: Magnesium Sulfate 2 GM in Sodium Chloride 0.9% 100 ML IVPB ONE (08:10)
[2018-08-01] MEDS ORDERED: Potassium Chloride 20 mEq 100 ML IVPB ONE (08:11)
[2018-08-01] MEDS: VIRT PO SCH (09:01)
[2018-08-01] MEDS: DRONABINOL 2.5 MG PO SCH (09:01)
[2018-08-01] MEDS: Pantoprazole 40 mg EC Tab PO SCH (09:01)
[2018-08-01] MEDS: Lactobacillus Acidophilus 500 MU Cap PO SCH ×2 (09:01→17:39)
[2018-08-01] MEDS: Fluconazole IV 200mg/100 ml NS 100 ML IVPB SCH (09:07)
[2018-08-01] MEDS: Meropenem 500 MG in Sodium Chloride 0.9% 100 ML IVPB SCH ×2 (09:08→21:15)
[2018-08-01] MEDS: Dextrose 5%/0.9% NS 1,000 ML IV SCH ×2 (09:30→17:40)
--- NOTE | 2018-08-01 09:33 | CP.PCM.PN ---
Subjective - Date & Time of Evaluation Date of Evaluation: 08/01/18 Time of Evaluation: 09:40 - Subjective Subjective: Patient seen and examined at bedside. Reports no abdominal pain. No SVT events on the certified social workers in health care. No acute events overnight. NPO with NGT in place. 200cc bilious fluid overnight drain from NGT. Had large watery BM yesterday. No passage of flatus as of yet. Objective - Vital Signs/Intake and Output Vital Signs (last 24 hours): Temp Pulse Resp BP Pulse Ox 98.4 F 102 H 18 103/64 98 08/01/18 07:49 08/01/18 07:49 08/01/18 07:49 08/01/18 07:49 08/01/18 07:49 - Medications Medications: Current Medications Acetaminophen (Tylenol 325mg Tab) 650 mg PO Q6 PRN PRN Reason: Fever >100.4 F Acetaminophen (Tylenol 325mg Tab) 650 mg PO Q6 PRN PRN Reason: Pain, Mild (1-3) Albuterol/Ipratropium (Duoneb 3 Mg/0.5 Mg (3 Ml) Ud) 3 ml INH RQ4 PRN PRN Reason: Shortness of Breath Amlodipine Besylate (Norvasc) 5 mg PO DAILY [facility] Baclofen (Lioresal) 10 mg PO Q8 [facility] Last Admin: 07/31/18 11:29 Dose: Not Given Diazepam (Valium) 5 mg PO BID PRN PRN Reason: Anxiety Docusate Sodium (Colace) 100 mg PO BID PRN PRN Reason: Constipation Heparin Sodium (Porcine) (Heparin) 5,000 units SC Q12 [facility]; Protocol Last Admin: 08/01/18 09:01 Dose: 5,000 units Home Med (B Complex W-C No.20/Folic Acid [Virt-Caps Softgel]) 1 cap PO DAILY [facility] Last Admin: 08/01/18 09:01 Dose: Not Given Home Med (Dronabinol [Marinol]) 2.5 mg PO DAILY [facility] Last Admin: 08/01/18 09:01 Dose: Not Given Meropenem 500 mg/ Sodium (Chloride) 100 mls @ 100 mls/hr IVPB Q12 [facility]; Protocol Last Admin: 08/01/18 09:08 Dose: 100 mls/hr Fluconazole (Diflucan Iv 200 Mg/100 Ml Ns) 100 mls @ 100 mls/hr IVPB DAILY [facility]; Protocol Last Admin: 08/01/18 09:07 Dose: 100 mls/hr Potassium Chloride/Dextrose/Sod Cl (Potassium Chl 20 Meq In D5-Ns) 1,000 mls @ 80 mls/hr IV .[id number] [facility] Stop: 08/01/18 17:45 Last Admin: 07/31/18 20:11 Dose: 80 mls/hr Potassium Chloride (Potassium Chloride 20 Meq/100 Ml) 100 mls @ 50 mls/hr IVPB ONCE ONE Stop: 08/01/18 10:10 Last Admin: 08/01/18 09:08 Dose: 50 mls/hr Dextrose/Sodium Chloride (Dextrose 5%/0.9% Ns 1000 Ml) 1,000 mls @ 125 mls/hr IV .Q8H [facility] Stop: 08/02/18 09:26 Lactobacillus Acidophilus (Bacid Acidophilus) 1 cap PO BID [facility] Last Admin: 08/01/18 09:01 Dose: Not Given Metoprolol Tartrate (Lopressor) 25 mg PO Q12 [facility] Metoprolol Tartrate (Lopressor) 12.5 mg PO Q12 [facility] Last Admin: 07/31/18 11:29 Dose: Not Given Metoprolol Tartrate (Lopressor) 5 mg IVP Q6 [facility] Last Admin: 08/01/18 04:51 Dose: Not Given Mirtazapine (Remeron) 7.5 mg PO HS [facility] Last Admin: 07/31/18 21:19 Dose: Not Given Pantoprazole Sodium (Protonix Ec Tab) 40 mg PO DAILY [facility] Last Admin: 08/01/18 09:01 Dose: Not Given Sodium Bicarbonate (Sodium Bicarbonate Tab) 650 mg PO Q8 [facility] Last Admin: 08/01/18 09:01 Dose: Not Given Tramadol HCl (Ultram) 50 mg PO Q4 PRN PRN Reason: Pain, moderate (4-7) Last Admin: 07/30/18 22:33 Dose: 50 mg Zolpidem Tartrate (Ambien) 5 mg PO HS PRN PRN Reason: Insomnia Last Admin: 07/29/18 21:50 Dose: 5 mg - Labs Labs: 08/01/18 05:20 08/01/18 05:20 PT 13.0 Seconds (9.8-13.1) 05/24/19 22:45 INR 1.1 07/28/18 22:45 APTT 29.4 Seconds (25.6-37.1) 07/28/18 22:45 - Constitutional Appears: No Acute Distress, Cachectic, Chronically Ill - Eye Exam Eye Exam: Normal appearance - ENT Exam ENT Exam: Mucous Membranes Moist - Respiratory Exam Respiratory Exam: Rhonchi, NORMAL BREATHING PATTERN. absent: Accessory Muscle Use, Chest Wall Tenderness, Decreased Breath Sounds, Prolonged Expiratory Phase, Rales, Wheezes, Respiratory Distress, Stridor - Cardiovascular Exam Cardiovascular Exam: +S1, +S2 - GI/Abdominal Exam GI & Abdominal Exam: Soft, Normal Bowel Sounds. absent: Distended, Firm, Gu arding, Rigid, Tenderness, Rebound - Extremities Exam Extremities Exam: Normal Capillary Refill, Normal Inspection. absent: Calf Tenderness, Pedal Edema, Tenderness - Neurological Exam Neurological Exam: Alert, Awake, Oriented x3 - Psychiatric Exam Psychiatric exam: Normal Affect, Normal Mood - Skin Skin Exam: Dry, Intact, Normal Color, Warm Assessment and Plan - Assessment and Plan (Free Text) Assessment: 63 yo Female with history of Lung CA, Hx of Cervical CA s/p radiation therapy, Obstructive Uropathy sec to Cervical CA s/p b/l Ureteral Stent Placement- histor y of EBSL in the past, CKD, Anemia and HTN is admitted for UTI and sepsis. Currently on day 5 of Meropenem.Urine culture demonstrated Klebsiella pneumonia, gram positive cocci and yeast species sensitive to Rocephin and cefepime. Found to have distended abdomen - CT scan dilated stomach with gas and small bowel loops with fluid and gas. NPO and NGT placed 07/31, draining bilious fluid. KUB: potential developing ileus pattern with distal large bowel obstruction. Plan: Sepsis secondary to UTI -tachcardia, lekocytosis w/ shift likely UTI sepsis - WBC trending down 21 K to 13 K -c/w IV fluid (D5 NS) -antibiotic- Meropenem (day 07/18) to tx the UTI sepsis and Diflucan -Bcx- no growth to date - Ucx: Klebsiella peumonia, gram positive cocci and yeast species sensitive to Rocephin and cefepime -ID consulted- Dr. Meyer- Continue Meropenem - F/U C.diff - Bacid PO UTI -complicated UTI given b/l Ureteral Stents -hx of ESBL UTI in the past -Meropenem (07/18) - Diflucan - ucx: Klebsiella peumonia, gram positive cocci and yeast species sensitive to Rocephin and cefepime -renal dosing given Cr-clearance is 31 mL/min -ID consulted, appreciate recommendations -pain management as needed -Urology - Dr. Mares consulted. Ileus - NPO - NGT with suction- bilious fluid - Check C.Diff - Continue PPI and Zofran - KUB: potential developing ileus pattern with distal large bowel obstruction. - CT scan dilated stomach with gas and small bowel loops with fluid and gas. Metabolic acidosis and respiratory alkalosis - ABG: pCO2: 29 ; HCO3: 19.3 ; pH: 7.37 - Lactic acid: 0.8 (wnl) - Nephrology consult- Dr. Michel Dehydration, hyponatremia and hypochloremia -likely 2/2 to poor PO intake -now resolved -will continue to rehydrate with D5W NS for now -c/w diet as tolerated Chronic pain syndrome and narcotic dependency - Narcotics on hold - Ultram PRN for pain Cachexia BMI 15/ frailty - poor PO intake - Dietary supplements - psych consulted at this time Depression - on remeron - Pysch consult CKD stage IV -acute on chronic renal injury - Cr: - C/W sodium bicarb, Neprhovite, calcitriol -IV fluids with HCO3 supplements -follow up -consider nephrology consulted as needed HTN -chronic -well maintained -BP mildly low, given sepsis will hold BP medications now -resume as needed Anemia -chronic -stable at this time Lung and Cervical CA -chronic -not any any treatment currently -follow up out patient Obstructive uropathy due to cervical cancer - s/p ureteral stent placement and bilateral nephrostomy tubes - last changed 06/19/18 DVT prolx -Heparin SC
[2018-08-01] MEDS: Linezolid 600 mg in D5W 300 ml 600 MG/300 ML BAG IVPB SCH (21:16)
--- NOTE | 2018-08-01 22:01 | CP.PCM.CON ---
History of Present Illness - History of Present Illness History of Present Illness: renal consult note 63 YO Female with PMHx of Lung CA, Hx of Cervical CA, Obstructive Uropathy sec to Cervical CA s/p b/l Ureteral Stent Placement, CKD 2 Anemia and HTN presented to [facility] ED for abdominal pain. on admission noted to have sepsis syndrome and uti complete ros is negative meds reviewed social hx non smoker no alcohol fam hx negative for kidney disease labs reviewed vitals reviewed heent normal op moist s1s2 present no resp distress abd soft lower abdomen tender awake, oriented to self and place. no fnd cooperative, thinly built NPO acidosis/obstructive uropathy with b/l ureteral stents/cervical cancer/c achexia/lung ca/cervical ca renal function currently stable and WNL monitor UOP acidosis improving with fluid resuscitation agree with iv fluids as appears clinically dry and NPO as well abx per ID recommend dosing by weight as very thinly built with BMI <20 Past Patient History - Infectious Disease Hx of Infectious Diseases: None - Tetanus Immunizations Tetanus Immunization: Unknown - Past Medical History & Family History Past Medical History?: Yes - Past Social History Smoking Status: Former Smoker Alcohol: None Drugs: Denies - CARDIAC Hx Hypertension: Yes - PULMONARY Hx Respiratory Disorders: Yes Hx Lung Cancer: Yes Other/Comment: Ca of Cervix with Lung ( L) Metastasis (10 years ago)PREVIOUSLY ON CHEMO/RADIATION THERAPHY - NEUROLOGICAL Hx Neurological Disorder: No - HEENT Hx HEENT Problems: No - RENAL Hx Chronic Kidney Disease: Yes (kidney stones; rt nephrostomy) Hx Kidney Stones: Yes - ENDOCRINE/METABOLIC Hx Endocrine Disorders: No - HEMATOLOGICAL/ONCOLOGICAL Hx Anemia: Yes Hx Human Immunodeficiency Virus (HIV): No - INTEGUMENTARY Hx Dermatological Problems: No - MUSCULOSKELETAL/RHEUMATOLOGICAL Hx Musculoskeletal Disorders: No Hx Falls: No - GASTROINTESTINAL Hx Gastrointestinal Disorders: No - GENITOURINARY/GYNECOLOGICAL Hx Genitourinary Disorders: Yes Hx Cervical Cancer: Yes Hx Urinary Tract Infection: Yes Other/Comment: BLADDER PROBLEMS - PSYCHIATRIC Hx Anxiety: Yes Hx Depression: Yes - SURGICAL HISTORY Hx Surgeries: Yes Hx Pulmonary Surgery: Yes (Left Lobectomy) Hx Tubal Ligation: Yes Other/Comment: nephrostomy rt and left kidneys. 01/19/16 cystoscopy. insertion and removal of lifeport. Feb 2018 replacement of nephrostomy tube. - ANESTHESIA Hx Anesthesia: Yes Hx Anesthesia Reactions: No Hx Malignant Hyperthermia: No Meds Allergies/Adverse Reactions: Allergies Allergy/AdvReac Type Severity Reaction Status Date / Time No Known Allergies Allergy Verified 05/15/18 10:25 - Medications Medications: Current Medications Acetaminophen (Tylenol 325mg Tab) 650 mg PO Q6 PRN PRN Reason: Fever >100.4 F Acetaminophen (Tylenol 325mg Tab) 650 mg PO Q6 PRN PRN Reason: Pain, Mild (1-3) Amlodipine Besylate (Norvasc) 5 mg PO DAILY [facility] Docusate Sodium (Colace) 100 mg PO BID PRN PRN Reason: Constipation Heparin Sodium (Porcine) (Heparin) 5,000 units SC Q12 [facility]; Protocol Last Admin: 08/01/18 21:12 Dose: 5,000 units Home Med (B Complex W-C No.20/Folic Acid [Virt-Caps Softgel]) 1 cap PO DAILY [facility] Last Admin: 08/01/18 09:01 Dose: Not Given Home Med (Dronabinol [Marinol]) 2.5 mg PO DAILY [facility] Last Admin: 08/01/18 09:01 Dose: Not Given Meropenem 500 mg/ Sodium (Chloride) 100 mls @ 100 mls/hr IVPB Q12 [facility]; Protocol Last Admin: 08/01/18 21:15 Dose: 100 mls/hr Fluconazole (Diflucan Iv 200 Mg/100 Ml Ns) 100 mls @ 100 mls/hr IVPB DAILY [facility]; Protocol Last Admin: 08/01/18 09:07 Dose: 100 mls/hr Dextrose/Sodium Chloride (Dextrose 5%/0.9% Ns 1000 Ml) 1,000 mls @ 125 mls/hr IV .Q8H [facility] Stop: 08/02/18 09:26 Last Admin: 08/01/18 17:40 Dose: Not Given Linezolid (Zyvox 600mg/300ml D5w) 600 mg in 300 mls @ 300 mls/hr IVPB Q12 [facility]; Protocol Last Admin: 08/01/18 21:16 Dose: 300 mls/hr Lactobacillus Acidophilus (Bacid Acidophilus) 1 cap PO BID [facility] Last Admin: 08/01/18 17:39 Dose: Not Given Metoprolol Tartrate (Lopressor) 25 mg PO Q12 [facility] Metoprolol Tartrate (Lopressor) 12.5 mg PO Q12 [facility] Last Admin: 07/31/18 11:29 Dose: Not Given Metoprolol Tartrate (Lopressor) 5 mg IVP Q6 [facility] Last Admin: 08/01/18 21:11 Dose: 5 mg Mirtazapine (Remeron) 7.5 mg PO HS [facility] Last Admin: 08/01/18 21:19 Dose: 7.5 mg Pantoprazole Sodium (Protonix Ec Tab) 40 mg PO DAILY [facility] Last Admin: 08/01/18 09:01 Dose: Not Given Sodium Bicarbonate (Sodium Bicarbonate Tab) 650 mg PO Q8 [facility] Last Admin: 08/01/18 17:41 Dose: Not Given Tramadol HCl (Ultram) 50 mg PO Q4 PRN PRN Reason: Pain, moderate (4-7) Last Admin: 07/30/18 22:33 Dose: 50 mg Zolpidem Tartrate (Ambien) 5 mg PO HS PRN PRN Reason: Insomnia Last Admin: 07/29/18 21:50 Dose: 5 mg Results - Vital Signs Recent Vital Signs: Last Vital Signs Temp 97.9 F 08/01/18 20:25 Pulse 105 H 08/01/18 21:11 Resp 18 08/01/18 20:25 BP 120/72 08/01/18 21:11 Pulse Ox 98 08/01/18 20:25 - Labs Result Diagrams: 08/01/18 05:20 08/01/18 05:20 Labs: Laboratory Results - last 24 hr 07/31/18 08/01/18 08/01/18 21:42 05:20 05:20 WBC 13.2 H RBC 3.34 L Hgb 8.7 L Hct 27.6 L MCV 82.7 D MCH 26.0 L MCHC 31.5 L RDW 19.7 H Plt Count 439 H Sodium 136 Potassium 3.4 L Chloride 110 H Carbon Dioxide 20 L Anion Gap 9 L BUN 16 Creatinine 1.1 Est GFR ( Amer) > 60 Est GFR (Non-Af Amer) 50 POC Glucose (mg/dL) 98 Random Glucose 97 Calcium 8.4 Phosphorus 2.4 L Magnesium 1.4 L Total Bilirubin 0.3 AST 36 D ALT 30 Alkaline Phosphatase 58 Total Protein 5.7 L Albumin 2.3 L Globulin 3.4 Albumin/Globulin Ratio 0.7 L 08/01/18 08/01/1808/01/19 05:20 11:15 16:01 WBC RBC Hgb Hct MCV MCH MCHC RDW Plt Count Sodium Potassium Chloride Carbon Dioxide Anion Gap BUN Creatinine Est GFR ( Amer) Est GFR (Non-Af Amer) POC Glucose (mg/dL) 109 103 108 Random Glucose Calcium Phosphorus Magnesium Total Bilirubin AST ALT Alkaline Phosphatase Total Protein Albumin Globulin Albumin/Globulin Ratio 08/01/18 21:11 WBC RBC Hgb Hct MCV MCH MCHC RDW Plt Count Sodium Potassium Chloride Carbon Dioxide Anion Gap BUN Creatinine Est GFR ( Amer) Est GFR (Non-Af Amer) POC Glucose (mg/dL) 106 Random Glucose Calcium Phosphorus Magnesium Total Bilirubin AST ALT Alkaline Phosphatase Total Protein Albumin Globulin Albumin/Globulin Ratio
[2018-08-01] MEDS: Potassium Chl 20 mEq in D5-NS 1,000 ML IV SCH (23:52)
[2018-08-02] MEDS: Dextrose 5%/0.9% NS 1,000 ML IV SCH (00:35)
[2018-08-02] MEDS: Metoprolol 1 mg/ml Inj IVP SCH ×3 (03:09→15:59)
[2018-08-02 06:07] LABS: HEMOGLOBIN 8.9 g/dL (12.0-16.0); MEAN CELL VOLUME 82.6 fl (81.0-99.0); MEAN CORPUSCULAR HEMOGLOBIN 26.9 pg (27.0-31.0); MEAN CORPUSCULAR HGB CONC 32.5 g/dL (33.0-37.0); RBC 3.3 Mil/uL (3.80-5.20); WHITE BLOOD COUNT 13.5 K/uL (4.8-10.8)
[2018-08-02 06:20] LABS: BLOOD UREA NITROGEN 13 mg/dl (7-17); CALCIUM 8.3 mg/dL (8.4-10.2); GFR NON-AFRICAN AMERICAN 56
--- NOTE | 2018-08-02 06:58 | CP.PCM.CON ---
Past Patient History - Infectious Disease Hx of Infectious Diseases: None - Tetanus Immunizations Tetanus Immunization: Unknown - Past Medical History & Family History Past Medical History?: Yes - Past Social History Smoking Status: Former Smoker Alcohol: None Drugs: Denies - CARDIAC Hx Hypertension: Yes - PULMONARY Hx Respiratory Disorders: Yes Hx Lung Cancer: Yes Other/Comment: Ca of Cervix with Lung ( L) Metastasis (10 years ago)PREVIOUSLY ON CHEMO/RADIATION THERAPHY - NEUROLOGICAL Hx Neurological Disorder: No - HEENT Hx HEENT Problems: No - RENAL Hx Chronic Kidney Disease: Yes (kidney stones; rt nephrostomy) Hx Kidney Stones: Yes - ENDOCRINE/METABOLIC Hx Endocrine Disorders: No - HEMATOLOGICAL/ONCOLOGICAL Hx Anemia: Yes Hx Human Immunodeficiency Virus (HIV): No - INTEGUMENTARY Hx Dermatological Problems: No - MUSCULOSKELETAL/RHEUMATOLOGICAL Hx Musculoskeletal Disorders: No Hx Falls: No - GASTROINTESTINAL Hx Gastrointestinal Disorders: No - GENITOURINARY/GYNECOLOGICAL Hx Genitourinary Disorders: Yes Hx Cervical Cancer: Yes Hx Urinary Tract Infection: Yes Other/Comment: BLADDER PROBLEMS - PSYCHIATRIC Hx Anxiety: Yes Hx Depression: Yes - SURGICAL HISTORY Hx Surgeries: Yes Hx Pulmonary Surgery: Yes (Left Lobectomy) Hx Tubal Ligation: Yes Other/Comment: nephrostomy rt and left kidneys. 01/19/16 cystoscopy. insertion and removal of lifeport. Feb 2018 replacement of nephrostomy tube. - ANESTHESIA Hx Anesthesia: Yes Hx Anesthesia Reactions: No Hx Malignant Hyperthermia: No Meds Allergies/Adverse Reactions: Allergies Allergy/AdvReac Type Severity Reaction Status Date / Time No Known Allergies Allergy Verified 05/15/18 10:25 - Medications Medications: Current Medications Acetaminophen (Tylenol 325mg Tab) 650 mg PO Q6 PRN PRN Reason: Fever >100.4 F Acetaminophen (Tylenol 325mg Tab) 650 mg PO Q6 PRN PRN Reason: Pain, Mild (1-3) Amlodipine Besylate (Norvasc) 5 mg PO DAILY [facility] Docusate Sodium (Colace) 100 mg PO BID PRN PRN Reason: Constipation Heparin Sodium (Porcine) (Heparin) 5,000 units SC Q12 [facility]; Protocol Last Admin: 08/01/18 21:12 Dose: 5,000 units Home Med (B Complex W-C No.20/Folic Acid [Virt-Caps Softgel]) 1 cap PO DAILY [facility] Last Admin: 08/01/18 09:01 Dose: Not Given Home Med (Dronabinol [Marinol]) 2.5 mg PO DAILY [facility] Last Admin: 08/01/18 09:01 Dose: Not Given Fluconazole (Diflucan Iv 200 Mg/100 Ml Ns) 100 mls @ 100 mls/hr IVPB DAILY [facility]; Protocol Last Admin: 08/01/18 09:07 Dose: 100 mls/hr Dextrose/Sodium Chloride (Dextrose 5%/0.9% Ns 1000 Ml) 1,000 mls @ 125 mls/hr IV .Q8H [facility] Stop: 08/02/18 09:26 Last Admin: 08/02/18 00:35 Dose: Not Given Linezolid (Zyvox 600mg/300ml D5w) 600 mg in 300 mls @ 300 mls/hr IVPB Q12 [facility]; Protocol Last Admin: 08/01/18 21:16 Dose: 300 mls/hr Lactobacillus Acidophilus (Bacid Acidophilus) 1 cap PO BID [facility] Last Admin: 08/01/18 17:39 Dose: Not Given Metoprolol Tartrate (Lopressor) 25 mg PO Q12 [facility] Metoprolol Tartrate (Lopressor) 12.5 mg PO Q12 [facility] Last Admin: 07/31/18 11:29 Dose: Not Given Metoprolol Tartrate (Lopressor) 5 mg IVP Q6 [facility] Last Admin: 08/02/18 03:09 Dose: Not Given Mirtazapine (Remeron) 7.5 mg PO HS [facility] Last Admin: 08/01/18 21:19 Dose: 7.5 mg Pantoprazole Sodium (Protonix Ec Tab) 40 mg PO DAILY [facility] Last Admin: 08/01/18 09:01 Dose: Not Given Sodium Bicarbonate (Sodium Bicarbonate Tab) 650 mg PO Q8 [facility] Last Admin: 08/02/18 03:09 Dose: Not Given Tramadol HCl (Ultram) 50 mg PO Q4 PRN PRN Reason: Pain, moderate (4-7) Last Admin: 07/30/18 22:33 Dose: 50 mg Zolpidem Tartrate (Ambien) 5 mg PO HS PRN PRN Reason: Insomnia Last Admin: 07/29/18 21:50 Dose: 5 mg Results - Vital Signs Recent Vital Signs: Last Vital Signs Temp 97.6 F 08/02/18 04:24 Pulse 96 H 08/02/18 04:24 Resp 18 08/02/18 04:24 BP 99/64 L 08/02/18 04:24 Pulse Ox 98 08/02/18 04:24 - Labs Result Diagrams: 08/02/18 05:25 08/02/18 05:25 Labs: Laboratory Results - last 24 hr 08/01/18 08/01/18 08/01/18 11:15 16:01 21:11 WBC RBC Hgb Hct MCV MCH MCHC RDW Plt Count Sodium Potassium Chloride Carbon Dioxide Anion Gap BUN Creatinine Est GFR ( Amer) Est GFR (Non-Af Amer) POC Glucose (mg/dL) 103 108 106 Random Glucose Calcium Phosphorus Magnesium 08/02/18 08/02/18 08/02/18 05:25 05:25 05:44 WBC 13.5 H RBC 3.30 L Hgb 8.9 L Hct 27.3 L MCV 82.6 MCH 26.9 L MCHC 32.5 L RDW 20.0 H Plt Count 467 H Sodium 136 Potassium 3.0 L Chloride 109 H Carbon Dioxide 19 L Anion Gap 11 BUN 13 Creatinine 1.0 Est GFR ( Amer) > 60 Est GFR (Non-Af Amer) 56 POC Glucose (mg/dL) 104 Random Glucose 101 Calcium 8.3 L Phosphorus 2.2 L Magnesium 2.0 Assessment & Plan - Assessment and Plan (Free Text) Assessment: Klebsiella sensitive to Zosyn VRE sensitive to Linezolid Continue Linezolid, Switch Merem to Zosyn. Continue for total of 10 days.
[2018-08-02] MEDS ORDERED: Potassium Phosphate 30 MMOLE in Sodium Chloride 0.9% 250 ML IV ONE (07:42)
[2018-08-02] MEDS: DRONABINOL 2.5 MG PO SCH (09:08)
[2018-08-02] MEDS: Pantoprazole 40 mg EC Tab PO SCH (09:09)
[2018-08-02] MEDS: VIRT PO SCH (09:10)
[2018-08-02] MEDS: Piperacillin/Tazobact 3.375 GM in Sodium Chloride 0.9% 100 ML IVPB SCH ×3 (09:12→21:00)
[2018-08-02] MEDS: Linezolid 600 mg in D5W 300 ml 600 MG/300 ML BAG IVPB SCH ×2 (09:13→21:01)
[2018-08-02] MEDS: Fluconazole IV 200mg/100 ml NS 100 ML IVPB SCH (09:17)
[2018-08-02] MEDS: Lactobacillus Acidophilus 500 MU Cap PO SCH ×2 (09:49→16:00)
[2018-08-02] MEDS: Potassium Chl 40 mEq in D5-NS 1,000 ML IV SCH (09:50)
--- NOTE | 2018-08-02 10:49 | CP.PCM.PN ---
<Socorro El - Last Filed: 08/02/18 16:10> Subjective - Date & Time of Evaluation Date of Evaluation: 08/02/18 Time of Evaluation: 08:45 - Subjective Subjective: Patient seen and examined at bedside. Denies any complaints. No acute events overnight. Hemodynamically stable. Objective - Vital Signs/Intake and Output Vital Signs (last 24 hours): Temp Pulse Resp BP Pulse Ox 97.8 F 93 H 18 105/68 99 08/02/18 08:00 08/02/18 08:00 08/02/18 08:00 08/02/18 08:00 08/02/18 08:00 - Medications Medications: Current Medications Acetaminophen (Tylenol 325mg Tab) 650 mg PO Q6 PRN PRN Reason: Fever >100.4 F Acetaminophen (Tylenol 325mg Tab) 650 mg PO Q6 PRN PRN Reason: Pain, Mild (1-3) Amlodipine Besylate (Norvasc) 5 mg PO DAILY [facility] Docusate Sodium (Colace) 100 mg PO BID PRN PRN Reason: Constipation Last Admin: 08/02/18 09:07 Dose: 100 mg Heparin Sodium (Porcine) (Heparin) 5,000 units SC Q12 [facility]; Protocol Last Admin: 08/02/18 09:08 Dose: 5,000 units Home Med (B Complex W-C No.20/Folic Acid [Virt-Caps Softgel]) 1 cap PO DAILY [facility] Last Admin: 08/02/18 09:10 Dose: 1 cap Home Med (Dronabinol [Marinol]) 2.5 mg PO DAILY [facility] Last Admin: 08/02/18 09:08 Dose: 2.5 mg Fluconazole (Diflucan Iv 200 Mg/100 Ml Ns) 100 mls @ 100 mls/hr IVPB DAILY [facility]; Protocol Last Admin: 08/02/18 09:17 Dose: 100 mls/hr Linezolid (Zyvox 600mg/300ml D5w) 600 mg in 300 mls @ 300 mls/hr IVPB Q12 [facility]; Protocol Last Admin: 08/02/18 09:13 Dose: 300 mls/hr Piperacillin Sod/Tazobactam (Sod 3.375 gm/ Sodium Chloride) 100 mls @ 100 mls/hr IVPB Q6 [facility]; Protocol Last Admin: 08/02/18 09:12 Dose: 100 mls/hr Potassium Phosphate 30 mmole/ (Sodium Chloride) 260 mls @ 65 mls/hr IV ONCE ONE Stop: 08/02/18 11:41 Last Admin: 08/02/18 09:50 Dose: 65 mls/hr Potassium Chloride/Dextrose/Sod Cl (D5-Ns1l+40meq Kcl) 1,000 mls @ 100 mls/hr IV .Q10H [facility] Stop: 08/03/18 07:44 Last Admin: 08/02/18 09:50 Dose: 100 mls/hr Lactobacillus Acidophilus (Bacid Acidophilus) 1 cap PO BID [facility] Last Admin: 08/02/18 09:49 Dose: 1 cap Metoprolol Tartrate (Lopressor) 25 mg PO Q12 [facility] Metoprolol Tartrate (Lopressor) 12.5 mg PO Q12 [facility] Last Admin: 07/31/18 11:29 Dose: Not Given Metoprolol Tartrate (Lopressor) 5 mg IVP Q6 [facility] Last Admin: 08/02/18 03:09 Dose: Not Given Mirtazapine (Remeron) 7.5 mg PO HS [facility] Last Admin: 08/01/18 21:19 Dose: 7.5 mg Pantoprazole Sodium (Protonix Ec Tab) 40 mg PO DAILY [facility] Last Admin: 08/02/18 09:09 Dose: 40 mg Sodium Bicarbonate (Sodium Bicarbonate Tab) 650 mg PO Q8 [facility] Last Admin: 08/02/18 09:09 Dose: 650 mg Tramadol HCl (Ultram) 50 mg PO Q4 PRN PRN Reason: Pain, moderate (4-7) Last Admin: 08/02/18 09:49 Dose: 50 mg Zolpidem Tartrate (Ambien) 5 mg PO HS PRN PRN Reason: Insomnia Last Admin: 07/29/18 21:50 Dose: 5 mg - Labs Labs: 08/02/18 05:25 08/02/18 05:25 PT 13.0 Seconds (9.8-13.1) 07/28/18 22:45 INR 1.1 07/28/18 22:45 APTT 29.4 Seconds (25.6-37.1) 07/28/18 22:45 - Constitutional Appears: No Acute Distress, Older Than Stated Age, Cachectic, Chronically Ill - Eye Exam Eye Exam: Normal appearance - ENT Exam ENT Exam: Mucous Membranes Moist - Respiratory Exam Respiratory Exam: Clear to Ausculation Bilateral, NORMAL BREATHING PATTERN. absent: Accessory Muscle Use, Chest Wall Tenderness, Decreased Breath Sounds, Prolonged Expiratory Phase, Rales, Rhonchi, Wheezes, Respiratory Distress, Stridor - Cardiovascular Exam Cardiovascular Exam: +S1, +S2 - GI/Abdominal Exam GI & Abdominal Exam: Soft, Normal Bowel Sounds. absent: Distended, Firm, Guarding, Rigid, Rebound - Extremities Exam Extremities Exam: Normal Capillary Refill, Normal Inspection. absent: Calf Tenderness, Pedal Edema, Tenderness - Neurological Exam Neurological Exam: Alert, Awake, Oriented x3 - Skin Skin Exam: Dry, Intact, Normal Color, Warm Assessment and Plan - Assessment and Plan (Free Text) Assessment: 63 yo Female with history of Lung CA, Hx of Cervical CA s/p radiation therapy, Obstructive Uropathy sec to Cervical CA s/p b/l Ureteral Stent Placement- history of EBSL in the past, CKD, Anemia and HTN is admitted for UTI and sepsis. Currently on day 4 of Meropenem.Urine culture demonstrated Klebsiella pneumonia, gram positive cocci and yeast species sensitive to Rocephin and cefepime. Found to have distended abdomen - CT scan dilated stomach with gas and small bowel loops with fluid and gas was placed NPO and NGT placed. KUB: potential developing ileus pattern with distal large bowel obstruction. Patient was then removed from NGT and tolerated liquid diet. Plan: Sepsis secondary to UTI - tachcardia, leukocytosis w/ shift likely UTI sepsis - WBC trending down 21 K to 13 K - c/w IV fluid (D5 NS) - antibiotic- Meropenem (s/p 5 days) and Diflucan - Bcx- no growth to date - Ucx: Klebsiella peumonia, gram positive cocci and yeast species sensitive to Rocephin and cefepime - ID consulted- Dr. Meyer- change antibiotics - F/U C.diff - Bacid PO UTI -complicated UTI given b/l Ureteral Stents -hx of ESBL UTI in the past -Meropenem (s/p 5 days) - Diflucan - ucx: Klebsiella peumonia, VRE and yeast - Antibiotics: Linezolid, Zosyn and continue for total of 10 days - appreciate consult from ID. -renal dosing given Cr-clearance is 31 mL/min -ID consulted, appreciate recommendations -pain management as needed -Urology - Dr. Mares consulted. Ileus - NPO - NGT with suction- bilious fluid - Check C.Diff - Continue PPI and Zofran - KUB: potential developing ileus pattern with distal large bowel obstruction. - CT scan dilated stomach with gas and small bowel loops with fluid and gas. Metabolic acidosis and respiratory alkalosis - ABG: pCO2: 29 ; HCO3: 19.3 ; pH: 7.37 - Lactic acid: 0.8 (wnl) - Nephrology consult- Dr. Michel Dehydration, hyponatremia and hypochloremia -likely 2/2 to poor PO intake -now resolved -will continue to rehydrate with D5W NS for now -c/w diet as tolerated Chronic pain syndrome and narcotic dependency - Narcotics on hold - Ultram PRN for pain Cachexia BMI 15/ frailty - poor PO intake - Dietary supplements - psych consulted at this time Depression - on remeron - Pysch consult CKD stage IV -acute on chronic renal injury - Cr: - C/W sodium bicarb, Nephrovite, calcitriol -IV fluids with HCO3 supplements -follow up -consider nephrology consulted as needed HTN -chronic -well maintained -BP mildly low, given sepsis will hold BP medications now -resume as needed Anemia -chronic -stable at this time Lung and Cervical CA -chronic -not any any treatment currently -follow up out patient Obstructive uropathy due to cervical cancer - s/p ureteral stent placement and bilateral nephrostomy tubes - last changed 06/19/18 DVT prolx -Heparin SC <Padmini Cardoza - Last Filed: 08/02/18 17:47> Objective - Vital Signs/Intake and Output Vital Signs (last 24 hours): Temp Pulse Resp BP Pulse Ox 98 F 99 H 16 133/65 99 08/02/18 15:54 08/02/18 15:59 08/02/18 15:54 08/02/18 15:59 08/02/18 15:54 Intake and Output: 08/02/18 08/02/18 06:59 18:59 Intake Total 520 Output Total 250 Balance 270 - Medications Medications: Current Medications Acetaminophen (Tylenol 325mg Tab) 650 mg PO Q6 PRN PRN Reason: Fever >100.4 F Acetaminophen (Tylenol 325mg Tab) 650 mg PO Q6 PRN PRN Reason: Pain, Mild (1-3) Amlodipine Besylate (Norvasc) 5 mg PO DAILY [facility] Docusate Sodium (Colace) 100 mg PO BID PRN PRN Reason: Constipation Last Admin: 08/02/18 09:07 Dose: 100 mg Heparin Sodium (Porcine) (Heparin) 5,000 units SC Q12 [facility]; Protocol Last Admin: 08/02/18 09:08 Dose: 5,000 units Home Med (B Complex W-C No.20/Folic Acid [Virt-Caps Softgel]) 1 cap PO DAILY [facility] Last Admin: 08/02/18 09:10 Dose: 1 cap Home Med (Dronabinol [Marinol]) 2.5 mg PO DAILY [facility] Last Admin: 08/02/18 09:08 Dose: 2.5 mg Fluconazole (Diflucan Iv 200 Mg/100 Ml Ns) 100 mls @ 100 mls/hr IVPB DAILY [facility]; Protocol Last Admin: 08/02/18 09:17 Dose: 100 mls/hr Linezolid (Zyvox 600mg/300ml D5w) 600 mg in 300 mls @ 300 mls/hr IVPB Q12 [facility]; Protocol Last Admin: 08/02/18 09:13 Dose: 300 mls/hr Piperacillin Sod/Tazobactam (Sod 3.375 gm/ Sodium Chloride) 100 mls @ 100 mls/hr IVPB Q6 [facility]; Protocol Last Admin: 08/02/18 15:54 Dose: 100 mls/hr Potassium Chloride/Dextrose/Sod Cl (D5-Ns1l+40meq Kcl) 1,000 mls @ 100 mls/hr IV .Q10H [facility] Stop: 08/03/18 07:44 Last Admin: 08/02/18 09:50 Dose: 100 mls/hr Lactobacillus Acidophilus (Bacid Acidophilus) 1 cap PO BID [facility] Last Admin: 08/02/18 16:00 Dose: 1 cap Metoprolol Tartrate (Lopressor) 25 mg PO Q12 [facility] Metoprolol Tartrate (Lopressor) 12.5 mg PO Q12 [facility] Last Admin: 07/31/18 11:29 Dose: Not Given Metoprolol Tartrate (Lopressor) 5 mg IVP Q6 [facility] Last Admin: 08/02/18 15:59 Dose: 5 mg Mirtazapine (Remeron) 7.5 mg PO HS [facility] Last Admin: 08/01/18 21:19 Dose: 7.5 mg Pantoprazole Sodium (Protonix Ec Tab) 40 mg PO DAILY [facility] Last Admin: 08/02/18 09:09 Dose: 40 mg Sodium Bicarbonate (Sodium Bicarbonate Tab) 650 mg PO Q8 [facility] Last Admin: 08/02/18 16:00 Dose: 650 mg Tramadol HCl (Ultram) 50 mg PO Q4 PRN PRN Reason: Pain, moderate (4-7) Last Admin: 08/02/18 15:57 Dose: 50 mg Zolpidem Tartrate (Ambien) 5 mg PO HS PRN PRN Reason: Insomnia Last Admin: 07/29/18 21:50 Dose: 5 mg - Labs Labs: 08/02/18 05:25 08/02/18 05:25 PT 13.0 Seconds (9.8-13.1) 07/28/18 22:45 INR 1.1 07/28/18 22:45 APTT 29.4 Seconds (25.6-37.1) 07/28/18 22:45 Attending/Attestation - Attestation I have personally seen and examined this patient.: Yes I have fully participated in the care of the patient.: Yes I have reviewed all pertinent clinical information, including history, physical exam and plan: Yes Notes (Text): 1.Sepsis secondary to UTI urine cultures reported Klebsiella Pneumonia, VRE and yeast IV Meropenem changed to Zosyn, cont IV Zyvox and Diflucan ID consulted -rec 10 days total Plan to d/c pt to TCU for IV abx tx 2. Ileus, improving NGT out accidentally Pt had bowel movement this am rpt Abd Xray start Clear Liquid diet 3.Metabolic acidosis with respiratory alkalosis cont Bicarb tabs and IVF hydration Nephro on case 4.Chronic pain syndrome and narcotic dependency Avoid narcotics 5.Cachexia BMI 15 / frailty poor PO intake dietary consult , dietary supplements Psych consulted 6.Depression on Remeron psych consulted 7.Anemia of chronic disease stable 8.JENNY improved , Cr 1.0 Continue IVF 9.History of Cervical Cancer with left lung metastasis s/p left lobectomy 2005 , s/p Chemo and radiation ( PET scan of 2013 showed no metastasis) 10.Obstructive uropathy due to cervical cancer s/p ureteral stent placement and bilateral nephrostomy tubes ( Nerphrostomy tubes to be changed Q3 months by IR . Last changed 06/19/18) good urine output from nephrostomy tubes Urology consulted 11. HTN/Episode of SVT resume Metoprolol PO low dose
--- NOTE | 2018-08-02 11:46 | RAD ---
Date of service: 08/02/2018 HISTORY: ileus COMPARISON: 07/31/2018. Single-view abdomen TECHNIQUE: 1 view obtained. FINDINGS: BOWEL: Normal. No obstruction. No free air. BONES: Incompletely visualized lytic process affecting pubic bones better seen on the prior study. OTHER FINDINGS: Redemonstration of bilateral nephrostomy catheters unchanged. Pelvic calcifications likely residing within the uterus/fibroids. IMPRESSION: Unremarkable bowel gas pattern. No significant interval change compared to the prior examination(s).
--- NOTE | 2018-08-02 11:56 | PCM.PCON ---
History of Present Illness - History of Present Illness History of Present Illness: Palliative Care consult requested by Lizett Cortes KAREN Sharp is a 63 year old who came to ED on 07/28 with complaints of abdominal pain and a decreased appetite. Family says that she did not eaten much since Tuesday. She was taken percocet and tramadol at home with no relief. Patient is known to me from the prior admission with similar complaints. She is currently admitted for sepsis secondary to UTI. PMH:Lung CA (s/p Lobectomy and Chemo in 2003), Cervical CA , Obstructive Uropathy s/p b/l Ureteral Stent Placement, CKD stage III , Anemia, HTN. Soc hx: Quit smoking cigarettes 20 years ago, Denies drinking EtOH or using illicit drugs. Fam hx: Father and mother had HTN 07/[address]-No definitive evidence of PE Review of Systems - Constitutional Additional comments: decrease appetite - Gastrointestinal Gastrointestinal: Constipation - Genitourinary Genitourinary: Dysuria Physical Exam - Constitutional Appears: No Acute Distress, Cachectic, Chronically Ill - Head Exam Head Exam: ATRAUMATIC, NORMAL INSPECTION, NORMOCEPHALIC - Eye Exam Eye Exam: Normal appearance, PERRL - ENT Exam ENT Exam: Mucous Membranes Moist - Respiratory Exam Respiratory Exam: Decreased Breath Sounds, NORMAL BREATHING PATTERN - Cardiovascular Exam Cardiovascular Exam: REGULAR RHYTHM - GI/Abdominal Exam GI & Abdominal Exam: Tenderness - Extremities Exam Extremities exam: Positive for: pedal pulses present - Neurological Exam Neurological exam: Alert, Oriented x3 - Psychiatric Exam Psychiatric exam: Depressed - Skin Skin Exam: Dry, Pallor, Warm Palliative Care Assessment - Modified MRC Dyspnea Scale Modified MRC Dyspnea Scale: Not troubled by breathlessness except on strenous exercise Grade: 1 - Pain Scale Pain Score: 7 - Pain Location Pain Location Body Site: Abdomen - Pain Description Description: Constant Pain Behavior: Moaning, Facial Grimacing Aggravating Factors: ADL's, Changing Position, Exercise/Activity, Sitting Alleviating Factors/Management Techniques: Medication - Chaitanya Scale Sensory Perception: No Impairment Moisture: Occasionally Moist Activity: Bedfast Mobility: Very Limited Nutrition: Probably Inadequate Friction & Shear: Potential Problem Total Score - Skin Risk Assessment: 14 - Psychosocial Distress Patient screened for psychosocial distress: Yes Outcome: Other Palliative Care - Goals Goal(s) of care: Goals of Care: discussed with patient and daughter at the bedside. Patient has POLST in electronic chart that documents her wishes. Patient states that there are no changes. Code Status: DNR/DNI as per patient request and POLST Treatment Goal(s): Alleviate symptoms, Improve ADLs, Improve quality of life End of life care discussed: Yes Assessment & Plan - Assessment and Plan (Free Text) Assessment: DNR/DNI, There is a POLST form in the chart Palliative Performance Scale 30% I reviewed medical records, diagnostic studies, examined and interviewed the patient at the bedside Impression UTI Depression Decreased Mobility Decreased appetite Sacral skin breakdown Suggestion f/u with Psych PT/OT Max assist with ADLs and help reposition q2h Continue Wound care Will continue Goals of Care discussions as needed Palliative Care will remain on board as needed Time spent with patient 50 min
--- NOTE | 2018-08-02 19:38 | CP.PCM.PN ---
Subjective - Date & Time of Evaluation Date of Evaluation: 08/02/18 Time of Evaluation: 11:00 - Subjective Subjective: renal follow up note no events overnight heent normal op moist s1s2 present no resp distress abd soft lower abdomen tender awake, oriented to self and place. no fnd cooperative, thinly built NPO acidosis/obstructive uropathy with b/l ureteral stents/cervical cancer/cachexia/lung ca/cervical ca renal function currently stable and WNL monitor UOP acidosis continue po bicarb as she is able to take oral meds now abx per ID recommend dosing by weight as very thinly built with BMI <20 Objective - Vital Signs/Intake and Output Vital Signs (last 24 hours): Temp Pulse Resp BP Pulse Ox 98 F 99 H 16 133/65 99 08/02/18 15:54 08/02/18 15:59 08/02/18 15:54 08/02/18 15:59 08/02/18 15:54 Intake and Output: 08/02/18 08/03/18 18:59 06:59 Intake Total 2270 Output Total 250 Balance 2019 - Medications Medications: Current Medications Acetaminophen (Tylenol 325mg Tab) 650 mg PO Q6 PRN PRN Reason: Fever >100.4 F Acetaminophen (Tylenol 325mg Tab) 650 mg PO Q6 PRN PRN Reason: Pain, Mild (1-3) Amlodipine Besylate (Norvasc) 5 mg PO DAILY [facility] Docusate Sodium (Colace) 100 mg PO BID PRN PRN Reason: Constipation Last Admin: 08/02/18 09:07 Dose: 100 mg Heparin Sodium (Porcine) (Heparin) 5,000 units SC Q12 [facility]; Protocol Last Admin: 08/02/18 09:08 Dose: 5,000 units Home Med (B Complex W-C No.20/Folic Acid [Virt-Caps Softgel]) 1 cap PO DAILY [facility] Last Admin: 08/02/18 09:10 Dose: 1 cap Home Med (Dronabinol [Marinol]) 2.5 mg PO DAILY [facility] Last Admin: 08/02/18 09:08 Dose: 2.5 mg Fluconazole (Diflucan Iv 200 Mg/100 Ml Ns) 100 mls @ 100 mls/hr IVPB DAILY [facility]; Protocol Last Admin: 08/02/18 09:17 Dose: 100 mls/hr Linezolid (Zyvox 600mg/300ml D5w) 600 mg in 300 mls @ 300 mls/hr IVPB Q12 [facility]; Protocol Last Admin: 08/02/18 09:13 Dose: 300 mls/hr Piperacillin Sod/Tazobactam (Sod 3.375 gm/ Sodium Chloride) 100 mls @ 100 mls/hr IVPB Q6 [facility]; Protocol Last Admin: 08/02/18 15:54 Dose: 100 mls/hr Potassium Chloride/Dextrose/Sod Cl (D5-Ns1l+40meq Kcl) 1,000 mls @ 100 mls/hr IV .Q10H [facility] Stop: 08/03/18 07:44 Last Admin: 08/02/18 09:50 Dose: 100 mls/hr Lactobacillus Acidophilus (Bacid Acidophilus) 1 cap PO BID [facility] Last Admin: 08/02/18 16:00 Dose: 1 cap Metoprolol Tartrate (Lopressor) 12.5 mg PO Q12 [facility] Last Admin: 07/31/18 11:29 Dose: Not Given Mirtazapine (Remeron) 7.5 mg PO HS [facility] Last Admin: 08/01/18 21:19 Dose: 7.5 mg Pantoprazole Sodium (Protonix Ec Tab) 40 mg PO DAILY [facility] Last Admin: 08/02/18 09:09 Dose: 40 mg Sodium Bicarbonate (Sodium Bicarbonate Tab) 650 mg PO Q8 [facility] Last Admin: 08/02/18 16:00 Dose: 650 mg Tramadol HCl (Ultram) 50 mg PO Q4 PRN PRN Reason: Pain, moderate (4-7) Last Admin: 08/02/18 15:57 Dose: 50 mg Zolpidem Tartrate (Ambien) 5 mg PO HS PRN PRN Reason: Insomnia Last Admin: 07/29/18 21:50 Dose: 5 mg - Labs Labs: 08/02/18 05:25 08/02/18 05:25 PT 13.0 Seconds (9.8-13.1) 07/28/18 22:45 INR 1.1 07/28/18 22:45 APTT 29.4 Seconds (25.6-37.1) 07/28/18 22:45
[2018-08-03] MEDS: Potassium Chl 40 mEq in D5-NS 1,000 ML IV SCH ×2 (02:11→05:36)
[2018-08-03] MEDS: Piperacillin/Tazobact 3.375 GM in Sodium Chloride 0.9% 100 ML IVPB SCH ×3 (05:37→16:30)
[2018-08-03 06:34] LABS: HEMOGLOBIN 8.6 g/dL (12.0-16.0); MEAN CELL VOLUME 82.7 fl (81.0-99.0); MEAN CORPUSCULAR HEMOGLOBIN 26.6 pg (27.0-31.0); MEAN CORPUSCULAR HGB CONC 32.2 g/dL (33.0-37.0); RBC 3.25 Mil/uL (3.80-5.20); RED CELL DISTRIBUTION WIDTH 19.9 % (11.5-14.5); WHITE BLOOD COUNT 13.1 K/uL (4.8-10.8)
[2018-08-03 06:35] LABS: CALCIUM 7.8 mg/dL (8.4-10.2)
[2018-08-03] MEDS ORDERED: SODIUM BICARBONATE IV SCH (08:15)
[2018-08-03] MEDS ORDERED: DEXTROSE IV SCH (08:15)
[2018-08-03] MEDS ORDERED: NS IV SCH (08:15)
[2018-08-03] MEDS: VIRT PO SCH (08:53)
[2018-08-03] MEDS: Pantoprazole 40 mg EC Tab PO SCH (08:54)
[2018-08-03] MEDS: Fluconazole IV 200mg/100 ml NS 100 ML IVPB SCH ×2 (09:11→15:00)
[2018-08-03] MEDS: Sodium Bicarbonate 8.4% 50 MEQ in Dextrose 5%/0.9% NS 1,000 ML IV SCH ×2 (09:12→11:14)
[2018-08-03] MEDS: Linezolid 600 mg in D5W 300 ml 600 MG/300 ML BAG IVPB SCH ×2 (09:14→11:15)
--- NOTE | 2018-08-03 09:23 | CP.PCM.PN ---
Subjective - Date & Time of Evaluation Date of Evaluation: 08/03/18 Time of Evaluation: 09:23 - Subjective Subjective: Patient awake and conscious in bed She appears to be chronically ill debilitated lady Vital signs noted to be stable Objective - Vital Signs/Intake and Output Vital Signs (last 24 hours): Temp Pulse Resp BP Pulse Ox 98.2 F 88 18 93/57 L 98 08/03/18 08:20 08/03/18 08:20 08/03/18 08:20 08/03/18 08:56 08/03/18 08:20 - Medications Medications: Current Medications Acetaminophen (Tylenol 325mg Tab) 650 mg PO Q6 PRN PRN Reason: Fever >100.4 F Acetaminophen (Tylenol 325mg Tab) 650 mg PO Q6 PRN PRN Reason: Pain, Mild (1-3) Amlodipine Besylate (Norvasc) 5 mg PO DAILY [facility] Docusate Sodium (Colace) 100 mg PO BID PRN PRN Reason: Constipation Last Admin: 08/02/18 09:07 Dose: 100 mg Heparin Sodium (Porcine) (Heparin) 5,000 units SC Q12 [facility]; Protocol Last Admin: 08/02/18 20:46 Dose: 5,000 units Home Med (B Complex W-C No.20/Folic Acid [Virt-Caps Softgel]) 1 cap PO DAILY [facility] Last Admin: 08/03/18 08:53 Dose: 1 cap Home Med (Dronabinol [Marinol]) 2.5 mg PO DAILY [facility] Last Admin: 08/02/18 09:08 Dose: 2.5 mg Fluconazole (Diflucan Iv 200 Mg/100 Ml Ns) 100 mls @ 100 mls/hr IVPB DAILY [facility]; Protocol Last Admin: 08/03/18 09:11 Dose: Not Given Linezolid (Zyvox 600mg/300ml D5w) 600 mg in 300 mls @ 300 mls/hr IVPB Q12 [facility]; Protocol Last Admin: 08/03/18 09:14 Dose: Not Given Piperacillin Sod/Tazobactam (Sod 3.375 gm/ Sodium Chloride) 100 mls @ 100 mls/hr IVPB Q6 [facility]; Protocol Last Admin: 08/03/18 05:37 Dose: Not Given Sodium Bicarbonate 50 meq/ (Dextrose/Sodium Chloride) 1,050 mls @ 100 mls/hr IV .[id number] [facility] Stop: 08/04/18 08:14 Last Admin: 08/03/18 09:12 Dose: Not Given Lactobacillus Acidophilus (Bacid Acidophilus) 1 cap PO BID [facility] Last Admin: 08/02/18 16:00 Dose: 1 cap Metoprolol Tartrate (Lopressor) 25 mg PO Q12 [facility] Last Admin: 08/03/18 08:56 Dose: Not Given Mirtazapine (Remeron) 7.5 mg PO HS [facility] Last Admin: 08/02/18 21:00 Dose: 7.5 mg Pantoprazole Sodium (Protonix Ec Tab) 40 mg PO DAILY [facility] Last Admin: 08/03/18 08:54 Dose: 40 mg Sodium Bicarbonate (Sodium Bicarbonate Tab) 650 mg PO Q8 [facility] Last Admin: 08/03/18 08:55 Dose: 650 mg Tramadol HCl (Ultram) 50 mg PO Q4 PRN PRN Reason: Pain, moderate (4-7) Last Admin: 08/02/18 15:57 Dose: 50 mg Zolpidem Tartrate (Ambien) 5 mg PO HS PRN PRN Reason: Insomnia Last Admin: 07/29/18 21:50 Dose: 5 mg - Labs Labs: 08/03/18 05:50 08/03/18 05:50 PT 13.0 Seconds (9.8-13.1) 07/28/18 22:45 INR 1.1 07/28/18 22:45 APTT 29.4 Seconds (25.6-37.1) 07/28/18 22:45 - Constitutional Appears: No Acute Distress - Eye Exam Eye Exam: Conjunctival injection - ENT Exam ENT Exam: Mucous Membranes Dry - Respiratory Exam Respiratory Exam: NORMAL BREATHING PATTERN. absent: Chest Wall Tenderness - Cardiovascular Exam Cardiovascular Exam: absent: Gallop, JVD, Rubs - GI/Abdominal Exam GI & Abdominal Exam: Soft, Normal Bowel Sounds - Extremities Exam Extremities Exam: absent: Calf Tenderness - Back Exam Back Exam: absent: CVA tenderness (L), CVA tenderness (R) - Neurological Exam Neurological Exam: Alert - Psychiatric Exam Psychiatric exam: Normal Affect - Skin Skin Exam: absent: Cyanosis Assessment and Plan - Assessment and Plan (Free Text) Assessment: acidosis/obstructive uropathy with b/l ureteral stents/cervical cancer/cachexia/lung ca/cervical ca renal function currently stable monitor UOP acidosis continue po bicarb as she is able to take oral meds now abx per ID recommend dosing by weight as very thinly built with BMI <20 Patient may need gentle hydration because serum creatinine rising slowly suggest to start D5 half-normal saline at 40 cc/h
[2018-08-03] MEDS: Lactobacillus Acidophilus 500 MU Cap PO SCH ×2 (09:36→16:39)
--- NOTE | 2018-08-03 10:14 | RAD ---
Date of service: 08/03/2018 HISTORY: June 24 COMPARISON: 08/02/2018 TECHNIQUE: 1 view obtained. FINDINGS: BOWEL: Most of the tries bowel loops are small bowel in the central abdomen and left upper abdominal quadrant. Their caliber is borderline prominent 2.9/3.0 cm.. A focal developing ileus is a consideration. There is paucity of colonic gas noted. No free air. BONES: Markedly demineralized with ill-defined cortices are appearing since of the left and right superior iliac bones right ischium and left ischium regions. A defined pubic symphysis is not identified. Similar appearance of osseous destruction here is inferred. OTHER FINDINGS: Calcified uterine fibroid projects over central pelvis as before. Bilateral nephrostomy tubes in place similar Inferior lumbar marginal osteophytes. IMPRESSION: Bilateral nephrostomy tubes in place. No gross interval urolithiasis seen. Central pelvic popcorn like calcification-compatible with calcified degenerating uterine fibroid. The focal callus E of the mainly left upper abdominal quadrant small bowel loops and borderline prominent caliber are concerning for a focal ileus-no complete obstruction seen at this time. However a partial or intermittent the left small-bowel obstruction is not excluded. Close continued clinical follow-up advised. Inferior jackson pelvic osseous destruction-metastatic osseous destruction suspect-correlate clinically. Comments: Study marked for PA review .
[2018-08-03] MEDS ORDERED: Lidocaine Hydrochloride 5 ML INJ ONE (10:15)
--- NOTE | 2018-08-03 10:35 | PCM.SURG1 ---
Surgeon's Initial Post Op Note - Surgeon's Notes Surgeon: Ru Moreno MD Spanish Speaking Babysitter: NONE Type of Anesthesia: Local Pre-Operative Diagnosis: Poor venous access Operative Findings: US showed a patent right basilic vein Post-Operative Diagnosis: Poor venous access Operation Performed: Single lumen picc right arm, 35 cm. Specimen/Specimens Removed: NONE Estimated Blood Loss: EBL {In ML}: 2 Blood Products Given: N/A Drains Used: No Drains Post-Op Condition: Fair Date of Surgery/Procedure: 08/03/18 Time of Surgery/Procedure: 10:30
--- NOTE | 2018-08-03 10:55 | PQF ---
PROVIDER RESPONSE TEXT: UTI possibly related to chronic nephrostomy tubes REVIEWER QUERY TEXT: Cause and Effect Relationship Please clarify if the UTI is possibly due to nephrostomy tubes or unrelated to each other. See below Please clarify in documentation the relationship, if any, between the UTI and nephrostomy tubes. Such as: -- Conditions are due to or associated -- Unrelated to each other -- Other, please specify The patient's Clinical Indicators include: PN: Obstructive uropathy due to cervical cancer s/p ureteral stent placement and bilateral nephrostomy tubes ( Nerphrostomy tubes to be changed Q3 months by IR .Last changed 06/19/18) Query created by: Devora Dawn on 08/01/2018 8:50 AM Electronically signed by: Socorro El 08/03/2018 10:52 AM PHIL
--- NOTE | 2018-08-03 11:01 | VASCULAR ---
PROCEDURE: Date of procedure: 08/03/2018 Procedure: 1. Placement of a right arm PICC with ultrasound and fluoroscopic guidance, CPT 11225 2. PICC tip confirmation with spot radiograph and is in the superior vena cava Medications: 2CC 1 percent lidocaine Total Fluoro time: 23.2 Seconds Radiation: 1.9 MGy EBL: 2 cc HISTORY: Infection requiring long-term IV antibiotics TECHNIQUE: Following informed consent and procedure time-out, the patient was placed supine on the interventional table and the right arm prepped and draped in the usual sterile fashion. Ultrasound showed a patent and compressible right basilic vein. After the skin was anesthetized with lidocaine, the basilic vein was accessed with micro micropuncture technique using ultrasound guidance. A guidewire was then advanced under fluoroscopic guidance into the superior vena cava. An image documenting ultrasound guidance for vascular access was permanently saved. The length of the single-lumen 4 Kinyarwanda PICC was trimmed to 35 centimeters and advanced through a peel-away sheath. The PICC was position with tip of PICC confirm a spot radiograph the superior vena cava. The PICC was secured to the patient's skin. The PICC was flushed. A biopatch and sterile dressing was applied. IMPRESSION: Placement of a single-lumen 4 Kinyarwanda PICC trimmed to 35 centimeters via right basilic vein. The tip of the PICC is confirmed with spot radiograph and is in the superior vena cava.
[2018-08-03] MEDS: DRONABINOL 2.5 MG PO SCH (11:13)
--- NOTE | 2018-08-03 11:59 | CP.PCM.PN ---
Subjective - Date & Time of Evaluation Date of Evaluation: 08/03/18 Time of Evaluation: 11:15 Objective - Vital Signs/Intake and Output Vital Signs (last 24 hours): Temp Pulse Resp BP Pulse Ox 98.8 F 109 H 18 118/67 98 08/03/18 10:27 08/03/18 10:27 08/03/18 10:27 08/03/18 10:27 08/03/18 10:27 - Medications Medications: Current Medications Acetaminophen (Tylenol 325mg Tab) 650 mg PO Q6 PRN PRN Reason: Fever >100.4 F Acetaminophen (Tylenol 325mg Tab) 650 mg PO Q6 PRN PRN Reason: Pain, Mild (1-3) Amlodipine Besylate (Norvasc) 5 mg PO DAILY [facility] Docusate Sodium (Colace) 100 mg PO BID PRN PRN Reason: Constipation Last Admin: 08/02/18 09:07 Dose: 100 mg Heparin Sodium (Porcine) (Heparin) 5,000 units SC Q12 [facility]; Protocol Last Admin: 08/03/18 09:27 Dose: 5,000 units Home Med (B Complex W-C No.20/Folic Acid [Virt-Caps Softgel]) 1 cap PO DAILY [facility] Last Admin: 08/03/18 08:53 Dose: 1 cap Home Med (Dronabinol [Marinol]) 2.5 mg PO DAILY [facility] Last Admin: 08/03/18 11:13 Dose: 2.5 mg Fluconazole (Diflucan Iv 200 Mg/100 Ml Ns) 100 mls @ 100 mls/hr IVPB DAILY [facility]; Protocol Last Admin: 08/03/18 09:11 Dose: Not Given Linezolid (Zyvox 600mg/300ml D5w) 600 mg in 300 mls @ 300 mls/hr IVPB Q12 [facility]; Protocol Last Admin: 08/03/18 11:15 Dose: 300 mls/hr Piperacillin Sod/Tazobactam (Sod 3.375 gm/ Sodium Chloride) 100 mls @ 100 mls/hr IVPB Q6 [facility]; Protocol Last Admin: 08/03/18 11:12 Dose: 100 mls/hr Sodium Bicarbonate 50 meq/ (Dextrose/Sodium Chloride) 1,050 mls @ 100 mls/hr IV .[id number] [facility] Stop: 08/04/18 08:14 Last Admin: 08/03/18 11:14 Dose: 100 mls/hr Lactobacillus Acidophilus (Bacid Acidophilus) 1 cap PO BID [facility] Last Admin: 08/03/18 09:36 Dose: 1 cap Metoprolol Tartrate (Lopressor) 25 mg PO Q12 [facility] Last Admin: 08/03/18 08:56 Dose: Not Given Mirtazapine (Remeron) 7.5 mg PO HS [facility] Last Admin: 08/02/18 21:00 Dose: 7.5 mg Pantoprazole Sodium (Protonix Ec Tab) 40 mg PO DAILY [facility] Last Admin: 08/03/18 08:54 Dose: 40 mg Sodium Bicarbonate (Sodium Bicarbonate Tab) 650 mg PO Q8 [facility] Last Admin: 08/03/18 08:55 Dose: 650 mg Tramadol HCl (Ultram) 50 mg PO Q4 PRN PRN Reason: Pain, moderate (4-7) Last Admin: 08/02/18 15:57 Dose: 50 mg Zolpidem Tartrate (Ambien) 5 mg PO HS PRN PRN Reason: Insomnia Last Admin: 07/29/18 21:50 Dose: 5 mg - Labs Labs: 08/03/18 05:50 08/03/18 05:50 PT 13.0 Seconds (9.8-13.1) 07/28/18 22:45 INR 1.1 07/28/18 22:45 APTT 29.4 Seconds (25.6-37.1) 07/28/18 22:45
--- NOTE | 2018-08-03 12:05 | CP.PCM.DIS ---
Provider - Provider Date of Admission: 07/29/18 00:11 Attending physician: Kike Tejada Consults: 07/29/18 04:03 Case Management Referral Routine Comment: Physician Instructions: Reason For Exam: Reason for Referral: Discharge Planning 07/29/18 07:00 Infectious Disease Consult Routine Comment: Consulting Provider: Cristoefr Meyer Consulting Physician: Cristofer Meyer Reason for Consult: UTI sepsis with hx of ESBL UTI 07/30/18 15:23 Wound Care [Nursing Referral for Wound Care] Routine Comment: Physician Instructions: Reason For Exam: Skin breakdown around sacrum 07/31/18 07:56 Psychiatry Consult Routine Comment: Consulting Provider: Gualberto Lynn Consulting Physician: Gualberto Lynn Reason for Consult: history of cancer with depression 07/31/18 16:06 Nephrology Consult Routine Comment: Consulting Provider: Jeanette Michel Consulting Physician: Jeanette Michel Reason for Consult: metablic acidosis 08/01/18 10:23 Urology Consult Routine Comment: Consulting Provider: Heather Mares Consulting Physician: Heather Mares Reason for Consult: Nephrostomy tubes in place, admitted for complicated UTI 08/02/18 10:08 Palliative Care Consult Routine Comment: Consulting Provider: Anisa Mendez Physician Instructions: Reason For Exam: hx of cancer, chronic pain, treatment goals Time Spent in preparation of Discharge (in minutes): 30 Diagnosis - Discharge Diagnosis (1) UTI (urinary tract infection) Status: Acute Comment: -tachcardia, lekocytosis w/ shift likely UTI sepsis. - WBC trending down 21 K to 13 K. -c/w IV fluid (D5 NS). -antibiotic- Meropenem (s/p 5 days) to tx the UTI sepsis and Diflucan. - Bcx- no growth to date. - Ucx: Klebsiella peumonia, VRE and yeast species. - Antibiotics: Linezolid, Zosyn and continue for total of 10 days - appreciate consult from ID. - Bacid PO (2) Dehydration Status: Acute Comment: -likely 2/2 to poor PO intake. -now resolved. -will continue to rehydrate with D5W NS for now. -c/w diet as tolerated (3) Metabolic acidosis with respiratory alkalosis Status: Acute (4) Chronic pain syndrome Status: Acute (5) Cachexia Status: Acute (6) Depression Status: Acute Hospital Course - Lab Results Lab Results: Micro Results 07/28/18 23:15 Blood Blood Culture - Final NO GROWTH AFTER 5 DAYS 07/28/18 23:15 Blood Gram Stain - Final TEST NOT PERFORMED 07/28/18 23:45 Blood Blood Culture - Final NO GROWTH AFTER 5 DAYS 07/28/18 23:45 Blood Gram Stain - Final TEST NOT PERFORMED 07/29/18 00:05 Urine,Kidney Urine Culture - Final Klebsiella Pneumoniae Ssp Pneu Vancomycin Resistant E.faecium Yeast Species Most Recent Lab Values WBC 13.1 K/uL (4.8-10.8) H 08/03/18 05:50 RBC 3.25 Mil/uL (3.80-5.20) L 08/03/18 05:50 Hgb 8.6 g/dL (12.0-16.0) L 08/03/18 05:50 Hct 26.9 % (34.0-47.0) L 08/03/18 05:50 MCV 82.7 fl (81.0-99.0) 08/03/18 05:50 MCH 26.6 pg (27.0-31.0) L 08/03/18 05:50 MCHC 32.2 g/dL (33.0-37.0) L 08/03/18 05:50 RDW 19.9 % (11.5-14.5) H 08/03/18 05:50 Plt Count 420 K/uL (130-400) H 08/03/18 05:50 MPV 8.0 fl (7.2-11.7) 07/30/18 04:40 Neut % (Auto) 87.1 % (50.0-75.0) H 07/30/18 04:40 Lymph % (Auto) 5.0 % (20.0-40.0) L 07/30/18 04:40 [place] % (Auto) 7.2 % (0.0-10.0) 07/30/18 04:40 Eos % (Auto) 0.4 % (0.0-4.0) 07/30/18 04:40 Baso % (Auto) 0.3 % (0.0-2.0) 07/30/18 04:40 Neut # (Auto) 12.6 K/uL (1.8-7.0) H 07/30/18 04:40 Lymph # (Auto) 0.7 K/uL (1.0-4.3) L 07/30/18 04:40 [place] # (Auto) 1.0 K/uL (0.0-0.8) H 07/30/18 04:40 Eos # (Auto) 0.1 K/uL (0.0-0.7) 07/30/18 04:40 Baso # (Auto) 0.0 K/uL (0.0-0.2) 07/30/18 04:40 Neutrophils % (Manual) 87 % (42-75) H 07/28/18 22:45 Lymphocytes % (Manual) 7 % (20-50) L 07/28/18 22:45 Monocytes % (Manual) 6 % (0-10) 07/28/18 22:45 Platelet Estimate Increased (NORMAL) H 07/28/18 22:45 Anisocytosis (manual) Slight 07/28/18 22:45 PT 13.0 Seconds (9.8-13.1) 07/28/18 22:45 INR 1.1 07/28/18 22:45 APTT 29.4 Seconds (25.6-37.1) 07/28/18 22:45 pCO2 29 mm/Hg (35-45) L 07/31/18 09:40 pO2 81 mm/Hg (80-100) 07/31/18 09:40 HCO3 19.3 mmol/L (21-28) L 07/31/18 09:40 ABG pH 7.37 (7.35-7.45) 07/31/18 09:40 ABG Total CO2 17.7 mmol/L (22-28) L 07/31/18 09:40 ABG O2 Saturation 96.8 % (95-98) 07/31/18 09:40 ABG Base Excess -7.1 mmol/L (-2.0-3.0) L 07/31/18 09:40 Miguel Test Yes 07/31/18 09:40 ABG Potassium 3.3 mmol/L (3.6-5.2) L 07/31/18 09:40 VBG pH 7.34 (7.32-7.43) 07/28/18 22:40 VBG pCO2 30 mmHg (40-60) L 07/28/18 22:40 VBG HCO3 18.1 mmol/L 07/28/18 22:40 VBG Total CO2 17.1 mmol/L (22-28) L 07/28/18 22:40 VBG O2 Sat (Calc) 91.3 % (40-65) H 07/28/18 22:40 VBG Base Excess -8.3 mmol/L (0.0-2.0) L 07/28/18 22:40 VBG Potassium 4.3 mmol/L (3.6-5.2) 07/28/18 22:40 A-a O2 Difference 82.0 mm/Hg 07/31/18 09:40 Sodium 131.0 mmol/L (132-148) L 07/31/18 09:40 Chloride 108.0 mmol/L (98-107) H 07/31/18 09:40 Glucose 159 mg/dL (65-105) H 07/31/18 09:40 Lactate 0.8 mmol/L (0.7-2.1) 07/31/18 09:40 FiO2 28.0 % 07/31/18 09:40 Sodium 135 mmol/l (132-148) 08/03/18 05:50 Potassium 4.4 MMOL/L (3.6-5.0) 08/03/18 05:50 Chloride 110 mmol/L (98-107) H 08/03/18 05:50 Carbon Dioxide 16 mmol/L (22-30) L 08/03/18 05:50 Anion Gap 13 (10-20) 08/03/18 05:50 BUN 12 mg/dl (7-17) 08/03/18 05:50 Creatinine 1.3 mg/dl (0.7-1.2) H 08/03/18 05:50 Est GFR ( Amer) 50 08/03/18 05:50 Est GFR (Non-Af Amer) 41 08/03/18 05:50 POC Glucose (mg/dL) 85 mg/dL (65-110) 08/03/18 11:11 Random Glucose 81 mg/dL (65-105) 08/03/18 05:50 Serum Osmolality 281 mosm/kg (272-300) 07/29/18 16:50 Lactic Acid 1.4 mmol/L (0.7-2.1) 07/31/18 10:30 Calcium 7.8 mg/dL (8.4-10.2) L 08/03/18 05:50 Phosphorus 2.2 mg/dl (2.5-4.5) L 08/02/18 05:25 Magnesium 2.0 MG/DL (1.6-2.3) 08/02/18 05:25 Total Bilirubin 0.3 mg/dl (0.2-1.3) 08/01/18 05:20 AST 36 U/L (14-36) D 08/01/18 05:20 ALT 30 U/L (9-52) 08/01/18 05:20 Alkaline Phosphatase 58 U/L (38-126) 08/01/18 05:20 Troponin I 0.0170 ng/mL (0.00-0.120) 07/28/18 22:45 Total Protein 5.7 G/DL (6.3-8.2) L 08/01/18 05:20 Albumin 2.3 g/dL (3.5-5.0) L 08/01/18 05:20 Globulin 3.4 gm/dL (2.2-3.9) 08/01/18 05:20 Albumin/Globulin Ratio 0.7 (1.0-2.1) L 08/01/18 05:20 Procalcitonin 1.35 NG/ML (0.19-0.49) H 07/31/18 10:30 Arterial Blood Potassium 3.3 mmol/L (3.6-5.2) L 07/31/18 09:40 Venous Blood Potassium 4.3 mmol/L (3.6-5.2) 07/28/18 22:40 Urine Color Yellow (YELLOW) 07/29/18 00:05 Urine Clarity Cloudy (Clear) 07/29/18 00:05 Urine pH 5.0 (5.0-8.0) 07/29/18 00:05 Ur Specific [place] 1.016 (1.003-1.030) 07/29/18 00:05 Urine Protein 30 mg/dL (NEGATIVE) 07/29/18 00:05 Urine Glucose (UA) Neg mg/dL (NEGATIVE) 07/29/18 00:05 Urine Ketones Trace mg/dL (NEGATIVE) 07/29/18 00:05 Urine Blood Moderate (NEGATIVE) 07/29/18 00:05 Urine Nitrate Negative (NEGATIVE) 07/29/18 00:05 Urine Bilirubin Negative (NEGATIVE) 07/29/18 00:05 Urine Urobilinogen 0.2-1.0 mg/dL (0.2-1.0) 07/29/18 00:05 Ur Leukocyte Esterase Large Milind/uL (Negative) 07/29/18 00:05 Urine RBC (Auto) 32 /hpf (0-3) H 07/29/18 00:05 Urine WBC Clumps (Auto) Few /hpf (NONE) H 07/29/18 00:05 Urine Microscopic WBC 486 /hpf (0-5) H 07/29/18 00:05 Ur Squamous Epith Cells < 1 /hpf (0-5) 07/29/18 00:05 Urine Bacteria Few (<OCC) H 07/29/18 00:05 Urine Yeast (Budding) Mod /hpf (NEGATIVE) H 07/29/18 00:05 Urine Osmolality 400 mosm/kg (300-1000) 07/30/18 07:00 Ur Random Sodium 18 meq/L 07/30/18 07:00 Ur Random Potassium 21.9 mmol/L 07/30/18 07:00 C. difficile Tox B Gene Not detected (Not Detected) 07/31/18 12:44 - Hospital Course Hospital Course: 63 yo Female with history of Lung CA, Hx of Cervical CA s/p radiation therapy, Obstructive Uropathy sec to Cervical CA s/p b/l Ureteral Stent Placement- history of EBSL in the past, CKD, Anemia and HTN is admitted for UTI and sepsis. S/P 5 days of Meropenem.Urine culture demonstrated Klebsiella pneumonia, VRE and yeast species - patient's antibiotic regimen was changed to Linezolid, Zosyn and diflucan. Patient to continue these antibiotics for a total of 10 days (8 more days of antibiotic therapy). During hospital stay, patient was found to have distended abdomen - CT scan dilated stomach with gas and small bowel loops with fluid and gas. NPO and NGT placed. KUB: potential developing ileus pattern with distal large bowel obstruction. Patient was then passing gas and had several BM's, watery (c.Diff was negative). NGT was removed. Patient began to tolerate diet. Patient will need more Physical therapy and will be discharged to TCU. Discharge Exam - Head Exam Head Exam: ATRAUMATIC, NORMAL INSPECTION, NORMOCEPHALIC - Eye Exam Eye Exam: Normal appearance - ENT Exam ENT Exam: Mucous Membranes Moist - Respiratory Exam Respiratory Exam: Clear to PA & Lateral, NORMAL BREATHING PATTERN, UNREMARKABLE. absent: Accessory Muscle Use, Chest Wall Tenderness, Decreased Breath Sounds, Prolonged Expiratory Phase, Rales, Rhonchi, Wheezes, Respiratory Distress, Stridor - Cardiovascular Exam Cardiovascular Exam: +S1, +S2 - GI/Abdominal Exam GI & Abdominal Exam: Normal Bowel Sounds, Soft, Unremarkable. absent: Diminished Bowel Sounds, Distended, Firm, Guarding, Rebound, Rigid, Tenderness - Extremities Exam Extremities exam: normal capillary refill, normal inspection, pedal pulses present - Back Exam Additional comments: Bilateral nephrostomy tubes noted. No puss in drains. - Neurological Exam Neurological exam: Alert, Oriented x3 - Psychiatric Exam Psychiatric exam: Normal Affect, Normal Mood - Skin Skin Exam: Dry, Intact, Normal Color, Warm Discharge Plan - Follow Up Plan Condition: STABLE Disposition: REHAB FACILITY/REHAB UNIT Patient education suggested?: Yes Instructions: Urinary Tract Infection in Women (DC), Urinary Tract Infection in Men (DC), Dysuria (GEN)
[2018-08-03 16:38] VITALS: BP 107/69; PULSE 105; RESP 18; TEMP 97.4; O2SAT 99
== END 2018-08-03 17:15 | DRG 872 ==
LOC: H.ER 20:48 → H.ERHOLD 07-29 00:11 → H.TEL 07-29 01:35
PROVIDERS: ADMIT Internal Medicine; ATTEND Internal Medicine
PROC: 02HV33Z Insertion of Infusion Device into Superior Vena Cava, Percutaneous Approach (ICD-10-PCS; principal; 2018-08-03)
DX: A41.9 Sepsis, unspecified organism (principal); N39.0 Urinary tract infection, site not specified; Z68.1 Body mass index [BMI] 19.9 or less, adult; R64 Cachexia; N17.9 Acute kidney failure, unspecified; F11.20 Opioid dependence, uncomplicated; E87.1 Hypo-osmolality and hyponatremia; I47.1 Supraventricular tachycardia; N18.4 Chronic kidney disease, stage 4 (severe); K56.7 Ileus, unspecified; E87.3 Alkalosis; I12.9 Hypertensive chronic kidney disease with stage 1 through stage 4 chronic kidney disease, or unspecified chronic kidney disease; D63.8 Anemia in other chronic diseases classified elsewhere; Z92.3 Personal history of irradiation; Z87.891 Personal history of nicotine dependence; Z93.6 Other artificial openings of urinary tract status; F32.9 Major depressive disorder, single episode, unspecified; Z74.01 Bed confinement status; E86.0 Dehydration; Z85.41 Personal history of malignant neoplasm of cervix uteri; Z85.118 Personal history of other malignant neoplasm of bronchus and lung; Z92.21 Personal history of antineoplastic chemotherapy; G89.4 Chronic pain syndrome; R54 Age-related physical debility; E87.8 Other disorders of electrolyte and fluid balance, not elsewhere classified; B96.1 Klebsiella pneumoniae [K. pneumoniae] as the cause of diseases classified elsewhere; Z16.21 Resistance to vancomycin